=== PATIENT | female | born 1960 | race Caucasian/White ===

== ENCOUNTER 2018-12-24 10:01 | Emergency (ER) | payer OTHER ==
[2018-12-24] MEDS ORDERED: ALBUTEROL 2.5 MG/3 ML NEB SOL ONE (10:38)
[2018-12-24] MEDS ORDERED: IPRATROPIUM BROM 0.5MG/2.5ML ONE (10:39)
--- NOTE | 2018-12-24 11:45 | ER ---
Nurse's Notes [facility] Name: Omaira Pineda Age: 58 yrs Sex: Female : 1960 Arrival Date: 12/24/2018 Time: 10:04 Bed 19 Private MD: Diagnosis: Chronic obstructive pulmonary disease with (acute) exacerbation Presentation: 12/24 10:05 Presenting complaint: EMS states: called out for asthma attack at the [facility] retirement, pt had em wheezing in deborah. 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 Transition of care: patient was not received from another setting of care. Onset of symptoms was December 24, 2018. Risk Assessment: Do you want to hurt yourself or someone else? Patient reports no desire to harm self or others. Initial Sepsis Screen: Does the patient meet any 2 criteria? RR > 20 per min. No. Patient's initial sepsis screen is negative. Does the patient have a suspected source of infection? Yes: Productive cough/pneumonia. Care prior to arrival: Medication(s) given: Albuterol Neb x 1, Atrovent Neb x 1, Solu-Medrol 125 mg IV IV initiated. 18 GA, in the right antecubital area. 10:05 Method Of Arrival: EMS: [facility] em 10:13 Acuity: ARI 3 ss Historical: - Allergies: 10:09 No Known Allergies; em - PMHx: 10:09 Anxiety; Back pain; Chronic pain; Hypothyroidism; em - PSHx: 10:09 Tubal ligation; left hand; Hysterectomy; em - Immunization history:: Adult Immunizations not up to date. - Social history:: Smoking status: Patient/guardian denies using tobacco. - Ebola Screening: : Patient negative for fever greater than or equal to 101.5 degrees Fahrenheit, and additional compatible Ebola Virus Disease symptoms Patient denies exposure to infectious person Patient denies travel to an Ebola-affected area in the 21 days before illness onset No symptoms or risks identified at this time. Screenin:11 Abuse screen: Denies threats or abuse. Nutritional screening: No deficits noted. em Tuberculosis screening: No symptoms or risk factors identified. Fall Risk None identified. Assessment: 10:09 General: Appears in no apparent distress. comfortable, Behavior is calm, cooperative, em Denies fever. Pain: Denies pain. Neuro: Level of Consciousness is awake, alert, obeys commands, Oriented to person, place, time, situation, Appropriate for age. Cardiovascular: Capillary refill < 3 seconds Patient's skin is warm and dry. Rhythm is regular. Respiratory: Reports cough that is productive, Airway is patent Respiratory effort is even, unlabored, Respiratory pattern is regular, symmetrical, Breath sounds are clear bilaterally. Derm: Skin is intact, is healthy with good turgor, Skin is pink, warm \T\ dry. Musculoskeletal: Capillary refill < 3 seconds, Range of motion: intact in all extremities. 10:15 General: The previous assessment is accurate, call light remains within reach. ss Vital Signs: 10:09 BP 139 / 87; Pulse 68; Resp 24; Temp 98.0(O); Pulse Ox 100% on R/A; Pain 0/10; em 11:43 BP 145 / 78; Pulse 104; Resp 18; Temp 98.1(TE); Pulse Ox 98% on R/A; mh5 ED Course: 10:04 Patient arrived in ED. em 10:05 Sridhar Crawford MD is Attending Physician. gs 10:09 Arm band placed on. em 10:11 Patient has correct armband on for positive identification. Bed in low position. Call em light in reach. Adult w/ patient. [employer] officer at bedside. 10:11 Maintain EMS IV. Dressing intact. Good blood return noted. Site clean \T\ dry. Gauge \T\ em site: 18 G RAC. 10:13 Triage completed. ss 10:23 Gerardo Ramirez LVN is Primary Nurse. em 10:55 X-ray completed. Portable x-ray completed in exam room. Patient tolerated procedure mh1 well. 11:03 Chest Single View XRAY In Process Unspecified. EDMS 11:53 No provider procedures requiring assistance completed. IV discontinued, intact, ss bleeding controlled, No redness/swelling at site. Pressure dressing applied. Administered Medications: 10:43 Drug: Albuterol 2.5 mg Route: Inhalation; em 10:43 Drug: AtroVENT Aerosol 0.5 mg Route: Inhalation; em Outcome: 11:45 Discharge ordered by MD. gs 11:53 Discharged to Law Enforcement ss 11:53 Condition: improved 11:53 Discharge instructions given to patient, Instructed on discharge instructions, follow up and referral plans. medication usage, Demonstrated understanding of instructions, follow-up care, medications, Prescriptions given X 2. 11:55 Patient left the ED. Signatures: Dispatcher [employer] Margi Naik 1 Gerardo Ramirez, LOCKSTITCH BINDER LOCKSTITCH BINDER Chely Bolton, FLAQUITO RN Rashmi Jesus 5 Sridhar Crawford MD MD
--- NOTE | 2018-12-24 11:46 | EDPHYS ---
Physician Documentation [facility] Name: Omaira Pineda Age: 58 yrs Sex: Female : 1960 Arrival Date: 12/24/2018 Time: 10:04 Bed 19 Private MD: ED Physician Sridhar Crawford HPI: 12/24 11:21 This 58 yrs old Female presents to ER via EMS with complaints of Shortness Of gs Breath. 11:21 The patient has shortness of breath at rest. Onset: The symptoms/episode began/occurred gs yesterday. Duration: The symptoms are continuous. The patient's shortness of breath has no apparent modifying factors. Associated signs and symptoms: Pertinent negatives: fever. Severity of symptoms: At their worst the symptoms were moderate in the emergency department the symptoms are unchanged. The patient has experienced similar episodes in the past, chronically. Historical: - Allergies: 10: No Known Allergies; em - PMHx: 10:09 Anxiety; Back pain; Chronic pain; Hypothyroidism; em - PSHx: 10:09 Tubal ligation; left hand; Hysterectomy; em - Immunization history:: Adult Immunizations not up to date. - Social history:: Smoking status: Patient/guardian denies using tobacco. - Ebola Screening: : Patient negative for fever greater than or equal to 101.5 degrees Fahrenheit, and additional compatible Ebola Virus Disease symptoms Patient denies exposure to infectious person Patient denies travel to an Ebola-affected area in the 21 days before illness onset No symptoms or risks identified at this time. ROS: 11:21 All other systems are negative. gs Exam: 11:21 Head/Face: Normocephalic, atraumatic. Eyes: Pupils equal round and reactive to light, gs extra-ocular motions intact. Lids and lashes normal. Conjunctiva and sclera are non-icteric and not injected. Cornea within normal limits. Periorbital areas with no swelling, redness, or edema. ENT: Nares patent. No nasal discharge, no septal abnormalities noted. Tympanic membranes are normal and external auditory canals are clear. Oropharynx with no redness, swelling, or masses, exudates, or evidence of obstruction, uvula midline. Mucous membranes moist. Neck: Trachea midline, no thyromegaly or masses palpated, and no cervical lymphadenopathy. Supple, full range of motion without nuchal rigidity, or vertebral point tenderness. No Meningismus. Chest/axilla: Normal chest wall appearance and motion. Nontender with no deformity. No lesions are appreciated. Cardiovascular: Regular rate and rhythm with a normal S1 and S2. No gallops, murmurs, or rubs. Normal PMI, no JVD. No pulse deficits. Abdomen/GI: Soft, non-tender, with normal bowel sounds. No distension or tympany. No guarding or rebound. No evidence of tenderness throughout. Back: No spinal tenderness. No costovertebral tenderness. Full range of motion. Skin: Warm, dry with normal turgor. Normal color with no rashes, no lesions, and no evidence of cellulitis. MS/ Extremity: Pulses equal, no cyanosis. Neurovascular intact. Full, normal range of motion. Neuro: Awake and alert, GCS 15, oriented to person, place, time, and situation. Cranial nerves II-XII grossly intact. Motor strength 5/5 in all extremities. Sensory grossly intact. Cerebellar exam normal. Normal gait. 11:21 Constitutional: The patient appears alert, awake. 11:37 Respiratory: the patient does not display signs of respiratory distress, Respirations: gs tachypnea, that is mild, Breath sounds: rhonchi, that are mild, are scattered, wheezing: expiratory that is mild, is heard diffusely. Vital Signs: 10:09 BP 139 / 87; Pulse 68; Resp 24; Temp 98.0(O); Pulse Ox 100% on R/A; Pain 0/10; em 11:43 BP 145 / 78; Pulse 104; Resp 18; Temp 98.1(TE); Pulse Ox 98% on R/A; mh5 MDM: 10:29 Patient medically screened. gs 11:37 Differential diagnosis: asthma, Bronchitis Chronic Obstructive Pulmonary Disease. Data gs reviewed: vital signs, nurses notes, radiologic studies. Response to treatment: the patient's symptoms have markedly improved after treatment, and as a result, I will discharge patient. 12/24 10:39 Order name: Chest Single View XRAY gs Administered Medications: 10:43 Drug: Albuterol 2.5 mg Route: Inhalation; em 10:43 Drug: AtroVENT Aerosol 0.5 mg Route: Inhalation; em Disposition: 12/24/18 11:45 Discharged to Home. Impression: Chronic obstructive pulmonary disease with (acute) exacerbation. - Condition is Stable. - Discharge Instructions: Chronic Obstructive Pulmonary Disease. - Prescriptions for Prednisone 20 mg Oral Tablet - take 1 tablet by ORAL route once daily for 5 days; 5 tablet. Albuterol Sulfate 90 mcg/actuation - inhale 1-2 puff by INHALATION route every 4-6 hours; 1 Inhaler. - Medication Reconciliation Form, Thank You Letter, Antibiotic Education, Prescription Opioid Use form. - Follow up: Private Physician; When: 2 - 3 days; Reason: Re-evaluation by your physician. Signatures: Dispatcher [employer] Gerardo Fung LVN LVN em Smirch, Shelby, RN RN ss Sridhar Crawfrod MD MD gs Corrections: (The following items were deleted from the chart) 11:55 11:45 12/24/2018 11:45 Discharged to Home. Impression: Chronic obstructive pulmonary ss disease with (acute) exacerbation. Condition is Stable. Forms are Medication Reconciliation Form, Thank You Letter, Antibiotic Education, Prescription Opioid Use. Follow up: Private Physician; When: 2 - 3 days; Reason: Re-evaluation by your physician. gs
[2018-12-24 12:02] VITALS: BP 145/78; TEMP 98.1; O2SAT 98
--- NOTE | 2018-12-24 12:54 | RAD REPORT ---
EXAM DESCRIPTION: Ashlyn Single View12/24/2018 11:03 am CLINICAL HISTORY: Chest pain COMPARISON: 2016 FINDINGS: The lungs appear clear of acute infiltrate. The heart is normal size. Lungs are hyperaerated Focal bulge along the left hemidiaphragm without significant change could either represent a diaphrag matic hernia or eventration of the diaphragm
== END 2018-12-24 11:55 | disposition home or self-care (01) ==
LOC: ER 10:01
DX: J44.1 Chronic obstructive pulmonary disease with (acute) exacerbation (principal)
CPT/HCPCS: 71045; 99284

== ENCOUNTER 2019-06-08 19:20 | Emergency (ER) | payer OTHER ==
[2019-06-08] MEDS ORDERED: METHYLPREDNISOLONE 125 MG INJ ONE (19:50)
[2019-06-08] MEDS ORDERED: IPRATROPIUM BROM 0.5MG/2.5ML ONE (19:51)
[2019-06-08] MEDS ORDERED: ALBUTEROL 2.5 MG/3 ML NEB SOL ONE (19:52)
[2019-06-08] MEDS ORDERED: Levofloxacin500mg IV 500 MG/100 ML BAG IV ONE (19:52)
[2019-06-08] MEDS ORDERED: NA CHLORIDE 0.9% 1,000 ML ONE (19:52)
[2019-06-08] MEDS ORDERED: predniSONE 20 MG TAB ONE (20:08)
[2019-06-08 20:18] LABS: Absolute Lymphocytes (CBC) 2.2 K/uL (0.7-4.9); Basophils % 1.1 % (0-1.3); Hematocrit 43.6 % (36.0-45.0); Lymphocytes % 25.9 % (15.3-44.8); MPV 8.3 fL (7.6-11.3); RBC Red Blood Cell Count 4.95 M/uL (3.86-4.86)
[2019-06-08 20:22] LABS: Protime INR 0.9
[2019-06-08 20:43] LABS: ALT/SGPT 18 U/L (12-78); AST/SGOT 16 U/L (15-37); Albumin 3.5 g/dL (3.4-5.0); Alkaline Phosphatase 86 U/L (45-117); BUN Blood Urea Nitrogen 13 mg/dL (7-18); Bicarbonate 27 mmol/L (21-32); Bilirubin Direct < 0.1 mg/dL (0-0.2); Bilirubin Total 0.3 mg/dL (0.2-1.0); Glucose Level 97 mg/dL (74-106); NT PRO-BNP 23 pg/mL (<125); Potassium 4.2 mmol/L (3.5-5.1); Protein, Total 7.2 g/dL (6.4-8.2); Sodium Level 138 mmol/L (136-145); Troponin (Emerg Dept Use Only) < 0.02 ng/mL (0.0-0.045)
--- NOTE | 2019-06-08 21:32 | EDPHYS ---
Physician Documentation [facility] Name: Omaira Pineda Age: 58 yrs Sex: Female : 1960 Arrival Date: 06/08/2019 Time: 19:23 Bed 5 Private MD: JAXON Physician David Corcoran HPI: 06/07 19:55 This 58 yrs old Female presents to ER via Wheelchair with complaints of holley Shortness Of Breath. 19:55 The patient has shortness of breath with light activity. Onset: The symptoms/episode holley began/occurred 3 day(s) ago. Duration: The symptoms are continuous, and are steadily getting worse. The patient's shortness of breath has no apparent modifying factors. Associated signs and symptoms: The patient has no apparent associated signs or symptoms. Severity of symptoms: At their worst the symptoms were moderate in the emergency department the symptoms have improved mildly. The patient has experienced similar episodes in the past, multiple times. Historical: - Allergies: 19:41 No Known Allergies; ca1 - Home Meds: 19:41 Prednisone Oral [Active]; Xopenex Inhl [Active]; ca1 - PMHx: 19:41 Anxiety; Back pain; Chronic pain; Hypothyroidism; ca1 - PSHx: 19:41 Tubal ligation; left hand; Hysterectomy; ca1 - Immunization history:: Adult Immunizations up to date, Flu vaccine is not up to date. - Social history:: Smoking status: Patient reports the use of cigarette tobacco products, denies chronic smoking, but will smoke occasionally. ROS: 19:55 Constitutional: Negative for fever, chills, and weight loss, Eyes: Negative for injury, holley pain, redness, and discharge, ENT: Negative for injury, pain, and discharge, Neck: Negative for injury, pain, and swelling, Cardiovascular: Negative for chest pain, palpitations, and edema, Abdomen/GI: Negative for abdominal pain, nausea, vomiting, diarrhea, and constipation, Back: Negative for injury and pain, : Negative for injury, bleeding, discharge, and swelling, MS/Extremity: Negative for injury and deformity, Skin: Negative for injury, rash, and discoloration, Neuro: Negative for headache, weakness, numbness, tingling, and seizure, Psych: Negative for depression, anxiety, suicide ideation, homicidal ideation, and hallucinations, Allergy/Immunology: Negative for hives, rash, and allergies, Endocrine: Negative for neck swelling, polydipsia, polyuria, polyphagia, and marked weight changes, Hematologic/Lymphatic: Negative for swollen nodes, abnormal bleeding, and unusual bruising. 19:55 Respiratory: Positive for cough, shortness of breath, at rest. wheezing, expiratory. Exam: 19:55 Constitutional: This is a well developed, well nourished patient who is awake, alert, holley and in no acute distress. Head/Face: Normocephalic, atraumatic. Eyes: Pupils equal round and reactive to light, extra-ocular motions intact. Lids and lashes normal. Conjunctiva and sclera are non-icteric and not injected. Cornea within normal limits. Periorbital areas with no swelling, redness, or edema. ENT: Nares patent. No nasal discharge, no septal abnormalities noted. Tympanic membranes are normal and external auditory canals are clear. Oropharynx with no redness, swelling, or masses, exudates, or evidence of obstruction, uvula midline. Mucous membranes moist. Neck: Trachea midline, no thyromegaly or masses palpated, and no cervical lymphadenopathy. Supple, full range of motion without nuchal rigidity, or vertebral point tenderness. No Meningismus. Chest/axilla: Normal chest wall appearance and motion. Nontender with no deformity. No lesions are appreciated. Cardiovascular: Regular rate and rhythm with a normal S1 and S2. No gallops, murmurs, or rubs. Normal PMI, no JVD. No pulse deficits. Abdomen/GI: Soft, non-tender, with normal bowel sounds. No distension or tympany. No guarding or rebound. No evidence of tenderness throughout. Back: No spinal tenderness. No costovertebral tenderness. Full range of motion. Female : Normal external genitalia. Skin: Warm, dry with normal turgor. Normal color with no rashes, no lesions, and no evidence of cellulitis. MS/ Extremity: Pulses equal, no cyanosis. Neurovascular intact. Full, normal range of motion. Neuro: Awake and alert, GCS 15, oriented to person, place, time, and situation. Cranial nerves II-XII grossly intact. Motor strength 5/5 in all extremities. Sensory grossly intact. Cerebellar exam normal. Normal gait. Psych: Awake, alert, with orientation to person, place and time. Behavior, mood, and affect are within normal limits. 19:55 Respiratory: mild respiratory distress is noted, Respirations: labored breathing, that is mild, Breath sounds: decreased breath sounds, wheezing: expiratory is scattered. 19:57 Musculoskeletal/extremity: DVT Exam: No signs of deep vein thrombosis. no pain, no holley swelling, no tenderness, negative Homans' sign noted on exam, no appreciated bluish discoloration, no erythema, no increased warmth. Vital Signs: 19:37 BP 131 / 83; Pulse 90; Resp 24 S; Temp 98.3(O); Pulse Ox 99% on R/A; Weight 58.97 kg ca1 (R); Height 5 ft. 4 in. (162.56 cm) (R); 20:00 BP 143 / 78; Pulse 90; Resp 19 S; Pulse Ox 100% on 100% Nebulizer Mask; sg 21:04 BP 127 / 63; Pulse 85; Resp 18; Pulse Ox 98% on R/A; rr5 22:08 BP 121 / 62; Pulse 80; Resp 19; Temp 98.2; Pulse Ox 99% on R/A; rr5 19:37 Body Mass Index 22.31 (58.97 kg, 162.56 cm) ca1 MDM: 19:30 Patient medically screened. [facility] 19:57 Data reviewed: vital signs, nurses notes, lab test result(s), EKG, radiologic studies, [facility] CT scan, plain films. 06/07 19:45 Order name: Basic Metabolic Panel; Complete Time: 20:50 [facility] 06/07 19:45 Order name: CBC with Diff; Complete Time: 20:50 [facility] 06/07 19:45 Order name: LFT's; Complete Time: 20:50 [facility] 06/07 19:45 Order name: Magnesium; Complete Time: 20:50 [facility] 06/07 19:45 Order name: NT PRO-BNP; Complete Time: 20:50 [facility] 06/07 19:45 Order name: PT-INR; Complete Time: 20:50 [facility] 06/07 19:45 Order name: Troponin (emerg Dept Use Only); Complete Time: 20:50 [facility] 06/07 19:45 Order name: XRAY Chest (1 view) [facility] 06/07 19:45 Order name: Blood Culture Adult (2) [facility] 06/07 19:45 Order name: EKG; Complete Time: 19:46 [facility] 06/07 19:45 Order name: Cardiac monitoring; Complete Time: 20:12 [facility] 06/07 19:45 Order name: EKG - Nurse/Tech; Complete Time: 20:12 [facility] 06/07 19:45 Order name: IV Saline Lock; Complete Time: 20:12 [facility] 06/07 19:45 Order name: Labs collected and sent; Complete Time: 20:12 [facility] 06/07 19:45 Order name: O2 Per Protocol; Complete Time: 20:12 [facility] 06/07 19:45 Order name: O2 Sat Monitoring; Complete Time: 20:12 [facility] Administered Medications: 19:47 Drug: Albuterol - atroVENT (3:1) (2.5 mg - 0.5 mg) 3 ml Route: Nebulizer; rr5 20:47 Follow up: Response: No adverse reaction; Marked relief of symptoms rr5 19:55 Drug: SOLU-Medrol 125 mg Route: IVP; Site: right antecubital; rr5 20:55 Follow up: Response: No adverse reaction rr5 20:10 Drug: levofloxacin 500 mg Volume: 100 ml; Route: IVPB; Infused Over: 60 mins; Site: rr5 right antecubital; 21:10 Follow up: Response: No adverse reaction; IV Status: Completed infusion; IV Intake: rr5 100ml 20:10 Drug: predniSONE 40 mg Route: PO; rr5 21:10 Follow up: Response: No adverse reaction rr5 20:11 Drug: NS 0.9% 500 ml Route: IV; Rate: bolus; Site: right antecubital; rr5 20:50 Follow up: Response: No adverse reaction; IV Status: Completed infusion; IV Intake: rr5 500ml 20:50 Drug: NS 0.9% 1000 ml Route: IV; Rate: 125 ml/hr; Site: right antecubital; rr5 22:09 Follow up: Response: No adverse reaction; IV Status: Order to discontinue infusion; IV rr5 Intake: 125ml Disposition: 06/08/19 21:32 Discharged to Home. Impression: Chronic obstructive pulmonary disease with (acute) exacerbation, Dyspnea, Cough, Tobacco abuse counseling, Tobacco use. - Condition is Stable. - Discharge Instructions: Chronic Obstructive Pulmonary Disease, How to Use an Inhaler, Shortness of Breath, Steps to Quit Smoking, Smoking Hazards, Cool Mist Vaporizer, Shortness of Breath, Gkjz-to-Oang, Chronic Obstructive Pulmonary Disease Exacerbation, Chronic Obstructive Pulmonary Disease, [id number], Cough, Adult, [id number], Cough, Adult. - Prescriptions for Levaquin 500 mg Oral Tablet - take 1 tablet by ORAL route once daily for 7 days; 7 tablet. Albuterol Sulfate 2.5 mg /3 mL (0.083 %) Inhalation Solution for Nebulization - inhale 1 unit by NEBULIZATION route every 8 hours As needed; 1 box. Prednisone 20 mg Oral Tablet - take 2 tablet by ORAL route once daily for 5 days; 10 tablet. Albuterol Sulfate 90 mcg/actuation - inhale 1-2 puff by INHALATION route every 4-6 hours; 1 Inhaler. - Medication Reconciliation Form, Thank You Letter, Antibiotic Education, Prescription Opioid Use form. - Follow up: Private Physician; When: 2 - 3 days; Reason: Recheck today's complaints, Continuance of care, Re-evaluation by your physician. Follow up: Chava Ramos MD; When: 2 - 3 days; Reason: Recheck today's complaints, Continuance of care, Re-evaluation by your physician. - Problem is new. - Symptoms have improved. Signatures: Dispatcher [employer] EDMS David Corcoran MD MD cha Roque, Raymond, RN RN rr5 Kayla Tracey RN RN ca1 Corrections: (The following items were deleted from the chart) 22:10 21:32 06/08/2019 21:32 Discharged to Home. Impression: Chronic obstructive pulmonary rr5 disease with (acute) exacerbation; Dyspnea; Cough; Tobacco abuse counseling; Tobacco use. Condition is Stable. Discharge Instructions: Chronic Obstructive Pulmonary Disease, How to Use an Inhaler, Shortness of Breath, Steps to Quit Smoking, Smoking Hazards, Cool Mist Vaporizer, Shortness of Breath, [id number], Chronic Obstructive Pulmonary Disease Exacerbation, Chronic Obstructive Pulmonary Disease, [id number], Cough, Adult, [id number], Cough, Adult. Prescriptions for Levaquin 500 mg Oral Tablet - take 1 tablet by ORAL route once daily for 7 days; 7 tablet, Albuterol Sulfate 2.5 mg /3 mL (0.083 %) Inhalation Solution for Nebulization - inhale 1 unit by NEBULIZATION route every 8 hours As needed; 1 box, Prednisone 20 mg Oral Tablet - take 2 tablet by ORAL route once daily for 5 days; 10 tablet, Albuterol Sulfate 90 mcg/actuation - inhale 1-2 puff by INHALATION route every 4-6 hours; 1 Inhaler. and Forms are Medication Reconciliation Form, Thank You Letter, Antibiotic Education, Prescription Opioid Use. Follow up: Private Physician; When: 2 - 3 days; Reason: Recheck today's complaints, Continuance of care, Re-evaluation by your physician. Follow up: Chava Ramos; When: 2 - 3 days; Reason: Recheck today's complaints, Continuance of care, Re-evaluation by your physician. Problem is new. Symptoms have improved. holley
--- NOTE | 2019-06-08 21:32 | ER ---
Nurse's Notes [facility] Name: Omaira Pineda Age: 58 yrs Sex: Female : 1960 Arrival Date: 06/08/2019 Time: 19:23 Bed 5 Private MD: Diagnosis: Chronic obstructive pulmonary disease with (acute) exacerbation;Dyspnea;Cough;Tobacco abuse counseling;Tobacco use Presentation: 06/07 19:37 Chief complaint: Patient states: "I have COPD, I always cough and I am always short of ca1 breath. But today it has been worse. I'm out of meds especially my inhaler for about 3 days now". Denies fever. Coronavirus screen: Surgical mask placed on patient. Patient moved to private room, placed in contact and droplet isolation with eye protection until further assessment. Patient reports a cough. Patient reports shortness of breath or difficulty breathing. Patient denies measured and/or subjective temperature greater than 100.4F. Patient denies travel on a cruise ship or to a country the [facility] currently lists as an affected area. Patient denies contact with known and/or suspected case of COVID-19. Infection Prevention Nurse has been notified of patient in isolation for probable COVID-19. Ebola Screen: Patient negative for fever greater than or equal to 101.5 degrees Fahrenheit, and additional compatible Ebola Virus Disease symptoms Patient denies exposure to infectious person. Patient denies travel to an Ebola-affected area in the 21 days before illness onset. No symptoms or risks identified at this time. Initial Sepsis Screen: Does the patient meet any 2 criteria? Yes Does the patient have a suspected source of infection? No. Patient's initial sepsis screen is negative. Risk Assessment: Do you want to hurt yourself or someone else? Patient reports no desire to harm self or others. Onset of symptoms was June 08, 2019. 19:37 Method Of Arrival: Wheelchair ca1 19:37 Acuity: ARI 2 ca1 Triage Assessment: 19:41 Respiratory: Reports shortness of breath at rest Respiratory effort is even, labored, ca1 Respiratory pattern is regular, tachypnea Breath sounds with wheezes bilaterally. Onset: The symptoms/episode began/occurred gradually, the patient has mild shortness of breath. Historical: - Allergies: 19:41 No Known Allergies; ca1 - Home Meds: 19:41 Prednisone Oral [Active]; Xopenex Inhl [Active]; ca1 - PMHx: 19:41 Anxiety; Back pain; Chronic pain; Hypothyroidism; ca1 - PSHx: 19:41 Tubal ligation; left hand; Hysterectomy; ca1 - Immunization history:: Adult Immunizations up to date, Flu vaccine is not up to date. - Social history:: Smoking status: Patient reports the use of cigarette tobacco products, denies chronic smoking, but will smoke occasionally. Screenin:52 Abuse screen: Denies threats or abuse. Denies injuries from another. Nutritional rr5 screening: No deficits noted. Tuberculosis screening: No symptoms or risk factors identified. Fall Risk IV access (20 points). Total Ni Fall Scale indicates No Risk (0-24 pts). Assessment: 19:40 General: Appears uncomfortable, mild distress. Behavior is calm, cooperative, rr5 appropriate for age. Pain: Denies pain. Neuro: Level of Consciousness is awake, alert, obeys commands, Oriented to person, place, time, situation. Cardiovascular: Capillary refill < 3 seconds Patient's skin is warm and dry. Rhythm is sinus rhythm. Respiratory: Reports shortness of breath cough that is I have COPD Airway is patent Respiratory effort is even, labored, with nasal flaring, pursed lip, Respiratory pattern is tachypnea. 19:40 GI: No signs and/or symptoms were reported involving the gastrointestinal system. : rr5 No signs and/or symptoms were reported regarding the genitourinary system. EENT: No signs and/or symptoms were reported regarding the EENT system. Derm: Rash noted that is red, on right leg and left leg. Musculoskeletal: Circulation, motion, and sensation intact. Capillary refill < 3 seconds. 19:40 Respiratory: Breath sounds with wheezes. rr5 21:00 Reassessment: Patient appears in no apparent distress at this time. Patient is alert, rr5 oriented x 3, equal unlabored respirations, skin warm/dry/pink. Patient states feeling better. 21:10 Reassessment: Patient appears in no apparent distress at this time. Patient is alert, sg oriented x 3, equal unlabored respirations, skin warm/dry/pink. pt reports she was unable to get the lid off of the urine collection cup prior to urinating. 21:18 Reassessment: pt placed back to monitors at this time. sg 22:07 Reassessment: Patient appears in no apparent distress at this time. Patient is alert, rr5 oriented x 3, equal unlabored respirations, skin warm/dry/pink. ED provider spoke to patient agreed to be discharge and for the follow up. discharge instruction given and explained without complaints made. Patient states feeling better. Vital Signs: 19:37 BP 131 / 83; Pulse 90; Resp 24 S; Temp 98.3(O); Pulse Ox 99% on R/A; Weight 58.97 kg ca1 (R); Height 5 ft. 4 in. (162.56 cm) (R); 20:00 BP 143 / 78; Pulse 90; Resp 19 S; Pulse Ox 100% on 100% Nebulizer Mask; sg 21:04 BP 127 / 63; Pulse 85; Resp 18; Pulse Ox 98% on R/A; rr5 22:08 BP 121 / 62; Pulse 80; Resp 19; Temp 98.2; Pulse Ox 99% on R/A; rr5 19:37 Body Mass Index 22.31 (58.97 kg, 162.56 cm) ca1 ED Course: 19:23 Patient arrived in ED. mr 19:24 David Corcoran MD is Attending Physician. holley 19:31 Lucas Escalante, RN is Primary Nurse. sg 19:39 Triage completed. ca1 19:40 Cheko Amador, RN is Primary Nurse. rr5 19:41 Arm band placed on right wrist. ca1 19:45 Initial lab(s) drawn, by me, by EMS personnel. First set of blood cultures drawn by me. sg Missed attempt(s): 20 gauge in right forearm. Bleeding controlled, band aid applied, catheter tip intact. 19:50 Initial Neb Treatment Given as ordered Patient was instructed and evaluated on rr5 procedure. 19:53 Patient has correct armband on for positive identification. Placed in gown. Bed in low rr5 position. Call light in reach. cardiac monitor technician on. Pulse ox on. NIBP on. 19:53 EKG done, by ED staff, reviewed by David Corcoran MD. rr5 20:00 Second set of blood cultures drawn by me. Inserted saline lock: 22 gauge in right sg antecubital area, using aseptic technique. Blood collected. 20:12 Initial Neb Treatment Given as ordered Patient tolerated procedure well without adverse rr5 effect. 20:19 XRAY Chest (1 view) In Process Unspecified. EDMS 21:32 Chava Ramos MD is Referral Physician. holley 22:08 No provider procedures requiring assistance completed. IV discontinued, intact, rr5 bleeding controlled, No redness/swelling at site. Pressure dressing applied. Administered Medications: 19:47 Drug: Albuterol - atroVENT (3:1) (2.5 mg - 0.5 mg) 3 ml Route: Nebulizer; rr5 20:47 Follow up: Response: No adverse reaction; Marked relief of symptoms rr5 19:55 Drug: SOLU-Medrol 125 mg Route: IVP; Site: right antecubital; rr5 20:55 Follow up: Response: No adverse reaction rr5 20:10 Drug: levofloxacin 500 mg Volume: 100 ml; Route: IVPB; Infused Over: 60 mins; Site: rr5 right antecubital; 21:10 Follow up: Response: No adverse reaction; IV Status: Completed infusion; IV Intake: rr5 100ml 20:10 Drug: predniSONE 40 mg Route: PO; rr5 21:10 Follow up: Response: No adverse reaction rr5 20:11 Drug: NS 0.9% 500 ml Route: IV; Rate: bolus; Site: right antecubital; rr5 20:50 Follow up: Response: No adverse reaction; IV Status: Completed infusion; IV Intake: rr5 500ml 20:50 Drug: NS 0.9% 1000 ml Route: IV; Rate: 125 ml/hr; Site: right antecubital; rr5 22:09 Follow up: Response: No adverse reaction; IV Status: Order to discontinue infusion; IV rr5 Intake: 125ml Intake: 20:50 IV: 500ml; Total: 500ml. rr5 21:10 IV: 100ml; Total: 600ml. rr5 22:09 IV: 125ml; Total: 725ml. rr5 Outcome: 21:32 Discharge ordered by . holley 22:08 Discharged to home ambulatory. rr5 22:08 Condition: stable 22:08 Discharge instructions given to patient, Instructed on discharge instructions, follow up and referral plans. medication usage, Demonstrated understanding of instructions, follow-up care, medications, Prescriptions given X 4. 22:10 Patient left the ED. rr5 Signatures: Dispatcher [employer] EDMS Lucas Escalante RN David Koch MD MD cha Rivera, Mary mr Cheko Amador, RN RN rr5 Kayla Tracey RN RN ca1
--- NOTE | 2019-06-08 22:25 | RAD REPORT ---
EXAM DESCRIPTION: RAD - Chest Single View - 06/08/2019 8:19 pm CLINICAL HISTORY: COPD, shortness of breath COMPARISON: December 24, 2018 TECHNIQUE: AP portable chest image was obtained 06/08/2019 8:19 pm . FINDINGS: No focal mass or consolidation. Chronic interstitial pattern matches comparison. Left grace diaphragm elevation and eventration are stable. Heart and vasculature are normal. No measurable pleur al effusion and no pneumothorax. No acute bony abnormality seen. No acute aortic findings suspected. IMPRESSION: Chronic interstitial lung disease similar to the December 2018 comparison. No acute findings seen.
[2019-06-08 22:35] VITALS: BP 121/62; TEMP 98.2; O2SAT 99
--- NOTE | 2019-06-09 08:09 | EKG ---
Test Date: 2019-06-08 Test Time: 19:53:49 Wedger Machine: DAJA MEASUREMENT RESULTS: Intervals: Rate: 92 NV: 122 QRSD: 70 QT: 364 QTc: 450 [place]: P: 79 NV: 122 QRS: 73 T: 79 INTERPRETIVE STATEMENTS: Normal sinus rhythm Right atrial enlargement Borderline ECG Compared to ECG 06/11/2015 20:11:46 Sinus tachycardia no longer present Electronically Signed On 06-09-19 08:07:51 CDT by Basil Duncan
== END 2019-06-08 22:10 | disposition home or self-care (01) ==
LOC: ER 19:20
DX: J44.1 Chronic obstructive pulmonary disease with (acute) exacerbation (principal); J84.9 Interstitial pulmonary disease, unspecified; F17.210 Nicotine dependence, cigarettes, uncomplicated; E03.9 Hypothyroidism, unspecified; Z79.899 Other long term (current) drug therapy; Z79.52 Long term (current) use of systemic steroids
CPT/HCPCS: 96365; 96361; 93005; 87040 ×2; 85025; 80048; 36415; 83735; 85610; 80076; 84484; 83880; 71045; 94640; 96375; 99285; J7030; J2930; J7512

== ENCOUNTER 2019-07-31 13:36 | Emergency (ER) | payer OTHER ==
--- OUTSIDE RECORDS SUMMARY | 2019-07-31 13:37 | XMS REPORT ---
:[address] [facility] t Address [address] [place] [address] Care Team Providers Name Role Phone Liu COLÓN Attending Clinician Problems This patient has no known problems. Allergies, Adverse Reactions, Alerts This patient has no known allergies or adverse reactions. Medications This patient has no known medications. Procedures This patient has no known procedures. Encounters Start End Encounter Admission Attending Care Care Encounter Source Date/Time Date/Time Type Type Clinicians Facility Department ID 2019-07-20 2019-07-20 Telemedici Liu [facility] [id number] 07:52:59 08:12:59 ne Visit Danilo Mcginnis [id number] Raul [id number] [facility] [phone] [facility] [address] Results This patient has no known results.
--- OUTSIDE RECORDS SUMMARY | 2019-07-31 13:37 | XMS REPORT | Summary of Care ---
:1960 Author Organization [facility] Address [address] [place] [id number] Care Team Providers Name Role Phone Pcp, Does Not Have A Primary Care Provider Reason for Visit Reason Comments Cancellation Encounter Details Date Type Department Care Team Description 07/20/2019 Telemedicine Visit [facility] ADC Danilo Hatfield DO [facility] [address] [place] [address] (Primary Dx) [address] [place] [address] [facility] [address] [place] [id number] Allergies No Known Allergiesdocumented as of this encounter (statuses as of 07/20/2019) Medications Medication Sig Dispensed Refills Start Date End Date Status LORazepam (ATIVAN) Take 1 Tab by 12 Tab 0 06/09/2012 Active 0.5 mg tablet mouth 2 (two) times daily as needed (anxiety). traMADOL (ULTRAM) 50 Take 1 Tab by mouth every 6 (six) hours as needed for Pain (scale 4-6). Terry Mccoy PA-C / Martin Barrientos MD 20 Tab 0 0 05/30/2015 Active mg tablet MATHEW# [id number] DPS# [id number] [place] Lic.# [id number] NPI# [id number] levalbuterol (XOPENEX Inhale 1-2 Puffs 15 g 0 05/30/2015 Active HFA) 45 mcg/actuation every 4 (four) inhaler hours as needed for Wheezing. tiotropium (SPIRIVA Inhale 1 capsule 3 capsule 0 02/12/2017 Active WITH HANDIHALER) 18 daily. mcg inhalation levalbuterol 45 Inhale 1-2 Puffs 15 g 0 02/12/2017 Active mcg/actuation inhaler every 4 (four) hours as needed for Wheezing. sulfamethoxazole-trim Take 1 tablet by 20 tablet 0 04/09/2017 Active ethoprim 400-80 mg mouth every 12 per tablet (twelve) hours. benzonatate 100 mg Take 1 capsule by 14 capsule 0 04/09/2017 Active capsule mouth 3 (three) times daily as needed for Cough. documented as of this encounter (statuses as of 07/20/2019) Active Problems Not on filedocumented as of this encounter (statuses as of 07/20/2019) Social History Tobacco Use Types Packs/Day Years Used Date Never Assessed Sex Assigned at Date Recorded Not on file Job Start Date Occupation Industry Not on file Not on file Not on file Travel History Travel Start Travel End No recent travel history available. documented as of this encounter Last Filed Vital Signs Not on filedocumented in this encounter Progress Notes Danilo Hatfield DO - 07/20/2019 11:20 AM CDTUnable to get a hold of patient. documented in this encounter Plan of Treatment Health Maintenance Due Date Last Done Comments HEPATITIS C (HCV) SCREEN 1960 DTaP,Tdap,and Td Vaccines (1 - 11/27/1971 Tdap) PAP SMEAR 1981 Breast Cancer Screening 2000 (MAMMOGRAM) COLONOSCOPY 2010 Zoster Recombinant Vaccine 2010 (SHINGRIX) (1 of 2) INFLUENZA VACCINE (Season Ended) 2019 PNEUMOCOCCAL 0-64 YEARS COMBINED Aged Out No longer eligible based on SERIES patient's age to complete this topic documented as of this encounter Results Not on filedocumented in this encounter Visit Diagnoses Diagnosis CANCELLATION - Primary documented in this encounter Insurance Payer Benefit Plan / Subscriber ID Effective Dates Phone Addre ss Type Group [employer] MEDICAID OF xxxxxxxxx 2015-Present [phone] [address] Medicaid [place] [id number] [place] [address] [phone] [id number] (Work) documented as of this encounter
[2019-07-31] MEDS ORDERED: LEVALBUTEROL 1.25 MG/3 ML NEB ONE (14:45)
[2019-07-31] MEDS ORDERED: METHYLPREDNISOLONE 125 MG INJ ONE (14:45)
[2019-07-31 14:47] LABS: Absolute Lymphocytes (CBC) 1.6 K/uL (0.7-4.9); Basophils % 0.8 % (0-1.3); Hematocrit 42.3 % (36.0-45.0); Lymphocytes % 22.6 % (15.3-44.8); MPV 8.3 fL (7.6-11.3); RBC Red Blood Cell Count 4.85 M/uL (3.86-4.86)
[2019-07-31 14:48] LABS: Protime INR 0.89
--- NOTE | 2019-07-31 14:49 | RAD REPORT ---
EXAM DESCRIPTION: RAD - Chest Single View - 07/31/2019 2:44 pm CLINICAL HISTORY: DYSPNEA Chest pain. COMPARISON: Chest Single View dated 06/08/2019; Chest Single View dated 12/24/2018; Chest Single View dated 06/12/2015; CHEST PA AND LAT 2 VIEW dated 08/17/2014 FINDINGS: Portable technique limits examination quality. The lungs are grossly clear. The heart is normal in size. No displaced fractures. IMPRESSION: No acute intrathoracic process suspected.
[2019-07-31 15:09] LABS: ALT/SGPT 18 U/L (12-78); AST/SGOT 16 U/L (15-37); Albumin 3.6 g/dL (3.4-5.0); Alkaline Phosphatase 85 U/L (45-117); BUN Blood Urea Nitrogen 8 mg/dL (7-18); Bicarbonate 31 mmol/L (21-32); Bilirubin Direct < 0.1 mg/dL (0-0.2); Bilirubin Total 0.3 mg/dL (0.2-1.0); Glucose Level 116 mg/dL (74-106); NT PRO-BNP 38 pg/mL (<125); Potassium 3.8 mmol/L (3.5-5.1); Protein, Total 7.3 g/dL (6.4-8.2); Sodium Level 136 mmol/L (136-145); Troponin (Emerg Dept Use Only) 0.02 ng/mL (0.0-0.045)
[2019-07-31 15:38] VITALS: TEMP 97.7
[2019-07-31 15:40] VITALS: O2SAT 100
[2019-07-31 15:42] VITALS: BP 144/89
--- NOTE | 2019-08-01 12:53 | EKG ---
Test Date: 2019-07-31 Test Time: 14:46:54 [employer]: SPARKLE MEASUREMENT RESULTS: Intervals: Rate: 87 CO: 124 QRSD: 70 QT: 374 QTc: 450 [place]: P: 75 CO: 124 QRS: 74 T: 77 INTERPRETIVE STATEMENTS: Normal sinus rhythm Normal ECG Compared to ECG 06/08/2019 19:53:49 Atrial abnormality no longer present Electronically Signed On 08-01-19 12:50:36 CDT by Basil Duncan
--- NOTE | 2019-08-06 13:23 | EDPHYS ---
Physician Documentation [facility] Name: Omaira Pineda Age: 58 yrs Sex: Female : 1960 Arrival Date: 07/31/2019 Time: 13:37 Bed 13 Private MD: ED Physician Noah Cisneros HPI: 07/30 14:45 This 58 yrs old Female presents to ER via Ambulatory with complaints of jr8 Shortness Of Breath. 14:45 The patient has shortness of breath at rest. Onset: The symptoms/episode began/occurred jr8 gradually, 5 day(s) ago. Duration: The symptoms are continuous. The patient's shortness of breath is aggravated by light activity, talking, walking. Associated signs and symptoms: Pertinent positives: productive cough. Severity of symptoms: At their worst the symptoms were moderate in the emergency department the symptoms are unchanged. The patient has experienced similar episodes in the past, a few times. The patient has not recently seen a physician. Stated that she is now out of her medications and has not been able to see PCP or material clerk to get refilled. Suppose to have telemedicine call this . Historical: - Allergies: 13:49 No Known Allergies; iw - PMHx: 13:49 Anxiety; Back pain; Chronic pain; Hypothyroidism; iw - PSHx: 13:49 Tubal ligation; left hand; Hysterectomy; iw - Immunization history:: Adult Immunizations not up to date. - Social history:: Smoking status: Patient/guardian denies using tobacco, the patient reports quitting approximately 6 years ago. ROS: 14:45 Eyes: Negative for injury, pain, redness, and discharge, ENT: Negative for injury, jr8 pain, and discharge, Neck: Negative for injury, pain, and swelling, Cardiovascular: Negative for chest pain, palpitations, and edema, Abdomen/GI: Negative for abdominal pain, nausea, vomiting, diarrhea, and constipation, Back: Negative for injury and pain, MS/Extremity: Negative for injury and deformity, Skin: Negative for injury, rash, and discoloration, Neuro: Negative for headache, weakness, numbness, tingling, and seizure. 14:45 Respiratory: Positive for cough, dyspnea on exertion, shortness of breath, wheezing. Exam: 14:45 Eyes: Pupils equal round and reactive to light, extra-ocular motions intact. Lids and jr8 lashes normal. Conjunctiva and sclera are non-icteric and not injected. Cornea within normal limits. Periorbital areas with no swelling, redness, or edema. ENT: Nares patent. No nasal discharge, no septal abnormalities noted. Tympanic membranes are normal and external auditory canals are clear. Oropharynx with no redness, swelling, or masses, exudates, or evidence of obstruction, uvula midline. Mucous membranes moist. Neck: Trachea midline, no thyromegaly or masses palpated, and no cervical lymphadenopathy. Supple, full range of motion without nuchal rigidity, or vertebral point tenderness. No Meningismus. Cardiovascular: Regular rate and rhythm with a normal S1 and S2. No gallops, murmurs, or rubs. Normal PMI, no JVD. No pulse deficits. Abdomen/GI: Soft, non-tender, with normal bowel sounds. No distension or tympany. No guarding or rebound. No evidence of tenderness throughout. Back: No spinal tenderness. No costovertebral tenderness. Full range of motion. Skin: Warm, dry with normal turgor. Normal color with no rashes, no lesions, and no evidence of cellulitis. MS/ Extremity: Pulses equal, no cyanosis. Neurovascular intact. Full, normal range of motion. Neuro: Awake and alert, GCS 15, oriented to person, place, time, and situation. Cranial nerves II-XII grossly intact. Motor strength 5/5 in all extremities. Sensory grossly intact. Cerebellar exam normal. Normal gait. 14:45 Respiratory: the patient does not display signs of respiratory distress, Respirations: tachypnea, Breath sounds: decreased breath sounds, that are mild, are located in both bases, wheezing: expiratory that is mild, is heard diffusely. 14:54 ECG was reviewed by the Attending Physician. [facility] Vital Signs: 13:46 BP 159 / 91; Pulse 103; Resp 20; Temp 97.7; Pulse Ox 97% on R/A; Weight 58.97 kg; iw Height 5 ft. 4 in. (162.56 cm); Pain 5/10; 14:43 BP 142 / 90; Pulse 87; Resp 16; Pulse Ox 100% ; bp 15:29 BP 144 / 89; Pulse 91; Resp 16; Pulse Ox 100% ; bp 13:46 Body Mass Index 22.31 (58.97 kg, 162.56 cm) iw MDM: 13:53 Patient medically screened. 15:14 Data reviewed: vital signs, nurses notes, lab test result(s), EKG, radiologic studies, jr8 plain films. Data interpreted: Pulse oximetry: on room air is 100 %. Interpretation: normal. Counseling: I had a detailed discussion with the patient and/or guardian regarding: the historical points, exam findings, and any diagnostic results supporting the discharge/admit diagnosis, lab results, radiology results, the need for outpatient follow up, a material clerk, to return to the emergency department if symptoms worsen or persist or if there are any questions or concerns that arise at home. Response to treatment: the patient's symptoms have markedly improved after treatment. 07/30 14:20 Order name: Basic Metabolic Panel; Complete Time: 15:07/30 14:20 Order name: CBC with Diff; Complete Time: 14:52 07/30 14:20 Order name: LFT's; Complete Time: 15:07/30 14:20 Order name: Magnesium; Complete Time: 15:07/30 14:20 Order name: NT PRO-BNP; Complete Time: 15:07/30 14:20 Order name: PT-INR; Complete Time: 14:07/30 14:20 Order name: Troponin (emerg Dept Use Only); Complete Time: 15:07/30 14:20 Order name: XRAY Chest (1 view); Complete Time: 14:07/30 14:20 Order name: EKG; Complete Time: 14:22 07/30 14:20 Order name: Cardiac monitoring; Complete Time: 14:07/30 14:20 Order name: EKG - Nurse/Tech; Complete Time: 14:43 07/30 14:20 Order name: IV Saline Lock; Complete Time: :07/30 14:20 Order name: Labs collected and sent; Complete Time: :07/30 14:20 Order name: O2 Per Protocol; Complete Time: 14:07/30 14:20 Order name: O2 Sat Monitoring; Complete Time: : EC:54 Rate is 87 beats/min. Rhythm is regular, Normal Sinus Rhythm. QRS [place] is Normal. PA jr8 interval is normal at 124 msec. QRS interval is normal at 70 msec. QT interval is normal at 450 msec. No Q waves. T waves are Normal. No ST changes noted. Clinical impression: Normal ECG. Interpreted by me. Reviewed by me. Administered Medications: 14:30 Drug: SOLU-Medrol 125 mg Route: IVP; Site: right forearm; bp 15:28 Follow up: Response: No adverse reaction bp 14:30 Drug: Xopenex (3) 1.25 mg Route: Inhalation; bp 15:28 Follow up: Response: No adverse reaction bp Disposition: 15:54 Co-signature as Attending Physician, Noah Cisneros MD. rn Disposition: 07/31/19 15:15 Discharged to Home. Impression: Chronic obstructive pulmonary disease with (acute) exacerbation. - Condition is Stable. - Discharge Instructions: Chronic Obstructive Pulmonary Disease. - Prescriptions for Xopenex HFA 45 mcg/actuation Inhalation HFA aerosol inhaler - inhale 2 puff by INHALATION route every 4 hours; 1 Cartridge. ipratropium bromide 0.02 % Inhalation solution - inhale 2.5 milliliter by INHALATION route every 6-8 hours as needed; 1 box. Xopenex 1.25 mg/3 mL Inhalation Solution for Nebulization - inhale 1 unit by NEBULIZATION route every 8 hours As needed; 1 box. Medrol (Ceferino) 4 mg Oral Tablets, Dose Pack - take 1 tablet by ORAL route as directed - follow package instructions; 1 packet. - Medication Reconciliation Form, Thank You Letter, Antibiotic Education, Prescription Opioid Use form. - Follow up: Private Physician; When: 2 - 3 days; Reason: Recheck today's complaints, Continuance of care, Re-evaluation by your physician. - Problem is new. - Symptoms have improved. Signatures: Dispatcher [employer] Yahaira Whitney RN RN iw Nieto, Roman, MD MD rn Roszak, Josh, PA PA jr8 Chilango Landry RN RN bp Corrections: (The following items were deleted from the chart) 15:31 15:15 07/31/2019 15:15 Discharged to Home. Impression: Chronic obstructive pulmonary bp disease with (acute) exacerbation. Condition is Stable. Forms are Medication Reconciliation Form, Thank You Letter, Antibiotic Education, Prescription Opioid Use. Follow up: Private Physician; When: 2 - 3 days; Reason: Recheck today's complaints, Continuance of care, Re-evaluation by your physician. Problem is new. Symptoms have improved. jr8
--- NOTE | 2019-08-06 13:23 | ER ---
Nurse's Notes [facility] Name: Omaira Pineda Age: 58 yrs Sex: Female : 1960 Arrival Date: 07/31/2019 Time: 13:37 Bed 13 Private MD: Diagnosis: Chronic obstructive pulmonary disease with (acute) exacerbation Presentation: 07/30 13:46 Chief complaint: Patient states: has hx of COPD, has been out of meds for 4-5 days, is iw out of her Xopenex and prednisone , has increasing SOB and cough, has virtual appt on , no fever. Coronavirus screen: Patient reports a cough. Patient reports shortness of breath or difficulty breathing. Patient denies measured and/or subjective temperature greater than 100.4F prior to today's visit. Patient denies travel on a cruise ship or to a country the [facility] currently lists as an affected area. Patient denies contact with known and/or suspected case of COVID-19. Ebola Screen: Patient negative for fever greater than or equal to 101.5 degrees Fahrenheit, and additional compatible Ebola Virus Disease symptoms Patient denies exposure to infectious person. Patient denies travel to an Ebola-affected area in the 21 days before illness onset. No symptoms or risks identified at this time. Initial Sepsis Screen: Does the patient meet any 2 criteria? No. Patient's initial sepsis screen is negative. Does the patient have a suspected source of infection? No. Patient's initial sepsis screen is negative. Risk Assessment: Do you want to hurt yourself or someone else? Patient reports no desire to harm self or others. Onset of symptoms was July 26, 2019. 13:46 Method Of Arrival: Ambulatory iw 13:46 Acuity: ARI 3 iw Triage Assessment: 13:50 General: Appears in no apparent distress. comfortable, Behavior is cooperative, bp appropriate for age, anxious. Pain: Denies pain. EENT: No deficits noted. Neuro: No deficits noted. Cardiovascular: No deficits noted. Respiratory: Reports shortness of breath Onset: The symptoms/episode began/occurred yesterday, the patient has mild shortness of breath. GI: No signs and/or symptoms were reported involving the gastrointestinal system. : No signs and/or symptoms were reported regarding the genitourinary system. Derm: No deficits noted. Musculoskeletal: No deficits noted. Historical: - Allergies: 13:49 No Known Allergies; iw - PMHx: 13:49 Anxiety; Back pain; Chronic pain; Hypothyroidism; iw - PSHx: 13:49 Tubal ligation; left hand; Hysterectomy; iw - Immunization history:: Adult Immunizations not up to date. - Social history:: Smoking status: Patient/guardian denies using tobacco, the patient reports quitting approximately 6 years ago. Screenin:50 Abuse screen: Denies threats or abuse. Denies injuries from another. Nutritional bp screening: No deficits noted. Tuberculosis screening: No symptoms or risk factors identified. Fall Risk None identified. Assessment: 13:50 General: SEE TRIAGE NOTE. Cardiovascular: Rhythm is sinus tachycardia. Respiratory: bp Airway is patent Respiratory effort is even, labored, Breath sounds with wheezes bilaterally. 15:30 Reassessment: PT D/C HOME AMBULATORY, DX WITH COPD EXACERBATION. Respiratory: Airway is bp patent Respiratory effort is even, unlabored. Vital Signs: 13:46 BP 159 / 91; Pulse 103; Resp 20; Temp 97.7; Pulse Ox 97% on R/A; Weight 58.97 kg; iw Height 5 ft. 4 in. (162.56 cm); Pain 5/10; 14:43 BP 142 / 90; Pulse 87; Resp 16; Pulse Ox 100% ; bp 15:29 BP 144 / 89; Pulse 91; Resp 16; Pulse Ox 100% ; bp 13:46 Body Mass Index 22.31 (58.97 kg, 162.56 cm) iw ED Course: 13:37 Patient arrived in ED. as 13:48 Triage completed. iw 13:49 Arm band placed on. iw 13:50 Patient has correct armband on for positive identification. Bed in low position. Call bp light in reach. Side rails up X2. 13:52 Khai Grayson PA is PHCP. jr8 13:52 Noah Cisneros MD is Attending Physician. jr8 14:00 Chilango Landry, FLAQUITO is Primary Nurse. bp 14:30 Inserted saline lock: 20 gauge in right forearm, using aseptic technique. Blood bp collected. 14:46 XRAY Chest (1 view) In Process Unspecified. EDMS 15:30 No provider procedures requiring assistance completed. IV discontinued, intact, bp bleeding controlled, No redness/swelling at site. Pressure dressing applied. Administered Medications: 14:30 Drug: SOLU-Medrol 125 mg Route: IVP; Site: right forearm; bp 15:28 Follow up: Response: No adverse reaction bp 14:30 Drug: Xopenex (3) 1.25 mg Route: Inhalation; bp 15:28 Follow up: Response: No adverse reaction bp Outcome: 15:15 Discharge ordered by MD. rizo 15:30 Discharged to home ambulatory. bp 15:30 Condition: stable 15:30 Discharge instructions given to patient, Instructed on discharge instructions, follow up and referral plans. medication usage, Demonstrated understanding of instructions, follow-up care, medications, Prescriptions given X 4. 15:31 Patient left the ED. bp Signatures: Dispatcher [employer] EDMS Nargis Raymundo Irene, FLAQUITO RN iw Khai Grayson PA PA jr8 Peltier, Brian, RN RN bp
== END 2019-07-31 15:31 | disposition home or self-care (01) ==
LOC: ER 13:36
DX: J44.1 Chronic obstructive pulmonary disease with (acute) exacerbation (principal)
CPT/HCPCS: 93005; 85025; 80048; 36415; 83735; 85610; 80076; 84484; 83880; 71045; 96374; 99285; J2930

== ENCOUNTER 2019-10-18 17:05 | Emergency (ER) | payer OTHER ==
--- OUTSIDE RECORDS SUMMARY | 2019-10-18 17:07 | XMS REPORT | Summary of Care ---
:1960 Author Organization [facility] Address [address] [place] [id number] Care Team Providers Name Role Phone Pcp, Does Not Have A Primary Care Provider Reason for Visit Reason Comments Erroneous encounter-disregard Encounter Details Date Type Department Care Team Description 08/02/2019 Telemedicine Visit [facility] ADC Danilo Hatfield DO [facility] [address] [place] [address] (Primary Dx) [address] [place] [address] , [facility] [address] [place] [id number] [phone] Allergies No Known Allergiesdocumented as of this encounter (statuses as of 08/02/2019) Medications Medication Sig Dispensed Refills Start Date [...] 0 0 05/30/2015 Active mg tablet MATHEW# [id number] DPS# [id number] [place] Lic.# [id number] NPI# [id number] levalbuterol (XOPENEX Inhale 1-2 Puffs 15 g [...] as of this encounter (statuses as of 08/02/2019) Active Problems Not on filedocumented as of this encounter (statuses as of 08/02/2019) Social History Tobacco Use Types Packs/Day Years [...] encounter Progress Notes Danilo Hatfield DO - 08/02/2019 1:40 PM CDTUnable to get a hold of patient. documented in this encounter Plan of Treatment Health Maintenance Due Date Last Done Comments HEPATITIS C (HCV) SCREEN 1960 DTaP,Tdap,and Td Vaccines (1 - 11/27/1971 Tdap) Depression Screening 1972 PAP SMEAR 1981 Breast Cancer Screening 2000 [...] Effective Dates Phone Addre ss Type Group [facility] MEDICAID OF xxxxxxxxx 2015-Present [phone] [address] Medicaid [place] [id number] [place] [phone] [id number] (Work) documented as of this encounter
--- OUTSIDE RECORDS SUMMARY | 2019-10-18 17:07 | XMS REPORT | Continuity of Care Document ---
:[address] [facility] t Address [address] [place] [address] Care Team Providers Name Role Phone Liu COLÓN Attending Clinician Problems This patient has no known problems. Allergies, Adverse Reactions, Alerts This patient has no known allergies or adverse reactions. Medications This patient has no known medications. Procedures This patient has no known procedures. Encounters Start End Encounter Admission Attending Care Care Encounter Source Date/Time Date/Time Type Type Clinicians Facility Department ID 2019-08-02 [facility]08[facility]02 [facility] [id number] 08:08:44 08:28:44 ne Visit Danilo Mcginnis [id number] [place] [id number] Profess[facility] [phone] nal 085 Building 2019-07-20 2019-07-20 [facility] [id number] 07:52:59 08:12:59 ne Visit Danilo Mcginnis [id number] [place] [id number] Profess[facility] [phone] nal 085 [facility] Results This patient has no known results.
[2019-10-18] MEDS ORDERED: METHYLPREDNISOLONE 125 MG INJ ONE (17:55)
[2019-10-18] MEDS ORDERED: ALBUTEROL INHALER 60 PUFF/8 GM IH ONE (17:55)
[2019-10-18] MEDS ORDERED: predniSONE 20 MG TAB ONE (17:56)
--- NOTE | 2019-10-18 18:19 | ER ---
Nurse's Notes [facility] Name: Omaira Pineda Age: 58 yrs Sex: Female : 1960 Arrival Date: 10/18/2019 Time: 17:06 Bed 13 Private MD: Diagnosis: Chronic obstructive pulmonary disease with (acute) exacerbation Presentation: 10/17 17:13 Chief complaint: Patient states: Pt c/o increased SOB. pt has COPD, states she ran out ks of her inhalers and breathing medications. Coronavirus screen: Client denies travel out of the [place] in the last 14 days. At this time, the client does not indicate any symptoms associated with coronavirus-19. The client denies any previous COVID testing. Ebola Screen: Patient negative for fever greater than or equal to 101.5 degrees Fahrenheit, and additional compatible Ebola Virus Disease symptoms Patient denies exposure to infectious person. Patient denies travel to an Ebola-affected area in the 21 days before illness onset. Initial Sepsis Screen: Does the patient meet any 2 criteria? No. Patient's initial sepsis screen is negative. Does the patient have a suspected source of infection? No. Patient's initial sepsis screen is negative. Risk Assessment: Do you want to hurt yourself or someone else? Patient reports no desire to harm self or others. Onset of symptoms was October 16, 2019. 17:13 Method Of Arrival: Ambulatory ks 17:13 Acuity: ARI 3 ks7 Triage Assessment: 17:17 General: Appears distressed, Behavior is cooperative, anxious. Pain: Denies pain. ks7 Respiratory: Reports shortness of breath Onset: The symptoms/episode began/occurred yesterday, the patient has moderate shortness of breath. Historical: - Allergies: 17:17 No Known Allergies; ks7 - Home Meds: 17:17 Prednisone Oral [Active]; Xopenex Inhl [Active]; ks7 - PMHx: 17:17 Anxiety; Back pain; Chronic pain; Hypothyroidism; COPD; ks7 - PSHx: 17:17 None; ks7 - Immunization history:: Adult Immunizations unknown. - Social history:: Smoking status: Patient reports the use of cigarette tobacco products, Patient/guardian denies using tobacco, the patient reports quitting approximately 2 years ago. Screenin:28 Abuse screen: Denies threats or abuse. Denies injuries from another. Nutritional bp screening: No deficits noted. Tuberculosis screening: No symptoms or risk factors identified. 17:30 Fall Risk None identified. bp Assessment: 17:27 General: SEE TRIAGE NOTE. Cardiovascular: Rhythm is sinus tachycardia. Respiratory: bp Airway is patent Respiratory effort is even, unlabored, Breath sounds are coarse bilaterally. 18:36 Reassessment: PT D/C HOME AMBULATORY, DX WITH COPD EXACERBATION. bp Vital Signs: 17:13 BP 177 / 89; Pulse 114; Resp 22; Temp 98.7(O); Pulse Ox 98% on R/A; Weight 61.23 kg; ks7 Height 5 ft. 4 in. (162.56 cm); Pain 0/10; 18:35 BP 167 / 75; Pulse 97; Resp 20; Temp 98.7; Pulse Ox 98% ; bp 17:13 Body Mass Index 23.17 (61.23 kg, 162.56 cm) ks7 ED Course: 17:06 Patient arrived in ED. ag5 17:16 Triage completed. ks7 17:17 Arm band placed on right wrist. ks7 17:27 Chilango Landry, RN is Primary Nurse. bp 17:28 Patient has correct armband on for positive identification. Bed in low position. Call bp light in reach. Side rails up X2. 17:30 David Rodriguez PA is PHCP. cp 17:30 Ralph Saenz MD is Attending Physician. cp 18:12 COVID-19 Sent. ks7 18:12 Inserted saline lock: 20 gauge in left antecubital area, using aseptic technique. ks7 18:37 No provider procedures requiring assistance completed. IV discontinued, intact, bp bleeding controlled, No redness/swelling at site. Pressure dressing applied. Administered Medications: 18:00 Drug: Albuterol HFA Inhaler 2 puffs Route: Inhalation; ks7 18:05 Drug: SOLU-Medrol 80 mg Route: IVP; Site: left antecubital; ks7 18:37 Follow up: Response: Marked relief of symptoms bp Outcome: 18:19 Discharge ordered by . cp 18:37 Discharged to home ambulatory. bp 18:37 Condition: stable 18:37 Discharge instructions given to patient, Instructed on discharge instructions, follow up and referral plans. medication usage, Demonstrated understanding of instructions, follow-up care, medications, Prescriptions given X 2. 18:38 Patient left the ED. bp Addendum: 10/22/2019 12:35 Addendum: COVID-19 Result: Negative result given to RN to notify pt. Contacted by: Darius Hummel RN. Attempted to contact pt regarding negative COVID-19 swab results. Left voice mail. Signatures: Cheyenne Hummel, FLAQUITO RN dm5 David Rodriguez PA PA cp Peltier, Brian RN RN bp Kashmir Espinoza ag5 Alie Fong RN RN ks7
--- NOTE | 2019-10-18 18:19 | EDPHYS ---
Physician Documentation [facility] Name: Omaira Pineda Age: 58 yrs Sex: Female : 1960 Arrival Date: 10/18/2019 Time: 17:06 Bed 13 Private MD: ED Physician Ralph Saenz HPI: 10/17 17:40 This 58 yrs old Female presents to ER via Ambulatory with complaints of cp Breathing Difficulty. 17:40 The patient has shortness of breath with light activity. Onset: The symptoms/episode cp began/occurred gradually. Duration: The symptoms are continuous, and are steadily getting worse. Associated signs and symptoms: Pertinent positives: non-productive cough, Pertinent negatives: chest pain, diaphoresis, fever, hemoptysis, vomiting. Severity of symptoms: in the emergency department the symptoms are unchanged. Patient reports running out of prescribed medications for COPD. Historical: - Allergies: 17:17 No Known Allergies; ks7 - Home Meds: 17:17 Prednisone Oral [Active]; Xopenex Inhl [Active]; ks7 - PMHx: 17:17 Anxiety; Back pain; Chronic pain; Hypothyroidism; COPD; ks7 - PSHx: 17:17 None; ks7 - Immunization history:: Adult Immunizations unknown. - Social history:: Smoking status: Patient reports the use of cigarette tobacco products, Patient/guardian denies using tobacco, the patient reports quitting approximately 2 years ago. ROS: 17:50 Constitutional: Negative for body aches, chills, fever, poor PO intake. cp 17:50 Eyes: Negative for injury, pain, redness, and discharge. cp 17:50 ENT: Negative for ear pain, sore throat, difficulty swallowing, difficulty handling secretions. 17:50 Cardiovascular: Negative for chest pain, edema, palpitations. 17:50 Respiratory: Positive for cough, with no reported sputum, shortness of breath, at rest. Negative for hemoptysis. 17:50 Abdomen/GI: Negative for abdominal pain, nausea, vomiting, and diarrhea. 17:50 Skin: Negative for cellulitis, rash. 17:50 Neuro: Negative for altered mental status, headache, syncope, weakness. 17:50 All other systems are negative. Exam: 17:54 Head/Face: Normocephalic, atraumatic. cp 17:54 Constitutional: The patient appears in no acute distress, alert, non-diaphoretic, non-toxic, well developed, well nourished. 17:54 Eyes: Periorbital structures: appear normal, Conjunctiva: normal, no exudate, no injection, Sclera: no appreciated abnormality, Lids and lashes: appear normal, bilaterally. 17:54 ENT: External ear(s): are unremarkable, Nose: is normal, Mouth: Lips: moist, Oral mucosa: moist, Posterior pharynx: Airway: no evidence of obstruction, patent. 17:54 Neck: ROM/movement: is normal, is supple, no meningismus, no nuchal rigidity. 17:54 Chest/axilla: Inspection: normal. 17:54 Cardiovascular: Rate: tachycardic, Edema: is not appreciated, JVD: is not appreciated. 17:54 Respiratory: the patient does not display signs of respiratory distress, Respirations: labored breathing, that is mild, accessory muscle usage, is absent, intercostal retractions, are absent, Breath sounds: decreased breath sounds, that are mild, diffuse, stridor, is not appreciated, wheezing: is not appreciated. 17:54 Abdomen/GI: Inspection: abdomen appears normal. 17:54 Neuro: Orientation: to person, place \T\ time. Mentation: is normal, Motor: moves all fours, strength is normal. Vital Signs: 17:13 BP 177 / 89; Pulse 114; Resp 22; Temp 98.7(O); Pulse Ox 98% on R/A; Weight 61.23 kg; ks7 Height 5 ft. 4 in. (162.56 cm); Pain 0/10; 18:35 BP 167 / 75; Pulse 97; Resp 20; Temp 98.7; Pulse Ox 98% ; bp 17:13 Body Mass Index 23.17 (61.23 kg, 162.56 cm) ks7 MDM: 17:32 Patient medically screened. cp 17:45 Differential diagnosis: asthma, Bronchitis CHF exacerbation, pneumonia, pulmonary cp edema, Pulmonary Embolism. 18:11 Refusal of service: The patient/guardian displays adequate decision making capability cp and despite a detailed discussion of alternatives, benefits, risks, and consequences refuses: chest xray. 18:18 Data reviewed: vital signs, nurses notes, and as a result, I will discharge patient. cp 18:18 Counseling: I had a detailed discussion with the patient and/or guardian regarding: the cp historical points, exam findings, and any diagnostic results supporting the discharge/admit diagnosis, the need for outpatient follow up, a family practitioner, to return to the emergency department if symptoms worsen or persist or if there are any questions or concerns that arise at home. 10/17 17:41 Order name: COVID-19 cp 10/17 17:41 Order name: Document PUI#; Complete Time: 17:49 cp 10/17 17:41 Order name: Droplet/Contact Precautions; Complete Time: 17:49 cp 10/17 17:41 Order name: Labs collected and sent; Complete Time: 17:49 cp 10/17 17:41 [phone]/ ; Complete Time: 17:49 cp 10/17 17:41 Order name: O2 Per Protocol; Complete Time: 17:42 cp Administered Medications: 18:00 Drug: Albuterol HFA Inhaler 2 puffs Route: Inhalation; ks7 18:05 Drug: SOLU-Medrol 80 mg Route: IVP; Site: left antecubital; ks7 18:37 Follow up: Response: Marked relief of symptoms bp Disposition: 10/18/19 18:19 Discharged to Home. Impression: Chronic obstructive pulmonary disease with (acute) exacerbation. - Condition is Stable. - Prescriptions for Xopenex HFA 45 mcg/actuation Inhalation HFA aerosol inhaler - inhale 2 puff by INHALATION route every 4-6 hours; 1 Inhaler. Prednisone 20 mg Oral Tablet - take 2 tablet by ORAL route once daily for 5 days; 10 tablet. - Medication Reconciliation Form, Thank You Letter, Antibiotic Education, Prescription Opioid Use form. - Follow up: Private Physician; When: 2 - 3 days; Reason: Recheck today's complaints. - Problem is an acute exacerbation. - Symptoms have improved. Addendum: 10/22/2019 08:30 Co-signature as Attending Physician, Ralph Saenz MD I agree with the assessment and k dr plan of care. Signatures: Dispatcher [employer] EDRalph Bowens MD MD kdr Page, Corey, PA PA cp Peltier, Brian, RN RN bp Alie Fong RN RN ks7 Corrections: (The following items were deleted from the chart) 10/17 18:01 17:40 Chest Single View+RAD.RAD.BRZ ordered. [facility] EDMS 18:38 18:19 10/18/2019 18:19 Discharged to Home. Impression: Chronic obstructive pulmonary bp disease with (acute) exacerbation. Condition is Stable. Prescriptions for Xopenex HFA 45 mcg/actuation Inhalation HFA aerosol inhaler - inhale 2 puff by INHALATION route every 4-6 hours; 1 Inhaler, Xopenex 1.25 mg/3 mL Inhalation Solution for Nebulization - inhale 1 unit by NEBULIZATION route every 8 hours As needed; 1 box, Prednisone 20 mg Oral Tablet - take 2 tablet by ORAL route once daily for 5 days; 10 tablet. and Forms are Medication Reconciliation Form, Thank You Letter, Antibiotic Education, Prescription Opioid Use. Follow up: Private Physician; When: 2 - 3 days; Reason: Recheck today's complaints. Problem is an acute exacerbation. Symptoms have improved. cp
[2019-10-18 18:42] VITALS: TEMP 98.7; O2SAT 98
[2019-10-18 18:43] VITALS: BP 167/75
== END 2019-10-18 18:38 | disposition home or self-care (01) ==
LOC: ER 17:05
DX: J44.9 Chronic obstructive pulmonary disease, unspecified (principal); F17.210 Nicotine dependence, cigarettes, uncomplicated; Z11.59 Encounter for screening for other viral diseases
CPT/HCPCS: 96374; 99285; U0002; J2930; J7512

== ENCOUNTER 2021-09-19 21:03 | Inpatient (IN) | payer OTHER ==
[2021-09-19] MEDS ORDERED: LEVALBUTEROL 1.25 MG/3 ML NEB ONE ×2 (21:59→22:00)
[2021-09-19] MEDS ORDERED: NA CHLORIDE 0.9% 500 ML ONE (21:59)
--- NOTE | 2021-09-19 22:05 | RAD REPORT ---
EXAM DESCRIPTION: RAD - Chest Single View - 09/19/2021 9:50 pm CLINICAL HISTORY: COUGH, positive COVID home test COMPARISON: Portable 07/30/2020 TECHNIQUE: AP portable chest image was obtained 09/19/2021 9:50 pm . FINDINGS: Lung volumes are low accentuating baseline interstitial pattern. No dense consolidations s een. There is some patchy interstitial and alveolar opacification lateral right lung base suspicious for early interstitial pneumonia. Left hemidiaphragm elevation again noted. Heart and vasculature are normal. No measurable pleural effusion and no pneumothorax. No acute bony abnormality seen. No acute aortic findings suspected. IMPRESSION: Suspected early interstitial infiltrate right lung base.
[2021-09-19 22:32] LABS: Absolute Lymphocytes (CBC) 0.4 K/uL (0.7-4.9); Hematocrit 38.8 % (36.0-45.0); Lymphocytes % 9.4 % (15.3-44.8); MCV 82.8 fL (80-100); MPV 7.2 fL (7.6-11.3); RBC Red Blood Cell Count 4.68 M/uL (3.86-4.86)
[2021-09-19] MEDS ORDERED: dexAMETHasone 10 MG/ML VIAL ONE (22:32)
[2021-09-19 22:36] LABS: Protime INR 1.04
[2021-09-19 22:55] LABS: ALT/SGPT 24 U/L (12-78); AST/SGOT 27 U/L (15-37); Albumin 3.7 g/dL (3.4-5.0); Alkaline Phosphatase 84 U/L (45-117); BUN Blood Urea Nitrogen 9 mg/dL (7-18); Bicarbonate 28 mmol/L (21-32); Bilirubin Total 0.3 mg/dL (0.2-1.0); Glomerular Filtration Rate 94 ml/min (=/>90); Glucose Level 83 mg/dL (74-106); Magnesium 1.9 mg/dL (1.8-2.4); NT PRO-BNP 99 pg/mL (<125); Protein, Total 7.3 g/dL (6.4-8.2); Sodium Level 126 mmol/L (136-145)
[2021-09-19 23:03] LABS: Bilirubin Direct < 0.1 mg/dL (0-0.2)
[2021-09-19 23:08] LABS: Troponin High Sensitivity 59.9 pg/mL (<58.9)
[2021-09-20 00:02] LABS: Blood Morphology Comment NOT SEEN (NOT SEEN); Platelet Estimate ADEQ
[2021-09-20] MEDS ORDERED: ASPIRIN 81 MG CHEWABLE TABLET ONE (01:16)
[2021-09-20] MEDS ORDERED: MORPHINE 2 MG/ML SYR ONE (01:17)
[2021-09-20] MEDS ORDERED: NA CHLORIDE 0.9% 1,000 ML ONE (01:17)
--- NOTE | 2021-09-20 02:17 | ER ---
Nurse's Notes [facility] Name: Omaira Pineda Age: 60 yrs Sex: Female : 1960 Arrival Date: 09/19/2021 Time: 21:09 Bed 24 Private MD: Diagnosis: Pneumonia due to SARS-associated coronavirus Presentation: 09/19 21:09 Chief complaint: EMS states: headache since yesterday, positive for covid per home ke1 test. Coronavirus screen: Vaccine status: Patient reports receiving the 2nd dose of the covid vaccine. Ebola Screen: No symptoms or risks identified at this time. Initial Sepsis Screen: Does the patient meet any 2 criteria? No. Patient's initial sepsis screen is negative. Does the patient have a suspected source of infection? No. Patient's initial sepsis screen is negative. Risk Assessment: Do you want to hurt yourself or someone else? Patient reports no desire to harm self or others. Onset of symptoms was September 18, 2021 at 12:00. 21:09 Method Of Arrival: EMS: [place] [address] 21:09 Acuity: ARI 3 ke1 Triage Assessment: 21:13 General: Appears uncomfortable, Behavior is appropriate for age. Pain: Complains of ke1 pain in headache, joints. Historical: - Allergies: 21:12 No Known Allergies; ke1 - PMHx: 21:12 Anxiety; Back pain; Chronic pain; COPD; Hypothyroidism; ke1 - Immunization history:: Client reports receiving the 2nd dose of the Covid vaccine. - Social history:: Smoking status: Patient/guardian denies using tobacco, the patient reports quitting approximately 2 years ago. Screenin:13 Abuse screen: Denies threats or abuse. Nutritional screening: No deficits noted. ke1 Tuberculosis screening: No symptoms or risk factors identified. Fall Risk No fall in past 12 months (0 pts). No secondary diagnosis (0 pts). IV access (20 points). Ambulatory Aid- None/Bed Rest/Nurse Assist (0 pts). Gait- Normal/Bed Rest/Wheelchair (0 pts) Mental Status- Oriented to own ability (0 pts). Total Ni Fall Scale indicates. Assessment: 09/20 02:45 Reassessment: Patient appears in no apparent distress at this time. Patient and/or ke1 family updated on plan of care and expected duration. Pain level reassessed. Patient is alert, oriented x 3, equal unlabored respirations, skin warm/dry/pink. Patient states feeling better. Patient states symptoms have improved. Vital Signs: 09/19 21:09 BP 117 / 78; Pulse 100; Resp 20; Temp 98.3; Pulse Ox 97% on R/A; Weight 63.5 kg; Height ke1 5 ft. 4 in. (162.56 cm); Pain 8/10; 09/20 02:50 BP 105 / 54; Pulse 89; Resp 24; Pulse Ox 94% on 3 lpm NC; ke1 16:48 BP 107 / 68; Pulse 89; Resp 22; Pulse Ox 97% on 3 lpm NC; eh3 09/19 21:09 Body Mass Index 24.03 (63.50 kg, 162.56 cm) ke1 ED Course: 09/19 21:09 Patient arrived in ED. ke1 21:09 Meaghan Hahn RN is Primary Nurse. ke1 21:12 Triage completed. ke1 21:14 David Rodriguez PA is PHCP. cp 21:14 Michael Daniel MD is Attending Physician. cp 21:14 Patient has correct armband on for positive identification. Call light in reach. Side ke1 rails up X 1. Side rails up X2. 21:14 Patient notified of wait time. ke1 21:52 XRAY Chest (1 view) In Process Unspecified. EDMS 22:24 Inserted saline lock: 22 gauge in right antecubital area, using aseptic technique. ke1 22:26 EKG done, by ED staff, reviewed by Michael Daniel MD. 5 23:12 Head Brain Wo Cont In Process Unspecified. EDMS 09/20 00:54 Inserted saline lock: 20 gauge in left antecubital area, using aseptic technique. ke1 01:42 CT Chest For PE Angio In Process Unspecified. EDMS 02:17 Driss Smith MD is Hospitalizing Provider. cp 03:16 No provider procedures requiring assistance completed. Patient admitted, IV remains in ke1 place. 09/21 00:06 Primary Nurse role handed off by Meaghan Hahn, FLAQUITO tw5 00:06 Tammy Conner is Primary Nurse. tw5 Administered Medications: 09/19 22:02 Not Given (Physician Discretion): Dexamethasone 1 mg/kg IVP once; (not to exceed 40 mg) cp 22:33 Drug: Xopenex (levalbuterol) (3) 1.25 mg Route: Inhalation; :33 Drug: NS 0.9% 500 ml Route: IV; Rate: bolus; Site: right antecubital; :33 Drug: Dexamethasone 10 mg Route: IVP; Site: right antecubital; 09/21 00:09 Follow up: Response: No adverse reaction 09/20 01:27 Drug: morphine 2 mg Route: IVP; Infused Over: 4 mins; Site: left antecubital; 09/21 00:09 Follow up: Response: No change in condition 09/20 01:27 Drug: Aspirin Chewable Tablet 324 mg Route: PO; 09/21 00:08 Follow up: Response: No adverse reaction 09/20 01:27 Drug: NS 0.9% 500 ml Route: IV; Rate: bolus; Site: left antecubital; 09/21 00:08 Follow up: Response: No adverse reaction; IV Status: Completed infusion; IV Intake: tw5 500ml 09/20 01:27 Drug: NS 0.9% 1000 ml Route: IV; Rate: 75 ml/hr; Site: left antecubital; 09/21 00:08 Follow up: IV Status: Infusion continued upon admission tw Medication: 09/20 03:17 VIS not applicable for this client. ke Intake: 09/21 00:08 IV: 500ml; Total: 500ml. tw5 Outcome: 09/20 02:17 Decision to Hospitalize by Provider. cp 03:16 Admitted to ER Hold. Please see [facility] for further documentation. 03:16 Condition: stable 03:16 Instructed on the need for admit. 09/21 20:06 Patient left the ED. bb Signatures: Dispatcher [employer] Audrey Mata RN RN David Dove PA PA cp Martinez, Maria 5 Tammy Conner tw5 Meaghan Hahn RN RN pending sale to [facility]
--- NOTE | 2021-09-20 02:17 | EDPHYS ---
Physician Documentation [facility] Name: Omaira Pineda Age: 60 yrs Sex: Female : 1960 Arrival Date: 09/19/2021 Time: 21:09 Bed 24 Private MD: ED Physician Michael Daniel HPI: 09/19 22:35 This 60 yrs old Female presents to ER via EMS with complaints of Headache. cp 22:35 The patient complains of pain to the top of head and forehead. The patient describes cp the headache as aching, constant. Onset: The symptoms/episode began/occurred yesterday. 22:35 Associated signs and symptoms: Pertinent negatives: altered mental status, fever, neck cp stiffness, vomiting. Severity of symptoms: in the emergency department the pain is unchanged, despite home interventions. Historical: - Allergies: 21:12 No Known Allergies; ke1 - PMHx: 21:12 Anxiety; Back pain; Chronic pain; COPD; Hypothyroidism; ke1 - Immunization history:: Client reports receiving the 2nd dose of the Covid vaccine. - Social history:: Smoking status: Patient/guardian denies using tobacco, the patient reports quitting approximately 2 years ago. ROS: 22:40 Constitutional: Negative for body aches, chills, fever, poor PO intake. cp 22:40 Eyes: Negative for injury, pain, redness, and discharge. cp 22:40 ENT: Negative for drainage from ear(s), ear pain, sore throat, difficulty swallowing, difficulty handling secretions. 22:40 Cardiovascular: Negative for chest pain, edema, palpitations. 22:40 Respiratory: Negative for cough, shortness of breath, wheezing. 22:40 Abdomen/GI: Negative for abdominal pain, vomiting, diarrhea, constipation. 22:40 : Negative for urinary symptoms. 22:40 Neuro: Positive for headache, Negative for altered mental status, syncope, weakness. 22:40 All other systems are negative. Exam: 22:23 ECG was reviewed by the Attending Physician. cp 22:45 Constitutional: The patient appears in no acute distress, alert, awake, cp non-diaphoretic, non-toxic, well developed, well nourished. 22:45 Head/Face: Normocephalic, atraumatic. cp 22:45 Eyes: Periorbital structures: appear normal, Conjunctiva: normal, no exudate, no injection, Sclera: no appreciated abnormality, Lids and lashes: appear normal, bilaterally. 22:45 ENT: External ear(s): are unremarkable, Nose: is normal, Mouth: Lips: moist, Oral mucosa: moist, Posterior pharynx: Airway: no evidence of obstruction, patent. 22:45 Neck: ROM/movement: is normal, is supple, without pain, no range of motions limitations. 22:45 Chest/axilla: Inspection: normal. 22:45 Cardiovascular: Rate: tachycardic, Rhythm: regular, Edema: is not appreciated, JVD: is not appreciated. 22:45 Respiratory: the patient does not display signs of respiratory distress, Respirations: normal, no use of accessory muscles, no retractions, labored breathing, is not present, Breath sounds: bronchial sounds, that are mild, are heard diffusely, stridor, is not appreciated. 22:45 Abdomen/GI: Inspection: abdomen appears normal, Bowel sounds: active, all quadrants, Palpation: abdomen is soft and non-tender, in all quadrants. 22:45 Back: CVA tenderness, is absent. 22:45 Skin: cellulitis, is not appreciated, no rash present. 22:45 Neuro: Orientation: to person, place \\T\\ time. Mentation: is normal, Motor: moves all fours, strength is normal, Sensation: is normal. Vital Signs: 21:09 BP 117 / 78; Pulse 100; Resp 20; Temp 98.3; Pulse Ox 97% on R/A; Weight 63.5 kg; Height ke1 5 ft. 4 in. (162.56 cm); Pain 8/10; 09/20 02:50 BP 105 / 54; Pulse 89; Resp 24; Pulse Ox 94% on 3 lpm NC; ke1 16:48 BP 107 / 68; Pulse 89; Resp 22; Pulse Ox 97% on 3 lpm NC; eh3 09/19 21:09 Body Mass Index 24.03 (63.50 kg, 162.56 cm) ke1 MDM: 09/19 21:43 Patient medically screened. cp 09/20 02:15 Data reviewed: vital signs, nurses notes, lab test result(s), EKG, radiologic studies, cp plain films, and as a result, I will admit patient. 02:15 Test interpretation: by ED physician or midlevel provider: ECG, plain radiologic cp studies. Counseling: I had a detailed discussion with the patient and/or guardian regarding: the historical points, exam findings, and any diagnostic results supporting the discharge/admit diagnosis, lab results, radiology results, the need for further work-up and treatment in the hospital. 09/19 21:30 Order name: Basic Metabolic Panel; Complete Time: 23:33 09/19 23:33 Interpretation: Normal except: CL 91; NA 126. 09/19 21:30 Order name: CBC with Diff; Complete Time: 00:06 09/19 23:33 Interpretation: Normal except: MCV 82.8; MPV 7.2; LYM% 9.4; MN% 24.0; LYMA 0.4. 09/19 21:30 Order name: LFT's; Complete Time: 23:33 09/20 00:08 Interpretation: Normal except: GLOB 3.6; A/G 1.0. 09/19 21:30 Order name: Magnesium; Complete Time: 23:33 09/19 21:30 Order name: NT PRO-BNP; Complete Time: 23:33 09/19 21:30 Order name: PT-INR; Complete Time: 23:33 09/19 21:30 Order name: Troponin HS; Complete Time: 23:33 09/19 23:33 Interpretation: Abnormal: Troponin HS 59.9. 09/19 21:30 Order name: COVID-19 SARS RT PCR (Document "Date of Onset" if Symptomatic); Complete cp Time: 23:33 09/19 21:30 Order name: Influenza Screen (a \\T\\ B); Complete Time: 23:44 09/19 23:44 Interpretation: Reviewed. 09/19 21:30 Order name: Urine Microscopic Only 09/19 22:40 Order name: Manual Differential; Complete Time: 00:06 [facility] 09/20 00:08 Interpretation: Normal except: BANDS [F] 3; LYM 5; MONO 16. 09/19 23:46 Order name: D-Dimer; Complete Time: 00:06 09/19 23:46 Order name: LAB Add On 09/20 04:16 Order name: Basic Metabolic Panel [facility] 09/19 21:30 Order name: XRAY Chest (1 view); Complete Time: 23:33 cp 09/19 21:34 Order name: CT Head Brain wo Cont cp 09/19 21:40 Order name: Head Brain Wo Cont EDMS 09/20 00:07 Order name: CT Chest For PE Angio cp 09/20 04:16 Order name: Basic Metabolic Panel EDMS 09/20 04:16 Order name: CBC with Automated Diff EDMS 09/20 04:16 Order name: CBC with Automated Diff EDMS 09/20 14:42 Order name: Troponin High Sensitivity EDMS 09/20 15:11 Order name: Basic Metabolic Panel EDMS 09/21 05:50 Order name: Troponin High Sensitivity EDMS 09/21 05:50 Order name: NT PRO-BNP EDMS 09/21 05:50 Order name: Magnesium EDMS 09/21 05:51 Order name: Transferrin Sat/Iron Binding EDMS 09/21 16:14 Order name: Lactate EDMS 09/19 21:30 Order name: EKG; Complete Time: 21:31 cp 09/19 21:30 Order name: Cardiac monitoring; Complete Time: 22:26 cp 09/19 21:30 Order name: EKG - Nurse/Tech; Complete Time: 22:24 cp 09/19 21:30 Order name: IV Saline Lock; Complete Time: 22:23 cp 09/19 21:30 Order name: Labs collected and sent; Complete Time: 22:23 cp 09/19 21:30 Order name: O2 Per Protocol; Complete Time: 22:23 cp 09/19 21:30 Order name: O2 Sat Monitoring; Complete Time: 22:23 cp 09/20 04:16 Order name: Regular EDMS EC/16 22:23 Rate is 100 beats/min. Rhythm is regular. AR interval is normal. QRS interval is cp normal. QT interval is normal. T waves are Inverted in leads aVL, aVR, V2. Interpreted by me. Reviewed by me. Administered Medications: 22:02 Not Given (Physician Discretion): Dexamethasone 1 mg/kg IVP once; (not to exceed 40 mg) cp 22:33 Drug: Xopenex (levalbuterol) (3) 1.25 mg Route: Inhalation; ke1 22:33 Drug: NS 0.9% 500 ml Route: IV; Rate: bolus; Site: right antecubital; ke1 22:33 Drug: Dexamethasone 10 mg Route: IVP; Site: right antecubital; 09/21 00:09 Follow up: Response: No adverse reaction 09/20 01:27 Drug: morphine 2 mg Route: IVP; Infused Over: 4 mins; Site: left antecubital; 09/21 00:09 Follow up: Response: No change in condition 09/20 01:27 Drug: Aspirin Chewable Tablet 324 mg Route: PO; 09/21 00:08 Follow up: Response: No adverse reaction 09/20 01:27 Drug: NS 0.9% 500 ml Route: IV; Rate: bolus; Site: left antecubital; 09/21 00:08 Follow up: Response: No adverse reaction; IV Status: Completed infusion; IV Intake: tw5 500ml 09/20 01:27 Drug: NS 0.9% 1000 ml Route: IV; Rate: 75 ml/hr; Site: left antecubital; 09/21 00:08 Follow up: IV Status: Infusion continued upon admission Disposition: 07:10 Co-signature as Attending Physician, Michael Daniel MD. 7 Disposition Summary: 09/20/21 02:17 Hospitalization Ordered Hospitalization Status: Inpatient Admission cp Provider: Driss Smith cp Condition: Stable cp Problem: new cp Symptoms: have improved cp Bed/Room Type: Standard cp Location: Telemetry/MedSurg (Inpatient)(09/21/21 18:52) eb Room Assignment: [facility](09/21/21 18:52) eb Diagnosis - Pneumonia due to SARS-associated coronavirus cp Forms: - Medication Reconciliation Form cp - SBAR form cp Signatures: Dispatcher [employer] Margi Mishra RN RN mw Page, Corey, PA PA cp Botello, Elizabeth eb Holmes, Maurice, MD MD 7 Meaghan Hahn RN RN Tammy Brown tw5 Corrections: (The following items were deleted from the chart) 09/20 02:30 02:17 Telemetry/MedSurg (Inpatient) [facility] 02:30 02:17 cp 09/21 18:52 09/20 02:30 [facility] ER HOLD [facility] 09/21 18:52 07/17 02:30 ERHOLD- [facility] 09/22 13:30 13:29 This 60 yrs old Female presents to ER via EMS with complaints of Headache. cp cp 14:04 13:29 The patient complains of pain to the top of head and forehead, cp cp 14:04 13:29 The patient describes the headache as aching, constant, cp cp 14: 13:29 Onset: The symptoms/episode began/occurred yesterday, cp cp
[2021-09-20 03:56] LABS: Urine Bacteria <20 /HPF (<20); Urine RBC <5 /HPF (None Seen)
[2021-09-20] MEDS ORDERED: ONDANSETRON 4 MG/2 ML VIAL IV PRN (04:07)
[2021-09-20] MEDS ORDERED: AZITHROMYCIN 250 MG TAB PO ONE (04:14)
[2021-09-20] MEDS ORDERED: ALBUTEROL INHALER 60 PUFF/8 GM IH PRN (04:17)
--- NOTE | 2021-09-20 04:19 | P.HP ---
Certification for Inpatient Patient admitted to: Inpatient With expected LOS: >2 Midnights Practitioner: I am a practitioner with admitting privileges, knowledge of patient current condition, hospital course, and medical plan of care. Services: Services provided to patient in accordance with Admission requirements found in Title 42 Section 412.3 of the Code of Federal Regulations Patient History Date of Service: 09/20/21 Reason for admission: COVID-19 disease History of Present Illness: 60-year-old male patient with medical history significant for hypertension, COPD, hypothyroidism who was evaluated for episode of general body ache and malaise. She reported chest discomfort general body ache and malaise and on arrival in the emergency room she was worked up and found to have significant abnormalities. Labs showed COVID-19 disease positive state and also she had low sodium of 126. She was asked to be admitted for inpatient care. Notable to mention in fact that patient has had 2 doses of the COVID-19 vaccines. Allergies No Known Allergies Allergy (Verified 09/20/21 05:14) Home Medications: Albuterol Inhaler [Ventolin Inhaler] 2 puff IH Q6H PRN 09/20/21 Amlodipine [Norvasc] 10 mg PO DAILY 09/20/21 Clobetasol [Temovate Cream 0.05%] 1 appl TP BID 09/20/21 Tiotropium [Spiriva Handihaler] 18 mcg IH DAILY 09/20/21 - Family History Mother -: Hypertension, Cancer Review of Systems General: Weakness, Malaise Eyes: Unremarkable ENT: Unremarkable Respiratory: Shortness of Breath, Unremarkable Cardiovascular: Unremarkable Gastrointestinal: Unremarkable Genitourinary: Unremarkable Musculoskeletal: Unremarkable Integumentary: Unremarkable Physical Examination - Physical Exam General: Alert, Oriented x3 HEENT: Atraumatic, Normocephalic Neck: Supple Respiratory: Diminished Cardiovascular: Regular rate/rhythm, Normal S1 S2 Gastrointestinal: Soft and benign Musculoskeletal: No swelling Neurological: Normal speech, Normal strength at 5/5 x4 extr - Studies Laboratory Data (last 24 hrs) 09/19/21 22:20: PT 11.5, INR 1.04 09/19/21 22:20: WBC 4.5, Hgb 13.4, Hct 38.8, Plt Count 254 09/19/21 22:20: Sodium 126 L, Potassium 4.0, BUN 9, Creatinine 0.73, Glucose 83, Magnesium 1.9, Total Bilirubin 0.3, AST 27, ALT 24, Alkaline Phosphatase 84 Microbiology Data (last 24 hrs): 09/19/21 21:59 Nasopharnyx Influenza Type A Antigen Screen - Final 09/19/21 21:59 Nasopharnyx Influenza Type B Antigen Screen - Final Assessment and Plan - Plan COVID-19 disease Hyponatremia Hyperlipidemia COPD Plan: Patient does have COVID 19 disease. We started empiric antibiotic therapy with Rocephin and azithromycin for management of suspected COVID-pneumonia. We will continue zinc and vitamin c for additional management. we will use albuterol for management of sob episodes. 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 We will continue of dexamethasone for additional management of COVID 19 dx pneumonia. Prophylaxis: Lovenox for DVT prophylaxis CODE STATUS: Full code Disposition: Pending resolution of COVID-19 symptoms - Advance Directives Does patient have a Living Will: No Does patient have a Durable POA for Healthcare: No
[2021-09-20 05:13] VITALS: BMI 24.0
[2021-09-20] MEDS ORDERED: AZITHROMYCIN 250 MG TAB ONE (05:25)
[2021-09-20] MEDS ORDERED: ASCORBIC ACID 500 MG TABLET ONE (08:43)
[2021-09-20] MEDS ORDERED: NA CHLORIDE 0.9% 50 ML ONE (08:43)
[2021-09-20] MEDS ORDERED: CEFTRIAXONE 1000 MG/VIAL ONE (08:43)
[2021-09-20] MEDS ORDERED: ENOXAPARIN 40 MG/0.4 ML SQ ONE (08:43)
[2021-09-20] MEDS ORDERED: dexAMETHasone 10 MG/ML VIAL ONE (08:43)
[2021-09-20] MEDS ORDERED: ZINC SULFATE 220 MG CAP ONE (08:43)
[2021-09-20] MEDS: ZINC SULFATE 220 MG CAP PO SCH (08:47)
[2021-09-20] MEDS: ASCORBIC ACID 500 MG TABLET PO SCH (08:47)
[2021-09-20] MEDS ORDERED: ALBUTEROL INHALER 60 PUFF/8 GM IH ONE (08:56)
[2021-09-20] MEDS: CEFTRIAXONE 1,000 MG in NA CHLORIDE 0.9% 50 ML IVPB SCH (08:58)
[2021-09-20] MEDS ORDERED: dexAMETHasone 10 MG/ML VIAL IV SCH (09:00)
[2021-09-20] MEDS: SODIUM CHLORIDE 1 GM TAB PO SCH ×3 (09:00→20:39)
[2021-09-20] MEDS: ENOXAPARIN 40 MG/0.4 ML SQ SCH (09:00)
[2021-09-20] MEDS ORDERED: MORPHINE 2 MG/ML SYR IV PRN (14:29)
--- NOTE | 2021-09-20 14:36 | P.CNS ---
Date of Consult: 09/20/21 Reason for Consult: Hyponatremia Requesting Physician: Jessica Titus Chief Complaint: COVID-19 disease History of Present Illness: 60-year-old male patient with medical history significant for hypertension, COPD, hypothyroidism who was evaluated for episode of general body ache and malaise. She reported chest discomfort general body ache and malaise and on arrival in the emergency room she was worked up and found to have significant abnormalities. Labs showed COVID-19 disease positive state and also she had low sodium of 126. She was asked to be admitted for inpatient care. Notable to mention in fact that patient has had 2 doses of the COVID-19 vaccines. Allergies No Known Allergies Allergy (Verified 09/20/21 05:14) Home medications list reviewed: Yes Home Medications: Albuterol Inhaler [Ventolin Inhaler] 2 puff IH Q6H PRN 09/20/21 Amlodipine [Norvasc] 10 mg PO DAILY 09/20/21 Clobetasol [Temovate Cream 0.05%] 1 appl TP BID 09/20/21 Tiotropium [Spiriva Handihaler] 18 mcg IH DAILY 09/20/21 - Past Medical/Surgical History Diabetic: No -: COPD, O2 dep at home -: anxiety -: chronic back pain -: Htn -: Hypothyroidism -: tubal ligation - Family History Mother Medical History: Hypertension, Cancer - Social History Smoking Status: Current some day smoker Alcohol use: No CD- Drugs: No Caffeine use: Yes Place of Residence: Home Review of Systems 10-point ROS is otherwise unremarkable General: Weakness, Malaise Physical Examination Temp Pulse Resp BP Pulse Ox 97.9 F 95 H 19 120/82 97 09/20/21 12:00 09/20/21 12:00 09/20/21 12:00 09/20/21 12:00 09/20/21 12:00 General: Oriented x3, Cooperative HEENT: Atraumatic Neck: Supple Respiratory: Diminished Cardiovascular: No edema, Regular rate/rhythm Gastrointestinal: Soft and benign, Non-distended Musculoskeletal: No clubbing, No contractures Integumentary: No rashes, No cyanosis Neurological: Normal speech Laboratory Data (last 24 hrs) 09/19/21 22:20: PT 11.5, INR 1.04 09/19/21 22:20: WBC 4.5, Hgb 13.4, Hct 38.8, Plt Count 254 09/19/21 22:20: Sodium 126 L, Potassium 4.0, BUN 9, Creatinine 0.73, Glucose 83, Magnesium 1.9, Total Bilirubin 0.3, AST 27, ALT 24, Alkaline Phosphatase 84 Imagings Data: EXAM DESCRIPTION: RAD - Chest Single View - 09/19/2021 9:50 pm CLINICAL HISTORY: COUGH, positive COVID home test COMPARISON: Portable 07/30/2020 TECHNIQUE: AP portable chest image was obtained 09/19/2021 9:50 pm . FINDINGS: Lung volumes are low accentuating baseline interstitial pattern. No dense consolidations seen. There is some patchy interstitial and alveolar opacification lateral right lung base suspicious for early interstitial pneumonia. Left hemidiaphragm elevation again noted. Heart and vasculature are normal. No measurable pleural effusion and no pneumothorax. No acute bony abnormality seen. No acute aortic findings suspected. IMPRESSION: Suspected early interstitial infiltrate right lung base. Conclusions/Impression: Hyponatremia -Continue oral NaCl -Encourage nutrition; limit excess free water intake -Repeat BMP today -Check TSH HTN -Continue Amlodipine with holding parameters Hypothyroidism -Check TSH Microcytosis -Check iron level COVID-19 PNA -Continue abx -Continue Zinc & Vitamin C -Start Vitamin D3 -Continue Dexamethasone Thank you kindly for the consultation.
[2021-09-20] MEDS: VITAMIN D 5,000 UNIT CAP PO SCH ×2 (15:00→15:16)
[2021-09-20] MEDS ORDERED: clonazePAM 0.5 MG TAB PO ONE (15:00)
[2021-09-20] MEDS ORDERED: VITAMIN D 1000 UNIT TAB ONE (15:09)
[2021-09-20] MEDS ORDERED: IPRATROPIUM BROM 0.5MG/2.5ML ONE ×2 (15:10→20:12)
[2021-09-20] MEDS ORDERED: ALBUTEROL 2.5 MG/3 ML NEB SOL ONE ×2 (15:10→20:12)
[2021-09-20] MEDS ORDERED: clonazePAM 0.5 MG TAB ONE ×2 (15:10→20:38)
--- NOTE | 2021-09-20 19:24 | CON ---
Date of Consultation: 09/20/[address] Titus on 09/20/2021. I saw the patient on 09/20/2021. Reason For Consultation: Elevated troponin. History Of Present Illness: Ms. Pineda is 60. Has a history of hypothyroidism, chronic back pain, anxiety, COPD, and hypertension. No previous cardiac history. Came in with COVID pneumonia, elevat ed D-dimer, elevated troponin. I was asked to see her because of elevated troponin. She denied any chest pain, nausea, vomiting. Has had diaphoresis. Has had shortness of breath. Denied PND, orthop vera, pedal edema, palpitation, or syncope. Past Medical History: As stated above. Allergies: NONE. Review of Systems: Negative. Social History: Negative. Family History: Noncontributory. Medications: Presently include inhalers, antibiotics, steroid, Lovenox. At home, she takes inhalers and Norvasc. Physical Examination: Was done by Dr. Titus and was unremarkable except for her chest examination. Diagnostic Data: Showed D-dimer of 846, troponin of 59, COVID positive. Chest x-ray showed a right lung base pneumonia. EKG was normal. CTA of her chest to rule out pulmonary embolus is pending. Impression And Plan: 1.Elevated troponin, elevated D-dimer secondary to COVID pneumonia. 2.COVID pneumonia. Echocardiogram is pending. 3.Hypertension, well controlled. 4.Chronic obstructive pulmonary disease, well controlled. 5.Anxiety. 6.Hypothyroidism. 7.Chronic back pain. I think we will see what her echocardiogram shows and she will need an outpati ent MPI down the road. I will make arrangements for that. ASHOK/SHAYY Voice ID: [id number] Report ID: [id number]
[2021-09-20] MEDS: IPRATROPIUM BROM 0.5MG/2.5ML NEB SCH (20:05)
[2021-09-20] MEDS: ALBUTEROL 2.5 MG/3 ML NEB SOL NEB SCH (20:05)
[2021-09-20] MEDS: clonazePAM 0.5 MG TAB PO SCH (20:38)
[2021-09-21] MEDS: IPRATROPIUM BROM 0.5MG/2.5ML NEB SCH ×4 (01:10→20:45)
[2021-09-21] MEDS: ALBUTEROL 2.5 MG/3 ML NEB SOL NEB SCH ×4 (01:10→20:45)
[2021-09-21] MEDS ORDERED: ALBUTEROL 2.5 MG/3 ML NEB SOL ONE ×4 (01:16→20:20)
[2021-09-21] MEDS ORDERED: IPRATROPIUM BROM 0.5MG/2.5ML ONE ×4 (01:16→20:20)
[2021-09-21 05:40] LABS: Absolute Lymphocytes (CBC) 0.9 K/uL (0.7-4.9); Hematocrit 37.5 % (36.0-45.0); Lymphocytes % 10.9 % (15.3-44.8); MCV 83.3 fL (80-100); MPV 7.8 fL (7.6-11.3)
[2021-09-21 05:47] LABS: Potassium 3.9 mmol/L (3.5-5.1)
[2021-09-21 05:50] LABS: Troponin High Sensitivity 53.4 pg/mL (<58.9)
[2021-09-21] MEDS: clonazePAM 0.5 MG TAB PO SCH ×3 (08:40→20:14)
[2021-09-21] MEDS: VITAMIN D 5,000 UNIT CAP PO SCH (08:40)
[2021-09-21] MEDS: ZINC SULFATE 220 MG CAP PO SCH (08:40)
[2021-09-21] MEDS: ENOXAPARIN 40 MG/0.4 ML SQ SCH (08:41)
[2021-09-21] MEDS: CEFTRIAXONE 1,000 MG in NA CHLORIDE 0.9% 50 ML IVPB SCH (08:41)
[2021-09-21] MEDS: ASCORBIC ACID 500 MG TABLET PO SCH (08:41)
[2021-09-21] MEDS: AMLODIPINE 10 MG TAB PO SCH (08:41)
[2021-09-21] MEDS: SODIUM CHLORIDE 1 GM TAB PO SCH ×3 (08:41→20:15)
[2021-09-21] MEDS ORDERED: ZINC SULFATE 220 MG CAP ONE (08:44)
[2021-09-21] MEDS ORDERED: ASCORBIC ACID 500 MG TABLET ONE (08:44)
[2021-09-21] MEDS ORDERED: clonazePAM 0.5 MG TAB ONE ×3 (08:44→13:13)
[2021-09-21] MEDS ORDERED: AMLODIPINE 10 MG TAB ONE (08:44)
[2021-09-21] MEDS ORDERED: NA CHLORIDE 0.9% 50 ML ONE (08:45)
[2021-09-21] MEDS ORDERED: AZITHROMYCIN 250 MG TAB ONE (08:45)
[2021-09-21] MEDS ORDERED: ENOXAPARIN 40 MG/0.4 ML SQ ONE (08:45)
[2021-09-21] MEDS ORDERED: dexAMETHasone 4 MG/ML VIAL ONE (08:45)
[2021-09-21] MEDS ORDERED: CEFTRIAXONE 1000 MG/VIAL ONE (08:45)
[2021-09-21] MEDS ORDERED: AMLODIPINE 10 MG TAB PO SCH (09:00)
[2021-09-21] MEDS ORDERED: AZITHROMYCIN 250 MG TAB PO SCH (09:00)
[2021-09-21] MEDS: TIOTROPIUM IH SCH (09:00)
[2021-09-21] MEDS ORDERED: dexAMETHasone 4 MG/ML VIAL IV SCH (09:00)
--- NOTE | 2021-09-21 11:30 | PN ---
Date of Progress Note: 09/21/2021 Ms. Pineda came in with COVID pneumonia and elevated troponin. She did not have any cardiac sympto ms. She remained in sinus rhythm. Troponin is trending down. Echocardiogram was normal without any wall motion abnormalities. I think the troponin elevation is secondary to demand ischemia from pneu sunday. She does not need any further change in therapy at this point. Nevertheless, I think conside ring her age and risk factors, I think doing an outpatient stress test down the road will be reasonab le. ASHOK/SHAYY Voice ID: [id number] Report ID: [id number]
--- NOTE | 2021-09-21 12:45 | EKG ---
Test Date: 2021-09-19 Test Time: 22:19:26 Technology Specialist: YUDELKA MEASUREMENT RESULTS: Intervals: Rate: 100 IA: 122 QRSD: 76 QT: 350 QTc: 451 [place]: P: 84 IA: 122 QRS: 83 T: 81 INTERPRETIVE STATEMENTS: Normal sinus rhythm Possible Left atrial enlargement Cannot rule out Anterior infarct, age undetermined Abnormal ECG Compared to ECG 07/31/2019 14:46:54 Myocardial infarct finding now present Electronically Signed On 09-21-21 12:41:50 CDT by Bassam Tsang
--- NOTE | 2021-09-21 14:36 | RAD REPORT ---
EXAM DESCRIPTION: Chest For Pe Angio CLINICAL HISTORY: Cough, shortness of breath COMPARISON: None Available. TECHNIQUE: CTA of the chest obtained following the uncomplicated intravenous administration of iodin ated contrast. 3-D/MIP reformatted images of the chest available for evaluation. This exam was perfor med according to our departmental dose-optimization program, which includes automated exposure contro l, adjustment of the mA and/or kV according to patient size and/or use of iterative reconstruction te chnique. FINDINGS: Chest: Pulmonary arteries: Contrast bolus is adequate.No filling defects identified in the pulmonary arterie s to suggest pulmonary embolus. Thyroid: No abnormalities of the visualized thyroid. Great Vessels: Great vessels have normal anatomic configuration. Thoracic Aorta: No abnormalities of the thoracic aorta identified. Heart: No cardiomegaly, significant pericardial effusion, or coronary artery atherosclerosis Lymph Nodes: No enlarged mediastinal lymph nodes identified. Esophagus: Moderate hiatal hernia. Other: No additional findings. Lungs: Stable appearance of the left lower lobe with vascularized structure is an approximately 12 cm without chronic mid thoracic compression fracture. Mild endplate spondylosis. Definite communication with the tracheobronchial tree. Centrilobular emphysematous change. No acute consolidation. Pleura: No pleural effusion or pneumothorax. Trachea/Airways: No abnormalities of the visualized trachea or airways. Bones: Chronic T8 compression fracture. Multilevel endplate spondylosis and Upper Abdomen: Limited images of the upper abdomen demonstrate no definite abnormalities of visualize d portions of the liver, gallbladder, pancreas, spleen, adrenal glands, or kidneys. IMPRESSION: 1. No pulmonary embolus. 2. Centrilobular emphysematous change. 3. Stable appearance of the left lower lobe vascularized structure measuring up to 12 cm without de finite communication with the tracheobronchial tree. Findings may represent pulmonary sequestration. 4. Moderate hiatal hernia. Electronically signed by: Alexandre Hidalgo 09/20/2021 1:54 AM CDT Due to temporary technical issues with the PACS/Fluency reporting system, reports are being signed by the in house radiologists without review as a courtesy to insure prompt reporting. The interpreting radiologist is fully responsible for the content of the report.
--- NOTE | 2021-09-21 14:39 | RAD REPORT ---
EXAM DESCRIPTION: CT of the head without contrast CLINICAL HISTORY: Headache COMPARISON: None available TECHNIQUE: Axial CT of the head obtained from the skull apex to the skull base without contrast. Thi s exam was performed according to our departmental dose-optimization program, which includes automate d exposure control, adjustment of the mA and/or kV according to patient size and/or use of iterative reconstruction technique. FINDINGS: No acute intracranial hemorrhage identified. No mass, mass effect, shift of the midline, a bnormal extra-axial fluid collection or CT evidence of acute ischemic change identified. The ventricu lar system is unremarkable. No acute abnormalities of the supratentorial white matter, basal gangli a, cerebellum, or brainstem. The visualized paranasal sinuses and the mastoid air cells are relatively well aerated. No skull fr acture identified. Visualized orbits and globes are unremarkable. IMPRESSION: 1. No acute intracranial abnormality identified. Electronically signed by: Alexandre Hidalgo 09/19/2021 11:32 PM CDT Due to temporary technical issues with the PACS/Fluency reporting system, reports are being signed by the in house radiologists without review as a courtesy to insure prompt reporting. The interpreting radiologist is fully responsible for the content of the report.
--- NOTE | 2021-09-21 15:07 | P.PN ---
Subjective Date of Service: 09/21/21 Chief Complaint: COVID-19 disease Subjective: Improving No acute events overnight. Her SpO2 is 91-92% on 4 L nasal cannula. She reports that her breathing is unchanged since yesterday. Review of Systems Unremarkable General: Unremarkable Eyes: Unremarkable ENT: Unremarkable Respiratory: Cough, Shortness of Breath Cardiovascular: Unremarkable Gastrointestinal: Unremarkable Genitourinary: Unremarkable Musculoskeletal: Unremarkable Integumentary: Unremarkable Neurological: Unremarkable Physical Examination - Vital Signs Temperature: 98.4 F Blood Pressure: 124/79 Pulse: 84 Respirations: 14 Pulse Ox (%): 98 - Physical Exam General: Alert, In no apparent distress, Oriented x3 HEENT: Atraumatic, Mucous membr. moist/pink, EOMI, Sclerae nonicteric Neck: Supple, Without JVD or thyroid abnormality Respiratory: Clear to auscultation bilaterally, Diminished, Rhonchi/gurgles Cardiovascular: No edema, Regular rate/rhythm, Normal S1 S2, No gallops, No rubs, No murmurs Gastrointestinal: Normal bowel sounds, Soft and benign, No tenderness, No rebound, No guarding Musculoskeletal: No tenderness Integumentary: No rashes Neurological: Normal speech, Normal affect - Studies Medications List Reviewed: Yes Assessment And Plan - Plan # Acute Hypoxic Respiratory Failure - likely secondary to COVID-19 Pneumonia # Known Pulmonary Sequestration Currently, she is on 4 L nasal cannula, with improvement of her SpO2 readings to 91-92 %. - Evaluation thus far: - Chest x-ray = "suspected early interstitial infiltrate right lung base." - CT chest angiogram chest = "1. No pulmonary embolus. 2. Centrilobular emphysematous change. 3. Stable appearance of the left lower lobe vascularized structure measuring up to 12 cm without definite communication with the tracheobronchial tree. Findings may represent pulmonary sequestration. 4. Moderate hiatal hernia." - Management plan: - Pulmonary Medicine consulted - recommendations appreciated - Consulted Respiratory Therapy - Dexamethasone 6 mg IV q24hr - Ceftriaxone 1 g IV q24hr - Azithromycin 500 mg IV q24hr - Supplemental oxygen to maintain SpO2 > 92% - Encouraged incentive spirometry - Isolation precautions # Suspect Viral Sepsis secondary to COVID-19 Pneumonia She met SIRS criteria based on a HR > 90 bpm and a RR > 20 breaths/min, and the suspected source is COVID-19 pneumonia. - Sepsis order set was initiated - Lactate and blood cultures requested - Broad spectrum antibiotics started: Ceftriaxone + Azithromycin - In regards to fluids: - 30 mL/kg of IV fluids was not administered given SBP > 90, MAP > 65 # Hyponatremia Sodium has corrected since admission. - Nephrology consulted and spoke with Dr. Granger - recommendations appreciated # Elevated Troponin - suspected Demand Ischemia (Type II NSTEMI) due to COVID-19 # Hypertension # Hyperlipidemia - Cardiology consulted and spoke with Dr. Duncan - recommendations appreciated - Troponin trend: 59.9 -> 58.0 -> 53.4 - EKG - TTE pending Martin Marie MD Discharge Plan: Home Plan to discharge in: 48 Hours
--- NOTE | 2021-09-21 16:35 | P.CNS ---
Date of Consult: 09/21/21 Reason for Consult: COVID pos Chief Complaint: COVID-19 disease History of Present Illness: Age 60 AW COVIDinfection, hyponatremia nd GI symptoms and hyponatremia/ Doing better NE of COVID penumonia Allergies No Known Allergies Allergy (Verified 09/20/21 05:14) Home Medications: Albuterol Inhaler [Ventolin Inhaler] 2 puff IH Q6H PRN 09/20/21 Amlodipine [Norvasc] 10 mg PO DAILY 09/20/21 Clobetasol [Temovate Cream 0.05%] 1 appl TP BID 09/20/21 Tiotropium [Spiriva Handihaler] 18 mcg IH DAILY 09/20/21 - Past Medical/Surgical History Diabetic: No -: COPD, O2 dep at home -: anxiety -: chronic back pain -: Htn -: Hypothyroidism -: tubal ligation - Family History Mother Medical History: Hypertension, Cancer - Social History Smoking Status: Current some day smoker Alcohol use: No CD- Drugs: No Caffeine use: Yes Place of Residence: Home Review of Systems General: Weakness Respiratory: Shortness of Breath Physical Examination Temp Pulse Resp BP Pulse Ox 97.7 F 101 H 14 111/72 98 09/21/21 16:00 09/21/21 16:00 09/21/21 16:00 09/21/21 16:00 09/21/21 16:00 General: Alert, Oriented x3, Cooperative - Problems (1) COVID-19 Current Visit: Yes Status: Acute Plan: Ae 60AW coivid inefection, hyponatremia and GI symptoms. CT angio neg. Pulm sequestration? COPD changes. Plan for DC home am DC AB Change to po decadron 2 mg BID / Hyponatrmia has improve d
[2021-09-21] MEDS: dexAMETHasone 4 MG TAB PO SCH (20:15)
--- NOTE | 2021-09-21 20:52 | P.PN ---
Date of Service: 09/21/21 Vital Signs Temp Pulse Resp BP Pulse Ox 97.7 F 101 H 14 111/72 98 09/21/21 16:00 09/21/21 16:00 09/21/21 16:00 09/21/21 16:00 09/21/21 16:00 Medications Acetaminophen (Acetaminophen 500 Mg Tab) 500 mg PO Q4HP PRN PRN Reason: Pain scale 2-4 (Mild) Albuterol Sulfate (Albuterol Inhaler 60 Puff/8 Gm) 2 puff IH Q6H PRN PRN Reason: SHORTNESS OF BREATH Last Admin: 09/20/21 09:13 Dose: 2 puff Documented by: Albuterol Sulfate (Albuterol 2.5 Mg/3 Ml Neb Josi) 2.5 mg NEB [id number] [facility] Last Admin: 09/21/21 14:00 Dose: 2.5 mg Documented by: Amlodipine Besylate (Amlodipine 10 Mg Tab) 10 mg PO DAILY [facility] Last Admin: 09/21/21 08:41 Dose: 10 mg Documented by: Cholecalciferol (Vitamin D 5,000 Unit Cap) 5,000 unit PO DAILY [facility] Last Admin: 09/21/21 08:40 Dose: 5,000 unit Documented by: Clonazepam (Clonazepam 0.5 Mg Tab) 0.5 mg PO TID [facility] Last Admin: 09/21/21 20:14 Dose: 0.5 mg Documented by: Dexamethasone (Dexamethasone 4 Mg Tab) 2 mg PO BID [facility] Last Admin: 09/21/21 20:15 Dose: 2 mg Documented by: Enoxaparin Sodium (Enoxaparin 40 Mg/0.4 Ml) 40 mg SQ DAILY [facility] Last Admin: 09/21/21 08:41 Dose: 40 mg Documented by: Home Med (Tiotropium [Spiriva Handihaler*]) 18 mcg IH DAILY [facility] Last Admin: 09/21/21 09:00 Dose: Not Given Documented by: Ipratropium Sylvia (Ipratropium Brom 0.5mg/2.5ml) 0.5 mg NEB [id number] [facility] Last Admin: 09/21/21 14:00 Dose: 0.5 mg Documented by: Ondansetron HCl (Ondansetron 4 Mg/2 Ml Vial) 4 mg IV Q6HP PRN PRN Reason: NAUSEA / VOMITING Sodium Chloride (Flush Normal Saline 10 Ml) 10 ml IV BID [facility] Last Admin: 09/21/21 20:19 Dose: 10 ml Documented by: Sodium Chloride (Sodium Chloride 1 Gm Tab) 1 gm PO TID [facility] Last Admin: 09/21/21 20:15 Dose: 1 gm Documented by: Microbiology Results 09/19/21 21:59 Nasopharnyx Influenza Type A Antigen Screen - Final 09/19/21 21:59 Nasopharnyx Influenza Type B Antigen Screen - Final Assessment/ Plan: Nephrology Feeling better today No dyspnea No chest pain No acute events overnight Vitals, medications, blood work and imaging reviewed in the chart. General: Oriented x3, Cooperative HEENT: Atraumatic Neck: Supple Respiratory: Normal effort Cardiovascular: No edema, Regular rate/rhythm Gastrointestinal: Soft and benign, Non-distended Musculoskeletal: No clubbing, No contractures Integumentary: No rashes, No cyanosis Neurological: Normal speech Laboratory Data (last 24 hrs) 09/19/21 22:20: PT 11.5, INR 1.04 09/19/21 22:20: WBC 4.5, Hgb 13.4, Hct 38.8, Plt Count 254 09/19/21 22:20: Sodium 126 L, Potassium 4.0, BUN 9, Creatinine 0.73, Glucose 83, Magnesium 1.9, Total Bilirubin 0.3, AST 27, ALT 24, Alkaline Phosphatase 84 Imagings Data: EXAM DESCRIPTION: RAD - Chest Single View - 09/19/2021 9:50 pm CLINICAL HISTORY: COUGH, positive COVID home test COMPARISON: Portable 07/30/2020 TECHNIQUE: AP portable chest image was obtained 09/19/2021 9:50 pm . FINDINGS: Lung volumes are low accentuating baseline interstitial pattern. No dense consolidations seen. There is some patchy interstitial and alveolar opacification lateral right lung base suspicious for early interstitial pneumonia. Left hemidiaphragm elevation again noted. Heart and vasculature are normal. No measurable pleural effusion and no pneumothorax. No acute bony abnormality seen. No acute aortic findings suspected. IMPRESSION: Suspected early interstitial infiltrate right lung base. Conclusions/Impression: Hyponatremia -Discontinue oral NaCl -Encourage nutrition; limit excess free water intake -Check TSH HTN -Continue Amlodipine Hypothyroidism -Check TSH Microcytosis Iron saturation 22% COVID-19 PNA -Continue abx -Continue Zinc & Vitamin C -Continue Vitamin D3 -Continue Dexamethasone Case reviewed with Dr. Marie
[2021-09-22] MEDS: IPRATROPIUM BROM 0.5MG/2.5ML NEB SCH ×4 (01:45→19:30)
[2021-09-22] MEDS: ALBUTEROL 2.5 MG/3 ML NEB SOL NEB SCH ×4 (01:45→19:30)
[2021-09-22 03:33] LABS: MCV 83.5 fL (80-100); MPV 7.9 fL (7.6-11.3); RBC Red Blood Cell Count 4.55 M/uL (3.86-4.86)
[2021-09-22 03:57] LABS: Potassium 4.4 mmol/L (3.5-5.1); Thyroid Stimulating Hormone 0.228 uIU/mL (0.360-3.740)
--- NOTE | 2021-09-22 06:56 | ECHO ---
HEIGHT: 5 ft 4 in WEIGHT: 139 lb 14.4 oz DATE OF STUDY: 09/21/[address]: Basil Duncan MD 2-DIMENSIONAL: YES M.MODE: YES DOPPLER: YES COLOR FLOW: YES TDS: PORTABLE: DEFINITY: BUBBLE STUDY: DIAGNOSIS: ELEVATED TROPONIN CARDIAC HISTORY: CATHERIZATION: SURGERY: PROSTHETIC VALVE: PACEMAKER: MEASUREMENTS (cm) DIASTOLIC (NORMALS) SYSTOLIC (NORMALS) IVSd 1.0 (0.6-1.2) LA Diam 3.4 (1.9-4.0) LVEF 60-65% LVIDd 3.5 (3.5-5.7) LVIDs 2.2 (2.0-3.5) %FS 37% LVPWd 1.0 (0.6-1.2) Ao Diam 2.6 (2.0-3.7) 2 DIMENSIONAL ASSESSMENT: RIGHT ATRIUM: NORMAL LEFT ATRIUM: NORMAL RIGHT VENTRICLE: NORMAL LEFT VENTRICLE: NORMAL TRICUSPID VALVE: NORMAL MITRAL VALVE: MILD MITRAL REGURGITATION PULMONIC VALVE: MILD PULMONARY INSUFFICIENCY AORTIC VALVE: NORMAL PERICARDIAL EFFUSION: NONE AORTIC ROOT: NORMAL LEFT VENTRICULAR WALL MOTION: NORMAL DOPPLER/COLOR FLOW: MILD PULMONARY INSUFFICIENCY. MILD MITRAL REGURGITATION. COMMENTS: NORMAL LEFT VENTRICULAR EJECTION FRACTION 60-65%. NORMAL WALL MOTION. MILD MITRAL REGURGITATION. MILD PULMONARY INSUFFICIENCY. TECHNOLOGIST: BEVERLY HEREDIA
[2021-09-22] MEDS: TIOTROPIUM IH SCH (09:00)
[2021-09-22] MEDS: ENOXAPARIN 40 MG/0.4 ML SQ SCH (10:04)
[2021-09-22] MEDS: dexAMETHasone 4 MG TAB PO SCH ×2 (10:04→20:19)
[2021-09-22] MEDS: AMLODIPINE 10 MG TAB PO SCH (10:05)
[2021-09-22] MEDS: clonazePAM 0.5 MG TAB PO SCH ×3 (10:05→20:19)
[2021-09-22] MEDS: VITAMIN D 5,000 UNIT CAP PO SCH (10:05)
[2021-09-22] MEDS ORDERED: BENZONATATE 100 MG CAP PO PRN (12:03)
[2021-09-22] MEDS: ACETAMINOPHEN 500 MG TAB PO PRN (13:33)
--- NOTE | 2021-09-22 14:57 | P.PN ---
Subjective Date of Service: 09/22/21 Chief Complaint: COVID-19 disease No acute events overnight. She feels that her breathing has improved compared to yesterday. Her SpO2 was 96% on 2 L nasal cannula. She states that her shortness of breath is worse with exertion. Review of Systems General: Unremarkable Eyes: Unremarkable ENT: Unremarkable Respiratory: Cough, Shortness of Breath Cardiovascular: Unremarkable Gastrointestinal: Unremarkable Genitourinary: Unremarkable Musculoskeletal: Unremarkable Integumentary: Unremarkable Neurological: Unremarkable Lymphatics: Unremarkable Physical Examination - Vital Signs Temperature: 97.9 F Blood Pressure: 151/86 Pulse: 89 Respirations: 20 Pulse Ox (%): 94 - Studies Medications List Reviewed: Yes Assessment And Plan - Plan PHYSICAL EXAMINATION: General: Alert, In no apparent distress, Oriented x3 HEENT: Atraumatic, Mucous membr. moist/pink, EOMI, Sclerae nonicteric Neck: Supple, Without JVD or thyroid abnormality Respiratory: Clear to auscultation bilaterally, Diminished, Rhonchi/gurgles Cardiovascular: No edema, Regular rate/rhythm, Normal S1 S2, No gallops, No rubs, No murmurs Gastrointestinal: Normal bowel sounds, Soft and benign, No tenderness, No rebound, No guarding Musculoskeletal: No tenderness Integumentary: No rashes Neurological: Normal speech, Normal affect ASSESSMENT/PLAN: # Acute on Chronic Hypoxic Respiratory Failure - likely secondary to COVID-19 Pneumonia # Known Pulmonary Sequestration Currently, she is on 2 L nasal cannula, with improvement of her SpO2 readings to 96 %. - Evaluation thus far: - Chest x-ray = "suspected early interstitial infiltrate right lung base." - CT chest angiogram chest = "1. No pulmonary embolus. 2. Centrilobular emphysematous change. 3. Stable appearance of the left lower lobe vascularized structure measuring up to 12 cm without definite communication with the tracheobronchial tree. Findings may represent pulmonary sequestration. 4. Moderate hiatal hernia." - Management plan: - Pulmonary Medicine consulted - recommendations appreciated - Consulted Respiratory Therapy - Dexamethasone 2 mg PO BID - PRN benzontate - Supplemental oxygen to maintain SpO2 > 92% - Encouraged incentive spirometry - Isolation precautions - Plan for ambulatory oxygen testing, and possible discharge tomorrow if feeling better # Suspect Viral Sepsis secondary to COVID-19 Pneumonia She met SIRS criteria based on a HR > 90 bpm and a RR > 20 breaths/min, and the suspected source is COVID-19 pneumonia. - Sepsis order set was initiated - Lactate = 1.7 - Blood cultures x 2 NGTD - Broad spectrum antibiotics started: Ceftriaxone + Azithromycin - In regards to fluids: - 30 mL/kg of IV fluids was not administered given SBP > 90, MAP > 65 # Hyponatremia Sodium has corrected since admission. - Nephrology consulted and spoke with Dr. Granger - recommendations appreciated # Elevated Troponin - suspected Demand Ischemia (Type II NSTEMI) due to COVID-19 # Hypertension # Hyperlipidemia - Cardiology consulted and spoke with Dr. Duncan - recommendations appreciated - Troponin trend: 59.9 -> 58.0 -> 53.4 - EKG - TTE = "normal left ventricular ejection fraction 60-65%. normal wall motion. mild mitral regurgitation. mild pulmonary insufficiency." # Possible Hyperthyroidism - TSH was 0.228 - Ordered Free T4 Martin Marie MD
--- NOTE | 2021-09-22 18:47 | P.PN ---
Date of Service: 09/22/21 Vital Signs Temp Pulse Resp BP Pulse Ox 97.8 F 90 20 113/80 97 09/22/21 16:00 09/22/21 16:00 09/22/21 16:00 09/22/21 16:00 09/22/21 16:00 Medications Acetaminophen (Acetaminophen 500 Mg Tab) 500 mg PO Q4HP PRN PRN Reason: Pain scale 2-4 (Mild) Last Admin: 09/22/21 13:33 Dose: 500 mg Documented by: Albuterol Sulfate (Albuterol Inhaler 60 Puff/8 Gm) 2 puff IH Q6H PRN PRN Reason: SHORTNESS OF BREATH Last Admin: 09/20/21 09:13 Dose: 2 puff Documented by: Albuterol Sulfate (Albuterol 2.5 Mg/3 Ml Neb Josi) 2.5 mg NEB [id number] [facility] Last Admin: 09/22/21 14:00 Dose: Not Given Documented by: Amlodipine Besylate (Amlodipine 10 Mg Tab) 10 mg PO DAILY [facility] Last Admin: 09/22/21 10:05 Dose: 10 mg Documented by: Benzonatate (Benzonatate 100 Mg Cap) 100 mg PO TID PRN PRN Reason: COUGH Last Admin: 09/22/21 13:34 Dose: 100 mg Documented by: Cholecalciferol (Vitamin D 5,000 Unit Cap) 5,000 unit PO DAILY [facility] Last Admin: 09/22/21 10:05 Dose: 5,000 unit Documented by: Clonazepam (Clonazepam 0.5 Mg Tab) 0.5 mg PO TID [facility] Last Admin: 09/22/21 13:33 Dose: 0.5 mg Documented by: Dexamethasone (Dexamethasone 4 Mg Tab) 2 mg PO BID [facility] Last Admin: 09/22/21 10:04 Dose: 2 mg Documented by: Enoxaparin Sodium (Enoxaparin 40 Mg/0.4 Ml) 40 mg SQ DAILY [facility] Last Admin: 09/22/21 10:04 Dose: 40 mg Documented by: Home Med (Tiotropium [Spiriva Handihaler*]) 18 mcg IH DAILY [facility] Last Admin: 09/22/21 09:00 Dose: 18 mcg Documented by: Ipratropium [place] (Ipratropium Brom 0.5mg/2.5ml) 0.5 mg NEB [id number] [facility] Last Admin: 09/22/21 14:00 Dose: Not Given Documented by: Ondansetron HCl (Ondansetron 4 Mg/2 Ml Vial) 4 mg IV Q6HP PRN PRN Reason: NAUSEA / VOMITING Sodium Chloride (Flush Normal Saline 10 Ml) 10 ml IV BID [facility] Last Admin: 09/22/21 09:00 Dose: 10 ml Documented by: Microbiology Results 09/19/21 21:59 Nasopharnyx Influenza Type A Antigen Screen - Final 09/19/21 21:59 Nasopharnyx Influenza Type B Antigen Screen - Final Assessment/ Plan: Nephrology Feeling better today No dyspnea. Persistent cough and weakness. No chest pain No acute events overnight Vitals, medications, blood work and imaging reviewed in the chart. General: Oriented x3, Cooperative HEENT: Atraumatic Neck: Supple Respiratory: Normal effort Cardiovascular: No edema, Regular rate/rhythm Gastrointestinal: Soft and benign, Non-distended Musculoskeletal: No clubbing, No contractures Integumentary: No rashes, No cyanosis Neurological: Normal speech Laboratory Data (last 24 hrs) 09/19/21 22:20: PT 11.5, INR 1.04 09/19/21 22:20: WBC 4.5, Hgb 13.4, Hct 38.8, Plt Count 254 09/19/21 22:20: Sodium 126 L, Potassium 4.0, BUN 9, Creatinine 0.73, Glucose 83, Magnesium 1.9, Total Bilirubin 0.3, AST 27, ALT 24, Alkaline Phosphatase 84 Imagings Data: EXAM DESCRIPTION: RAD - Chest Single View - 09/19/2021 9:50 pm CLINICAL HISTORY: COUGH, positive COVID home test COMPARISON: Portable 07/30/2020 TECHNIQUE: AP portable chest image was obtained 09/19/2021 9:50 pm . FINDINGS: Lung volumes are low accentuating baseline interstitial pattern. No dense consolidations seen. There is some patchy interstitial and alveolar opacification lateral right lung base suspicious for early interstitial pneumonia. Left hemidiaphragm elevation again noted. Heart and vasculature are normal. No measurable pleural effusion and no pneumothorax. No acute bony abnormality seen. No acute aortic findings suspected. IMPRESSION: Suspected early interstitial infiltrate right lung base. Conclusions/Impression: Hyponatremia, resolved -Encourage nutrition; limit excess free water intake HTN -Continue Amlodipine Microcytosis Iron saturation 22% COVID-19 PNA -Continue abx -Continue Zinc & Vitamin C -Continue Vitamin D3 -Continue Dexamethasone
[2021-09-22] MEDS ORDERED: FAMOTIDINE 20 MG/2 ML VIAL IV ONE (19:23)
[2021-09-22] MEDS ORDERED: HYDROCODONE/APAP 5/325 MG TAB PO ONE (19:23)
[2021-09-23] MEDS: IPRATROPIUM BROM 0.5MG/2.5ML NEB SCH ×3 (01:30→14:00)
[2021-09-23] MEDS: ALBUTEROL 2.5 MG/3 ML NEB SOL NEB SCH ×3 (01:30→14:00)
[2021-09-23 05:14] LABS: Hematocrit 37.5 % (36.0-45.0); MCV 83.8 fL (80-100); Potassium 3.9 mmol/L (3.5-5.1); RBC Red Blood Cell Count 4.48 M/uL (3.86-4.86)
--- NOTE | 2021-09-23 06:52 | P.DS ---
Admission Date: 09/20/21 Discharge Date: 09/23/21 Disposition: ROUTINE DISCHARGE Discharge Condition: GOOD Reason for Admission: COVID-19 disease Consultations: 1. Pulmonary Medicine Hospital Course: DIAGNOSES: # Acute on Chronic Hypoxic Respiratory Failure - likely secondary to COVID-19 Pneumonia # Known Pulmonary Sequestration - [facility] # Suspect Viral Sepsis secondary to COVID-19 Pneumonia # Hyponatremia # Elevated Troponin - suspected Demand Ischemia (Type II NSTEMI) due to COVID-19 # Hypertension # Hyperlipidemia # Subclinical Hyperthyroidism # Moderate Hiatal Hernia HOSPITAL COURSE: Ms. Omaira Pineda is a pleasant 60 year old female with a past medical history significant for chronic respiratory failure on 1-2 L home oxygen, hypertension, and hypothyroidism who was admitted to the [facility] on 09/20/2021 for shortness of breath. Upon evaluation, she was found to have acute on chronic hypoxic respiratory failure and viral sepsis secondary to COVID-19 pneumonia. She was initially treated with ceftriaxone + azithromycin as well as dexamethasone with improvement of her respiratory status to her baseline. Pulmonary Medicine was consulted and she was evaluated by Dr. Ramos. He recommended discontinuing antibiotics and continuing dexamethasone. She was also found to have an elevated troponin and she was evaluated by Dr. Duncan. He felt this troponin was secondary to demand ischemia due to pneumonia. He is planning for a possible cardiac stress test as an outpatient. In regards to her hyponatremia, Nephrology was consulted, and this corrected with sodium tablets and IV fluids. On 09/23/2021, she was seen on morning rounds and deemed medically stable for discharge. She was discharged with instructions to schedule follow-up appointments with her PCP in 3-5 days, Dr. Ramos (Pulmonary Medicine) in 1-2 weeks, and with Dr. Duncan (Cardiology) in 1-2 weeks. She was given prescriptions for benzonatate and dexamethasone. She was given the opportunity to ask questions and reported no further questions. Furthermore, all questions were answered to the best of my ability. Today, I personally spent 20 minutes on her case, of which greater than 50% of the time was spent in patient education, counseling, and coordination of care as described above. PHYSICAL EXAMINATION: General: Alert, In no apparent distress, Oriented x3 HEENT: Atraumatic, Mucous membr. moist/pink, EOMI, Sclerae nonicteric Neck: Supple, Without JVD or thyroid abnormality Respiratory: Clear to auscultation bilaterally, Diminished, Rhonchi/gurgles Cardiovascular: No edema, Regular rate/rhythm, Normal S1 S2, No gallops, No rubs, No murmurs Gastrointestinal: Normal bowel sounds, Soft and benign, No tenderness, No rebound, No guarding Musculoskeletal: No tenderness Integumentary: No rashes Neurological: Normal speech, Normal affect Vital Signs/Physical Exam: Temp Pulse Resp BP Pulse Ox 97.5 F 91 H 19 133/63 98 09/23/21 04:00 09/23/21 04:00 09/23/21 04:00 09/23/21 04:00 09/23/21 04:00 Laboratory Data at Discharge: WBC 6.8 K/uL (4.3-10.9) 09/23/21 03:00 Hgb 12.8 g/dL (12.0-15.0) 09/23/21 03:00 Hct 37.5 % (36.0-45.0) 09/23/21 03:00 Plt Count 323 K/uL (152-406) 09/23/21 03:00 PT 11.5 SECONDS (9.5-12.5) 09/19/21 22:20 INR 1.04 09/19/21 22:20 Sodium 135 mmol/L (136-145) L 09/23/21 03:00 Potassium 3.9 mmol/L (3.5-5.1) 09/23/21 03:00 BUN 12 mg/dL (7-18) 09/23/21 03:00 Creatinine 0.58 mg/dL (0.55-1.3) 09/23/21 03:00 Glucose 160 mg/dL (74-106) H 09/23/21 03:00 Magnesium 2.0 mg/dL (1.8-2.4) 09/21/21 05:02 Total Bilirubin 0.3 mg/dL (0.2-1.0) 09/19/21 22:20 AST 27 U/L (15-37) 09/19/21 22:20 ALT 24 U/L (12-78) 09/19/21 22:20 Alkaline Phosphatase 84 U/L (45-117) 09/19/21 22:20 Home Medications: Albuterol Inhaler [Ventolin Inhaler*] 2 puff IH Q6H PRN 09/20/21 Amlodipine [Norvasc*] 10 mg PO DAILY 09/20/21 Clobetasol [Temovate Cream 0.05%*] 1 appl TP BID 09/20/21 Tiotropium [Spiriva Handihaler*] 18 mcg IH DAILY 09/20/21 Benzonatate [Tessalon Perle*] 100 mg PO TID PRN 7 Days #20 cap 09/23/21 Cholecalciferol (Vitamin D3) [Vitamin D 5,000 IU Cap*] 5,000 unit PO DAILY cap 09/23/21 dexAMETHasone [Decadron*] 2 mg PO BID 3 Days #6 tab 09/23/21 New Medications: dexAMETHasone [Decadron*] 2 mg PO BID 3 Days #6 tab Benzonatate [Tessalon Perle*] 100 mg PO TID PRN 7 Days #20 cap PRN Reason: Cough Physician Discharge Instructions: 1. Please schedule follow-up appointment with your PCP in 3-5 days 2. Please schedule follow-up appointment with Pulmonary Medicine (Dr. Ramos) in 1-2 weeks 3. Please schedule follow-up appointment with Cardiology (Dr. Duncan) in 1-2 weeks Diet: AHA Activity: Ad andreas Followup: Chvaa Ramos MD [ACTIVE - CAN ADMIT] - Unknown,U [Primary Care Provider] - Basil Duncan MD [ACTIVE - CAN ADMIT] - Time spent managing pt's care (in minutes): 20
[2021-09-23] MEDS: TIOTROPIUM IH SCH (09:00)
[2021-09-23] MEDS ORDERED: POTASSIUM CL SA 10 MEQ TAB PO ONE (09:00)
[2021-09-23] MEDS: AMLODIPINE 10 MG TAB PO SCH (09:13)
[2021-09-23] MEDS: clonazePAM 0.5 MG TAB PO SCH ×2 (09:13→13:36)
[2021-09-23] MEDS: ENOXAPARIN 40 MG/0.4 ML SQ SCH (09:13)
[2021-09-23] MEDS: VITAMIN D 5,000 UNIT CAP PO SCH (09:13)
[2021-09-23] MEDS: dexAMETHasone 4 MG TAB PO SCH (09:14)
[2021-09-23 09:15] VITALS: O2SAT 96
[2021-09-23] MEDS: ACETAMINOPHEN 500 MG TAB PO PRN (10:28)
[2021-09-23] MEDS ORDERED: KETOROLAC 30 MG/ML INJ IV ONE (12:40)
[2021-09-23 16:18] VITALS: BP 145/98; TEMP 97.6
--- OUTSIDE RECORDS SUMMARY | 2021-09-24 08:44 | XMS REPORT | Continuity of Care Document ---
:1960 Author Organization [facility] t Address [address] [place] [address] Dr. Garcia [address] [place] [id number] Care Team Providers Name Role Phone Jason Vergara MD Primary Care Physician Tyshawn DE OLIVEIRA C Attending Clinician Unavailable Therapist, Pulmonary Attending Clinician Unavailable Ramon LAU, G Attending Clinician Jason Vergara MD Attending Clinician Payers Payer Name Policy Type Policy Number Effective Date Expiration Date S ource Problems Condition Condition Condition Status Onset Resolution Last Treating Co mments Source Name Details Category Date Date Treatment Clinician Date COPD COPD Disease Active Univers (chronic (chronic 8-31 ity [place] Medical pulmonary pulmonary Bran ch disease) disease) COPD COPD Disease Active 2020-0 Univers exacerbati exacerbati 8-29 it y of on on 00:00: [place] [address] Medical Branch Allergies, Adverse Reactions, Alerts This patient has no known allergies or adverse reactions. Social History Social Habit Start Date Stop Date Quantity Comments Source History [facility] University o f Alcohol Std Drinks [place] [facility] History [facility] University o f Alcohol Binge [place] [facility] History [facility] o f Alcohol Comment [place] [facility] ical Branch Exposure to 2021-09-07 2021-09-17 Not sure University of SARS-CoV-2 (event) 00:00:00 11:04:00 [facility] Branch Alcohol intake 2021-08-06 2021-08-06 Lifetime University of 00:00:00 00:00:00 non-drinker [facility] (finding) Branch Cigarettes smoked 2021-04-29 2021-04-29 Univers ity of current (pack per 00:00:00 00:00:00 [facility] edical ) - Reported Branch Tobacco use and 2021-04-29 2021-04-29 Smokeless Universit y of exposure 00:00:00 00:00:00 tobacco non-user [facility] dical Branch History [facility] 2019-12-17 2019-12-17 1 University o f Alcohol Frequency 00:00:00 00:00:00 [facility] edical Branch History [facility] 2019-11-04 2019-11-04 3 University o f Financial 00:00:00 00:00:00 [place] [facility] History [facility] Food 2019-11-04 2019-11-04 2 Univers ity of Worry 00:00:00 00:00:00 [place] [facility] History [facility] Food 2019-11-04 2019-11-04 2 Univers ity of Scarcity 00:00:00 00:00:00 [facility] Branch History [facility] 2019-11-04 2019-11-04 1 University o f Transport Med 00:00:00 00:00:00 [place] [facility] History [facility] 2019-11-04 2019-11-04 1 University o f Transport Non-Med 00:00:00 00:00:00 [facility] Branch History of tobacco 2017-12-16 Cigarette Smoker University of use 00:00:00 [facility] Sex Ass[birth year] At [birth year] Universit y of 00:00:00 00:00:00 [facility] Smoking Status Start Date Stop Date Source Ex-smoker 2021-04-29 00:00:00 2021-04-29 00:00:00 Universi ty of [facility] Medications Ordered Filled Start Stop Current Ordering Indication Dosage Frequency Signature Comments Components Source Medication Medication Date Date Medication? Clinician (SIG) Name Name CLOBETASOL 2022-0 Yes 2 (two) Univ ers PROPIONATE, 6-02 times ity of BULK, MISC 13:20: daily. Indication Medical s: Branch psoriasis on legs CLOBETASOL 2021-0 Yes 2 (two) Univ ers PROPIONATE, 6-02 times ity of BULK, MISC 13:20: daily. Indication Medical s: Branch psoriasis on legs tiotropium 2021-0 Yes 18ug Inhale 1 Uni vers 18 mcg 6-02 capsule ity of inhalation 00:00: daily. Medical Branch albuterol 0 Yes 2{puff} Inhale 2 U nivers 90 6-02 Puffs ity of mcg/actuati 00:00: every 6 [place] as on inhaler 00 (six) Medical hours as Branch needed for Wheezing or Shortness of Breath. tiotropium 0 Yes 18ug Inhale 1 Uni vers 18 mcg 6-02 capsule ity of inhalation 00:00: daily. Medical Branch albuterol 0 Yes 2{puff} Inhale 2 U nivers 90 6-02 Puffs ity of mcg/actuati 00:00: every 6 [place] as on inhaler 00 (six) Medical hours as Branch needed for Wheezing or Shortness of Breath. IPRATROPIUM 0 Yes [id number] INHALE Univers -ALBUTEROL 5-24 9103 CONTENTS ity o f 0.5 mg-3 00:00: OF ONE (1) [place] as mg(2.5 mg 00 VIAL VIA Medica l base)/3 mL NEBULIZER Bran ch nebulizer EVERY FOUR solution HOURS NEEDED FOR WHEEZING. IPRATROPIUM 2021-0 Yes [id number] INHALE Univers -ALBUTEROL 5-24 9103 CONTENTS ity o f 0.5 mg-3 00:00: OF ONE (1) [place] as mg(2.5 mg 00 VIAL VIA Medica l base)/3 mL NEBULIZER Bran ch nebulizer EVERY FOUR solution HOURS NEEDED FOR WHEEZING. amLODIPine 2021-0 Yes [id number] 10mg Take 1 U nivers 10 mg 3-11 tablet by ity of tablet 00:00: mouth 00 daily. Medical Branch amLODIPine 2021-0 Yes [id number] 10mg Take 1 U nivers 10 mg 3-11 tablet by ity of tablet 00:00: mouth 00 daily. Medical Branch levalbutero Yes [id number] 1{puff} Inhale 1-2 Univers l 45 3-02 9103 Puffs ity of mcg/actuati 00:00: every 4 [place] as on inhaler 00 (four) Medical hours as Branch needed for Wheezing. levalbutero Yes [id number] 1{puff} Inhale 1-2 Univers l 45 3-02 9103 Puffs ity of mcg/actuati 00:00: every 4 [place] as on inhaler 00 (four) Medical hours as Branch needed for Wheezing. triamcinolo 2020-03 Yes [id number] Apply to Univers ne 1-08 area(s) 2 ity of acetonide 00:00: (two) [place] 0.1 % cream 00 times Medical daily. Branch triamcinolo 2020-03 Yes [id number] Apply to Univers ne 1-08 area(s) 2 ity of acetonide 00:00: (two) [place] 0.1 % cream 00 times Medical daily. Branch betamethaso Yes [id number] Apply to Univers ne 3-12 area(s) 2 ity of dipropionat 00:00: (two) [place] e 0.05 % 00 times Medical cream daily. Branch betamethaso 0 Yes [id number] Apply to Univers ne 3-12 area(s) 2 ity of dipropionat 00:00: (two) [place] e 0.05 % 00 times Medical cream daily. Branch Nebulizer & 0 Yes [id number] Use every Univers Compressor 9- 9103 4 hours ity of For Neb 00:00: with [place] Jacquie 00 duoneb Medical solution Branch as needed for wheezing, shortness of breath Nebulizer & 2019-0 Yes [id number] Use every Univers Compressor 9- 9103 4 hours ity of For Neb 00:00: with [place] Jacquie 00 duoneb Medical solution Branch as needed for wheezing, shortness of breath Immunizations Ordered Filled Immunization Date Status Comments Sour e Immunization Name Name SARS-COV-2 COVID-19 2021-01-19 Completed Unive rsity of PFIZER VACCINE 00:00:00 [facility] SARS-COV-2 COVID-19 2021-01-19 Completed Unive rsity of PFIZER VACCINE 00:00:00 [facility] SARS-COV-2 COVID-19 2020-12-26 Completed Unive rsity of PFIZER VACCINE 00:00:00 [facility] SARS-COV-2 COVID-19 2020-12-26 Completed Unive rsity of PFIZER VACCINE 00:00:00 [facility] Influenza Virus 2020-04-03 Completed Universit y of Vaccine Quad .5 mL 00:00:00 [facility] 6+ MO [facility] Influenza Virus 2020-04-03 Completed Universit y of Vaccine Quad .5 mL 00:00:00 [facility] 6+ MO [place] Vital Signs Vital Name Observation Time Observation Value Comments Source Systolic blood 2021-09-17 16:50:00 116 mm[Hg] manual Univer sity of pressure [facility] Diastolic blood 2021-09-17 16:50:00 68 mm[Hg] manual Unive rsity of pressure [facility] Heart rate 2021-09-17 16:50:00 83 /min [facility] Respiratory rate 2021-09-17 16:50:00 22 /min Univ ersity [facility] Body weight 2021-09-17 16:50:00 64.229 kg [facility] BMI 2021-09-17 16:50:00 24.31 kg/m2 [facility] Oxygen saturation in 2021-09-17 16:50:00 100 /min [place] 1 l/m [facility] Arterial blood by [facility] Pulse oximetry [facility] Procedures This patient has no known procedures. Encounters Start End Encounter Admission Attending Care Care Encounter Source Date/Time Date/Time Type Type Clinicians Facility Department ID 2021-09-21 2021-09-21 Letter [facility]wn [facility] [id number] Univers 00:00:00 00:00:00 (Out) Blanka SEQUEIRA [id number] i ty of [place] [id number] Carolin SPENCE [phone] Vt dical [address] 2021-09-17 2021-09-17 Ancillary Therapist, Adc Pulmonary [facility] [id number] Univers 11:00:00 13:10:08 Visit Augusto Nvaarro [id number] 10 ity [facility] [id number] Carolin zaidi PROFESSIO [phone] Vt dicjonel NAL [address] Branch BUILDING 2020-04-28 2020-04-28 Office MARY Vergara [id number] 13:31:35 13:46:35 Visit [facility] [id number] [facility] [id number] Professio [phone] [facility] [address] One Results This patient has no known results.
[2021-09-24] MEDS ORDERED: PANTOPRAZOLE 40MG TABLET PO SCH (12:40)
== END 2021-09-23 17:02 | disposition home or self-care (01) | DRG 871 ==
LOC: ER 21:03 → ERHOLD 09-20 04:08 → 2ND 09-21 19:24
PROVIDERS: ADMIT Internal Medicine Nephrology; ATTEND Internal Medicine Nephrology
DX: A41.89 Other specified sepsis (principal); U07.1 COVID-19; J12.82 Pneumonia due to coronavirus disease 2019; J96.21 Acute and chronic respiratory failure with hypoxia; Q33.2 Sequestration of lung; I21.A1 Myocardial infarction type 2; E87.1 Hypo-osmolality and hyponatremia; I10 Essential (primary) hypertension; E78.5 Hyperlipidemia, unspecified; K44.9 Diaphragmatic hernia without obstruction or gangrene; E05.90 Thyrotoxicosis, unspecified without thyrotoxic crisis or storm; E03.9 Hypothyroidism, unspecified; J44.9 Chronic obstructive pulmonary disease, unspecified; Z99.81 Dependence on supplemental oxygen
CPT/HCPCS: 36415; 70450; 71045; 71275; 80048; 80076; 81015; 83540; 83605; 83735; 83880; 84439; 84443; 84466; 84484; 85025; 85027; 85379; 85610; 87040; 87804; 93005; 93306; 94640; 94760; 99285; J1100; J1650; J2270; J7030; J7040; J8540; Q9967; U0003

== ENCOUNTER 2024-12-13 17:02 | Emergency (ER) | payer OTHER ==
--- OUTSIDE RECORDS SUMMARY | 2024-12-13 17:09 | XMS REPORT | Continuity of Care Document ---
Author Name Unknown Address [address] [facility] [address]. [address] [place] [address] [facility] Address [address] 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 Name Role Phone Ricky Herrmann Attending Clinician Unavailable Brenna Ruelas Attending Clinician Unavail able Brenna Ruelas Admitting Clinician Unavail able Physician, No Primary or Family Admitting Clinic bryant Unavailable Payers Payer Name Policy Type Policy Number Effective Date Expirati on Date Source Allergies, Adverse Reactions, Alerts Allergy Name Allergy Type Status Severity Reaction(s) Onset Date Inactive Date Treating Clinician Comments Source No Known Allergie s DA Active U 2-13 00:00: 00 [facility] are [place] No Known Allergie s DA Active U 2-04 00:00: 00 [facility] [address] Procedures Procedure Date / Time Performed Performing Clinician Source INSERTION OF INFUSION DEV INTO R BASILIC VEIN, PER 2024-04-13 00:00:00 RATKR [facility] [place] RESPIRATORY VENTILATION, 24-96 CONSECUTIVE HOURS 2024-04-10 00:00:00 EDWEL [facility] [place] INSERTION OF ENDOTRACHEAL AIRWAY INTO TRACHEA, VIA 2024-04-10 00:00:00 EDWEL [facility] [place] Encounters Start Date/Time End Date/Time Encounter Type Admission Type Attending Clinicians Care Facility Care Department Encounter ID Source 2024-04-10 19:10:00 2024-04-26 21:30:00 Inpatient EM Ricky Herrmann [facility] PCI [id number] [facility] [place] 2024-04-10 21:19:00 2024-04-10 21:19:00 Outpatient Brenna Ruelas [facility] REF [id number] [facility] Results Test Description Test Time Test Comments Results Result Co mments Source CBC W/AUTO [id number] 13:05:00* Test Item Value Reference Range Interpretation Comme nts WHITE BLOOD CELL (test code = WBC) 19.28 K/mm3 5.0-12.0 H RED BLOOD CELL (test code = RBC) 3.69 M/mm3 4.20-5.40 L HEMOGLOBIN (test code = HGB) 11.1 G/DL 12.0-16.0 L HEMATOCRIT (test code = HCT) 34.1 % 34.9-44.5 L MEAN CELL VOLUME (test code = MCV) 92 fL 81-99 N MEAN CELL HGB (test code = MCH) 30.1 PGM 27-31 N MEAN CELL HGB CONCENTRATION (test code = MCHC) 32.6 G/DL 33-37 L RED CELL DISTRIBUTION WIDTH (test code = RDW) 13.8 % 11.6-16.2 N PLATELET COUNT (test code = PLT) 494 K/mm3 130-400 H MEAN PLATELET VOLUME (test c ode = MPV) 10.3 fl 7.4-10.4 N NEUTROPHIL % (test code = NT%) 88.4 % 43-65 H IMMATURE GRANULOCYTE % (test code = IG%) 0.7 % 0.0-2.0 N LYMPHOCYTE % (test code = LY%) 3.8 % 20.5-45.5 L MONOCYTE % (test code = MO%) 6.4 % 5.5-11.7 N EOSINOPHIL % (test code = EO%) 0.5 % 0.9-2.9 L BASOPHIL % (test code = BA%) 0.2 % 0.2-1.0 N NUCLEATED RBC % (test code = NRBC%) 0.0 % 0-1.0 N NEUTROPHIL # (test code = NT#) 17.04 K/mm3 2.2-4.8 H LYMPHOCYTE # (test code = LY#) 0.74 K/mm3 1.3-2.9 L MONOCYTE # (test code = MO#) 1.23 K/mm3 0.3-0.8 H EOSINOPHIL # (test code = EO#) 0.10 K/MM3 0.0-0.2 N BASOPHIL # (test code = BA#) 0.04 K/mm3 0.0-0.1 N - CTA CHEST FOR [id number] 13:37:00 [facility] 1960 Sex: FPatient Name: MARIE PINEDA Unit No: [id number] EXAMS: CPT: [id number] [place] [id number] EXAM: CTA CHEST WITH CONTRAST DATE: 04/19/2024 11:15 AM INDICATION: hemoptysis. ADDITIONAL INFORMATION: None. COMPARISON: Chest radiograph 04/18/2024. TECHNIQUE: CT imaging was performed with iterative reconstruction techniques and/or automated exposure control to reduce radiation dose. Volumetric CT of the chest is acquired during pulmonary arterial phase following intravenous administration of contrast. Axial, coronal and sagittal reconstructions and 3D pulmonary artery reconstructions are created at the acquisition workstation. IV contrast: Refer to MAR/system technologist documentation DLP: Refer to CT protocol form FINDINGS: Inker And Opaquer: Noncontributory. Lines and tubes: None. Lower neck: Unremarkable. Axilla: Clear. Airway: Clear. Lungs and pleura: Moderate centrilobular emphysema. Some atelectasis at thelung bases. Diffuse mild bronchial wall thickening. No consolidation. No pleural effusion or pneumothorax. Mediastinum, leonardo and intrathoracic lymph nodes: Normal. Heart, pericardium and great vessels: Pulmonary emboli: No pulmonary embolus is identified to the segmental level. There is suboptimal opacification of the distal pulmonary arteries. Pulmonary trunk: 2.4 cm, normal. Aorta: The aorta isnormal in size with the ascending aorta measuring 3.1 cm in diameter at the level of the right mainpulmonary artery. No acute vascular abnormalities such as aortic dissection, penetrating ulcer, or rupture is seen. Anatomic variant common origin right brachiocephalic and left common carotid arteries. Minimal scattered vascular calcifications. Heart: Normal. No right heart strain. RV:LV ratio is < 1 (Normal <1). Pericardium: No pericardial fluid. Upper abdomen: A 1.5 cm linear hyperdensity at the right hepatic lobe [facility] Ele Hernandez [address] [facility] : 1960 Age: 63 [facility]: [facility] [id number] Loc: A ExamDate: 04/19/2024 Status: ADM IN PH: FAX: PAGE 1 Signed Report (CONTINUED) Patient Name: MARIE PINEDA Unit No: [id number] EXAMS: CPT: [id number] [place] [id number] (Continued) may represent calcification versus sequela of old injury. Bones: T8 vertebral body compression fracture, age-indeterminate. Scattered osseous degenerative changes. Soft tissues: Normal. IMPRESSION: No pulmonary embolus is identified to the segmental level. CT evidence for right heart strain is absent. Emphysema. Age- indeterminant T8 vertebral body compression fracture. Correlate with point tenderness. at 1337 Reported and signed by: Isai Jeffries MD CC: Ele ORTIZ; Ricky Herrmann MD Technologist: MIRTA COONEY CTDI: 13.59 DLP: 1176.42Trscr Dt/Tm: 04/19/2024 (1337) by:[email or web address] Orig Print D/T: S: 04/19/2024 (3520) BATCH NO: N/A Name[facility] Phys: Ele Terrazas [address] [facility] : 1960 Age: 63 [place] Loc: A Exam Date: 04/19/2024 Status: ADM IN PH: FAX: PAGE 2 Signed Report CBC W/AUTO [id number] 11:49:00* Test Item Value Reference Range Interpretation Comme nts WHITE BLOOD CELL (test code = WBC) 23.20 K/mm3 5.0-12.0 H RED BLOOD CELL (test code = RBC) 4.02 M/mm3 4.20-5.40 L HEMOGLOBIN (test code = HGB) 11.7 G/DL 12.0-16.0 L HEMATOCRIT (test code = HCT) 37.5 % 34.9-44.5 N MEAN CELL VOLUME (test code = MCV) 93 fL 81-99 N MEAN CELL HGB (test code = MCH) 29.1 PGM 27-31 N MEAN CELL HGB CONCENTRATION (test code = MCHC) 31.2 G/DL 33-37 L RED CELL DISTRIBUTION WIDTH (test code = RDW) 13.7 % 11.6-16.2 N PLATELET COUNT (test code = PLT) 316 K/mm3 130-400 N MEAN PLATELET VOLUME (test c ode = MPV) 11.5 fl 7.4-10.4 H NEUTROPHIL % (test code = NT%) 94.5 % 43-65 H IMMATURE GRANULOCYTE % (test code = IG%) 1.0 % 0.0-2.0 N LYMPHOCYTE % (test code = LY%) 2.8 % 20.5-45.5 L MONOCYTE % (test code = MO%) 1.4 % 5.5-11.7 L EOSINOPHIL % (test code = EO%) 0.1 % 0.9-2.9 L BASOPHIL % (test code = BA%) 0.2 % 0.2-1.0 N NUCLEATED RBC % (test code = NRBC%) 0.0 % 0-1.0 N NEUTROPHIL # (test code = NT#) 21.91 K/mm3 2.2-4.8 H LYMPHOCYTE # (test code = LY#) 0.66 K/mm3 1.3-2.9 L MONOCYTE # (test code = MO#) 0.33 K/mm3 0.3-0.8 N EOSINOPHIL # (test code = EO#) 0.02 K/MM3 0.0-0.2 N BASOPHIL # (test code = BA#) 0.05 K/mm3 0.0-0.1 N - XR CHEST 1 [id number] 10:55:00 [facility] 1960 Sex: FPatient Name: MARIE PINEDA Unit No: [id number] EXAMS: CPT: [id number] XR CHEST 1 V [id number] EXAM: XR CHEST 1 VIEW DATE: 04/18/2024 10:35 AM INDICATION: Shortness of breath, pneumonia COMPARISON: Chest radiograph on 04/16/2024. TECHNIQUE: AP chest. FINDINGS: Lines, tubes and hardware: None. Lungs and pleura: Pulmonary vascularity is normal. No focal consolidations are seen. There is linear atelectasis at the left lung base. The costophrenic sulci are sharp without effusion. No pneumothorax is identified. Heart and mediastinum: The heart size is normal. The mediastinal contours are normal. Bones and softtissues: No acute abnormality. IMPRESSION: No acute cardiopulmonary abnormality. at 1055 Reported and signed by: Abdelrahman Lindsey MD CC: Ele ORTIZ; Ricky Herrmann MD Technologist: Landy Eason Fluoro Time: DAP (Gy m2): Air Kerma (mGy): Trscr Dt/Tm: 04/18/2024 (1055) by:[email or web address] Orig Print D/T: S: 04/18/2024 (1058) BATCH NO: N/A Name: MARIE PINEDA [facility] Phys: Ele Terrazas [address] : 1960ge: 63 Sex: F [place] Loc: T.207 A Exam Date: 04/18/2024 Status: ADM IN PH: FAX: PAGE 1 Signed Report CBC W/AUTO [id number] 10:43:00* Test Item Value Reference Range Interpretation Comme nts WHITE BLOOD CELL (test code = WBC) 24.70 K/mm3 5.0-12.0 H RED BLOOD CELL (test code = RBC) 3.81 M/mm3 4.20-5.40 L HEMOGLOBIN (test code = HGB) 11.2 G/DL 12.0-16.0 L HEMATOCRIT (test code = HCT) 35.8 % 34.9-44.5 N MEAN CELL VOLUME (test code = MCV) 94 fL 81-99 N MEAN CELL HGB (test code = MCH) 29.4 PGM 27-31 N MEAN CELL HGB CONCENTRATION (test code = MCHC) 31.3 G/DL 33-37 L RED CELL DISTRIBUTION WIDTH (test code = RDW) 13.7 % 11.6-16.2 N PLATELET COUNT (test code = PLT) 424 K/mm3 130-400 H MEAN PLATELET VOLUME (test c ode = MPV) 10.4 fl 7.4-10.4 N NEUTROPHIL % (test code = NT%) 86.4 % 43-65 H IMMATURE GRANULOCYTE % (test code = IG%) 1.1 % 0.0-2.0 N LYMPHOCYTE % (test code = LY%) 6.8 % 20.5-45.5 L MONOCYTE % (test code = MO%) 5.5 % 5.5-11.7 N EOSINOPHIL % (test code = EO%) 0.0 % 0.9-2.9 L BASOPHIL % (test code = BA%) 0.2 % 0.2-1.0 N NUCLEATED RBC % (test code = NRBC%) 0.0 % 0-1.0 N NEUTROPHIL # (test code = NT#) 21.35 K/mm3 2.2-4.8 H LYMPHOCYTE # (test code = LY#) 1.67 K/mm3 1.3-2.9 N MONOCYTE # (test code = MO#) 1.35 K/mm3 0.3-0.8 H EOSINOPHIL # (test code = EO#) 0.01 K/MM3 0.0-0.2 N BASOPHIL # (test code = BA#) 0.06 K/mm3 0.0-0.1 N BASIC METABOLIC [id number] 10:42:00* Test Item Value Reference Range Interpretation Comme nts SODIUM (test code = NA) 139 mmol/L 136-145 N POTASSIUM (test code = K) 4.1 mmol/L 3.4-4.5 N CHLORIDE (test code = CL) 97 mmol/L 98-107 L CARBON DIOXIDE (test code = CO2) 36 mmol/l 20-31 H GLUCOSE (test code = GLU) 112 mg/dL 74-106 H BLOOD UREA NITROGEN (test code = BUN) 16 mg/dL 9-23 N GLOMERULAR FILTRATION RATE (test code = GFR) >=60 max estimate >60 The Glomerular Filtration Rate is a calculated parameterbased on serum Creatinine, patient age and sex. GFR valuesless than 60 mL/min/1.73 square meters are indicative ofChronic Kidney Disease. Values less than 15 mL/min/1.73square meters indicate Kidney failure. The calculation forGFR is based on the CKD-EPI (2020) calculation. This formulais race indifferent and is the recommended formula for GFRby the National Kidney Foundation for Adults.The GFR will not calculate if the sex is unknown or if thepatient's age is <18 years. CREATININE (test code = CREAT) 0.60 mg/dL 0.55-1.02 N CALCIUM (test code = CA) 9.7 mg/dL 8.6-10.3 N URINALYSIS [id number] 08:42:00* Test Item Value Reference Range Interpretation Comme nts UA COLOR (test code = COLU) Light-Yellow YELLOW UA APPEARANCE (test code = APPU) TURBID CLEAR A UA GLUCOSE DIPSTICK (test co de = DGLUU) NEG MG/DL NEGATIVE UA BILIRUBIN DIPSTICK (test code = BILU) NEG NEGATIVE UA KETONE DIPSTICK (test cod e = KETU) 1+ MG/DL NEGATIVE A UA SPECIFIC GRAVITY (test co de = SGU) 1.022 1.000-1.030 UA BLOOD DIPSTICK (test code = JAXSON) TRACE NEGATIVE A UA PH DIPSTICK (test code = AUSTIN) 8.0 4.5-8.5 UA PROTEIN DIPSTICK (test co de = PROU) NEG MG/DL NEGATIVE UA UROBILINOGEN DIPSTICK (te st code = URO) NORMAL EU/dL <=1.0 UA NITRITE DIPSTICK (test co de = JAYJAY) NEG NEGATIVE UA LEUKOCYTE ESTERASE DIPSTI CK (test code = LEUU) NEG NEGATIVE UA WBC (test code = WBCU) 0-5 /HPF 0-5 UA RBC (test code = RBCU) 21-50 /HPF 0-5 A UA BACTERIA (test code = BACU) NONE SEEN /HPF NONE SEEN UA SQUAMOUS CELLS (test code = SQU) RARE /HPF NONE-FEW UA MUCUS (test code = MUCU) RARE /LPF NONE-FEW UA AMORPHOUS SEDIMENT (test code = AMORU) 1+ /HPF NONE SEEN BASIC METABOLIC [id number] 07:40:00* Test Item Value Reference Range Interpretation Comme nts SODIUM (test code = NA) 139 mmol/L 136-145 N POTASSIUM (test code = K) 4.4 mmol/L 3.4-4.5 N CHLORIDE (test code = CL) 94 mmol/L 98-107 L CARBON DIOXIDE (test code = CO2) 37 mmol/l 20-31 H GLUCOSE (test code = GLU) 107 mg/dL 74-106 H BLOOD UREA NITROGEN (test code = BUN) 17 mg/dL 9-23 N GLOMERULAR FILTRATION RATE (test code = GFR) >=60 max estimate >60 The Glomerular Filtration Rate is a calculated parameterbased on serum Creatinine, patient age and sex. GFR valuesless than 60 mL/min/1.73 square meters are indicative ofChronic Kidney Disease. Values less than 15 mL/min/1.73square meters indicate Kidney failure. The calculation forGFR is based on the CKD-EPI (2020) calculation. This formulais race indifferent and is the recommended formula for GFRby the National Kidney Foundation for Adults.The GFR will not calculate if the sex is unknown or if thepatient's age is <18 years. CREATININE (test code = CREAT) 0.59 mg/dL 0.55-1.02 N CALCIUM (test code = CA) 9.8 mg/dL 8.6-10.3 N [id number] 07:40:00* Test Item Value Reference Range Interpretation Comme nts MAGNESIUM (test code = MAG) 2.0 mg/dL 1.6-2.6 N CBC W/AUTO [id number] 07:14:00* Test Item Value Reference Range Interpretation Comme nts WHITE BLOOD CELL (test code = WBC) 21.50 K/mm3 5.0-12.0 H RED BLOOD CELL (test code = RBC) 3.93 M/mm3 4.20-5.40 L HEMOGLOBIN (test code = HGB) 11.6 G/DL 12.0-16.0 L HEMATOCRIT (test code = HCT) 37.6 % 34.9-44.5 N MEAN CELL VOLUME (test code = MCV) 96 fL 81-99 N MEAN CELL HGB (test code = MCH) 29.5 PGM 27-31 N MEAN CELL HGB CONCENTRATION (test code = MCHC) 30.9 G/DL 33-37 L RED CELL DISTRIBUTION WIDTH (test code = RDW) 13.7 % 11.6-16.2 N PLATELET COUNT (test code = PLT) 412 K/mm3 130-400 H MEAN PLATELET VOLUME (test c ode = MPV) 10.2 fl 7.4-10.4 N NEUTROPHIL % (test code = NT%) 90.2 % 43-65 H IMMATURE GRANULOCYTE % (test code = IG%) 1.3 % 0.0-2.0 N LYMPHOCYTE % (test code = LY%) 4.7 % 20.5-45.5 L MONOCYTE % (test code = MO%) 3.6 % 5.5-11.7 L EOSINOPHIL % (test code = EO%) 0.0 % 0.9-2.9 L BASOPHIL % (test code = BA%) 0.2 % 0.2-1.0 N NUCLEATED RBC % (test code = NRBC%) 0.0 % 0-1.0 N NEUTROPHIL # (test code = NT#) 19.38 K/mm3 2.2-4.8 H LYMPHOCYTE # (test code = LY#) 1.00 K/mm3 1.3-2.9 L MONOCYTE # (test code = MO#) 0.78 K/mm3 0.3-0.8 N EOSINOPHIL # (test code = EO#) 0.00 K/MM3 0.0-0.2 N BASOPHIL # (test code = BA#) 0.05 K/mm3 0.0-0.1 N - CT HEAD/BRAIN W/O [id number] 13:51:00 [facility] 1960 Sex: FPatient Name: MARIE PINEDA Unit No: [id number] EXAMS: CPT: [id number] CT HEAD/BRAIN W/O CONT 65300 HISTORY: Ams TECHNIQUE: Axial CT images of the head were obtained without intravenous contrast. Coronal and sagittal reconstructions were generated. CT radiation dose optimization is achieved for this examination by the use of a CT protocol in accordance with ACR practice guidelines and adherence to manu facturer recommendations. Iterative reconstruction techniques and/or automated exposure controlled to reduce radiation dose was utilized. COMPARISON: None available. FINDINGS: No acute intracranial hemorrhage, extracerebral fluid collection, midline shift or mass effect. No acute transcortical infarction. Mild chronic ischemic changes of the white matter. Intracranial atherosclerosis. Ventricles are normal. Cerebral volume is age appropriate. No focal osseous abnormality. Visualized orbits are unremarkable. Pansinus disease with fluid levels in the maxillary sinuses suggesting acute sinusitis. Near complete mucosal opacification of the sphenoid, maxillary, and ethmoid air cells with mucosalthickening throughout the frontal sinuses. IMPRESSION: No acute intracranial abnormality. Pansinus disease with air-fluid levels, correlate for sinusitis. Vanessa Cheng MD Neuroradiology at 1351 Reported and signed by: Vanessa Cheng MD CC: Ele ORTIZ; Ricky Herrmann MD Technologist: DAPHNE PELAEZ CTDI: 35.5 DLP: 858.8 Trscr Dt/Tm: 04/16/2024 (1351) by:[email or web address] Orig Print D/T: S: 04/16/2024 (1354) BATCH NO: N/A Name: MARIE PINEDA [facility] Phys: KARTHIK Garry Ele Hernandez Petty ORTIZ [address] : 1960 Age: 63 Sex: Elham Valero Loc: T.221 A Exam Date: 04/16/2024 Status: ADM IN PH: FAX: PAGE 1 Signed ReportLACTIC [id number] 12:31:00* Test Item Value Reference Range Interpretation Comme nts LACTIC ACID (test code = LACT) 0.9 mmol/L 0.5-2.2 N - XR CHEST 1 [id number] 12:15:00 [facility] 1960 Sex: FPatient Name: MARIE PINEDA Unit No: [id number] EXAMS: CPT: [id number] XR CHEST 1 V 09983 CHEST 1 VIEW:COMPARISON: 04/14/2024 CLINICAL HISTORY: Desaturation FINDINGS: Mild groundglass infiltrate seen in bilateral upper lung mary. No focal consolidation, pleural effusion, or pneumothorax. Heart size iswith in normal limit. No acute bony abnormality seen. IMPRESSION: Mild groundglass infiltrate in bilateral upper lung mary. at 1215 Reported and signed by: Dinesh Evans MD CC: Ricky Herrmann MD; April Lainez MD Technologist: Landy Eason Fluoro Time: DAP (Gy m2): Air Kerma (mGy): Trscr Dt/Tm: 04/16/2024 (1215) by:Luis Angel Orig Print D/T: S: 04/16/2024 (1218) BATCH NO: N/A Name: MARIE PINEDA [facility] Phys: April Washington MD [address] [facility] : 1960 Age: 63 Sex: F [place], [place] Loc: T.221 A Exam Date: 04/16/2024 Status: ADM IN PH: FAX: PAGE 1 Signed ReportARTERIAL BLOOD [id number] 11:49:00* Test Item Value Reference Range Interpretation Comme nts ARTERIAL BLOOD GAS PH (test code = PHA) 7.431 7.35-7.45 N ARTERIAL BLOOD GAS PCO2 (test code = PCO2A) 56.2 mmHg 35.0-45.0 H ARTERIAL BLOOD GAS PO2 (test code = PO2A) 91.2 mmHg 75-100 N BICARBONATE TOTAL HCO3 (test code = HCO3) 36.5 mmol/L 22.0-26.0 H BASE EXCESS (test code = FAVIAN) 10.0 mmol/L See_Comment H [Automated messa ge] The system which generated this result transmitted reference range: (+/-)2.0. The reference range was not used to interpret this result as normal/abnormal. ABG O2 SATURATION (test code = SATA) 97.0 % 95.0-100.0 N ARTERIAL FIO2 (test code = FIO2A) 40.0 % ABG L/M (test code = L/M) 25.00 L/MIN ABG VENT MODE (test code = MODEA) High Flow ALLENS TEST (test code = ALLENS) Yes PaO2/[id number] 11:49:00* Test Item Value Reference Range Interpretation Comme nts PaO2/FiO2 (test code = FLA4MJW4) 228.00 >200 [id number] 11:44:00* Test Item Value Reference Range Interpretation Comme nts GLUBED (test code = GLUBED) 99 MG/DL 70-105 N BASIC METABOLIC [id number] 04:49:00* Test Item Value Reference Range Interpretation Comme nts SODIUM (test code = NA) 142 mmol/L 136-145 N POTASSIUM (test code = K) 4.2 mmol/L 3.4-4.5 N CHLORIDE (test code = CL) 95 mmol/L 98-107 L CARBON DIOXIDE (test code = CO2) > 40 mmol/l 20-31 HH Critical Value reported toFirst Name:GUERRERO Last Name:JAVIER READ BACK AND VERIFIEDby [id number], on 04/16/24, @ 6049. GLUCOSE (test code = GLU) 111 mg/dL 74-106 H BLOOD UREA NITROGEN (test code = BUN) 14 mg/dL 9-23 N GLOMERULAR FILTRATION RATE (test code = GFR) >=60 max estimate >60 The Glomerular Filtration Rate is a calculated parameterbased on serum Creatinine, patient age and sex. GFR valuesless than 60 mL/min/1.73 square meters are indicative ofChronic Kidney Disease. Values less than 15 mL/min/1.73square meters indicate Kidney failure. The calculation forGFR is based on the CKD-EPI (2020) calculation. This formulais race indifferent and is the recommended formula for GFRby the National Kidney Foundation for Adults.The GFR will not calculate if the sex is unknown or if thepatient's age is <18 years. CREATININE (test code = CREAT) 0.64 mg/dL 0.55-1.02 N CALCIUM (test code = CA) 10.0 mg/dL 8.6-10.3 N [id number] 04:49:00* Test Item Value Reference Range Interpretation Comme nts MAGNESIUM (test code = MAG) 2.1 mg/dL 1.6-2.6 N CBC W/AUTO [id number] 04:34:00* Test Item Value Reference Range Interpretation Comme nts WHITE BLOOD CELL (test code = WBC) 20.80 K/mm3 5.0-12.0 H RED BLOOD CELL (test code = RBC) 4.05 M/mm3 4.20-5.40 L HEMOGLOBIN (test code = HGB) 11.9 G/DL 12.0-16.0 L HEMATOCRIT (test code = HCT) 37.8 % 34.9-44.5 N MEAN CELL VOLUME (test code = MCV) 93 fL 81-99 N MEAN CELL HGB (test code = MCH) 29.4 PGM 27-31 N MEAN CELL HGB CONCENTRATION (test code = MCHC) 31.5 G/DL 33-37 L RED CELL DISTRIBUTION WIDTH (test code = RDW) 13.4 % 11.6-16.2 N PLATELET COUNT (test code = PLT) 412 K/mm3 130-400 H MEAN PLATELET VOLUME (test c ode = MPV) 9.8 fl 7.4-10.4 N NEUTROPHIL % (test code = NT%) 86.1 % 43-65 H IMMATURE GRANULOCYTE % (test code = IG%) 2.1 % 0.0-2.0 H LYMPHOCYTE % (test code = LY%) 6.6 % 20.5-45.5 L MONOCYTE % (test code = MO%) 5.0 % 5.5-11.7 L EOSINOPHIL % (test code = EO%) 0.0 % 0.9-2.9 L BASOPHIL % (test code = BA%) 0.2 % 0.2-1.0 N NUCLEATED RBC % (test code = NRBC%) 0.0 % 0-1.0 N NEUTROPHIL # (test code = NT#) 17.91 K/mm3 2.2-4.8 H LYMPHOCYTE # (test code = LY#) 1.37 K/mm3 1.3-2.9 N MONOCYTE # (test code = MO#) 1.04 K/mm3 0.3-0.8 H EOSINOPHIL # (test code = EO#) 0.00 K/MM3 0.0-0.2 N BASOPHIL # (test code = BA#) 0.05 K/mm3 0.0-0.1 N [id number] 19:14:00* Test Item Value Reference Range Interpretation Comme nts TROPONIN-I (test code = TROPI) 19.5 ng/L 0.0-34.0 N CAUTION: UNITS O F THE CURRENT TEST METHODOLOGY (ng/L) DIFFERFROM THE PRIOR TEST METHODOLOGY (ng/mL) BY A FACTOR OF 1000.RESULTS FROM DIFFERENT METHODS SHOULD NOT BE COMPARED TO ONEANOTHER QUANTITATIVE RESULTS AND URLS MAY VARY BY METHOD. IN ORDER TO DISTINGUISH ACUTE ELEVATIONS OF HIGH SENSITIVETROPONIN FROM OTHER CLINICAL CONDITIONS, THE UNIVERSALDEFINITION OF MYOCARDIAL INFARCTION STRESSES CLINICALASSESSMENT AND THE NEED FOR SERIAL MEASUREMENTS TO OBSERVE ARISE AND/OR FALL ABOVE THE UPPER LIMIT OF THE REFERENCERANGE. CONSIDERATION FOR CARDIOLOGY EVALUATION AND DRAWINGTHIRD hs-cTn, INCLUDING IF CHANGE IN THE CLINICAL STATUS ORSERIAL hs-cTns ARE INCREASING, PARTICULARLY ABOVE THE 99THGENDER-SPECIFIC PERCENTILE. B-TYPE NATRIURETIC [id number] 19:14:00* Test Item Value Reference Range Interpretation Comme nts B-TYPE NATRIURETIC PEPTIDE ( test code = BNP) 95 pg/mL 0-100 N CBC W/AUTO [id number] 05:36:00* Test Item Value Reference Range Interpretation Comme nts WHITE BLOOD CELL (test code = WBC) 13.31 K/mm3 5.0-12.0 H RED BLOOD CELL (test code = RBC) 3.93 M/mm3 4.20-5.40 L HEMOGLOBIN (test code = HGB) 11.6 G/DL 12.0-16.0 L HEMATOCRIT (test code = HCT) 37.3 % 34.9-44.5 N MEAN CELL VOLUME (test code = MCV) 95 fL 81-99 N MEAN CELL HGB (test code = MCH) 29.5 PGM 27-31 N MEAN CELL HGB CONCENTRATION (test code = MCHC) 31.1 G/DL 33-37 L RED CELL DISTRIBUTION WIDTH (test code = RDW) 13.8 % 11.6-16.2 N PLATELET COUNT (test code = PLT) 392 K/mm3 130-400 N MEAN PLATELET VOLUME (test c ode = MPV) 9.8 fl 7.4-10.4 N NEUTROPHIL % (test code = NT%) 66.4 % 43-65 H IMMATURE GRANULOCYTE % (test code = IG%) 5.2 % 0.0-2.0 H LYMPHOCYTE % (test code = LY%) 15.9 % 20.5-45.5 L MONOCYTE % (test code = MO%) 11.8 % 5.5-11.7 H EOSINOPHIL % (test code = EO%) 0.1 % 0.9-2.9 L BASOPHIL % (test code = BA%) 0.6 % 0.2-1.0 N NUCLEATED RBC % (test code = NRBC%) 0.2 % 0-1.0 N NEUTROPHIL # (test code = NT#) 8.84 K/mm3 2.2-4.8 H LYMPHOCYTE # (test code = LY#) 2.12 K/mm3 1.3-2.9 N MONOCYTE # (test code = MO#) 1.57 K/mm3 0.3-0.8 H EOSINOPHIL # (test code = EO#) 0.01 K/MM3 0.0-0.2 N BASOPHIL # (test code = BA#) 0.08 K/mm3 0.0-0.1 N BASIC METABOLIC [id number] 05:17:00* Test Item Value Reference Range Interpretation Comme nts SODIUM (test code = NA) 144 mmol/L 136-145 N POTASSIUM (test code = K) 4.1 mmol/L 3.4-4.5 N CHLORIDE (test code = CL) 101 mmol/L 98-107 N CARBON DIOXIDE (test code = CO2) 38 mmol/l 20-31 H GLUCOSE (test code = GLU) 91 mg/dL 74-106 N BLOOD UREA NITROGEN (test code = BUN) 14 mg/dL 9-23 N GLOMERULAR FILTRATION RATE (test code = GFR) >=60 max estimate >60 The Glomerular Filtration Rate is a calculated parameterbased on serum Creatinine, patient age and sex. GFR valuesless than 60 mL/min/1.73 square meters are indicative ofChronic Kidney Disease. Values less than 15 mL/min/1.73square meters indicate Kidney failure. The calculation forGFR is based on the CKD-EPI (2020) calculation. This formulais race indifferent and is the recommended formula for GFRby the National Kidney Foundation for Adults.The GFR will not calculate if the sex is unknown or if thepatient's age is <18 years. CREATININE (test code = CREAT) 0.56 mg/dL 0.55-1.02 N CALCIUM (test code = CA) 9.2 mg/dL 8.6-10.3 N [id number] 05:17:00* Test Item Value Reference Range Interpretation Comme nts PHOSPHOROUS (test code = PHOS) 3.0 mg/dL 2.4-5.1 N [id number] 05:17:00* Test Item Value Reference Range Interpretation Comme nts MAGNESIUM (test code = MAG) 2.2 mg/dL 1.6-2.6 N [id number] 11:45:00* Test Item Value Reference Range Interpretation Comme nts GLUBED (test code = GLUBED) 102 MG/DL 70-105 N [id number] 07:51:00* Test Item Value Reference Range Interpretation Comme nts GLUBED (test code = GLUBED) 93 MG/DL 70-105 N CBC W/MANUAL [id number] 04:34:00* Test Item Value Reference Range Interpretation Comme nts WHITE BLOOD CELL (test code = WBC) 9.34 K/mm3 5.0-12.0 N RED BLOOD CELL (test code = RBC) 3.46 M/mm3 4.20-5.40 L HEMOGLOBIN (test code = HGB) 10.2 G/DL 12.0-16.0 L HEMATOCRIT (test code = HCT) 32.8 % 34.9-44.5 L MEAN CELL VOLUME (test code = MCV) 95 fL 81-99 N MEAN CELL HGB (test code = MCH) 29.5 PGM 27-31 N MEAN CELL HGB CONCENTRATION (test code = MCHC) 31.1 G/DL 33-37 L RED CELL DISTRIBUTION WIDTH (test code = RDW) 13.9 % 11.6-16.2 N PLATELET COUNT (test code = PLT) 347 K/mm3 130-400 N MEAN PLATELET VOLUME (test c ode = MPV) 9.8 fl 7.4-10.4 N TOTAL CELLS COUNTED (test co de = TCC) 100 #CELLS SEGMENTED NEUTROPHILS (test code = SEG) 63 % 43-65 N LYMPHOCYTE (test code = LYMPH) 21 % 20.5-45.5 N MONOCYTE (test code = MON) 16 % 5.5-11.7 H - XR CHEST 1 [id number] 04:29:00 [facility] 1960 Sex: FPatient Name: MARIE PINEDA Unit No: [id number] EXAMS: CPT: [id number] XR CHEST 1 V 26016 PORTABLE CHEST, 04/14/2024. Comparison: 04/13/2024. CLINICAL: Follow-up. COMMENT: The right midline catheter tip extends to the axilla. There is no evidence of pneumothorax or decompensation. The interstitial markingsappear prominent. The lungs are free of active disease. The regional skeleton appears stable. IMPRES WILLY: No significant change since 04/13/2024. at 0429 Reported and signed by: Donaldo Sotelo MD CC: Glo Skaggs; Brenna Ruelas MD Technologist: Carlos A Mcdowell Time: DAP (Gy m2): Air Kerma (mGy): Trscr Dt/Tm: 04/14/2024(0429) by:[email or web address] Orig Print D/T: S: 04/14/2024 (0432) BATCH NO: N/A Name: MARIE PINEDA [facility] Phys: ARMKEKiana - Glo Skaggs [address] [facility] 1960 Age: 63 Sex: F [place], [place] Loc: T.IC19 A Exam Date: 04/14/2024 Status: ADM IN PH: FAX: PAGE1 Signed Report BASIC METABOLIC [id number] 04:15:00* Test Item Value Reference Range Interpretation Comme nts SODIUM (test code = NA) 146 mmol/L 136-145 H POTASSIUM (test code = K) 4.4 mmol/L 3.4-4.5 N CHLORIDE (test code = CL) 104 mmol/L 98-107 N CARBON DIOXIDE (test code = CO2) 36 mmol/l 20-31 H GLUCOSE (test code = GLU) 107 mg/dL 74-106 H BLOOD UREA NITROGEN (test code = BUN) 16 mg/dL 9-23 GLOMERULAR FILTRATION RATE (test code = GFR) >=60 max estimate >60 The Glomerular Filtration Rate is a calculated parameterbased on serum Creatinine, patient age and sex. GFR valuesless than 60 mL/min/1.73 square meters are indicative ofChronic Kidney Disease. Values less than 15 mL/min/1.73square meters indicate Kidney failure. The calculation forGFR is based on the CKD-EPI (2020) calculation. This formulais race indifferent and is the recommended formula for GFRby the National Kidney Foundation for Adults.The GFR will not calculate if the sex is unknown or if thepatient's age is <18 years. CREATININE (test code = CREAT) 0.59 mg/dL 0.55-1.02 N CALCIUM (test code = CA) 9.0 mg/dL 8.6-10.3 N [id number] 04:15:00* Test Item Value Reference Range Interpretation Comme nts PHOSPHOROUS (test code = PHOS) 2.9 mg/dL 2.4-5.1 N [id number] 04:15:00* Test Item Value Reference Range Interpretation Comme nts MAGNESIUM (test code = MAG) 2.2 mg/dL 1.6-2.6 N [id number] 03:25:00* Test Item Value Reference Range Interpretation Comme nts GLUBED (test code = GLUBED) 100 MG/DL 70-105 N [id number] 00:13:00* Test Item Value Reference Range Interpretation Comme nts GLUBED (test code = GLUBED) 116 MG/DL 70-105 H [id number] 20:33:00* Test Item Value Reference Range Interpretation Comme nts GLUBED (test code = GLUBED) 126 MG/DL 70-105 H [id number] 17:12:00* Test Item Value Reference Range Interpretation Comme nts GLUBED (test code = GLUBED) 144 MG/DL 70-105 H [id number] 11:58:00* Test Item Value Reference Range Interpretation Comme nts GLUBED (test code = GLUBED) 121 MG/DL 70-105 H [id number] 07:55:00* Test Item Value Reference Range Interpretation Comme nts GLUBED (test code = GLUBED) 94 MG/DL 70-105 N [id number] 05:09:00* Test Item Value Reference Range Interpretation Comme nts PHOSPHOROUS (test code = PHOS) 2.8 mg/dL 2.4-5.1 N Comment: PLEASE ADD TO MORNING LABS, PLEASE AND THANK YOUADD ON TEST? Yes- XR CHEST 1 [id number] 04:56:00 [facility] 1960 Sex: FPatient Name: MARIE PINEDA Unit No: [id number] EXAMS: CPT: [id number] XR CHEST 1 V 22924 PORTABLE CHEST, 04/13/2024. Comparison: 04/12/2024. CLINICAL: Respiratory failure. COMMENT: The airway and gastric tubes have been removed. Bilateral pulmonary vascular congestion is present. The interstitial markings are prominent. The regional skeleton appears stable. IMPRESSION: Status post extubation since 04/12/2024. at 0456 Reported and signed by: Donaldo Sotelo MD CC: Brenna Ruelas MD; Luis Swanson Technologist: Carlos A Mcdowell Time: DAP (Gy m2): Air Kerma (mGy): Trscr Dt/Tm: 04/13/2024 (0456) by:[email or web address] Orig Print D/T: S: 09/2024 (0459) BATCH NO: N/A Name: MARIE PINEDA [facility] Phys: HENSON. Regina Swansonnn AP [address] [facility] : 1960 Age: 63 Sex: F Elham Encarnacion Loc: T.IC19 A Exam Date: 04/13/2024 Status: ADM IN PH: FAX: PAGE 1 Signed ReportBASIC METABOLIC [id number] 04:33:00* Test Item Value Reference Range Interpretation Comme nts SODIUM (test code = NA) 146 mmol/L 136-145 H POTASSIUM (test code = K) 4.2 mmol/L 3.4-4.5 N CHLORIDE (test code = CL) 108 mmol/L 98-107 H CARBON DIOXIDE (test code = CO2) 31 mmol/l 20-31 N GLUCOSE (test code = GLU) 106 mg/dL 74-106 N BLOOD UREA NITROGEN (test code = BUN) 24 mg/dL 9-23 H GLOMERULAR FILTRATION RATE (test code = GFR) >=60 max estimate >60 The Glomerular Filtration Rate is a calculated parameterbased on serum Creatinine, patient age and sex. GFR valuesless than 60 mL/min/1.73 square meters are indicative ofChronic Kidney Disease. Values less than 15 mL/min/1.73square meters indicate Kidney failure. The calculation forGFR is based on the CKD-EPI (2020) calculation. This formulais race indifferent and is the recommended formula for GFRby the National Kidney Foundation for Adults.The GFR will not calculate if the sex is unknown or if thepatient's age is <18 years. CREATININE (test code = CREAT) 0.62 mg/dL 0.55-1.02 N CALCIUM (test code = CA) 8.9 mg/dL 8.6-10.3 N [id number] 04:33:00* Test Item Value Reference Range Interpretation Comme nts MAGNESIUM (test code = MAG) 2.1 mg/dL 1.6-2.6 N CBC W/AUTO [id number] 04:00:00* Test Item Value Reference Range Interpretation Comme nts WHITE BLOOD CELL (test code = WBC) 13.05 K/mm3 5.0-12.0 H RED BLOOD CELL (test code = RBC) 3.44 M/mm3 4.20-5.40 L HEMOGLOBIN (test code = HGB) 10.3 G/DL 12.0-16.0 L HEMATOCRIT (test code = HCT) 32.5 % 34.9-44.5 L MEAN CELL VOLUME (test code = MCV) 95 fL 81-99 N MEAN CELL HGB (test code = MCH) 29.9 PGM 27-31 N MEAN CELL HGB CONCENTRATION (test code = MCHC) 31.7 G/DL 33-37 L RED CELL DISTRIBUTION WIDTH (test code = RDW) 14.0 % 11.6-16.2 N PLATELET COUNT (test code = PLT) 354 K/mm3 130-400 N MEAN PLATELET VOLUME (test c ode = MPV) 10.0 fl 7.4-10.4 N NEUTROPHIL % (test code = NT%) 76.0 % 43-65 H IMMATURE GRANULOCYTE % (test code = IG%) 2.5 % 0.0-2.0 H LYMPHOCYTE % (test code = LY%) 12.3 % 20.5-45.5 L MONOCYTE % (test code = MO%) 9.0 % 5.5-11.7 N EOSINOPHIL % (test code = EO%) 0.0 % 0.9-2.9 L BASOPHIL % (test code = BA%) 0.2 % 0.2-1.0 N NUCLEATED RBC % (test code = NRBC%) 0.0 % 0-1.0 N NEUTROPHIL # (test code = NT#) 9.93 K/mm3 2.2-4.8 H LYMPHOCYTE # (test code = LY#) 1.60 K/mm3 1.3-2.9 N MONOCYTE # (test code = MO#) 1.17 K/mm3 0.3-0.8 H EOSINOPHIL # (test code = EO#) 0.00 K/MM3 0.0-0.2 N BASOPHIL # (test code = BA#) 0.03 K/mm3 0.0-0.1 N [id number] 03:27:00* Test Item Value Reference Range Interpretation Comme nts GLUBED (test code = GLUBED) 102 MG/DL 70-105 N [id number] 23:43:00* Test Item Value Reference Range Interpretation Comme nts GLUBED (test code = GLUBED) 110 MG/DL 70-105 H [id number] 19:58:00* Test Item Value Reference Range Interpretation Comme nts GLUBED (test code = GLUBED) 133 MG/DL 70-105 H [id number] 16:01:00* Test Item Value Reference Range Interpretation Comme nts GLUBED (test code = GLUBED) 162 MG/DL 70-105 H [id number] 12:25:00* Test Item Value Reference Range Interpretation Comme nts GLUBED (test code = GLUBED) 163 MG/DL 70-105 H [id number] 08:44:00* Test Item Value Reference Range Interpretation Comme nts PHOSPHOROUS (test code = PHOS) 4.1 mg/dL 2.4-5.1 N [id number] 08:14:00* Test Item Value Reference Range Interpretation Comme nts GLUBED (test code = GLUBED) 141 MG/DL 70-105 H BASIC METABOLIC [id number] 05:10:00* Test Item Value Reference Range Interpretation Comme nts SODIUM (test code = NA) 144 mmol/L 136-145 N POTASSIUM (test code = K) 4.4 mmol/L 3.4-4.5 N CHLORIDE (test code = CL) 108 mmol/L 98-107 H CARBON DIOXIDE (test code = CO2) 28 mmol/l 20-31 N GLUCOSE (test code = GLU) 153 mg/dL 74-106 H BLOOD UREA NITROGEN (test code = BUN) 29 mg/dL 9-23 H GLOMERULAR FILTRATION RATE (test code = GFR) >=60 max estimate >60 The Glomerular Filtration Rate is a calculated parameterbased on serum Creatinine, patient age and sex. GFR valuesless than 60 mL/min/1.73 square meters are indicative ofChronic Kidney Disease. Values less than 15 mL/min/1.73square meters indicate Kidney failure. The calculation forGFR is based on the CKD-EPI (2020) calculation. This formulais race indifferent and is the recommended formula for GFRby the National Kidney Foundation for Adults.The GFR will not calculate if the sex is unknown or if thepatient's age is <18 years. CREATININE (test code = CREAT) 0.84 mg/dL 0.55-1.02 N CALCIUM (test code = CA) 9.1 mg/dL 8.6-10.3 N [id number] 05:10:00* Test Item Value Reference Range Interpretation Comme nts MAGNESIUM (test code = MAG) 2.5 mg/dL 1.6-2.6 N CBC W/AUTO [id number] 04:28:00* Test Item Value Reference Range Interpretation Comme nts WHITE BLOOD CELL (test code = WBC) 12.98 K/mm3 5.0-12.0 H RED BLOOD CELL (test code = RBC) 3.37 M/mm3 4.20-5.40 L HEMOGLOBIN (test code = HGB) 10.1 G/DL 12.0-16.0 L HEMATOCRIT (test code = HCT) 31.3 % 34.9-44.5 L MEAN CELL VOLUME (test code = MCV) 93 fL 81-99 N MEAN CELL HGB (test code = MCH) 30.0 PGM 27-31 N MEAN CELL HGB CONCENTRATION (test code = MCHC) 32.3 G/DL 33-37 L RED CELL DISTRIBUTION WIDTH (test code = RDW) 14.2 % 11.6-16.2 N PLATELET COUNT (test code = PLT) 333 K/mm3 130-400 N MEAN PLATELET VOLUME (test c ode = MPV) 10.3 fl 7.4-10.4 N NEUTROPHIL % (test code = NT%) 82.1 % 43-65 H IMMATURE GRANULOCYTE % (test code = IG%) 0.8 % 0.0-2.0 N LYMPHOCYTE % (test code = LY%) 8.1 % 20.5-45.5 L MONOCYTE % (test code = MO%) 8.8 % 5.5-11.7 N EOSINOPHIL % (test code = EO%) 0.0 % 0.9-2.9 L BASOPHIL % (test code = BA%) 0.2 % 0.2-1.0 N NUCLEATED RBC % (test code = NRBC%) 0.0 % 0-1.0 N NEUTROPHIL # (test code = NT#) 10.67 K/mm3 2.2-4.8 H LYMPHOCYTE # (test code = LY#) 1.05 K/mm3 1.3-2.9 L MONOCYTE # (test code = MO#) 1.14 K/mm3 0.3-0.8 H EOSINOPHIL # (test code = EO#) 0.00 K/MM3 0.0-0.2 N BASOPHIL # (test code = BA#) 0.02 K/mm3 0.0-0.1 N BLOOD GAS W/[id number] 04:12:00* Test Item Value Reference Range Interpretation Comme [facility] ARTERIAL BLOOD GAS PH (test code = PHA) 7.425 7.35-7.45 N ARTERIAL BLOOD GAS PCO2 (test code = PCO2A) 43.2 mmHg 35.0-45.0 N ARTERIAL BLOOD GAS PO2 (test code = PO2A) 133.6 mmHg 75-100 H BICARBONATE TOTAL HCO3 (test code = HCO3) 27.7 mmol/L 22.0-26.0 H BASE EXCESS (test code = FAVIAN) 2.9 mmol/L See_Comment H [Automated message] The system which generated this result transmitted reference range: (+/-)2.0. The reference range was not used to interpret this result as normal/abnormal. ABG O2 SATURATION (test code = SATA) 98.3 % 95.0-100.0 N ARTERIAL FIO2 (test code = FIO2A) 40.0 % ABG VENT MODE (test code = MODEA) pvrc ABG VENT RESP RATE (test code = RRA) 22 /MIN ABG TIDAL VOLUME (test code = TIDAL VOLUME) 400.0 ML ABG PEEP (test code = PEEP) 5.0 cmH2O ABG SITE (test code = SITEA) Right Radial ALLENS TEST (test code = ALLENS) Yes SODIUM (POC) (test code = NA/ABG) 138 mmol/L 138-146 N POTASSIUM (POC) (test code = K/ABG) 4.4 MMOL/L 3.5-4.9 N IONIZED CALCIUM (test code = CAIABG) 1.19 mmol/L 1.12-1.32 N TOTAL HGB (test code = THB) 11.7 g/dL 12.0-18.0 L OXYHEMOGLOBIN (test code = OOHGBT) 97.8 % 92.0-98.0 N CARBOXYHEMOGLOBIN (test code = HOHGBT) 0.3 % 0-5.0 N METHEMOGLOBIN (test code = METHGB) <0.8 % 0-1.5 N PaO2/[id number] 04:12:00* Test Item Value Reference Range Interpretation Comme nts PaO2/FiO2 (test code = [id number]) 334.00 >200 [id number] 04:01:00* Test Item Value Reference Range Interpretation Comme nts GLUBED (test code = GLUBED) 155 MG/DL 70-105 H - XR CHEST 1 [id number] 01:40:00 [facility] 1960 Sex: FPatient Name: MARIE PINEDA Unit No: [id number] EXAMS: CPT: [id number] XR CHEST 1 V 22126 EXAM: XR Chest,1 View CLINICAL INDICATION: intubated TECHNIQUE: Frontal view of the chest. COMPARISON: April FINDINGS: LUNGS AND PLEURAL SPACES: No consolidation. No pneumothorax. No pleural effusion. HEART: Unremarkable. No cardiomegaly. MEDIASTINUM: Unremarkable. Normal mediastinal contour. BONES/BENITEZ NTS: No acute fracture. TUBES, LINES AND DEVICES: Endotracheal tube tip projects over mid trachea. Nasogastric tube courses below the diaphragm. IMPRESSION: Endotracheal tube tip projects over mid trachea. at 0140 Reported and signed by: Leatha Choi MD CC: Brenna Ruelas MD; Luis Swanson Technologist: Omer Amaya Fluoro Time: DAP (Gy m2): Air Kerma (mGy): Trscr Dt/Tm: 04/12/2024 (014) by:[email or web address] Orig PrintD/T: S: 04/12/2024 (014) BATCH NO: N/A Name: MARIE PINEDA [facility] Phys: HENSONLuis Crouch [address] : 1960 Age: 63 Sex: F [facility] [id number] Loc: T.IC19 A Exam Date: 04/12/2024 Status: ADM IN PH: FAX: PAGE 1 Signed [id number] 23:37:00* Test Item Value Reference Range Interpretation Comme nts GLUBED (test code = GLUBED) 139 MG/DL 70-105 H [id number] 21:32:00* Test Item Value Reference Range Interpretation Comme nts TROPONIN-I (test code = TROPI) 49.8 ng/L 0.0-34.0 H CAUTION: UNITS O F THE CURRENT TEST METHODOLOGY (ng/L) DIFFERFROM THE PRIOR TEST METHODOLOGY (ng/mL) BY A FACTOR OF 1000.RESULTS FROM DIFFERENT METHODS SHOULD NOT BE COMPARED TO ONEANOTHER QUANTITATIVE RESULTS AND URLS MAY VARY BY METHOD. IN ORDER TO DISTINGUISH ACUTE ELEVATIONS OF HIGH SENSITIVETROPONIN FROM OTHER CLINICAL CONDITIONS, THE UNIVERSALDEFINITION OF MYOCARDIAL INFARCTION STRESSES CLINICALASSESSMENT AND THE NEED FOR SERIAL MEASUREMENTS TO OBSERVE ARISE AND/OR FALL ABOVE THE UPPER LIMIT OF THE REFERENCERANGE. CONSIDERATION FOR CARDIOLOGY EVALUATION AND DRAWINGTHIRD hs-cTn, INCLUDING IF CHANGE IN THE CLINICAL STATUS ORSERIAL hs-cTns ARE INCREASING, PARTICULARLY ABOVE THE 99THGENDER-SPECIFIC PERCENTILE. [id number] 19:53:00* Test Item Value Reference Range Interpretation Comme nts GLUBED (test code = GLUBED) 140 MG/DL 70-105 H [id number] 12:56:00* Test Item Value Reference Range Interpretation Comme nts GLUBED (test code = GLUBED) 158 MG/DL 70-105 H [id number] 12:02:00* Test Item Value Reference Range Interpretation Comme nts TROPONIN-I (test code = TROPI) 60.9 ng/L 0.0-34.0 H CAUTION: UNITS O F THE CURRENT TEST METHODOLOGY (ng/L) DIFFERFROM THE PRIOR TEST METHODOLOGY (ng/mL) BY A FACTOR OF 1000.RESULTS FROM DIFFERENT METHODS SHOULD NOT BE COMPARED TO ONEANOTHER QUANTITATIVE RESULTS AND URLS MAY VARY BY METHOD. IN ORDER TO DISTINGUISH ACUTE ELEVATIONS OF HIGH SENSITIVETROPONIN FROM OTHER CLINICAL CONDITIONS, THE UNIVERSALDEFINITION OF MYOCARDIAL INFARCTION STRESSES CLINICALASSESSMENT AND THE NEED FOR SERIAL MEASUREMENTS TO OBSERVE ARISE AND/OR FALL ABOVE THE UPPER LIMIT OF THE REFERENCERANGE. CONSIDERATION FOR CARDIOLOGY EVALUATION AND DRAWINGTHIRD hs-cTn, INCLUDING IF CHANGE IN THE CLINICAL STATUS ORSERIAL hs-cTns ARE INCREASING, PARTICULARLY ABOVE THE 99THGENDER-SPECIFIC PERCENTILE. [id number] 09:33:00* Test Item Value Reference Range Interpretation Comme nts TROPONIN-I (test code = TROPI) 57.0 ng/L 0.0-34.0 H CAUTION: UNITS O F THE CURRENT TEST METHODOLOGY (ng/L) DIFFERFROM THE PRIOR TEST METHODOLOGY (ng/mL) BY A FACTOR OF 1000.RESULTS FROM DIFFERENT METHODS SHOULD NOT BE COMPARED TO ONEANOTHER QUANTITATIVE RESULTS AND URLS MAY VARY BY METHOD. IN ORDER TO DISTINGUISH ACUTE ELEVATIONS OF HIGH SENSITIVETROPONIN FROM OTHER CLINICAL CONDITIONS, THE UNIVERSALDEFINITION OF MYOCARDIAL INFARCTION STRESSES CLINICALASSESSMENT AND THE NEED FOR SERIAL MEASUREMENTS TO OBSERVE ARISE AND/OR FALL ABOVE THE UPPER LIMIT OF THE REFERENCERANGE. CONSIDERATION FOR CARDIOLOGY EVALUATION AND DRAWINGTHIRD hs-cTn, INCLUDING IF CHANGE IN THE CLINICAL STATUS ORSERIAL hs-cTns ARE INCREASING, PARTICULARLY ABOVE THE 99THGENDER-SPECIFIC PERCENTILE. - XR CHEST 1 [id number] 05:57:00 [facility] 1960 Sex: FPatient Name: MARIE PINEDA Unit No: [id number] EXAMS: CPT: [id number] XR CHEST 1 V 69308 CHEST 1 VIEW: CLINICAL HISTORY: Respiratory failure TECHNIQUE: Single AP view of the chest. COMPARISON: 04/10/2024 FINDINGS: The ET tube is 5 cm above the celena. There is a gastric tube in the stomach with the tip in the fundus. The lungs are clear.. No pneumothorax is seen. Heart size is stable IMPRESSION: No significant interval change. at 0557 Reported and signed by: Martin Diego MD CC: Brenna Ruelas MD; Luis Swanson Technologist: Omer Amaya Fluoro Time: DAP (Gy m2): Air Kerma (mGy): Trscr Dt/Tm: 04/11/2024 (0557) by:[email or web address] Orig Print D/T: S: 04/11/2024 (0600) BATCH NO: N/A Name: MARIE PINEDA [facility] Phys: Luis Jaramillo [address] [facility] 1960 Age: 63 Sex: F Elham Encarnacion Loc: T.IC19 A Exam Date: 04/11/2024 Status: ADM IN PH: FAX: PAGE 1 Signed ReportBLOOD GAS W/[id number] 03:33:00 * Test Item Value Reference Range Interpretation Comme nts ARTERIAL BLOOD GAS PH (test code = PHA) 7.367 7.35-7.45 N ARTERIAL BLOOD GAS PCO2 (test code = PCO2A) 48.2 mmHg 35.0-45.0 H ARTERIAL BLOOD GAS PO2 (test code = PO2A) 104.7 mmHg 75-100 H BICARBONATE TOTAL HCO3 (test code = HCO3) 27.1 mmol/L 22.0-26.0 H BASE EXCESS (test code = FAVIAN) 1.2 mmol/L See_Comment N [Automated message] The system which generated this result transmitted reference range: (+/-)2.0. The reference range was not used to interpret this result as normal/abnormal. ABG O2 SATURATION (test code = SATA) 97.5 % 95.0-100.0 N ARTERIAL FIO2 (test code = FIO2A) 40.0 % ABG VENT MODE (test code = MODEA) PRVC ABG VENT RESP RATE (test code = RRA) 400 /MIN ABG TIDAL VOLUME (test code = TIDAL VOLUME) 22.0 ML ABG PEEP (test code = PEEP) 5.0 cmH2O ABG SITE (test code = SITEA) Right Radial ALLENS TEST (test code = ALLENS) Yes SODIUM (POC) (test code = NA/ABG) 137 mmol/L 138-146 L POTASSIUM (POC) (test code = K/ABG) 3.8 MMOL/L 3.5-4.9 N IONIZED CALCIUM (test code = CAIABG) 1.30 mmol/L 1.12-1.32 N TOTAL HGB (test code = THB) 12.3 g/dL 12.0-18.0 N OXYHEMOGLOBIN (test code = OOHGBT) 96.9 % 92.0-98.0 N CARBOXYHEMOGLOBIN (test code = HOHGBT) 0.3 % 0-5.0 N METHEMOGLOBIN (test code = METHGB) <0.8 % 0-1.5 N PaO2/[id number] 03:33:00* Test Item Value Reference Range Interpretation Comme nts PaO2/FiO2 (test code = [id number]) 261.70 >200 DRUGS OF ABUSE SCREEN [id number] 03:31:00* Test Item Value Reference Range Interpretation Comme nts UR COCAINE (test code = COCAU) Negative NEGATIVE UR CANABINOIDS (test code = CANU) Negative NEGATIVE UR AMPHETAMINE (test code = AMPHU) Negative NEGATIVE UR BARBITURATE (test code = BARBQLU) Negative NEGATIVE UR BENZODIAZEPINE (test code = BENZU) POSITIVE NEGATIVE METHADONE (test code = METHDU) Negative NEGATIVE PROPOXYPHENE SCREEN (test code = PROPXSQ) Negative NEGATIVE UR OPIATES QUAL (test code = OPIAQLU) Negative NEGATIVE OXYCODONE (test code = OXYCOD) Test not performed NEGATIVE UR PHENCYCLIDINE (PCP) (test code = PHENCU) Negative NEGATIVE UA RFLX MICR CULT IF [id number] 03:29:00* Test Item Value Reference Range Interpretation Comme nts UA COLOR (test code = COLU) Light-Yellow YELLOW UA APPEARANCE (test code = APPU) CLEAR CLEAR UA GLUCOSE DIPSTICK (test co de = DGLUU) NEG MG/DL NEGATIVE UA BILIRUBIN DIPSTICK (test code = BILU) NEG NEGATIVE UA KETONE DIPSTICK (test cod e = KETU) 2+ MG/DL NEGATIVE A UA SPECIFIC GRAVITY (test co de = SGU) 1.043 1.000-1.030 UA BLOOD DIPSTICK (test code = JAXSON) TRACE NEGATIVE A UA PH DIPSTICK (test code = AUSTIN) 6.0 4.5-8.5 UA PROTEIN DIPSTICK (test co de = PROU) 1+ MG/DL NEGATIVE A UA UROBILINOGEN DIPSTICK (te st code = URO) NORMAL EU/dL <=1.0 UA NITRITE DIPSTICK (test co de = JAYJAY) NEG NEGATIVE UA LEUKOCYTE ESTERASE DIPSTI CK (test code = LEUU) NEG NEGATIVE UA WBC (test code = WBCU) 0-5 /HPF 0-5 UA RBC (test code = RBCU) 6-10 /HPF 0-5 A UA BACTERIA (test code = BACU) NONE SEEN /HPF NONE SEEN UA SQUAMOUS CELLS (test code = SQU) RARE /HPF NONE-FEW UA HYALINE CAST (test code = HYALU) 5-10 /LPF NONE SEEN A UA MUCUS (test code = MUCU) RARE /LPF NONE-FEW Indication for culture: Temperature > 100.4 FSpecimen Description: COLEMAN CATHETERIZED URINECath Status: N/ABASIC METABOLIC [id number] 03:18:00* Test Item Value Reference Range Interpretation Comme nts SODIUM (test code = NA) 141 mmol/L 136-145 N POTASSIUM (test code = K) 3.9 mmol/L 3.4-4.5 N CHLORIDE (test code = CL) 101 mmol/L 98-107 N CARBON DIOXIDE (test code = CO2) 31 mmol/l 20-31 N GLUCOSE (test code = GLU) 180 mg/dL 74-106 H BLOOD UREA NITROGEN (test code = BUN) 19 mg/dL 9-23 GLOMERULAR FILTRATION RATE (test code = GFR) >=60 max estimate >60 The Glomerular Filtration Rate is a calculated parameterbased on serum Creatinine, patient age and sex. GFR valuesless than 60 mL/min/1.73 square meters are indicative ofChronic Kidney Disease. Values less than 15 mL/min/1.73square meters indicate Kidney failure. The calculation forGFR is based on the CKD-EPI (2020) calculation. This formulais race indifferent and is the recommended formula for GFRby the National Kidney Foundation for Adults.The GFR will not calculate if the sex is unknown or if thepatient's age is <18 years. CREATININE (test code = CREAT) 0.88 mg/dL 0.55-1.02 N CALCIUM (test code = CA) 10.8 mg/dL 8.6-10.3 H [id number] 03:18:00* Test Item Value Reference Range Interpretation Comme nts PHOSPHOROUS (test code = PHOS) 1.9 mg/dL 2.4-5.1 L [id number] 03:18:00* Test Item Value Reference Range Interpretation Comme nts MAGNESIUM (test code = MAG) 2.5 mg/dL 1.6-2.6 N CBC W/AUTO [id number] 03:05:00* Test Item Value Reference Range Interpretation Comme nts WHITE BLOOD CELL (test code = WBC) 11.96 K/mm3 5.0-12.0 N RED BLOOD CELL (test code = RBC) 3.64 M/mm3 4.20-5.40 L HEMOGLOBIN (test code = HGB) 10.8 G/DL 12.0-16.0 L HEMATOCRIT (test code = HCT) 34.1 % 34.9-44.5 L MEAN CELL VOLUME (test code = MCV) 94 fL 81-99 N MEAN CELL HGB (test code = MCH) 29.7 PGM 27-31 N MEAN CELL HGB CONCENTRATION (test code = MCHC) 31.7 G/DL 33-37 L RED CELL DISTRIBUTION WIDTH (test code = RDW) 13.8 % 11.6-16.2 N PLATELET COUNT (test code = PLT) 300 K/mm3 130-400 MEAN PLATELET VOLUME (test c ode = MPV) 10.2 fl 7.4-10.4 N NEUTROPHIL % (test code = NT%) 86.7 % 43-65 H IMMATURE GRANULOCYTE % (test code = IG%) 0.3 % 0.0-2.0 N LYMPHOCYTE % (test code = LY%) 4.6 % 20.5-45.5 L MONOCYTE % (test code = MO%) 8.2 % 5.5-11.7 N EOSINOPHIL % (test code = EO%) 0.0 % 0.9-2.9 L BASOPHIL % (test code = BA%) 0.2 % 0.2-1.0 N NUCLEATED RBC % (test code = NRBC%) 0.0 % 0-1.0 N NEUTROPHIL # (test code = NT#) 10.37 K/mm3 2.2-4.8 H LYMPHOCYTE # (test code = LY#) 0.55 K/mm3 1.3-2.9 L MONOCYTE # (test code = MO#) 0.98 K/mm3 0.3-0.8 H EOSINOPHIL # (test code = EO#) 0.00 K/MM3 0.0-0.2 N BASOPHIL # (test code = BA#) 0.02 K/mm3 0.0-0.1 N [id number] 02:18:00* Test Item Value Reference Range Interpretation Comme nts TROPONIN-I (test code = TROPI) 63.7 ng/L 0.0-34.0 H CAUTION: UNITS O F THE CURRENT TEST METHODOLOGY (ng/L) DIFFERFROM THE PRIOR TEST METHODOLOGY (ng/mL) BY A FACTOR OF 1000.RESULTS FROM DIFFERENT METHODS SHOULD NOT BE COMPARED TO ONEANOTHER QUANTITATIVE RESULTS AND URLS MAY VARY BY METHOD. IN ORDER TO DISTINGUISH ACUTE ELEVATIONS OF HIGH SENSITIVETROPONIN FROM OTHER CLINICAL CONDITIONS, THE UNIVERSALDEFINITION OF MYOCARDIAL INFARCTION STRESSES CLINICALASSESSMENT AND THE NEED FOR SERIAL MEASUREMENTS TO OBSERVE ARISE AND/OR FALL ABOVE THE UPPER LIMIT OF THE REFERENCERANGE. CONSIDERATION FOR CARDIOLOGY EVALUATION AND DRAWINGTHIRD hs-cTn, INCLUDING IF CHANGE IN THE CLINICAL STATUS ORSERIAL hs-cTns ARE INCREASING, PARTICULARLY ABOVE THE 99THGENDER-SPECIFIC PERCENTILE. [id number] 02:10:00* Test Item Value Reference Range Interpretation Comme nts GLUBED (test code = GLUBED) 158 MG/DL 70-105 H - XR ABDOMEN [id number] 22:53:00 [facility] 1960 Sex: FPatient Name: MARIE PINEDA Unit No: [id number] EXAMS: CPT: [id number] XR ABDOMEN 1V [id number] Abdomen, one view, 04/10/2024. Clinical: Tube placement. Comment: The gastric tube tip overlies left upper quadrantprobably within the fundus. There is no hepatomegaly. The regional skeleton is intact. IMPRESSION: Status post gastric tube placement. at 2253 Reported and signed by: Donaldo Sotelo MD CC: Brenna Ruelas MD; Luis Swanson Technologist: Omer Amaya Fluoro Time: DAP (Gy m2): Air Kerma (mGy): Trscr Dt/Tm: 04/10/2024 (2253)by:[email or web address] Orig Print D/T: S: 04/10/2024 (2256) BATCH NO: N/A Name: MARIE PINEDA [facility] Phys: SUKHDEV Garry SwansonLuis CASSIE [address] [facility] : 1960 Age: 63 Sex: F Elham Encarnacion Loc: [id number] A Exam Date: 04/10/2024 Status: ADM IN PH: FAX: PAGE 1 Signed ReportBLOOD GAS [id number] 21:13:00 * Test Item Value Reference Range Interpretation Comme nts ARTERIAL BLOOD GAS PH (test code = PHA) 7.256 7.35-7.45 L ARTERIAL BLOOD GAS PCO2 (test code = PCO2A) 69.2 mmHg 35.0-45.0 H ARTERIAL BLOOD GAS PO2 (test code = PO2A) 549.2 mmHg 75-100 H BICARBONATE TOTAL HCO3 (test code = HCO3) 30.1 mmol/L 22.0-26.0 H BASE EXCESS (test code = FAVIAN) 1.3 mmol/L See_Comment N [Automated message] The system which generated this result transmitted reference range: (+/-)2.0. The reference range was not used to interpret this result as normal/abnormal. ABG O2 SATURATION (test code = SATA) 99.5 % 95.0-100.0 N ARTERIAL FIO2 (test code = FIO2A) 100.0 % ABG VENT MODE (test code = MODEA) PRVC ABG VENT RESP RATE (test code = RRA) 16 /MIN ABG TIDAL VOLUME (test code = TIDAL VOLUME) 400.0 ML ABG PEEP (test code = PEEP) 5.0 cmH2O ABG SITE (test code = SITEA) Right Radial ALLENS TEST (test code = ALLENS) Yes SODIUM (POC) (test code = NA/ABG) 136 mmol/L 138-146 L POTASSIUM (POC) (test code = K/ABG) 4.3 MMOL/L 3.5-4.9 N IONIZED CALCIUM (test code = CAIABG) 1.15 mmol/L 1.12-1.32 N TOTAL HGB (test code = THB) 12.4 g/dL 12.0-18.0 N OXYHEMOGLOBIN (test code = OOHGBT) 98.7 % 92.0-98.0 H CARBOXYHEMOGLOBIN (test code = HOHGBT) 0.3 % 0-5.0 N METHEMOGLOBIN (test code = METHGB) <0.8 % 0-1.5 N PaO2/[id number] 21:13:00* Test Item Value Reference Range Interpretation Comme nts PaO2/FiO2 (test code = [id number]) 549.20 >200 [id number] 20:58:00* Test Item Value Reference Range Interpretation Comme nts GLUBED (test code = GLUBED) 167 MG/DL 70-105 H LACTIC [id number] 20:31:00* Test Item Value Reference Range Interpretation Comme nts LACTIC ACID (test code = LACT) 1.4 mmol/L 0.5-2.2 N SAMPLE HEMOLYZED 4+ ER NOTIFIED AT 1840 MIKEBASIC METABOLIC [id number] 20:29:00* Test Item Value Reference Range Interpretation Comme nts SODIUM (test code = NA) 139 mmol/L 136-145 N POTASSIUM (test code = K) 4.5 mmol/L 3.4-4.5 N CHLORIDE (test code = CL) 103 mmol/L 98-107 N CARBON DIOXIDE (test code = CO2) 28 mmol/l 20-31 N GLUCOSE (test code = GLU) 177 mg/dL 74-106 H BLOOD UREA NITROGEN (test code = BUN) 14 mg/dL 9-23 N GLOMERULAR FILTRATION RATE (test code = GFR) >=60 max estimate >60 The Glomerular Filtration Rate is a calculated parameterbased on serum Creatinine, patient age and sex. GFR valuesless than 60 mL/min/1.73 square meters are indicative ofChronic Kidney Disease. Values less than 15 mL/min/1.73square meters indicate Kidney failure. The calculation forGFR is based on the CKD-EPI (2020) calculation. This formulais race indifferent and is the recommended formula for GFRby the National Kidney Foundation for Adults.The GFR will not calculate if the sex is unknown or if thepatient's age is <18 years. CREATININE (test code = CREAT) 0.85 mg/dL 0.55-1.02 N CALCIUM (test code = CA) 8.8 mg/dL 8.6-10.3 N SAMPLE HEMOLYZED4+ER NOTIFIED AT 1840 MIKELIVER FUNCTION [id number] 20:29:00* Test Item Value Reference Range Interpretation Comme nts TOTAL PROTEIN (test code = PROT) 7.5 g/dL 5.7-8.2 N ALBUMIN (test code = ALB) 3.5 g/dl 3.4-5.0 N BILIRUBIN TOTAL (test code = BILT) 0.6 mg/dL 0.2-1.1 N BILIRUBIN DIRECT (test code = BILD) 0.2 mg/d/L 0.0-0.3 N BILIRUBIN INDIRECT (test cod e = BILIND) 0.4 mg/dL 0.0-1.2 N SGOT/AST (test code = AST) 30 U/L 0-34 N SGPT/ALT (test code = ALT) 13 U/L 10-49 N ALKALINE PHOSPHATASE (test c ode = ALKP) 80 U/L 46-116 N SAMPLE HEMOLYZED4+ER NOTIFIED AT 1839 MIKEB-TYPE NATRIURETIC [id number] 20:29:00* Test Item Value Reference Range Interpretation Comme nts B-TYPE NATRIURETIC PEPTIDE ( test code = BNP) 101 pg/mL 0-100 H SAMPLE HEMOLYZED ER NOTIFIED AT 1840 [id number] 20:26:00* Test Item Value Reference Range Interpretation Comme nts TROPONIN-I (test code = TROPI) 68.8 ng/L 0.0-34.0 H CAUTION: UNITS O F THE CURRENT TEST METHODOLOGY (ng/L) DIFFERFROM THE PRIOR TEST METHODOLOGY (ng/mL) BY A FACTOR OF 1000.RESULTS FROM DIFFERENT METHODS SHOULD NOT BE COMPARED TO ONEANOTHER QUANTITATIVE RESULTS AND URLS MAY VARY BY METHOD. IN ORDER TO DISTINGUISH ACUTE ELEVATIONS OF HIGH SENSITIVETROPONIN FROM OTHER CLINICAL CONDITIONS, THE UNIVERSALDEFINITION OF MYOCARDIAL INFARCTION STRESSES CLINICALASSESSMENT AND THE NEED FOR SERIAL MEASUREMENTS TO OBSERVE ARISE AND/OR FALL ABOVE THE UPPER LIMIT OF THE REFERENCERANGE. CONSIDERATION FOR CARDIOLOGY EVALUATION AND DRAWINGTHIRD hs-cTn, INCLUDING IF CHANGE IN THE CLINICAL STATUS ORSERIAL hs-cTns ARE INCREASING, PARTICULARLY ABOVE THE 99THGENDER-SPECIFIC PERCENTILE. SAMPLE HEMOLYZED 4+ ER NOTIFIED AT 1840 MIKEPaO2/[id number] 19:50:00* Test Item Value Reference Range Interpretation Comme nts PaO2/FiO2 (test code = [id number]) 381.60 >200 ARTERIAL BLOOD [id number] 19:50:00* Test Item Value Reference Range Interpretation Comme nts ARTERIAL BLOOD GAS PH (test code = PHA) 7.131 7.35-7.45 LL Critical Value reported toFirst Name:PRACTICE NURSE Last Name:NPRESULTS READ BACK AND VERIFIEDby hcaGEN.[email or web address], on 04/10/24, @ 1950. ARTERIAL BLOOD GAS PCO2 (test code = PCO2A) 82.7 mmHg 35.0-45.0 HH Critical Terri ue reported toFirst Name:PRACTICE NURSE Last Name:NPRESULTS READ BACK AND VERIFIEDby hcaGEN.70, on 04/10/24, @ 1950. ARTERIAL BLOOD GAS PO2 (test code = PO2A) 381.6 mmHg 75-100 H BICARBONATE TOTAL HCO3 (test code = HCO3) 27.0 mmol/L 22.0-26.0 H BASE EXCESS (test code = FAVIAN) -4.0 mmol/L See_Comment L [Automated message] The system which generated this result transmitted reference range: (+/-)2.0. The reference range was not used to interpret this result as normal/abnormal. ABG O2 SATURATION (test code = SATA) 99.6 % 95.0-100.0 N ARTERIAL FIO2 (test code = FIO2A) 100.0 % ABG VENT MODE (test code = MODEA) Ventilator ABG VENT RESP RATE (test code = RRA) 16 /MIN ABG TIDAL VOLUME (test code = TIDAL VOLUME) 400.0 ML ABG PEEP (test code = PEEP) 5.0 cmH2O ALLENS TEST (test code = ALLENS) Yes TOTAL HGB (test code = THB) 12.9 g/dL 12.0-18.0 N OXYHEMOGLOBIN (test code = OOHGBT) 98.6 % 92.0-98.0 H CARBOXYHEMOGLOBIN (test code = HOHGBT) 0.3 % 0-5.0 N METHEMOGLOBIN (test code = METHGB) <0.8 % 0-1.5 N - XR CHEST 1 [id number] 19:06:00 [facility] 1960 Sex: FPatient Name: MARIE PINEDA Unit No: [id number] EXAMS: CPT: [id number] XR CHEST 1 V 51437 AP CHEST 1 VIEW COMPARISON: Same-day radiographs 18:06 HISTORY: intubation FINDINGS: There is no focal lung consolidation. There is no pleural effusion. There is no pneumothorax. The cardiac silhouette is normal. Endotracheal tube approximately 2.6 cm above the celena. There is no acute osseous abnormality. IMPRESSION: No acute cardiopulmonary process. at 1906 Reported and signed by: Jessica Chin MD CC: Mali Meléndez MD, MD Technologist: Omer Mcdowell Time: DAP (Gy m2): Air Kerma (mGy): Trscr Dt/Tm: 025 (1905) by:[email or web address] Orig Print D/T: S: 04/10/2024 (1908) BATCH NO: N/A Name: MARIE PINEDA [facility] Phys: Mali Michelle [address] : 1960 Age: 63 Sex: F Elham Encarnacion Loc: T.ERS Exam Date: 04/10/2024 Status: REG ER PH: FAX: PAGE1 Signed Report Notes Date/Time Note Provider Source 2024-04-26 18:04:00 [id number] [address] PATIENT NAME: MARIE PINEDA ADMIT DATE: 04/10/24 ACCOUNT NO: [id number] ROOM NO: T.207 AGE: 63 REPORT TYPE: DISCHARGE SUMMARY SEX: F ADMITTING PHYSICIAN: Brenna Ruelas MD ATTENDING PHYSICIAN: Ricky Herrmann MD ADMISSION DATE: 04/10/2024 19:10:00 DISCHARGE DATE: 04/26/2024 00:00:00 ADMITTING DIAGNOSES: 1. Acute respiratory failure with hypoxia. 2. Chronic obstructive pulmonary disease with exacerbation. DISCHARGE DIAGNOSES: 1. Acute respiratory failure with hypoxia. 2. Chronic obstructive pulmonary disease with exacerbation. 3. Hypertension. 4. Hyperlipidemia. 5. Advanced chronic obstructive pulmonary disease. 6. Respiratory syncytial virus pneumonia. 7. Atypical chest pain. CONSULTATIONS: Critical care team, Dr. Kelley for pulmonary and Dr. Lainez for pulmonary, Dr. Mckeon for cardiology. HISTORY AND HOSPITAL COURSE: A 63-year-old inmate from [facility] was admitted with severe respiratory failure and hypoxia. The patient was admitted to the intensive care unit under critical care services. The patient had to be intubated, stayed on the vent for a considerable length of time and was then subsequently extubated. She still stayed in the ICU for intermittent BiPAP treatment. She was able to be successfully downgraded to intermediate care unit. Over the next several days, her high-flow oxygen requirement slowly improved. Thereafter, this discharge planning was started. The patient's current corrections facility did not have the capability of oxygen, so therefore, other discharge placements were arranged. The patient is now being accepted by an infirmary, which is available to give her oxygen as needed. The patient has been cleared by all the respective consultants. She is being discharged to an infirmary associated with the corrections facility in stable clinical condition. Discharge diagnosis as above. Discharge medications per discharge MAY. Dictated By: Ricky Herrmann MD Date Dictated: 04/26/2024 18:04:57 Date Transcribed: 04/26/2024 19:34:52 GUADALUPE/ALEJANDRA PATIENT NAME: MARIE PINEDA Receipt ID: [id number] Authenticated by Ricky Herrmann MD On 05/02/2024 01:50:26 PM at 0150 PATIENT NAME: MARIE PINEDA [facility] 2024-04-26 12:52:00 [facility] [place] ([facility]) Med Order Sheet REPORT #: [id number] REPORT STATUS: Signed DATE: 04/26/24 TIME: 1252 PATIENT: MARIE PINEDA UNIT #: [id number] ROOM #: T.[facility] BED: A : 60 AGE: 63 SEX: F ATTEND: Ricky Herrmann MD [facility] AUTHOR: Ricky Herrmann MD ATTENTION *EDITS and/or ADDENDA must be made in Patient Keeper for this note. * * Edits and ammendments created in [facility] are not visible * * in Patient Keeper or the legal medical record (HPF). * Discharge Medication Reconciliation DISCHARGE MEDICATION LIST Ipratropium Neb Soln (Atrovent Neb Soln) Dose: 0.5MG Neb RTQ6H at 1252 ATTENTION *EDITS and/or ADDENDA must be made in Patient Keeper for this note. * * Edits and ammendments created in [employer] are not visible * * in Patient Keeper or the legal medical record ([facility]). * RPT #: [id number] END OF REPORT [facility] 2024-04-26 09:59:00 [facility] [place] ([facility]) Pulmonology Progress Note REPORT #: [id number] REPORT STATUS: Signed DATE: 04/26/24 TIME: 958 PATIENT: MARIE PINEDA UNIT #: [id number] ROOM #: T.207 BED: A : 60 AGE: 63 SEX: F ATTEND: Ricky Herrmann MD ADM AUTHOR: Ele Hernandez ATTENTION *EDITS and/or ADDENDA must be made in Patient Keeper for this note. * * Edits and ammendments created in [facility] are not visible * * in Patient Keeper or the legal medical record ([facility]). * Note Date: 04/26/24 09:59 -- ASSESSMENT/PLAN -- [facility] April Lainez MD P: Subjective : continues on 2L NC cough continues to improve, no hemoptysis will require home oxygen, discussed with CM Assessment: Acute hypercapnic respiratory failure acute RSV infection AECOPD Aspiration pneumonia Lactic acidosis sinus tachycardia altered mental status, resolved hemoptysis Plan: Pulmonary : - supplemental O2 to keep SpO2 > 92% - CT chest prior to admission revealed no evidence of pulmonary embolism, but [id number] COPD and bronchial wall thickening in the lower lobes and right middle lobe secondary to bronchitis along with some mucus material in the bronchi and some nodular foci in the right middle lobe - 04/16 CXR with GGO bilateral upper lung mary, reviewed ABG, compensated - Treated with empiric abx rocephin and azithro, s/p Unasyn, follow [employer] recommendations - positive RSV, continue supportive care - Continue DuoNebs and Pulmicort - Urinary antigen strep pneumo and Legionella negative - completed steroid course - Sputum culture with no growth since 04/10/2024, repeat sent 04/19 with normal edwar - covid negative - NIV at bedtime and as needed - CTA chest reviewed, no PE, bronchial thickening, no consolidations or effusions - check home O2 eval, 6 min walk - will require home oxygen - dc albuterol with tachycardia, continue atrovent nebs thank you for this consult, will follow --------- HPI: Patient is a 63-year-old female with past medical history significant for COPD and hypertension, who was brought to the Emergency Room for evaluation of COPD exacerbation and respiratory failure. Patient was at [facility] where she was admitted for shortness of breath. She was found to be in respiratory distress and was placed on BiPAP therapy and was transferred here to our hospital for continued management. She required intubated and was extubated on 04/12/24, transitioned to vapotherm and pulmonary consulted after downgrade from ICU. MedHx: COPD on home O2 2-3L SurgHx: ESDRAS Family Hx: ESDRAS Social Hx: inmate, quit smoking 6 months ago but previous to this smoked 1 PPD for greater than 40 years, incarcerated Physical Exam: Gen: ill appearing, disheveled, on HFNC Head: atraumatic, normocephalic ENT: EOMI, conjunctivae pink, sclera clear, neck w/o masses, trachea midline, MMM, oropharynx clear CV: RRR, s1/s2, peripheral pulses palpable Resp: diminished bilateral breath sounds, symmetric expansion, scant wheezes bilaterally Abd: soft, non-tender, not distended, +BS Ext/MSK: no edema/cyanosis, cap refill < 3 secs, normal tone Skin: warm, dry, color consistent w/ ethnicity, no rashes Neuro: AO x2-3, conversant, follows commands, Christiano Psych: calm -- EXAM -- VITALS (04/25 09:59 - 04/26 09:59): Blood pressure: 115/73 (93/46 - 116/80) Respiratory rate: 17 (14 - 18) Temperature C: 36.6 (36.5 - 36.9) Temperature source: Axillary Pulse Rate: 66 (66 - 105) IOS (04/25 07:00-04/26 07:00): Net10 [id number] Amount taken:100 Continent stool count:0 IV fluid 10 volume ml:10 IV fluid 7 volume ml:10 Oral ml:685 Void ml:695 -- DATA -- MEDICATIONS PANTOPRAZOLE 40 MG PO DAILY 0600 BUDESONIDE 0.5 MG NEB RTBID IPRATROPIUM BROMIDE 0.5 MG NEB RTQ6H POTASSIUM CHLORIDE 10 MEQ IV ASDIR PRN SOD BIPHOS/POT PHOSPHATE 1 PKT PO ASDIR (PRN) hydrALAZINE HCL 10 MG IV Q4H PRN SENNA/DOCUSATE SODIUM 1 TAB PO BID LABETALOL HCL 10 MG IV Q2H PRN METOPROLOL TARTRATE 25 MG PO BID 6A 6P GLUCAGON 1 MG IM ASDIR PRN (Held) ASPIRIN 81 MG PO DAILY ONDANSETRON HCL/PF 4 MG IV Q4H PRN SODIUM PHOSPHATE with/in SODIUM CHLORIDE 0.9% 20 MM IV ASDIR (PRN) guaiFENesin 600 MG PO Q12HR CALCIUM CARBONATE 1000 MG PO Q4H PRN polyethylene glycoL 3350 1 PKT PO DAILY DEXTROSE 50%-WATER 25 ML IV ASDIR PRN PROPYLENE GLYCOL/PEG 400 1 DROP EACH EYE QID (PRN) NITROGLYCERIN 0.4 MG SL Q5M PRN POTASSIUM BICARBONATE/CIT AC 20 MEQ PO ASDIR PRN ATORVASTATIN CALCIUM 40 MG PO BEDTIME MAGNESIUM SULFATE 2 GM IV ASDIR SODIUM PHOSPHATE with/in SODIUM CHLORIDE 0.9% 15 MM IV ASDIR (PRN) (Held) ENOXAPARIN SODIUM 40 MG SUBQ DAILY ACETAMINOPHEN 650 MG PO Q4H PRN QUEtiapine FUMARATE 50 MG PO BID SODIUM CHLORIDE FOR INHALATION 4 ML NEB RTQ6H WA DEXTROSE 37.5 GM PO ASDIR PRN PROMETHAZINE HCL with/in SODIUM CHLORIDE 50 mL BAG 12.5 MG IV Q6H PRN SODIUM PHOSPHATE with/in SODIUM CHLORIDE 0.9% 30 MM IV ASDIR (PRN) at 2241 at 2241 ATTENTION *EDITS and/or ADDENDA must be made in Patient Keeper for this note. * * Edits and ammendments created in [facility] are not visible * * in Patient Keeper or the legal medical record (HPF). * [facility] [place] #: [id number] END OF REPORT [facility] 2024-04-26 08:43:00 [facility] ([facility]) Gastroenterology Prog. Note REPORT #: [id number] REPORT STATUS: Signed DATE: 04/26/24 TIME: 842 PATIENT: MARIE PINEDA UNIT #: [id number] ROOM #: T.207 BED: A : 60 AGE: 63 SEX: F ATTEND: Ricky Herrmann MD ADM AUTHOR: Sridhar Mosqueda MD ATTENTION *EDITS and/or ADDENDA must be made in Patient Keeper for this note. * * Edits and ammendments created in [employer] are not visible * * in Patient Keeper or the legal medical record (HPF). * Note Date: 04/26/24 08:43 -- ASSESSMENT/PLAN -- GENERAL ASSESSMENT: Dysphagia Acute hypercapnic respiratory failure Acute RSV infection AECOPD Aspiration pneumonia Lactic acidosis Sinus tachycardia Altered mental status, resolved Hemoptysis Supportive measures. Serial examinations. Monitor labs. Transfuse PRBCs as needed Protonix 40 mg BID Await swallow eval Puree diet EGD in near future. Colonoscopy in future. Further recommendations to follow. -- SUBJECTIVE -- HPI: Marie Pineda is a 63-year-old female with history of COPD, who was transferred from [facility] to [facility] for worsening respiratory failure. The patient worsened during her arrival and had to be intubated, placed on the vent, and admitted to ICU under critical care services. GI was asked to evaluate her for dysphagia. She denies difficulty swallowing. No nausea or vomiting. She is tolerating clear liquids. 04/26/2024 Stable. Denies chest pain or shortness of breath. O2 via NC No nausea or vomiting Tolerating puree diet She had a bowel movement today Denies abdominal pain. -- EXAM -- VITALS (04/25 08:43 - 04/26 08:43): Blood pressure: 115/73 (93/46 - 116/80) Respiratory rate: 17 (14 - 18) Temperature C: 36.6 (36.5 - 36.9) Temperature source: Axillary Pulse Rate: 66 (66 - 105) IOS (04/25 07:00-04/26 07:00): Net10 [id number] Amount taken:100 Continent stool count:0 IV fluid 10 volume ml:10 IV fluid 7 volume ml:10 Oral ml:685 Void ml:695 EXAM: General Well developed, well nourished, in no apparent distress. Head Normocephalic, atraumatic. Eyes Conjunctiva and sclera clear. Ears TM's intact and clear, normal canals, grossly normal hearing. Nose No deformity, no discharge, no inflammation, no lesions. Mouth Oropharynx without deformities or lesions, normal mucosa. Neck No masses, no thyromegaly, no abnormal cervical nodes, trachea midline. Chest Grossly normal appearance. Breast No masses, no gynecomastia noted. Lungs Clear bilaterally with normal respiratory effort. Heart Regular rate and rhythm, normal S1, S2. Abdomen Soft, non-tender, no organomegaly, no masses noted. Musculoskeletal No deformity. Extremities No clubbing, no cyanosis, no edema. Neurological No focal deficits. Pulses Pulses normal in all extremities. Rectal Deferred. Genitourinary Normal external genitalia. Skin Intact without significant lesions, or rashes. Lymph Nodes No significant cervical node adenopathy. Psychiatric Alert and oriented to time, person, place. Normal mood and affect, intact judgment and insight. -- DATA -- MEDICATIONS PANTOPRAZOLE 40 MG PO DAILY 0600 BUDESONIDE 0.5 MG NEB RTBID IPRATROPIUM BROMIDE 0.5 MG NEB RTQ6H POTASSIUM CHLORIDE 10 MEQ IV ASDIR PRN SOD BIPHOS/POT PHOSPHATE 1 PKT PO ASDIR (PRN) hydrALAZINE HCL 10 MG IV Q4H PRN SENNA/DOCUSATE SODIUM 1 TAB PO BID LABETALOL HCL 10 MG IV Q2H PRN METOPROLOL TARTRATE 25 MG PO BID 6A 6P GLUCAGON 1 MG IM ASDIR PRN (Held) ASPIRIN 81 MG PO DAILY ONDANSETRON HCL/PF 4 MG IV Q4H PRN SODIUM PHOSPHATE with/in SODIUM CHLORIDE 0.9% 20 MM IV ASDIR (PRN) guaiFENesin 600 MG PO Q12HR CALCIUM CARBONATE 1000 MG PO Q4H PRN polyethylene glycoL 3350 1 PKT PO DAILY DEXTROSE 50%-WATER 25 ML IV ASDIR PRN PROPYLENE GLYCOL/PEG 400 1 DROP EACH EYE QID (PRN) NITROGLYCERIN 0.4 MG SL Q5M PRN POTASSIUM BICARBONATE/CIT AC 20 MEQ PO ASDIR PRN ATORVASTATIN CALCIUM 40 MG PO BEDTIME MAGNESIUM SULFATE 2 GM IV ASDIR SODIUM PHOSPHATE with/in SODIUM CHLORIDE 0.9% 15 MM IV ASDIR (PRN) (Held) ENOXAPARIN SODIUM 40 MG SUBQ DAILY ACETAMINOPHEN 650 MG PO Q4H PRN QUEtiapine FUMARATE 50 MG PO BID SODIUM CHLORIDE FOR INHALATION 4 ML NEB RTQ6H WA DEXTROSE 37.5 GM PO ASDIR PRN PROMETHAZINE HCL with/in SODIUM CHLORIDE 50 mL BAG 12.5 MG IV Q6H PRN SODIUM PHOSPHATE with/in SODIUM CHLORIDE 0.9% 30 MM IV ASDIR (PRN) at 1037 ATTENTION *EDITS and/or ADDENDA must be made in Patient Keeper for this note. * * Edits and ammendments created in [facility] are not visible * * in Patient Keeper or the legal medical record (HPF). * [facility] [place] #: [phone] END OF REPORT [facility] 2024-04-25 14:43:00 [facility] [place] ([facility]) Cardiology Progress Notes REPORT #: [id number] REPORT STATUS: Signed DATE: 04/25/24 TIME: 1443 PATIENT: MARIE PINEDA UNIT #: [id number] ROOM #: T[facility] BED: A : 60 AGE: 63 SEX: F ATTEND: Ricky Herrmann MD ADM AUTHOR: Lucas Fonseca MD ATTENTION *EDITS and/or ADDENDA must be made in Patient Keeper for this note. * * Edits and ammendments created in [employer] are not visible * * in Patient Keeper or the legal medical record (HPF). * Note Date: 04/25/24 14:43 -- ASSESSMENT/PLAN -- GENERAL ASSESSMENT: Assessment: Chest pain, atypical Acute hypoxic respiratory failure COPD exacerbation RSV pneumonia Aspiration pneumonia Abnormal cardiac enzymes Sinus tachycardia Metabolic encephalopathy, resolved Essential hypertension Hyperlipidemia Plan: ECG: ST 139 bpm evening of 04/14 Trop I 04/15 normal, was borderline abnormal on 04/10 and 04/11, BNP 101 Echo: LVEF>70%, no significant valvular abnormalities Chest pain, in setting of acute hypoxic and hypercapnic respiratory failure due to COPDE, pneumonia, continue atorvastatin, aspirin 81 daily and metoprolol, non-cardiac secondary to chronic cough and dyspnea, plan for NST as outpatient given her respiratory status Acute hypoxic respiratory failure, COPD exacerbation, RSV and aspiration pneumonias, improving but still on high flow nasal cannula, receiving IV antibiotics and nebulizers, as per pulmonary Tachycardia, sinus, with exertion or speaking, continue metoprolol as able with BP Telemetry monitoring Will follow intermittently, please call as needed -- SUBJECTIVE -- HPI: Denies chest pain SOB is much improved On oxygen 2L BP improved, no hypotensive episodes Telemetry: sinus bradycardia 55 bpm to sinus tachycardia low 100's REVIEW OF SYSTEMS: Comment: A 14 point review of systems is negative other than what is stated in the HPI. -- EXAM -- VITALS (04/24 14:43 - 04/25 14:43): Respiratory rate: 14 (14 - 18) Blood pressure: 99/58 (99/58 - 132/81) Temperature source: Oral Temperature C: 36.9 (36.7 - 36.9) Pulse Rate: 98 (70 - 109) IOS (04/24 07:00-04/25 07:00): [id number] Continent stool count:1 Number of incontinent voids:2 Oral ml:800 Void ml:350 EXAM: Other: General: NAD Head: NC, AT Eyes: PERRL Neck: No masses, trachea midline Chest:Grossly normal appearance. Lungs: Occasional wheeze Heart: RRR, normal S1,S2. No murmurs, rubs or gallops. Abdomen: Soft, non-tender,non-distended. Extremities: No clubbing, cyanosis, edema. Neuro: Awake and alert, no focal deficits. -- DATA -- MEDICATIONS PANTOPRAZOLE 40 MG PO DAILY 0600 BUDESONIDE 0.5 MG NEB RTBID POTASSIUM CHLORIDE 10 MEQ IV ASDIR PRN SOD BIPHOS/POT PHOSPHATE 1 PKT PO ASDIR (PRN) hydrALAZINE HCL 10 MG IV Q4H PRN SENNA/DOCUSATE SODIUM 1 TAB PO BID LABETALOL HCL 10 MG IV Q2H PRN METOPROLOL TARTRATE 25 MG PO BID 6A 6P GLUCAGON 1 MG IM ASDIR PRN (Held) ASPIRIN 81 MG PO DAILY ONDANSETRON HCL/PF 4 MG IV Q4H PRN SODIUM PHOSPHATE with/in SODIUM CHLORIDE 0.9% 20 MM IV ASDIR (PRN) IPRATROPIUM BROMIDE 0.5 MG NEB RTQ4H guaiFENesin 600 MG PO Q12HR CALCIUM CARBONATE 1000 MG PO Q4H PRN polyethylene glycoL 3350 1 PKT PO DAILY DEXTROSE 50%-WATER 25 ML IV ASDIR PRN PROPYLENE GLYCOL/PEG 400 1 DROP EACH EYE QID (PRN) NITROGLYCERIN 0.4 MG SL Q5M PRN POTASSIUM BICARBONATE/CIT AC 20 MEQ PO ASDIR PRN ATORVASTATIN CALCIUM 40 MG PO BEDTIME MAGNESIUM SULFATE 2 GM IV ASDIR SODIUM PHOSPHATE with/in SODIUM CHLORIDE 0.9% 15 MM IV ASDIR (PRN) (Held) ENOXAPARIN SODIUM 40 MG SUBQ DAILY ACETAMINOPHEN 650 MG PO Q4H PRN QUEtiapine FUMARATE 50 MG PO BID SODIUM CHLORIDE FOR INHALATION 4 ML NEB RTQ6H WA DEXTROSE 37.5 GM PO ASDIR PRN PROMETHAZINE HCL with/in SODIUM CHLORIDE 50 mL BAG 12.5 MG IV Q6H PRN SODIUM PHOSPHATE with/in SODIUM CHLORIDE 0.9% 30 MM IV ASDIR (PRN) LAB RESULTS CBC W/AUTO DIFF (04/25/24 12:44) RED CELL DISTRIBUTION WIDTH 13.8 PLATELET COUNT 494H H MEAN CELL HGB 30.1 MEAN CELL HGB CONCENTRATION 32.6 L EOSINOPHIL # 0.10 MONOCYTE # 1.23 H MEAN PLATELET VOLUME 10.3 BASOPHIL # 0.04 IMMATURE GRANULOCYTE % 0.7 NEUTROPHIL % 88.4 H EOSINOPHIL % 0.5 L BASOPHIL % 0.2 LYMPHOCYTE % 3.8 L MONOCYTE % 6.4 LYMPHOCYTE # 0.74 L WHITE BLOOD CELL 19.28H H NUCLEATED RBC % 0.0 NEUTROPHIL # 17.04 H HEMATOCRIT 34.1L L MEAN CELL VOLUME 92 RED BLOOD CELL 3.69 L HEMOGLOBIN 11.1L L BASIC METABOLIC PANEL (04/25/24 12:44) GLUCOSE 118H H CARBON DIOXIDE 31 GLOMERULAR FILTRATION RATE >=60 max estimate BLOOD UREA NITROGEN 11D D SODIUM 140 CHLORIDE 103 POTASSIUM 4.0 CALCIUM 9.3 CREATININE 0.54L L at 1447 ATTENTION *EDITS and/or ADDENDA must be made in Patient Keeper for this note. * * Edits and ammendments created in [employer] are not visible * * in Patient Keeper or the legal medical record ([facility]). * RPT #: [id number] END OF REPORT [facility]24-04[facility]25 [facility]25[facility]00 [facility] Internal Med. Progress Note REPORT #: [id number] REPORT STATUS: Signed DATE: 04/25/24 TIME: 1424 PATIENT: MARIE PINEDA UNIT #: [id number] ROOM #: T.207 BED: A : 60 AGE: 63 SEX: F ATTEND: Ricky Herrmann MD [facility] AUTHOR: Ricky Herrmann MD ATTENTION *EDITS and/or ADDENDA must be made in Patient Keeper for this note. * * Edits and ammendments created in [employer] are not visible * * in Patient Keeper or the legal medical record ([facility]). * Note Date: 04/25/24 14:25 -- ASSESSMENT/PLAN -- ASSESSMENT / PLAN: 1: RSV (respiratory syncytial virus infection) 2: COPD exacerbation 3: Acute metabolic encephalopathy 4: Respiratory failure, unspecified, unspecified whether with hypoxia or hypercapnia ADDITIONAL COMMENTS: DC when meds arranged at [facility] -- SUBJECTIVE -- CHIEF COMPLAINT: Pneumonia/Resp failure/Debility/COPD PATIENT NARRATIVE: Feeling OK No complains REVIEW OF SYSTEMS: General Negative for fever, malaise, fatigue. Eyes Negative for blurry vision. No diplopia. Ears/Nose/Throat Negative for sore throat. No otalgia. No rhinorrhea. Respiratory Negative for dyspnea or wheeze. No cough. Cardiovascular Negative for chest pain or palpitations. No extremity swelling. Gastrointestinal Negative for abdominal pain or nausea. No emesis. No diarrhea. Genitourinary Negative for dysuria, frequency, or urgency. No gross hematuria. Neurological Negative for headache. No vertigo. Denies paresthesias. -- EXAM -- VITALS (04/24 14:25 - 04/25 14:25): Blood pressure: 99/58 (99/58 - 132/81) Temperature C: 36.9 (36.7 - 36.9) Respiratory rate: 14 (14 - 18) Pulse Rate: 98 (70 - 109) Temperature source: Oral IOS (04/24 07:00-04/25 07:00): Ves373 Syophi753 Zgtzgc175 Continent stool count:1 Number of incontinent voids:2 Oral ml:800 Void ml:350 EXAM: General Well developed, well nourished, in no apparent distress. Head Normocephalic, atraumatic. Eyes PERRL, EOM intact, conjunctiva and sclera clear, without nystagmus, lids normal. Neck No masses, no thyromegaly, no abnormal cervical nodes, trachea midline. Chest Grossly normal appearance. Lungs Clear bilaterally with normal respiratory effort. Heart Regular rate and rhythm, normal S1, S2, no murmurs, no rubs, no gallops, no clicks. Abdomen Soft, non-tender, no organomegaly, no masses noted. Extremities No clubbing, no cyanosis, no edema. Neurological No focal deficits, cranial nerves II-XII grossly intact, normal sensation, normal reflexes, normal coordination, normal muscle strength, normal tone. -- DATA -- MEDICATIONS PANTOPRAZOLE 40 MG PO DAILY 0600 BUDESONIDE 0.5 MG NEB RTBID POTASSIUM CHLORIDE 10 MEQ IV ASDIR PRN SOD BIPHOS/POT PHOSPHATE 1 PKT PO ASDIR (PRN) hydrALAZINE HCL 10 MG IV Q4H PRN SENNA/DOCUSATE SODIUM 1 TAB PO BID LABETALOL HCL 10 MG IV Q2H PRN METOPROLOL TARTRATE 25 MG PO BID 6A 6P GLUCAGON 1 MG IM ASDIR PRN (Held) ASPIRIN 81 MG PO DAILY ONDANSETRON HCL/PF 4 MG IV Q4H PRN SODIUM PHOSPHATE with/in SODIUM CHLORIDE 0.9% 20 MM IV ASDIR (PRN) IPRATROPIUM BROMIDE 0.5 MG NEB RTQ4H guaiFENesin 600 MG PO Q12HR CALCIUM CARBONATE 1000 MG PO Q4H PRN polyethylene glycoL 3350 1 PKT PO DAILY DEXTROSE 50%-WATER 25 ML IV ASDIR PRN PROPYLENE GLYCOL/PEG 400 1 DROP EACH EYE QID (PRN) NITROGLYCERIN 0.4 MG SL Q5M PRN POTASSIUM BICARBONATE/CIT AC 20 MEQ PO ASDIR PRN ATORVASTATIN CALCIUM 40 MG PO BEDTIME MAGNESIUM SULFATE 2 GM IV ASDIR SODIUM PHOSPHATE with/in SODIUM CHLORIDE 0.9% 15 MM IV ASDIR (PRN) (Held) ENOXAPARIN SODIUM 40 MG SUBQ DAILY ACETAMINOPHEN 650 MG PO Q4H PRN QUEtiapine FUMARATE 50 MG PO BID SODIUM CHLORIDE FOR INHALATION 4 ML NEB RTQ6H WA DEXTROSE 37.5 GM PO ASDIR PRN PROMETHAZINE HCL with/in SODIUM CHLORIDE 50 mL BAG 12.5 MG IV Q6H PRN SODIUM PHOSPHATE with/in SODIUM CHLORIDE 0.9% 30 MM IV ASDIR (PRN) LAB RESULTS CBC W/AUTO DIFF (04/25/24 12:44) RED CELL DISTRIBUTION WIDTH 13.8 PLATELET COUNT 494H H MEAN CELL HGB 30.1 MEAN CELL HGB CONCENTRATION 32.6 L EOSINOPHIL # 0.10 MONOCYTE # 1.23 H MEAN PLATELET VOLUME 10.3 BASOPHIL # 0.04 IMMATURE GRANULOCYTE % 0.7 NEUTROPHIL % 88.4 H EOSINOPHIL % 0.5 L BASOPHIL % 0.2 LYMPHOCYTE % 3.8 L MONOCYTE % 6.4 LYMPHOCYTE # 0.74 L WHITE BLOOD CELL 19.28H H NUCLEATED RBC % 0.0 NEUTROPHIL # 17.04 H HEMATOCRIT 34.1L L MEAN CELL VOLUME 92 RED BLOOD CELL 3.69 L HEMOGLOBIN 11.1L L BASIC METABOLIC PANEL (04/25/24 12:44) GLUCOSE 118H H CARBON DIOXIDE 31 GLOMERULAR FILTRATION RATE >=60 max estimate BLOOD UREA NITROGEN 11D D SODIUM 140 CHLORIDE 103 POTASSIUM 4.0 CALCIUM 9.3 CREATININE 0.54L L at 1426 ATTENTION *EDITS and/or ADDENDA must be made in Patient Keeper for this note. * * Edits and ammendments created in [facility] are not visible * * in Patient Keeper or the legal medical record ([facility]). * [facility] #: [id number] END OF REPORT [facility] 2024-04-25 11:42:00 [facility] Gastroenterology Prog. Note REPORT #: [id number] REPORT STATUS: Signed DATE: 04/25/24 TIME: 1142 PATIENT: MARIE PINEDA UNIT #: [id number] ROOM #: T.207 BED: A : 60 AGE: 63 SEX: F ATTEND: Ricky Herrmann MD ADM AUTHOR: Lizzy Mcdonald ATTENTION *EDITS and/or ADDENDA must be made in Patient Keeper for this note. * * Edits and ammendments created in [employer] are not visible * * in Patient Keeper or the legal medical record ([facility]). * Note Date: 04/25/24 11:42 -- ASSESSMENT/PLAN -- GENERAL ASSESSMENT: Dysphagia Acute hypercapnic respiratory failure Acute RSV infection AECOPD Aspiration pneumonia Lactic acidosis Sinus tachycardia Altered mental status, resolved Hemoptysis Supportive measures. Serial examinations. Monitor labs. Transfuse PRBCs as needed Protonix 40 mg BID Chopped diet Discussed with speech Pathologist- Gilma EGD in near future. Colonoscopy in future. Further recommendations to follow. -- SUBJECTIVE -- HPI: Marie Pineda is a 63-year-old female with history of COPD, who was transferred from [facility] to [facility] for worsening respiratory failure. The patient worsened during her arrival and had to be intubated, placed on the vent, and admitted to ICU under critical care services. GI was asked to evaluate her for dysphagia. She denies difficulty swallowing. No nausea or vomiting. She is tolerating clear liquids. 04/25/2024 Stable. Denies chest pain or shortness of breath. O2 via NC No nausea or vomiting Tolerating puree diet She had a bowel movement today Denies abdominal pain. -- EXAM -- VITALS (04/24 11:42 - 04/25 11:42): Respiratory rate: 17 (17 - 18) Blood pressure: 106/66 (101/64 - 132/81) Pulse Rate: 81 (70 - 109) Temperature C: 36.7 (36.7 - 36.8) Temperature source: Oral IOS (04/24 07:00-04/25 07:00): Tjh331 Nyjdrm757 Losmof601 Continent stool count:1 Number of incontinent voids:2 Oral ml:800 Void ml:350 EXAM: General Well developed, well nourished, in no apparent distress. Head Normocephalic, atraumatic. Eyes Conjunctiva and sclera clear. Lungs Clear bilaterally with normal respiratory effort. Heart Regular rate and rhythm, normal S1, S2. Abdomen Soft, non-tender, no organomegaly, no masses noted. Musculoskeletal No deformity. Extremities No clubbing, no cyanosis, no edema. Neurological No focal deficits. Pulses Pulses normal in all extremities. Rectal Deferred. Genitourinary Normal external genitalia. Skin Intact without significant lesions, or rashes. Lymph Nodes No significant cervical node adenopathy. Psychiatric Alert and oriented to time, person, place. Normal mood and affect, intact judgment and insight. -- DATA -- MEDICATIONS PANTOPRAZOLE 40 MG PO DAILY 0600 BUDESONIDE 0.5 MG NEB RTBID POTASSIUM CHLORIDE 10 MEQ IV ASDIR PRN SOD BIPHOS/POT PHOSPHATE 1 PKT PO ASDIR (PRN) hydrALAZINE HCL 10 MG IV Q4H PRN SENNA/DOCUSATE SODIUM 1 TAB PO BID LABETALOL HCL 10 MG IV Q2H PRN METOPROLOL TARTRATE 25 MG PO BID 6A 6P GLUCAGON 1 MG IM ASDIR PRN (Held) ASPIRIN 81 MG PO DAILY ONDANSETRON HCL/PF 4 MG IV Q4H PRN SODIUM PHOSPHATE with/in SODIUM CHLORIDE 0.9% 20 MM IV ASDIR (PRN) IPRATROPIUM BROMIDE 0.5 MG NEB RTQ4H guaiFENesin 600 MG PO Q12HR CALCIUM CARBONATE 1000 MG PO Q4H PRN polyethylene glycoL 3350 1 PKT PO DAILY DEXTROSE 50%-WATER 25 ML IV ASDIR PRN PROPYLENE GLYCOL/PEG 400 1 DROP EACH EYE QID (PRN) NITROGLYCERIN 0.4 MG SL Q5M PRN POTASSIUM BICARBONATE/CIT AC 20 MEQ PO ASDIR PRN ATORVASTATIN CALCIUM 40 MG PO BEDTIME MAGNESIUM SULFATE 2 GM IV ASDIR predniSONE 20 MG PO DAILY SODIUM PHOSPHATE with/in SODIUM CHLORIDE 0.9% 15 MM IV ASDIR (PRN) (Held) ENOXAPARIN SODIUM 40 MG SUBQ DAILY ACETAMINOPHEN 650 MG PO Q4H PRN QUEtiapine FUMARATE 50 MG PO BID SODIUM CHLORIDE FOR INHALATION 4 ML NEB RTQ6H WA DEXTROSE 37.5 GM PO ASDIR PRN PROMETHAZINE HCL with/in SODIUM CHLORIDE 50 mL BAG 12.5 MG IV Q6H PRN SODIUM PHOSPHATE with/in SODIUM CHLORIDE 0.9% 30 MM IV ASDIR (PRN) at 1016 at 1016 ATTENTION *EDITS and/or ADDENDA must be made in Patient Keeper for this note. * * Edits and ammendments created in [employer] are not visible * * in Patient Keeper or the legal medical record (HPF). * [facility] [place] #: [id number] END OF REPORT [facility] 2024-04-25 09:57:00 [facility] ([facility]) Pulmonology Progress Note REPORT #: [id number] REPORT STATUS: Signed DATE: 04/25/24 TIME: 956 PATIENT: MARIE PINEDA UNIT #: [id number] ROOM #: T.207 BED: A : 60 AGE: 63 SEX: F ATTEND: Ricky Herrmann MD ADM AUTHOR: Ele Hernandez ATTENTION *EDITS and/or ADDENDA must be made in Patient Keeper for this note. * * Edits and ammendments created in [employer] are not visible * * in Patient Keeper or the legal medical record ([facility]PF). * Note Date: 04/25/24 09:57 -- ASSESSMENT/PLAN -- [facility] April Lainez MD P: Subjective : continues on 2L NC occ cough is nonproductive, no hemoptysis Assessment: Acute hypercapnic respiratory failure acute RSV infection AECOPD Aspiration pneumonia Lactic acidosis sinus tachycardia altered mental status, resolved hemoptysis Plan: Pulmonary : - supplemental O2 to keep SpO2 > 92% - CT chest prior to admission revealed no evidence of pulmonary embolism, but [id number] COPD and bronchial wall thickening in the lower lobes and right middle lobe secondary to bronchitis along with some mucus material in the bronchi and some nodular foci in the right middle lobe - 04/16 CXR with GGO bilateral upper lung mary, reviewed ABG, compensated - Treated with empiric abx rocephin and azithro, s/p Unasyn, follow [employer] recommendations - positive RSV, continue supportive care - Continue DuoNebs and Pulmicort - Urinary antigen strep pneumo and Legionella negative - completed steroid course - Sputum culture with no growth since 04/10/2024, repeat sent 04/19 with normal edwar - covid negative - NIV at bedtime and as needed - CTA chest reviewed, no PE, bronchial thickening, no consolidations or effusions. - check home O2 eval, 6 min walk - dc albuterol with tachycardia, continue atrovent nebs thank you for this consult, will follow --------- HPI: Patient is a 63-year-old female with past medical history significant for COPD and hypertension, who was brought to the Emergency Room for evaluation of COPD exacerbation and respiratory failure. Patient was at [facility] where she was admitted for shortness of breath. She was found to be in respiratory distress and was placed on BiPAP therapy and was transferred here to our hospital for continued management. She required intubated and was extubated on 04/12/24, transitioned to vapotherm and pulmonary consulted after downgrade from ICU. MedHx: COPD on home O2 2-3L SurgHx: ESDRAS Family Hx: ESDRAS Social Hx: inmate, quit smoking 6 months ago but previous to this smoked 1 PPD for greater than 40 years, incarcerated Physical Exam: Gen: ill appearing, disheveled, on HFNC Head: atraumatic, normocephalic ENT: EOMI, conjunctivae pink, sclera clear, neck w/o masses, trachea midline, MMM, oropharynx clear CV: RRR, s1/s2, peripheral pulses palpable Resp: diminished bilateral breath sounds, symmetric expansion, scant wheezes bilaterally Abd: soft, non-tender, not distended, +BS Ext/MSK: no edema/cyanosis, cap refill < 3 secs, normal tone Skin: warm, dry, color consistent w/ ethnicity, no rashes Neuro: AO x2-3, conversant, follows commands, Christiano Psych: calm -- EXAM -- VITALS (04/24 09:57 - 04/25 09:57): Blood pressure: 106/66 (94/61 - 132/81) Temperature C: 36.7 (36.4 - 36.8) Temperature source: Oral Respiratory rate: 17 (17 - 18) Pulse Rate: 81 (70 - 109) IOS (04/24 07:00-04/25 07:00): Ogl428 Xovdfd217 Fgxmte117 Continent stool count:1 Number of incontinent voids:2 Oral ml:800 Void ml:350 -- DATA -- MEDICATIONS PANTOPRAZOLE 40 MG PO DAILY 0600 BUDESONIDE 0.5 MG NEB RTBID POTASSIUM CHLORIDE 10 MEQ IV ASDIR PRN SOD BIPHOS/POT PHOSPHATE 1 PKT PO ASDIR (PRN) hydrALAZINE HCL 10 MG IV Q4H PRN SENNA/DOCUSATE SODIUM 1 TAB PO BID LABETALOL HCL 10 MG IV Q2H PRN METOPROLOL TARTRATE 25 MG PO BID 6A 6P GLUCAGON 1 MG IM ASDIR PRN (Held) ASPIRIN 81 MG PO DAILY ONDANSETRON HCL/PF 4 MG IV Q4H PRN SODIUM PHOSPHATE with/in SODIUM CHLORIDE 0.9% 20 MM IV ASDIR (PRN) IPRATROPIUM BROMIDE 0.5 MG NEB RTQ4H guaiFENesin 600 MG PO Q12HR CALCIUM CARBONATE 1000 MG PO Q4H PRN polyethylene glycoL 3350 1 PKT PO DAILY DEXTROSE 50%-WATER 25 ML IV ASDIR PRN PROPYLENE GLYCOL/PEG 400 1 DROP EACH EYE QID (PRN) NITROGLYCERIN 0.4 MG SL Q5M PRN POTASSIUM BICARBONATE/CIT AC 20 MEQ PO ASDIR PRN ATORVASTATIN CALCIUM 40 MG PO BEDTIME MAGNESIUM SULFATE 2 GM IV ASDIR predniSONE 20 MG PO DAILY SODIUM PHOSPHATE with/in SODIUM CHLORIDE 0.9% 15 MM IV ASDIR (PRN) (Held) ENOXAPARIN SODIUM 40 MG SUBQ DAILY ACETAMINOPHEN 650 MG PO Q4H PRN QUEtiapine FUMARATE 50 MG PO BID SODIUM CHLORIDE FOR INHALATION 4 ML NEB RTQ6H WA DEXTROSE 37.5 GM PO ASDIR PRN PROMETHAZINE HCL with/in SODIUM CHLORIDE 50 mL BAG 12.5 MG IV Q6H PRN SODIUM PHOSPHATE with/in SODIUM CHLORIDE 0.9% 30 MM IV ASDIR (PRN) at 2339 at 2339 ATTENTION *EDITS and/or ADDENDA must be made in Patient Keeper for this note. * * Edits and ammendments created in [employer] are not visible * * in Patient Keeper or the legal medical record ([facility]). * RPT #: [id number] END OF REPORT [facility] 2024-04-24 16:38:00 [facility] [place] ([facility]) Cardiology Progress Notes REPORT #: [id number] REPORT STATUS: Signed DATE: 04/24/24 TIME: 1638 PATIENT: MARIE PINEDA UNIT #: [id number] ROOM #: T.[facility] BED: A : 60 AGE: 63 SEX: F ATTEND: Ricky Herrmann MD ADM AUTHOR: Lucas Fonseca MD ATTENTION *EDITS and/or ADDENDA must be made in Patient Keeper for this note. * * Edits and ammendments created in [employer] are not visible * * in Patient Keeper or the legal medical record ([facility]). * Note Date: 04/24/24 16:38 -- ASSESSMENT/PLAN -- GENERAL ASSESSMENT: Assessment: Chest pain, atypical Acute hypoxic respiratory failure COPD exacerbation RSV pneumonia Aspiration pneumonia Abnormal cardiac enzymes Sinus tachycardia Metabolic encephalopathy, resolved Essential hypertension Hyperlipidemia Plan: ECG: ST 139 bpm evening of 04/14 Trop I 04/15 normal, was borderline abnormal on 04/10 and 04/11, BNP 101 Echo: LVEF>70%, no significant valvular abnormalities Chest pain, in setting of acute hypoxic and hypercapnic respiratory failure due to COPDE, pneumonia, continue atorvastatin, aspirin 81 daily and metoprolol, non-cardiac secondary to chronic cough and dyspnea, plan for NST as outpatient given her respiratory status Acute hypoxic respiratory failure, COPD exacerbation, RSV and aspiration pneumonias, improving but still on high flow nasal cannula, receiving IV antibiotics and nebulizers, as per pulmonary BP soft today, discontinue amlodipine Tachycardia, sinus, with exertion or speaking, continue metoprolol as able with BP Telemetry monitoring Continue care -- SUBJECTIVE -- HPI: Denies chest pain SOB much improved BP running lower Tachycardic with talking or exertion, all sinus tachycardia AM metoprolol held for low BP Telemetry: sinus rhythm 90s and with exertion she reaches sinus tachycardia of 130 bpm REVIEW OF SYSTEMS: Comment: A 14 point review of systems is negative other than what is stated in the HPI. -- EXAM -- VITALS (04/23 16:38 - 04/24 16:38): Blood pressure: 109/71 (94/59 - 116/78) Respiratory rate: 17 (14 - 20) Temperature C: 36.8 (36.2 - 37.1) Pulse Rate: 109 (75 - 127) Temperature source: Oral IOS (04/23 07:00-04/24 07:00): Net-450 [id number] Output1,100 Number of times incontinent stool:1 Oral ml:650 Void ml:1,100 EXAM: Other: General: Mild distress, on high flow nasal cannula Head: NC, AT Eyes: PERRL Neck: No masses, trachea midline Chest:Grossly normal appearance. Lungs: Wheezes, rhonchi, increased work of breathing noted Heart: RRR, normal S1,S2. No murmurs, rubs or gallops. Abdomen: Soft, non-tender,non-distended. Extremities: No clubbing, cyanosis, edema. Neuro: Awake and alert, no focal deficits. -- DATA -- MEDICATIONS PANTOPRAZOLE 40 MG PO DAILY 0600 BUDESONIDE 0.5 MG NEB RTBID POTASSIUM CHLORIDE 10 MEQ IV ASDIR PRN SOD BIPHOS/POT PHOSPHATE 1 PKT PO ASDIR (PRN) hydrALAZINE HCL 10 MG IV Q4H PRN SENNA/DOCUSATE SODIUM 1 TAB PO BID LABETALOL HCL 10 MG IV Q2H PRN METOPROLOL TARTRATE 25 MG PO BID 6A 6P amLODIPine BESYLATE 5 MG PO DAILY GLUCAGON 1 MG IM ASDIR PRN (Held) ASPIRIN 81 MG PO DAILY ONDANSETRON HCL/PF 4 MG IV Q4H PRN SODIUM PHOSPHATE with/in SODIUM CHLORIDE 0.9% 20 MM IV ASDIR (PRN) IPRATROPIUM BROMIDE 0.5 MG NEB RTQ4H guaiFENesin 600 MG PO Q12HR CALCIUM CARBONATE 1000 MG PO Q4H PRN polyethylene glycoL 3350 1 PKT PO DAILY DEXTROSE 50%-WATER 25 ML IV ASDIR PRN PROPYLENE GLYCOL/PEG 400 1 DROP EACH EYE QID (PRN) NITROGLYCERIN 0.4 MG SL Q5M PRN POTASSIUM BICARBONATE/CIT AC 20 MEQ PO ASDIR PRN ATORVASTATIN CALCIUM 40 MG PO BEDTIME MAGNESIUM SULFATE 2 GM IV ASDIR predniSONE 20 MG PO DAILY SODIUM PHOSPHATE with/in SODIUM CHLORIDE 0.9% 15 MM IV ASDIR (PRN) (Held) ENOXAPARIN SODIUM 40 MG SUBQ DAILY ACETAMINOPHEN 650 MG PO Q4H PRN QUEtiapine FUMARATE 50 MG PO BID SODIUM CHLORIDE FOR INHALATION 4 ML NEB RTQ6H WA DEXTROSE 37.5 GM PO ASDIR PRN PROMETHAZINE HCL with/in SODIUM CHLORIDE 50 mL BAG 12.5 MG IV Q6H PRN SODIUM PHOSPHATE with/in SODIUM CHLORIDE 0.9% 30 MM IV ASDIR (PRN) at 1645 ATTENTION *EDITS and/or ADDENDA must be made in Patient Keeper for this note. * * Edits and ammendments created in [employer] are not visible * * in Patient Keeper or the legal medical record ([facility]). * RPT #: [id number] END OF REPORT [facility] 2024-04-24 11:05:00 [facility] Gastroenterology Prog. Note REPORT #: [id number] REPORT STATUS: Signed DATE: 04/24/24 TIME: 1105 PATIENT: MARIE PINEDA UNIT #: [id number] ROOM #: T.[facility] BED: A : 60 AGE: 63 SEX: F ATTEND: Ricky Herrmann MD ADM AUTHOR: Sridhar Mosqueda MD ATTENTION *EDITS and/or ADDENDA must be made in Patient Keeper for this note. * * Edits and ammendments created in [employer] are not visible * * in Patient Keeper or the legal medical record ([facility]). * Note Date: 04/24/24 11:05 -- ASSESSMENT/PLAN -- GENERAL ASSESSMENT: Dysphagia Acute hypercapnic respiratory failure Acute RSV infection AECOPD Aspiration pneumonia Lactic acidosis Sinus tachycardia Altered mental status, resolved Hemoptysis Supportive measures. Serial examinations. Monitor labs. Transfuse PRBCs as needed Protonix 40 mg BID Await swallow eval Puree diet EGD in near future. Colonoscopy in future. Further recommendations to follow. -- SUBJECTIVE -- HPI: Marie Pineda is a 63-year-old female with history of COPD, who was transferred from [facility] to [facility] for worsening respiratory failure. The patient worsened during her arrival and had to be intubated, placed on the vent, and admitted to ICU under critical care services. GI was asked to evaluate her for dysphagia. She denies difficulty swallowing. No nausea or vomiting. She is tolerating clear liquids. 04/24/2024 Stable. Denies chest pain or shortness of breath. O2 via NC No nausea or vomiting Tolerating puree diet She had a bowel movement today Denies abdominal pain. -- EXAM -- VITALS (04/23 11:05 - 04/24 11:05): Blood pressure: 116/72 (96/59 - 116/78) Respiratory rate: 17 (13 - 20) Temperature source: Oral Temperature C: 36.8 (36.2 - 37.1) Pulse Rate: 90 (75 - 127) IOS (04/23 07:00-04/24 07:00): Net-450 [id number] Output1,100 Number of times incontinent stool:1 Oral ml:650 Void ml:1,100 EXAM: General Well developed, well nourished, in no apparent distress. Head Normocephalic, atraumatic. Eyes Conjunctiva and sclera clear. Ears TM's intact and clear, normal canals, grossly normal hearing. Nose No deformity, no discharge, no inflammation, no lesions. Mouth Oropharynx without deformities or lesions, normal mucosa. Neck No masses, no thyromegaly, no abnormal cervical nodes, trachea midline. Chest Grossly normal appearance. Breast No masses, no gynecomastia noted. Lungs Clear bilaterally with normal respiratory effort. Heart Regular rate and rhythm, normal S1, S2. Abdomen Soft, non-tender, no organomegaly, no masses noted. Musculoskeletal No deformity. Extremities No clubbing, no cyanosis, no edema. Neurological No focal deficits. Pulses Pulses normal in all extremities. Rectal Deferred. Genitourinary Normal external genitalia. Skin Intact without significant lesions, or rashes. Lymph Nodes No significant cervical node adenopathy. Psychiatric Alert and oriented to time, person, place. Normal mood and affect, intact judgment and insight. -- DATA -- MEDICATIONS PANTOPRAZOLE 40 MG PO DAILY 0600 BUDESONIDE 0.5 MG NEB RTBID POTASSIUM CHLORIDE 10 MEQ IV ASDIR PRN SOD BIPHOS/POT PHOSPHATE 1 PKT PO ASDIR (PRN) hydrALAZINE HCL 10 MG IV Q4H PRN SENNA/DOCUSATE SODIUM 1 TAB PO BID LABETALOL HCL 10 MG IV Q2H PRN METOPROLOL TARTRATE 25 MG PO BID 6A 6P ALBUTEROL SULFATE 2.5 MG NEB RTQ6H PRN GLUCAGON 1 MG IM ASDIR PRN (Held) ASPIRIN 81 MG PO DAILY ONDANSETRON HCL/PF 4 MG IV Q4H PRN SODIUM PHOSPHATE with/in SODIUM CHLORIDE 0.9% 20 MM IV ASDIR (PRN) guaiFENesin 600 MG PO Q12HR CALCIUM CARBONATE 1000 MG PO Q4H PRN polyethylene glycoL 3350 1 PKT PO DAILY DEXTROSE 50%-WATER 25 ML IV ASDIR PRN PROPYLENE GLYCOL/PEG 400 1 DROP EACH EYE QID (PRN) NITROGLYCERIN 0.4 MG SL Q5M PRN POTASSIUM BICARBONATE/CIT AC 20 MEQ PO ASDIR PRN ATORVASTATIN CALCIUM 40 MG PO BEDTIME MAGNESIUM SULFATE 2 GM IV ASDIR amLODIPine BESYLATE 10 MG PO DAILY predniSONE 20 MG PO DAILY SODIUM PHOSPHATE with/in SODIUM CHLORIDE 0.9% 15 MM IV ASDIR (PRN) (Held) ENOXAPARIN SODIUM 40 MG SUBQ DAILY ACETAMINOPHEN 650 MG PO Q4H PRN QUEtiapine FUMARATE 50 MG PO BID SODIUM CHLORIDE FOR INHALATION 4 ML NEB RTQ6H WA DEXTROSE 37.5 GM PO ASDIR PRN PROMETHAZINE HCL with/in SODIUM CHLORIDE 50 mL BAG 12.5 MG IV Q6H PRN IPRATROPIUM/ALBUTEROL SULFATE 3 ML NEB RTQ6H WA SODIUM PHOSPHATE with/in SODIUM CHLORIDE 0.9% 30 MM IV ASDIR (PRN) at 1226 ATTENTION *EDITS and/or ADDENDA must be made in Patient Keeper for this note. * * Edits and ammendments created in [employer] are not visible * * in Patient Keeper or the legal medical record ([facility]). * RPT #: [id number] END OF REPORT [facility] 2024-04-24 09:43:00 [facility] [place] ([facility]) Pulmonology Progress Note REPORT #: [id number] REPORT STATUS: Signed DATE: 04/24/24 TIME: 942 PATIENT: MARIE PINEDA UNIT #: [id number] ROOM #: T.207 BED: A : 60 AGE: 63 SEX: F ATTEND: Ricky Herrmann MD ADM AUTHOR: Ele Hernandez ATTENTION *EDITS and/or ADDENDA must be made in Patient Keeper for this note. * * Edits and ammendments created in [facility] are not visible * * in Patient Keeper or the legal medical record ([facility]). * Note Date: 04/24/24 09:43 -- ASSESSMENT/PLAN -- GENERAL ASSESSMENT: [facility] Pul[facility] Consult Note April Lainez MD P: Subjective : on 2-3L NC, feels improved tachycardia and significant SOB with minimal exertion Assessment: Acute hypercapnic respiratory failure acute RSV infection AECOPD Aspiration pneumonia Lactic acidosis sinus tachycardia altered mental status, resolved hemoptysis Plan: Pulmonary : - supplemental O2 to keep SpO2 > 92% - CT chest prior to admission revealed no evidence of pulmonary embolism, but [id number] COPD and bronchial wall thickening in the lower lobes and right middle lobe secondary to bronchitis along with some mucus material in the bronchi and some nodular foci in the right middle lobe. - 04/16 CXR with GGO bilateral upper lung mary, reviewed ABG, compensated - Treated with empiric abx rocephin and azithro, s/p Unasyn, follow CIGARETTE MACHINE OPERATOR recommendations - positive RSV, continue supportive care - Continue DuoNebs and Pulmicort - Urinary antigen strep pneumo and Legionella negative - lower systemic steroid, prednisone 20mg daily for 3 days then discontinue - Sputum culture with no growth since 04/10/2024, repeat sent 04/19 with normal edwar - covid negative - NIV at bedtime and as needed - CTA chest reviewed, no PE, bronchial thickening, no consolidations or effusions. - check home O2 eval, 6 min walk - dc albuterol with tachycardia, continue atrovent nebs thank you for this consult, will follow --------- HPI: Patient is a 63-year-old female with past medical history significant for COPD and hypertension, who was brought to the Emergency Room for evaluation of COPD exacerbation and respiratory failure. Patient was at [facility] where she was admitted for shortness of breath. She was found to be in respiratory distress and was placed on BiPAP therapy and was transferred here to our hospital for continued management. She required intubated and was extubated on 04/12/24, transitioned to vapotherm and pulmonary consulted after downgrade from ICU. MedHx: COPD on home O2 2-3L SurgHx: ESDRAS Family Hx: ESDRAS Social Hx: inmate, quit smoking 6 months ago but previous to this smoked 1 PPD for greater than 40 years, incarcerated Physical Exam: Gen: ill appearing, disheveled, on HFNC Head: atraumatic, normocephalic ENT: EOMI, conjunctivae pink, sclera clear, neck w/o masses, trachea midline, MMM, oropharynx clear CV: RRR, s1/s2, peripheral pulses palpable Resp: diminished bilateral breath sounds, symmetric expansion, scant wheezes bilaterally Abd: soft, non-tender, not distended, +BS Ext/MSK: no edema/cyanosis, cap refill < 3 secs, normal tone Skin: warm, dry, color consistent w/ ethnicity, no rashes Neuro: AO x2-3, conversant, follows commands, Christiano Psych: calm -- EXAM -- VITALS (04/23 09:44 - 04/24 09:44): Blood pressure: 116/72 (96/59 - 116/78) Respiratory rate: 17 (13 - 20) Temperature C: 36.8 (36.2 - 37.1) Temperature source: Oral Pulse Rate: 90 (75 - 127) IOS (04/23 07:00-04/24 07:00): Net-450 [id number] Output1,100 Number of times incontinent stool:1 Oral ml:650 Void ml:1,100 -- DATA -- MEDICATIONS PANTOPRAZOLE 40 MG PO DAILY 0600 BUDESONIDE 0.5 MG NEB RTBID POTASSIUM CHLORIDE 10 MEQ IV ASDIR PRN SOD BIPHOS/POT PHOSPHATE 1 PKT PO ASDIR (PRN) hydrALAZINE HCL 10 MG IV Q4H PRN SENNA/DOCUSATE SODIUM 1 TAB PO BID LABETALOL HCL 10 MG IV Q2H PRN METOPROLOL TARTRATE 25 MG PO BID 6A 6P ALBUTEROL SULFATE 2.5 MG NEB RTQ6H PRN GLUCAGON 1 MG IM ASDIR PRN (Held) ASPIRIN 81 MG PO DAILY ONDANSETRON HCL/PF 4 MG IV Q4H PRN SODIUM PHOSPHATE with/in SODIUM CHLORIDE 0.9% 20 MM IV ASDIR (PRN) POTASSIUM CHLORIDE 20 MEQ IV ASDIR PRN guaiFENesin 600 MG PO Q12HR CALCIUM CARBONATE 1000 MG PO Q4H PRN polyethylene glycoL 3350 1 PKT PO DAILY DEXTROSE 50%-WATER 25 ML IV ASDIR PRN PROPYLENE GLYCOL/PEG 400 1 DROP EACH EYE QID (PRN) NITROGLYCERIN 0.4 MG SL Q5M PRN POTASSIUM BICARBONATE/CIT AC 20 MEQ PO ASDIR PRN ATORVASTATIN CALCIUM 40 MG PO BEDTIME MAGNESIUM SULFATE 2 GM IV ASDIR amLODIPine BESYLATE 10 MG PO DAILY predniSONE 20 MG PO DAILY SODIUM PHOSPHATE with/in SODIUM CHLORIDE 0.9% 15 MM IV ASDIR (PRN) (Held) ENOXAPARIN SODIUM 40 MG SUBQ DAILY ACETAMINOPHEN 650 MG PO Q4H PRN QUEtiapine FUMARATE 50 MG PO BID SODIUM CHLORIDE FOR INHALATION 4 ML NEB RTQ6H WA DEXTROSE 37.5 GM PO ASDIR PRN PROMETHAZINE HCL with/in SODIUM CHLORIDE 50 mL BAG 12.5 MG IV Q6H PRN IPRATROPIUM/ALBUTEROL SULFATE 3 ML NEB RTQ6H WA SODIUM PHOSPHATE with/in SODIUM CHLORIDE 0.9% 30 MM IV ASDIR (PRN) at 2339 at 2339 ATTENTION *EDITS and/or ADDENDA must be made in Patient Keeper for this note. * * Edits and ammendments created in [facility] are not visible * * in Patient Keeper or the legal medical record (HPF). * RPT #: [id number] END OF REPORT [facility] 2024-04-23 17:19:00 [facility]. Progress Note REPORT #: [id number] REPORT STATUS: Signed DATE: 04/23/24 TIME: 1719 PATIENT: MARIE IPNEDA UNIT #: [id number] ROOM #: T.207 BED: A : 60 AGE: 63 SEX: F ATTEND: Ricky Herrmann MD ADM AUTHOR: Ricky Herrmann MD ATTENTION *EDITS and/or ADDENDA must be made in Patient Keeper for this note. * * Edits and ammendments created in [facility] are not visible * * in Patient Keeper or the legal medical record (HPF). * Note Date: 04/23/24 17:19 -- ASSESSMENT/PLAN -- ASSESSMENT / PLAN: 1: RSV (respiratory syncytial virus infection) 2: Aspiration pneumonia 3: COPD exacerbation 4: HLD (hyperlipidemia) 5: HTN (hypertension) ADDITIONAL COMMENTS: CPM DC planning -- SUBJECTIVE -- CHIEF COMPLAINT: Resp failure/COPD/Pneumonia PATIENT NARRATIVE: Steady improvement over the weekend REVIEW OF SYSTEMS: General Negative for fever, malaise, fatigue. Eyes Negative for blurry vision. No diplopia. Ears/Nose/Throat Negative for sore throat. No otalgia. No rhinorrhea. Respiratory Negative for dyspnea or wheeze. No cough. Cardiovascular Negative for chest pain or palpitations. No extremity swelling. Gastrointestinal Negative for abdominal pain or nausea. No emesis. No diarrhea. Genitourinary Negative for dysuria, frequency, or urgency. No gross hematuria. Neurological Negative for headache. No vertigo. Denies paresthesias. -- EXAM -- VITALS (04/22 17:19 - 04/23 17:19): Pulse Rate: 127 (80 - 127) Blood pressure: 108/72 (96/60 - 108/73) Respiratory rate: 14 (13 - 18) Temperature source: Temporal Temperature C: 36.2 (36.2 - 36.8) IOS (04/22 07:00-04/23 07:00): Number of times incontinent stool:2 EXAM: General Well developed, well nourished, in no apparent distress. Head Normocephalic, atraumatic. Eyes PERRL, EOM intact, conjunctiva and sclera clear, without nystagmus, lids normal. Neck No masses, no thyromegaly, no abnormal cervical nodes, trachea midline. Chest Grossly normal appearance. Lungs Clear bilaterally with normal respiratory effort. Heart Regular rate and rhythm, normal S1, S2, no murmurs, no rubs, no gallops, no clicks. Abdomen Soft, non-tender, no organomegaly, no masses noted. Extremities No clubbing, no cyanosis, no edema. Neurological No focal deficits, cranial nerves II-XII grossly intact, normal sensation, normal reflexes, normal coordination, normal muscle strength, normal tone. -- DATA -- MEDICATIONS PANTOPRAZOLE 40 MG PO DAILY 0600 BUDESONIDE 0.5 MG NEB RTBID POTASSIUM CHLORIDE 10 MEQ IV ASDIR PRN SOD BIPHOS/POT PHOSPHATE 1 PKT PO ASDIR (PRN) hydrALAZINE HCL 10 MG IV Q4H PRN SENNA/DOCUSATE SODIUM 1 TAB PO BID LABETALOL HCL 10 MG IV Q2H PRN METOPROLOL TARTRATE 25 MG PO BID 6A 6P ALBUTEROL SULFATE 2.5 MG NEB RTQ6H PRN GLUCAGON 1 MG IM ASDIR PRN (Held) ASPIRIN 81 MG PO DAILY ONDANSETRON HCL/PF 4 MG IV Q4H PRN SODIUM PHOSPHATE with/in SODIUM CHLORIDE 0.9% 20 MM IV ASDIR (PRN) POTASSIUM CHLORIDE 20 MEQ IV ASDIR PRN guaiFENesin 600 MG PO Q12HR CALCIUM CARBONATE 1000 MG PO Q4H PRN polyethylene glycoL 3350 1 PKT PO DAILY DEXTROSE 50%-WATER 25 ML IV ASDIR PRN PROPYLENE GLYCOL/PEG 400 1 DROP EACH EYE QID (PRN) NITROGLYCERIN 0.4 MG SL Q5M PRN POTASSIUM BICARBONATE/CIT AC 20 MEQ PO ASDIR PRN ATORVASTATIN CALCIUM 40 MG PO BEDTIME MAGNESIUM SULFATE 2 GM IV ASDIR amLODIPine BESYLATE 10 MG PO DAILY predniSONE 20 MG PO DAILY SODIUM PHOSPHATE with/in SODIUM CHLORIDE 0.9% 15 MM IV ASDIR (PRN) (Held) ENOXAPARIN SODIUM 40 MG SUBQ DAILY ACETAMINOPHEN 650 MG PO Q4H PRN QUEtiapine FUMARATE 50 MG PO BID SODIUM CHLORIDE FOR INHALATION 4 ML NEB RTQ6H WA DEXTROSE 37.5 GM PO ASDIR PRN PROMETHAZINE HCL with/in SODIUM CHLORIDE 50 mL BAG 12.5 MG IV Q6H PRN IPRATROPIUM/ALBUTEROL SULFATE 3 ML NEB RTQ6H WA SODIUM PHOSPHATE with/in SODIUM CHLORIDE 0.9% 30 MM IV ASDIR (PRN) at 1720 ATTENTION *EDITS and/or ADDENDA must be made in Patient Keeper for this note. * * Edits and ammendments created in [facility] are not visible * * in Patient Keeper or the legal medical record (HPF). * RPT #: [id number] END OF REPORT [facility] 2024-04-23 14:11:00 [facility] ([facility]) Med Order Sheet REPORT #: [id number] REPORT STATUS: Signed DATE: 04/23/24 TIME: 1411 PATIENT: MARIE PINEDA UNIT #: [id number] ROOM #: T.[facility] BED: A : 60 AGE: 63 SEX: F ATTEND: Ricky Herrmann MD ADM AUTHOR: Ricky Herrmann MD ATTENTION *EDITS and/or ADDENDA must be made in Patient Keeper for this note. * * Edits and ammendments created in [employer] are not visible * * in Patient Keeper or the legal medical record (HPF). * Discharge Medication Reconciliation DISCHARGE MEDICATION LIST Albuterol Neb 2.5mg (Ventolin Neb 2.5mg) Dose: 1.25 MG Neb RTQ4H amLODIPine Tab (Norvasc Tab) Dose: 10 MG PO DAILY Atorvastatin Tab (Lipitor Tab) Dose: 40 MG PO BEDTIME Metoprolol Tartrate Tab (Lopressor Tab) Dose: 25MG PO BID 6A 6P Acetaminophen Tab (Tylenol Tab) Dose: 650MG PO Q4H PRN pain 1-3/temp > 100.5/headache Albuterol/Ipratrop Neb Soln (Duoneb Neb Soln) Dose: 3ML Neb RTQ6H WA aspirin chewable tablet Dose: 81MG PO DAILY budesonide 0.5 mg/2 mL suspension for nebulization Dose: 0.5MG Neb RTBID Calcium Carbonate Chew Tab (Tums Tab) Dose: 1000MG PO Q4H PRN heartburn guaiFENesin Tab.ER (Mucinex Tab) Dose: 600MG PO Q12HR Nitroglycerin Tab.SL (Nitrostat Tab.SL) Dose: 0.4MG SL Q5M PRN chest pain Pantoprazole Tab.DR (Protonix Tab) Dose: 40MG PO DAILY 0600 Polyethylene Glycol Powder (Miralax Powder) Dose: 1PKT PO DAILY Seroquel tab (quetiapine) Dose: 50MG PO BID STOPPED HOSPITAL MEDICATIONS Dc'd: Dextrose 50% 50 mL Syringe (D50W 50 mL Syringe 25ML IV ASDIR PRN hypoglycemia (per protocol)Dc'd: Enoxaparin 40 mg/0.4 mL Inj (Lovenox 40 mg/0.4 mL Inj) 40MG SubQ DAILYDc'd: Glucagon Inj (Glucagon Inj) 1MG IM ASDIR PRN hypoglycemia (per protocol)Dc'd: Glucose 40% Oral Gel (Glutose 40% Oral Gel) 37.5GM PO ASDIR PRN hypoglycemia (use 1st)Dc'd: hydrALAZINE Inj (Apresoline Inj) 10MG IV Q4H PRN sbp > 160Dc'd: KCL Nadir 20mEq/100ml IVPB (Potassium Chloride 20mEq/100ml IVPB) 20MEQ 50 MLS/HR IV ASDIR PRN electrolyte sliding scaleDc'd: KCL Nadir 10mEq/100ml IVPB (Potassium Chloride 10mEq/100ml IVPB) 10MEQ 100 MLS/HR IV ASDIR PRN electrolyte sliding scaleDc'd: Labetalol Inj (Trandate Inj) 10MG IV Q2H PRN sbp > 160 hr > 60Dc'd: Magnesium Sulfate 2GM IVPB (Magnesium Sulfate 2GM IVPB) 2GM 25 MLS/HR IV ASDIRDc'd: Ondansetron Inj (Zofran Inj) 4MG IV Q4H PRN nausea and vomitingDc'd: Potassium Effervescent Tab (Effer-K Tab Effervescent) 20MEQ PO ASDIR PRN kcl level per admin criteriaDc'd: Promethazine Inj (Phenergan Inj) 12.5MG IV Q6H PRN nausea and vomitingin Sodium Chloride 0.9% (NS) 50ML (Total 50.5 ML) Dc'd: Propylene Glyc/Peg Ophth Soln (Systane 0.3-0.4% Ophth Soln) 1DROP Each Eye QID PRN dry eyesDc'd: Senna/Docusate Tab (Senokot S Tab) 1TAB PO BIDDc'd: Sod Biphos/Pot Phosphate Pkt (Neutra-Phos Packet) 1PKT PO ASDIR PRN phosphorus sliding scaleDc'd: Sodium Chloride Neb Soln 3% (Sodium Chloride Neb Soln 3%) 4ML Neb RTQ6H WADc'd: Sodium Phosphate Inj (Sodium Phosphate Inj) 15MM IV ASDIR PRN phosphorus sliding scalein Sodium Chloride 0.9% (NS) 250ML (Total 255 ML) Dc'd: Sodium Phosphate Inj (Sodium Phosphate Inj) 20MM IV ASDIR PRN phosphorus sliding scalein Sodium Chloride 0.9% (NS) 250ML (Total 256.67 ML) Dc'd: Sodium Phosphate Inj (Sodium Phosphate Inj) 30MM IV ASDIR PRN phosphorus sliding scalein Sodium Chloride 0.9% (NS) 500ML (Total 510 ML) The following Hospital Medications have not yet been reconciled: predniSONE Tab (Deltasone Tab) 20MG PO DAILY stopping on 04/26 at 09:01 at 1411 ATTENTION *EDITS and/or ADDENDA must be made in Patient Keeper for this note. * * Edits and ammendments created in [employer] are not visible * * in Patient Keeper or the legal medical record (HPF). * [facility] [place] #: [id number] END OF REPORT [facility] 2024-04-23 10:37:00 [facility] [place] ([facility]) Pulmonology Progress Note REPORT #: [id number] REPORT STATUS: Signed DATE: 04/23/24 TIME: 1037 PATIENT: MARIE PINEDA UNIT #: [id number] ROOM #: T.207 BED: A : 60 AGE: 63 SEX: F ATTEND: Ricky Herrmann MD ADM AUTHOR: April Lainez MD ATTENTION *EDITS and/or ADDENDA must be made in Patient Keeper for this note. * * Edits and ammendments created in [employer] are not visible * * in Patient Keeper or the legal medical record (HPF). * Note Date: 04/23/24 10:37 -- ASSESSMENT/PLAN -- GENERAL ASSESSMENT: [facility] Pulmonology Consult Note April Lainez MD P: Subjective : no distress, VSS remains on 2L NC not using NIV home O2 eval pending DC planning Assessment: Acute hypercapnic respiratory failure acute RSV infection AECOPD Aspiration pneumonia Lactic acidosis sinus tachycardia altered mental status, resolved hemoptysis Plan: Pulmonary : - supplemental O2 to keep SpO2 > 92%, continues on Vapotherm 25 L and 40%, discussed weaning with RT - CT chest prior to admission revealed no evidence of pulmonary embolism, but [id number] COPD and bronchial wall thickening in the lower lobes and right middle lobe secondary to bronchitis along with some mucus material in the bronchi and some nodular foci in the right middle lobe. - 04/16 CXR with GGO bilateral upper lung mary, reviewed ABG, compensated - Treated with empiric abx rocephin and azithro, s/p Unasyn, follow CIGARETTE MACHINE OPERATOR recommendations - positive RSV, continue supportive care - Continue DuoNebs and Pulmicort - Urinary antigen strep pneumo and Legionella negative - lower systemic steroid, prednisone 20mg daily for 3 days then discontinue - Sputum culture with no growth since 04/10/2024, repeat sent 04/19 - covid negative - NIV at bedtime and as needed - CTA chest reviewed, no PE, bronchial thickening, no consolidations or effusions. - check home O2 eval, 6 min walk thank you for this consult, will follow --------- HPI: Patient is a 63-year-old female with past medical history significant for COPD and hypertension, who was brought to the Emergency Room for evaluation of COPD exacerbation and respiratory failure. Patient was at [facility] where she was admitted for shortness of breath. She was found to be in respiratory distress and was placed on BiPAP therapy and was transferred here to our hospital for continued management. She required intubated and was extubated on 04/12/24, transitioned to vapotherm and pulmonary consulted after downgrade from ICU. MedHx: COPD on home O2 2-3L SurgHx: ESDRAS Family Hx: ESDRAS Social Hx: inmate, quit smoking 6 months ago but previous to this smoked 1 PPD for greater than 40 years, incarcerated Physical Exam: Gen: ill appearing, disheveled, on HFNC Head: atraumatic, normocephalic ENT: EOMI, conjunctivae pink, sclera clear, neck w/o masses, trachea midline, MMM, oropharynx clear CV: RRR, s1/s2, peripheral pulses palpable Resp: diminished bilateral breath sounds, symmetric expansion, scant wheezes bilaterally Abd: soft, non-tender, not distended, +BS Ext/MSK: no edema/cyanosis, cap refill < 3 secs, normal tone Skin: warm, dry, color consistent w/ ethnicity, no rashes Neuro: AO x2-3, conversant, follows commands, Christiano Psych: calm -- EXAM -- VITALS (04/22 10:37 - 04/23 10:37): Blood pressure: 108/73 (94/60 - 108/73) Respiratory rate: 13 (13 - 18) Temperature C: 36.8 (36.4 - 36.9) Temperature source: Oral Pulse Rate: 88 (80 - 123) IOS (04/22 07:00-04/23 07:00): Number of times incontinent stool:2 -- DATA -- MEDICATIONS PANTOPRAZOLE 40 MG PO DAILY 0600 BUDESONIDE 0.5 MG NEB RTBID POTASSIUM CHLORIDE 10 MEQ IV ASDIR PRN SOD BIPHOS/POT PHOSPHATE 1 PKT PO ASDIR (PRN) hydrALAZINE HCL 10 MG IV Q4H PRN SENNA/DOCUSATE SODIUM 1 TAB PO BID LABETALOL HCL 10 MG IV Q2H PRN METOPROLOL TARTRATE 25 MG PO BID 6A 6P ALBUTEROL SULFATE 2.5 MG NEB RTQ6H PRN GLUCAGON 1 MG IM ASDIR PRN (Held) ASPIRIN 81 MG PO DAILY ONDANSETRON HCL/PF 4 MG IV Q4H PRN SODIUM PHOSPHATE with/in SODIUM CHLORIDE 0.9% 20 MM IV ASDIR (PRN) POTASSIUM CHLORIDE 20 MEQ IV ASDIR PRN guaiFENesin 600 MG PO Q12HR CALCIUM CARBONATE 1000 MG PO Q4H PRN polyethylene glycoL 3350 1 PKT PO DAILY DEXTROSE 50%-WATER 25 ML IV ASDIR PRN PROPYLENE GLYCOL/PEG 400 1 DROP EACH EYE QID (PRN) NITROGLYCERIN 0.4 MG SL Q5M PRN POTASSIUM BICARBONATE/CIT AC 20 MEQ PO ASDIR PRN ATORVASTATIN CALCIUM 40 MG PO BEDTIME MAGNESIUM SULFATE 2 GM IV ASDIR amLODIPine BESYLATE 10 MG PO DAILY predniSONE 20 MG PO DAILY SODIUM PHOSPHATE with/in SODIUM CHLORIDE 0.9% 15 MM IV ASDIR (PRN) (Held) ENOXAPARIN SODIUM 40 MG SUBQ DAILY ACETAMINOPHEN 650 MG PO Q4H PRN QUEtiapine FUMARATE 50 MG PO BID SODIUM CHLORIDE FOR INHALATION 4 ML NEB RTQ6H WA DEXTROSE 37.5 GM PO ASDIR PRN PROMETHAZINE HCL with/in SODIUM CHLORIDE 50 mL BAG 12.5 MG IV Q6H PRN IPRATROPIUM/ALBUTEROL SULFATE 3 ML NEB RTQ6H WA SODIUM PHOSPHATE with/in SODIUM CHLORIDE 0.9% 30 MM IV ASDIR (PRN) at 1037 ATTENTION *EDITS and/or ADDENDA must be made in Patient Keeper for this note. * * Edits and ammendments created in [facility] are not visible * * in Patient Keeper or the legal medical record ([facility]). * RPT #: [id number] END OF REPORT [facility] 2024-04-23 08:31:00 [facility] ([facility]) Gastroenterology Consult REPORT #: [id number] REPORT STATUS: Signed DATE: 04/23/24 TIME: 830 PATIENT: MARIE PINEDA UNIT #: [id number] ROOM #: [address]: A : 60 AGE: 63 SEX: F ATTEND: Ricky Herrmann MD ADM AUTHOR: Sridhar Mosqueda MD ATTENTION *EDITS and/or ADDENDA must be made in Patient Keeper for this note. * * Edits and ammendments created in [employer] are not visible * * in Patient Keeper or the legal medical record (HPF). * Note Date: 04/23/24 08:31 -- ASSESSMENT/PLAN -- GENERAL ASSESSMENT: Dysphagia? Acute hypercapnic respiratory failure Acute RSV infection AECOPD Aspiration pneumonia Lactic acidosis Sinus tachycardia Altered mental status, resolved Hemoptysis Supportive measures. Serial examinations. Monitor labs. Transfuse PRBCs as needed Protonix 40 mg BID Await swallow eval EGD in near future. Colonoscopy in future. Further recommendations to follow. -- HISTORY -- HPI: Marie Pineda is a 63-year-old female with history of COPD, who was transferred from [facility] to [facility] for worsening respiratory failure. The patient worsened during her arrival and had to be intubated, placed on the vent, and admitted to ICU under critical care services. GI was asked to evaluate her for dysphagia. She denies difficulty swallowing. No nausea or vomiting. She is tolerating clear liquids. PAST MEDICAL HISTORY: COPD Essential hypertension HLD PAST SURGICAL HISTORY: Benign tumor left lung FAMILY HISTORY: Father of COPD and mother had cardiac arrest at 86 yo Social History Tobacco use: DETAILS/COMMENTS: Quit smoking 6 months ago LIVING SITUATION: Lives in halfway currently -- ALLERGIES/HOME MEDS -- Modifications made in this section do not update Allergy and Home Medication List ALLERGIES - No Known Allergies ( UNKNOWN - Allergy ) HOME MEDICATIONS - Albuterol Neb 2.5mg (Ventolin Neb 2.5mg) (Neb - RTQ4H - 1.25 MG) - Atorvastatin Tab (Lipitor Tab) (PO - BEDTIME - 40 MG) - Metoprolol Tartrate Tab (Lopressor Tab) (PO - BID - 12.5 MG) - amLODIPine Tab (Norvasc Tab) (PO - DAILY - 10 MG) -- EXAM -- VITALS (04/22 08:31 - 04/23 08:31): Temperature C: 36.8 (36.4 - 36.9) Temperature source: Oral Pulse Rate: 88 (71 - 123) Blood pressure: 108/73 (94/60 - 110/73) Respiratory rate: 13 (13 - 18) -- DATA -- ALLERGIES MEDICATIONS PANTOPRAZOLE 40 MG PO DAILY 0600 BUDESONIDE 0.5 MG NEB RTBID POTASSIUM CHLORIDE 10 MEQ IV ASDIR PRN SOD BIPHOS/POT PHOSPHATE 1 PKT PO ASDIR (PRN) hydrALAZINE HCL 10 MG IV Q4H PRN SENNA/DOCUSATE SODIUM 1 TAB PO BID LABETALOL HCL 10 MG IV Q2H PRN METOPROLOL TARTRATE 25 MG PO BID 6A 6P ALBUTEROL SULFATE 2.5 MG NEB RTQ6H PRN GLUCAGON 1 MG IM ASDIR PRN (Held) ASPIRIN 81 MG PO DAILY ONDANSETRON HCL/PF 4 MG IV Q4H PRN SODIUM PHOSPHATE with/in SODIUM CHLORIDE 0.9% 20 MM IV ASDIR (PRN) POTASSIUM CHLORIDE 20 MEQ IV ASDIR PRN guaiFENesin 600 MG PO Q12HR CALCIUM CARBONATE 1000 MG PO Q4H PRN polyethylene glycoL 3350 1 PKT PO DAILY DEXTROSE 50%-WATER 25 ML IV ASDIR PRN PROPYLENE GLYCOL/PEG 400 1 DROP EACH EYE QID (PRN) NITROGLYCERIN 0.4 MG SL Q5M PRN POTASSIUM BICARBONATE/CIT AC 20 MEQ PO ASDIR PRN ATORVASTATIN CALCIUM 40 MG PO BEDTIME MAGNESIUM SULFATE 2 GM IV ASDIR amLODIPine BESYLATE 10 MG PO DAILY predniSONE 20 MG PO DAILY SODIUM PHOSPHATE with/in SODIUM CHLORIDE 0.9% 15 MM IV ASDIR (PRN) (Held) ENOXAPARIN SODIUM 40 MG SUBQ DAILY ACETAMINOPHEN 650 MG PO Q4H PRN QUEtiapine FUMARATE 50 MG PO BID SODIUM CHLORIDE FOR INHALATION 4 ML NEB RTQ6H WA DEXTROSE 37.5 GM PO ASDIR PRN PROMETHAZINE HCL with/in SODIUM CHLORIDE 50 mL BAG 12.5 MG IV Q6H PRN IPRATROPIUM/ALBUTEROL SULFATE 3 ML NEB RTQ6H WA SODIUM PHOSPHATE with/in SODIUM CHLORIDE 0.9% 30 MM IV ASDIR (PRN) at 1742 ATTENTION *EDITS and/or ADDENDA must be made in Patient Keeper for this note. * * Edits and ammendments created in [facility] are not visible * * in Patient Keeper or the legal medical record (HPF). * [facility] [place] #: [id number] END OF REPORT [facility] 2024-04-22 12:25:00 [facility] [place] ([facility]) Pulmonology Progress Note REPORT #: [id number] REPORT STATUS: Signed DATE: 04/22/24 TIME: 1225 PATIENT: MARIE PINEDA UNIT #: [id number] ROOM #: T.207 BED: A : 60 AGE: 63 SEX: F ATTEND: Ricky Herrmann MD ADM AUTHOR: April Lainez MD ATTENTION *EDITS and/or ADDENDA must be made in Patient Keeper for this note. * * Edits and ammendments created in [employer] are not visible * * in Patient Keeper or the legal medical record (HPF). * Note Date: 04/22/24 12:25 -- ASSESSMENT/PLAN -- GENERAL ASSESSMENT: [facility] Pulmonology Consult Note April Lainez MD P: Subjective : able to wean down to 1L NC no distress, VSS did not use NIV last night okay to dc isolation home O2 eval pending Assessment: Acute hypercapnic respiratory failure acute RSV infection AECOPD Aspiration pneumonia Lactic acidosis sinus tachycardia altered mental status, resolved hemoptysis Plan: Pulmonary : - supplemental O2 to keep SpO2 > 92%, continues on Vapotherm 25 L and 40%, discussed weaning with RT - CT chest prior to admission revealed no evidence of pulmonary embolism, but [id number] COPD and bronchial wall thickening in the lower lobes and right middle lobe secondary to bronchitis along with some mucus material in the bronchi and some nodular foci in the right middle lobe. - 04/16 CXR with GGO bilateral upper lung mary, reviewed ABG, compensated - Treated with empiric abx rocephin and azithro, s/p Unasyn, follow [employer] recommendations - positive RSV, continue supportive care - Continue DuoNebs and Pulmicort - Urinary antigen strep pneumo and Legionella negative - lower systemic steroid, prednisone 20mg daily for 3 days then discontinue - Sputum culture with no growth since 04/10/2024, repeat sent 04/19 - covid negative - NIV at bedtime and as needed - CTA chest reviewed, no PE, bronchial thickening, no consolidations or effusions. - check home O2 eval, 6 min walk thank you for this consult, will follow --------- HPI: Patient is a 63-year-old female with past medical history significant for COPD and hypertension, who was brought to the Emergency Room for evaluation of COPD exacerbation and respiratory failure. Patient was at [facility] where she was admitted for shortness of breath. She was found to be in respiratory distress and was placed on BiPAP therapy and was transferred here to our hospital for continued management. She required intubated and was extubated on 04/12/24, transitioned to vapotherm and pulmonary consulted after downgrade from ICU. MedHx: COPD on home O2 2-3L SurgHx: ESDRAS Family Hx: ESDRAS Social Hx: inmate, quit smoking 6 months ago but previous to this smoked 1 PPD for greater than 40 years, incarcerated Physical Exam: Gen: ill appearing, disheveled, on HFNC Head: atraumatic, normocephalic ENT: EOMI, conjunctivae pink, sclera clear, neck w/o masses, trachea midline, MMM, oropharynx clear CV: RRR, s1/s2, peripheral pulses palpable Resp: diminished bilateral breath sounds, symmetric expansion, scant wheezes bilaterally Abd: soft, non-tender, not distended, +BS Ext/MSK: no edema/cyanosis, cap refill < 3 secs, normal tone Skin: warm, dry, color consistent w/ ethnicity, no rashes Neuro: AO x2-3, conversant, follows commands, [place] Psych: calm -- EXAM -- VITALS (04/21 12:26 - 04/22 12:26): Respiratory rate: 16 (16 - 18) Blood pressure: 110/72 (103/59 - 117/75) Pulse Rate: 71 (71 - 99) Temperature source: Oral Temperature C: 36.5 (36.5 - 37.4) IOS (04/21 07:00-04/22 07:00): [id number] Intake1,062.00 [id number] IV fluid 10 volume ml:10.00 IV fluid 14 volume ml:2.00 Number of emesis:3 Number of incontinent voids:3 Number of times incontinent stool:4 Oral ml:1,050 Other urine ml:250 Void ml:400 -- DATA -- MEDICATIONS PANTOPRAZOLE 40 MG PO DAILY 0600 BUDESONIDE 0.5 MG NEB RTBID POTASSIUM CHLORIDE 10 MEQ IV ASDIR PRN SOD BIPHOS/POT PHOSPHATE 1 PKT PO ASDIR (PRN) hydrALAZINE HCL 10 MG IV Q4H PRN SENNA/DOCUSATE SODIUM 1 TAB PO BID LABETALOL HCL 10 MG IV Q2H PRN methylPREDNISolone SOD SUCC with/in WATER FOR INJECTION,STERILE 40 MG IV DAILY METOPROLOL TARTRATE 25 MG PO BID 6A 6P ALBUTEROL SULFATE 2.5 MG NEB RTQ6H PRN SODIUM CHLORIDE FOR INHALATION 4 ML NEB RTQ6H GLUCAGON 1 MG IM ASDIR PRN (Held) ASPIRIN 81 MG PO DAILY ONDANSETRON HCL/PF 4 MG IV Q4H PRN SODIUM PHOSPHATE with/in SODIUM CHLORIDE 0.9% 20 MM IV ASDIR (PRN) POTASSIUM CHLORIDE 20 MEQ IV ASDIR PRN guaiFENesin 600 MG PO Q12HR CALCIUM CARBONATE 1000 MG PO Q4H PRN polyethylene glycoL 3350 1 PKT PO DAILY DEXTROSE 50%-WATER 25 ML IV ASDIR PRN PROPYLENE GLYCOL/PEG 400 1 DROP EACH EYE QID (PRN) NITROGLYCERIN 0.4 MG SL Q5M PRN POTASSIUM BICARBONATE/CIT AC 20 MEQ PO ASDIR PRN ATORVASTATIN CALCIUM 40 MG PO BEDTIME IPRATROPIUM/ALBUTEROL SULFATE 3 ML NEB RTQ6H MAGNESIUM SULFATE 2 GM IV ASDIR amLODIPine BESYLATE 10 MG PO DAILY SODIUM PHOSPHATE with/in SODIUM CHLORIDE 0.9% 15 MM IV ASDIR (PRN) (Held) ENOXAPARIN SODIUM 40 MG SUBQ DAILY ACETAMINOPHEN 650 MG PO Q4H PRN QUEtiapine FUMARATE 50 MG PO BID DEXTROSE 37.5 GM PO ASDIR PRN PROMETHAZINE HCL with/in SODIUM CHLORIDE 50 mL BAG 12.5 MG IV Q6H PRN SODIUM PHOSPHATE with/in SODIUM CHLORIDE 0.9% 30 MM IV ASDIR (PRN) at 1228 ATTENTION *EDITS and/or ADDENDA must be made in Patient Keeper for this note. * * Edits and ammendments created in [employer] are not visible * * in Patient Keeper or the legal medical record (HPF). * RPT #: [id number] END OF REPORT [facility] 2024-04-22 08:29:00 [facility] ([facility]) Internal Med. Progress Note REPORT #: [id number] REPORT STATUS: Signed DATE: 04/22/24 TIME: 828 PATIENT: MARIE PINEDA UNIT #: [id number] ROOM #: T.207 BED: A : 60 AGE: 63 SEX: F ATTEND: Ricky Herrmann MD ADM AUTHOR: Estuardo Greco MD ATTENTION *EDITS and/or ADDENDA must be made in Patient Keeper for this note. * * Edits and ammendments created in [employer] are not visible * * in Patient Keeper or the legal medical record (HPF). * Note Date: 04/22/24 08:29 -- ASSESSMENT/PLAN -- HOSPITAL COURSE TO DATE: Remains on oxygen, coughing, short of breath and wheezing Continue current medications and treatment pulmonary following ASSESSMENT / PLAN: 1: RSV (respiratory syncytial virus infection) A/P: Acute respiratory failure intubated now extubated, COPD history Continue neb treatment oxygen antibiotics, Solu-Medrol Patient much improved currently on room air 2: Aspiration pneumonia A/P: Most likely aspiration pneumonia, RSV diagnosed outside facility On antibiotics improving 3: Acute metabolic encephalopathy A/P: Due to respiratory failure Now improving 4: COPD exacerbation A/P: History of smoking COPD exacerbation Currently the patient is approved for pneumonia 5: HTN (hypertension) A/P: Continue blood pressure medication 6: HLD (hyperlipidemia) A/P: Continue statin ADDITIONAL COMMENTS: This note was created using voice recognition transcribing system. Incorrect words or phrases may have been missed during proofreading. Please interpret accordingly. -- SUBJECTIVE -- CHIEF COMPLAINT: Resp failure/Pneumonia/HTN/HLD/COPD HPI: 63-year-old female history of COPD transferred from [facility] for worsening respiratory failure. Initially intubated placed on vent was in ICU now the patient improved, taken out of the ICU. Was diagnosed with respiratory failure, pneumonia due to RSV. Most likely aspiration pneumonia. REVIEW OF SYSTEMS: General Negative for fever, malaise, fatigue. Eyes Negative for blurry vision. No diplopia. Ears/Nose/Throat Negative for sore throat. No otalgia. No rhinorrhea. Respiratory Negative for dyspnea or wheeze. No cough. Cardiovascular Negative for chest pain or palpitations. No extremity swelling. Gastrointestinal Negative for abdominal pain or nausea. No emesis. No diarrhea. Genitourinary Negative for dysuria, frequency, or urgency. No gross hematuria. Neurological Negative for headache. No vertigo. Denies paresthesias. -- EXAM -- VITALS (04/21 08:29 - 04/22 08:29): Pulse Rate: 77 (77 - 111) Blood pressure: 103/70 (103/59 - 117/75) Temperature source: Oral Temperature C: 36.5 (36.5 - 37.4) Respiratory rate: 17 (16 - 18) IOS (04/21 07:00-04/22 07:00): [id number] Intake1,062.00 Qqubjh224 IV fluid 10 volume ml:10 IV fluid 14 volume ml:2 Number of emesis:3 Number of incontinent voids:3 Number of times incontinent stool:4 Oral ml:1,050 Other urine ml:250 Void ml:400 EXAM: General Well developed, well nourished, in no apparent distress. Head Normocephalic, atraumatic. Eyes PERRL, EOM intact, conjunctiva and sclera clear, without nystagmus, lids normal. Neck No masses, no thyromegaly, no abnormal cervical nodes, trachea midline. Lungs Clear bilaterally with normal respiratory effort. Heart Regular rate and rhythm, normal S1, S2, no murmurs, no rubs, no gallops, no clicks. Abdomen Soft, non-tender, no organomegaly, no masses noted. Extremities No clubbing, no cyanosis, no edema. Neurological No focal deficits, cranial nerves II-XII grossly intact, normal sensation, normal reflexes, normal coordination, normal muscle strength, normal tone. -- DATA -- MEDICATIONS PANTOPRAZOLE 40 MG PO DAILY 0600 BUDESONIDE 0.5 MG NEB RTBID POTASSIUM CHLORIDE 10 MEQ IV ASDIR PRN SOD BIPHOS/POT PHOSPHATE 1 PKT PO ASDIR (PRN) hydrALAZINE HCL 10 MG IV Q4H PRN SENNA/DOCUSATE SODIUM 1 TAB PO BID LABETALOL HCL 10 MG IV Q2H PRN methylPREDNISolone SOD SUCC with/in WATER FOR INJECTION,STERILE 40 MG IV DAILY METOPROLOL TARTRATE 25 MG PO BID 6A 6P ALBUTEROL SULFATE 2.5 MG NEB RTQ6H PRN SODIUM CHLORIDE FOR INHALATION 4 ML NEB RTQ6H GLUCAGON 1 MG IM ASDIR PRN (Held) ASPIRIN 81 MG PO DAILY ONDANSETRON HCL/PF 4 MG IV Q4H PRN SODIUM PHOSPHATE with/in SODIUM CHLORIDE 0.9% 20 MM IV ASDIR (PRN) POTASSIUM CHLORIDE 20 MEQ IV ASDIR PRN guaiFENesin 600 MG PO Q12HR CALCIUM CARBONATE 1000 MG PO Q4H PRN polyethylene glycoL 3350 1 PKT PO DAILY DEXTROSE 50%-WATER 25 ML IV ASDIR PRN PROPYLENE GLYCOL/PEG 400 1 DROP EACH EYE QID (PRN) NITROGLYCERIN 0.4 MG SL Q5M PRN POTASSIUM BICARBONATE/CIT AC 20 MEQ PO ASDIR PRN ATORVASTATIN CALCIUM 40 MG PO BEDTIME IPRATROPIUM/ALBUTEROL SULFATE 3 ML NEB RTQ6H MAGNESIUM SULFATE 2 GM IV ASDIR amLODIPine BESYLATE 10 MG PO DAILY SODIUM PHOSPHATE with/in SODIUM CHLORIDE 0.9% 15 MM IV ASDIR (PRN) (Held) ENOXAPARIN SODIUM 40 MG SUBQ DAILY ACETAMINOPHEN 650 MG PO Q4H PRN QUEtiapine FUMARATE 50 MG PO BID DEXTROSE 37.5 GM PO ASDIR PRN PROMETHAZINE HCL with/in SODIUM CHLORIDE 50 mL BAG 12.5 MG IV Q6H PRN SODIUM PHOSPHATE with/in SODIUM CHLORIDE 0.9% 30 MM IV ASDIR (PRN) LAB RESULTS CBC W/AUTO DIFF (04/19/24 11:12) EOSINOPHIL # 0.02 MEAN PLATELET VOLUME 11.5 H MONOCYTE # 0.33 PLATELET COUNT 316 RED CELL DISTRIBUTION WIDTH 13.7 MEAN CELL HGB CONCENTRATION 31.2 L MEAN CELL HGB 29.1 MEAN CELL VOLUME 93 HEMATOCRIT 37.5 HEMOGLOBIN 11.7L L RED BLOOD CELL 4.02 L WHITE BLOOD CELL 23.20H H LYMPHOCYTE # 0.66 L NEUTROPHIL # 21.91 H NUCLEATED RBC % 0 BASOPHIL % 0.2 EOSINOPHIL % 0.1 L MONOCYTE % 1.4 L LYMPHOCYTE % 2.8 L IMMATURE GRANULOCYTE % 1 BASOPHIL # 0.05 NEUTROPHIL % 94.5 H BASIC METABOLIC PANEL (04/18/24 09:31) SODIUM 139 GLOMERULAR FILTRATION RATE >=60 max estimate BLOOD UREA NITROGEN 16 CALCIUM 9.7 CREATININE 0.6 CHLORIDE 97L L POTASSIUM 4.1 GLUCOSE 112H H CARBON DIOXIDE 36H H TEST RESULTS GRAM STAIN, CULTURE SPUTUM (04/19/24 12:11) CTA CHEST FOR PE (04/19/24 13:10) GRAM STAIN, CULTURE SPUTUM (04/19/24 12:11) -- ATTESTATION -- ADDITIONAL DETAIL: I have reviewed the history and repeated the conde elements. I have seen and examined this patient. I have reviewed the progress in the clinical course since the last examination. I have discussed the patient's condition with other members of the care team. > 50% of time spent on Counseling/Care Coordination at 2342 ATTENTION *EDITS and/or ADDENDA must be made in Patient Keeper for this note. * * Edits and ammendments created in [employer] are not visible * * in Patient Keeper or the legal medical record (HPF). * RPT #: [id number] END OF REPORT [facility] 2024-04-21 12:29:00 [facility] ([facility]) Internal Med. Progress Note REPORT #: [id number] REPORT STATUS: Signed DATE: 04/21/24 TIME: 1229 PATIENT: MARIE PINEDA UNIT #: [id number] ROOM #: T.207 BED: A : 60 AGE: 63 SEX: F ATTEND: Ricky Herrmann MD ADM AUTHOR: Estuardo Greco MD ATTENTION *EDITS and/or ADDENDA must be made in Patient Keeper for this note. * * Edits and ammendments created in [employer] are not visible * * in Patient Keeper or the legal medical record (HPF). * Note Date: 04/21/24 12:29 -- ASSESSMENT/PLAN -- ASSESSMENT / PLAN: 1: RSV (respiratory syncytial virus infection) 2: Aspiration pneumonia 3: Acute metabolic encephalopathy 4: COPD exacerbation 5: HTN (hypertension) 6: HLD (hyperlipidemia) ADDITIONAL COMMENTS: This note was created using voice recognition transcribing system. Incorrect words or phrases may have been missed during proofreading. Please interpret accordingly. -- SUBJECTIVE -- CHIEF COMPLAINT: Resp failure/Pneumonia/HTN/HLD/COPD REVIEW OF SYSTEMS: General Negative for fever, malaise, fatigue. Eyes Negative for blurry vision. No diplopia. Ears/Nose/Throat Negative for sore throat. No otalgia. No rhinorrhea. Respiratory Negative for dyspnea or wheeze. No cough. Cardiovascular Negative for chest pain or palpitations. No extremity swelling. Gastrointestinal Negative for abdominal pain or nausea. No emesis. No diarrhea. Genitourinary Negative for dysuria, frequency, or urgency. No gross hematuria. Neurological Negative for headache. No vertigo. Denies paresthesias. -- EXAM -- VITALS (04/20 12:29 - 04/21 12:29): Blood pressure: 108/71 (105/64 - 123/80) Temperature C: 37.2 (36.8 - 37.2) Temperature source: Oral Respiratory rate: 16 (16 - 18) Pulse Rate: 111 (80 - 115) IOS (04/20 07:00-04/21 07:00): Net-100 [id number] Amount taken:75 BM liquid amount ml:0 Continent stool count:0 Number of times incontinent stool:0 Oral ml:600 Void ml:700 EXAM: General Well developed, well nourished, in no apparent distress. Head Normocephalic, atraumatic. Eyes PERRL, EOM intact, conjunctiva and sclera clear, without nystagmus, lids normal. Neck No masses, no thyromegaly, no abnormal cervical nodes, trachea midline. Lungs Clear bilaterally with normal respiratory effort. Heart Regular rate and rhythm, normal S1, S2, no murmurs, no rubs, no gallops, no clicks. Abdomen Soft, non-tender, no organomegaly, no masses noted. Extremities No clubbing, no cyanosis, no edema. Neurological No focal deficits, cranial nerves II-XII grossly intact, normal sensation, normal reflexes, normal coordination, normal muscle strength, normal tone. -- DATA -- MEDICATIONS PANTOPRAZOLE 40 MG PO DAILY 0600 BUDESONIDE 0.5 MG NEB RTBID POTASSIUM CHLORIDE 10 MEQ IV ASDIR PRN SOD BIPHOS/POT PHOSPHATE 1 PKT PO ASDIR (PRN) hydrALAZINE HCL 10 MG IV Q4H PRN SENNA/DOCUSATE SODIUM 1 TAB PO BID LABETALOL HCL 10 MG IV Q2H PRN methylPREDNISolone SOD SUCC with/in WATER FOR INJECTION,STERILE 40 MG IV DAILY METOPROLOL TARTRATE 25 MG PO BID 6A 6P ALBUTEROL SULFATE 2.5 MG NEB RTQ6H PRN SODIUM CHLORIDE FOR INHALATION 4 ML NEB RTQ6H GLUCAGON 1 MG IM ASDIR PRN (Held) ASPIRIN 81 MG PO DAILY ONDANSETRON HCL/PF 4 MG IV Q4H PRN SODIUM PHOSPHATE with/in SODIUM CHLORIDE 0.9% 20 MM IV ASDIR (PRN) POTASSIUM CHLORIDE 20 MEQ IV ASDIR PRN guaiFENesin 600 MG PO Q12HR CALCIUM CARBONATE 1000 MG PO Q4H PRN polyethylene glycoL 3350 1 PKT PO DAILY DEXTROSE 50%-WATER 25 ML IV ASDIR PRN PROPYLENE GLYCOL/PEG 400 1 DROP EACH EYE QID (PRN) NITROGLYCERIN 0.4 MG SL Q5M PRN POTASSIUM BICARBONATE/CIT AC 20 MEQ PO ASDIR PRN ATORVASTATIN CALCIUM 40 MG PO BEDTIME IPRATROPIUM/ALBUTEROL SULFATE 3 ML NEB RTQ6H MAGNESIUM SULFATE 2 GM IV ASDIR amLODIPine BESYLATE 10 MG PO DAILY SODIUM PHOSPHATE with/in SODIUM CHLORIDE 0.9% 15 MM IV ASDIR (PRN) (Held) ENOXAPARIN SODIUM 40 MG SUBQ DAILY ACETAMINOPHEN 650 MG PO Q4H PRN QUEtiapine FUMARATE 50 MG PO BID DEXTROSE 37.5 GM PO ASDIR PRN PROMETHAZINE HCL with/in SODIUM CHLORIDE 50 mL BAG 12.5 MG IV Q6H PRN SODIUM PHOSPHATE with/in SODIUM CHLORIDE 0.9% 30 MM IV ASDIR (PRN) -- ATTESTATION -- ADDITIONAL DETAIL: I have reviewed the history and repeated the conde elements. I have seen and examined this patient. I have reviewed the progress in the clinical course since the last examination. I have discussed the patient's condition with other members of the care team. > 50% of time spent on Counseling/Care Coordination at 0317 ATTENTION *EDITS and/or ADDENDA must be made in Patient Keeper for this note. * * Edits and ammendments created in [facility] are not visible * * in Patient Keeper or the legal medical record (HPF). * RPT #: [id number] END OF REPORT [facility] 2024-04-20 12:34:00 [facility] ([facility]) Internal Med. Progress Note REPORT #: [id number] REPORT STATUS: Signed DATE: 04/20/24 TIME: 1234 PATIENT: MARIE PINEDA UNIT #: [id number] ROOM #: T.207 BED: A : 60 AGE: 63 SEX: F ATTEND: Ricky Herrmann MD ADM AUTHOR: Ricky Herrmann MD ATTENTION *EDITS and/or ADDENDA must be made in Patient Keeper for this note. * * Edits and ammendments created in [employer] are not visible * * in Patient Keeper or the legal medical record (HPF). * Note Date: 04/20/24 12:34 -- ASSESSMENT/PLAN -- ASSESSMENT / PLAN: 1: RSV (respiratory syncytial virus infection) 2: Aspiration pneumonia 3: Acute metabolic encephalopathy 4: COPD exacerbation 5: HTN (hypertension) 6: HLD (hyperlipidemia) ADDITIONAL COMMENTS: CPM -- SUBJECTIVE -- CHIEF COMPLAINT: Resp failure/Pneumonia/HTN/HLD/COPD PATIENT NARRATIVE: Doing better REVIEW OF SYSTEMS: General Negative for fever, malaise, fatigue. Eyes Negative for blurry vision. No diplopia. Ears/Nose/Throat Negative for sore throat. No otalgia. No rhinorrhea. Respiratory Negative for dyspnea or wheeze. No cough. Cardiovascular Negative for chest pain or palpitations. No extremity swelling. Gastrointestinal Negative for abdominal pain or nausea. No emesis. No diarrhea. Genitourinary Negative for dysuria, frequency, or urgency. No gross hematuria. Neurological Negative for headache. No vertigo. Denies paresthesias. -- EXAM -- VITALS (04/19 12:34 - 04/20 12:34): Blood pressure: 97/64 (93/60 - 123/85) Respiratory rate: 16 (16 - 18) Temperature source: Axillary Temperature C: 36.9 (36.8 - 37.2) Pulse Rate: 88 (63 - 107) IOS (04/19 07:00-04/20 07:00): [id number] Intake1,130 Tvqaxs149 Continent stool count:2 Diapers count:2 Oral ml:1,130 Other urine ml:400 Void ml:400 EXAM: General Well developed, well nourished, in no apparent distress. Head Normocephalic, atraumatic. Eyes PERRL, EOM intact, conjunctiva and sclera clear, without nystagmus, lids normal. Neck No masses, no thyromegaly, no abnormal cervical nodes, trachea midline. Chest Grossly normal appearance. Lungs Clear bilaterally with normal respiratory effort. Heart Regular rate and rhythm, normal S1, S2, no murmurs, no rubs, no gallops, no clicks. Abdomen Soft, non-tender, no organomegaly, no masses noted. Extremities No clubbing, no cyanosis, no edema. Neurological No focal deficits, cranial nerves II-XII grossly intact, normal sensation, normal reflexes, normal coordination, normal muscle strength, normal tone. -- DATA -- MEDICATIONS PANTOPRAZOLE 40 MG PO DAILY 0600 BUDESONIDE 0.5 MG NEB RTBID POTASSIUM CHLORIDE 10 MEQ IV ASDIR PRN SOD BIPHOS/POT PHOSPHATE 1 PKT PO ASDIR (PRN) hydrALAZINE HCL 10 MG IV Q4H PRN SENNA/DOCUSATE SODIUM 1 TAB PO BID LABETALOL HCL 10 MG IV Q2H PRN methylPREDNISolone SOD SUCC with/in WATER FOR INJECTION,STERILE 40 MG IV DAILY METOPROLOL TARTRATE 25 MG PO BID 6A 6P ALBUTEROL SULFATE 2.5 MG NEB RTQ6H PRN SODIUM CHLORIDE FOR INHALATION 4 ML NEB RTQ6H GLUCAGON 1 MG IM ASDIR PRN (Held) ASPIRIN 81 MG PO DAILY ONDANSETRON HCL/PF 4 MG IV Q4H PRN SODIUM PHOSPHATE with/in SODIUM CHLORIDE 0.9% 20 MM IV ASDIR (PRN) POTASSIUM CHLORIDE 20 MEQ IV ASDIR PRN guaiFENesin 600 MG PO Q12HR CALCIUM CARBONATE 1000 MG PO Q4H PRN polyethylene glycoL 3350 1 PKT PO DAILY DEXTROSE 50%-WATER 25 ML IV ASDIR PRN PROPYLENE GLYCOL/PEG 400 1 DROP EACH EYE QID (PRN) NITROGLYCERIN 0.4 MG SL Q5M PRN POTASSIUM BICARBONATE/CIT AC 20 MEQ PO ASDIR PRN ATORVASTATIN CALCIUM 40 MG PO BEDTIME IPRATROPIUM/ALBUTEROL SULFATE 3 ML NEB RTQ6H MAGNESIUM SULFATE 2 GM IV ASDIR amLODIPine BESYLATE 10 MG PO DAILY SODIUM PHOSPHATE with/in SODIUM CHLORIDE 0.9% 15 MM IV ASDIR (PRN) (Held) ENOXAPARIN SODIUM 40 MG SUBQ DAILY ACETAMINOPHEN 650 MG PO Q4H PRN QUEtiapine FUMARATE 50 MG PO BID DEXTROSE 37.5 GM PO ASDIR PRN PROMETHAZINE HCL with/in SODIUM CHLORIDE 50 mL BAG 12.5 MG IV Q6H PRN SODIUM PHOSPHATE with/in SODIUM CHLORIDE 0.9% 30 MM IV ASDIR (PRN) at 1235 ATTENTION *EDITS and/or ADDENDA must be made in Patient Keeper for this note. * * Edits and ammendments created in [facility] are not visible * * in Patient Keeper or the legal medical record (HPF). * RPT #: [id number] END OF REPORT [facility] 2024-04-20 11:07:00 [facility] [place] ([facility]) Pulmonology Progress Note REPORT #: [id number] REPORT STATUS: Signed DATE: 04/20/24 TIME: 1107 PATIENT: MARIE PINEDA UNIT #: [id number] ROOM #: T.207 BED: A : 60 AGE: 63 SEX: F ATTEND: Ricky Herrmann MD ADM AUTHOR: April Lainez MD ATTENTION *EDITS and/or ADDENDA must be made in Patient Keeper for this note. * * Edits and ammendments created in [employer] are not visible * * in Patient Keeper or the legal medical record (HPF). * Note Date: 04/20/24 11:07 -- ASSESSMENT/PLAN -- [facility]: [facility] Note April Lainez MD P: Subjective : transitioned to HF, able to wean down to 10L no noted hemoptysis today no distress, discussed with RN to continue to wean O2 Assessment: Acute hypercapnic respiratory failure acute RSV infection AECOPD Aspiration pneumonia Lactic acidosis sinus tachycardia altered mental status, resolved hemoptysis Plan: Pulmonary : - supplemental O2 to keep SpO2 > 92%, continues on Vapotherm 25 L and 40%, discussed weaning with RT - CT chest prior to admission revealed no evidence of pulmonary embolism, but [id number] COPD and bronchial wall thickening in the lower lobes and right middle lobe secondary to bronchitis along with some mucus material in the bronchi and some nodular foci in the right middle lobe. 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 thank you for this consult, will follow --------- HPI: Patient is a 63-year-old female with past medical history significant for COPD and hypertension, who was brought to the Emergency Room for evaluation of COPD exacerbation and respiratory failure. Patient was at [facility] where she was admitted for shortness of breath. She was found to be in respiratory distress and was placed on BiPAP therapy and was transferred here to our hospital for continued management. She required intubated and was extubated on 04/12/24, transitioned to vapotherm and pulmonary consulted after downgrade from ICU. MedHx: COPD on home O2 2-3L SurgHx: ESDRAS Family Hx: ESDRAS Social Hx: inmate, quit smoking 6 months ago but previous to this smoked 1 PPD for greater than 40 years, incarcerated Physical Exam: Gen: ill appearing, disheveled, on HFNC Head: atraumatic, normocephalic ENT: EOMI, conjunctivae pink, sclera clear, neck w/o masses, trachea midline, MMM, oropharynx clear CV: RRR, s1/s2, peripheral pulses palpable Resp: diminished bilateral breath sounds, symmetric expansion, scant wheezes bilaterally Abd: soft, non-tender, not distended, +BS Ext/MSK: no edema/cyanosis, cap refill < 3 secs, normal tone Skin: warm, dry, color consistent w/ ethnicity, no rashes Neuro: AO x2-3, conversant, follows commands, Christiano Psych: calm -- EXAM -- VITALS (04/19 11:07 - 04/20 11:07): Temperature source: Axillary Temperature C: 36.8 (36.8 - 37.2) Pulse Rate: 63 (63 - 107) Blood pressure: 93/60 (93/60 - 123/85) Respiratory rate: 16 (16 - 18) IOS (04/19 07:00-04/20 07:00): [id number] Intake1,130 Satcts051 Continent stool count:2 Diapers count:2 Oral ml:1,130 Other urine ml:400 Void ml:400 -- DATA -- MEDICATIONS PANTOPRAZOLE 40 MG PO DAILY 0600 BUDESONIDE 0.5 MG NEB RTBID POTASSIUM CHLORIDE 10 MEQ IV ASDIR PRN SOD BIPHOS/POT PHOSPHATE 1 PKT PO ASDIR (PRN) hydrALAZINE HCL 10 MG IV Q4H PRN SENNA/DOCUSATE SODIUM 1 TAB PO BID LABETALOL HCL 10 MG IV Q2H PRN methylPREDNISolone SOD SUCC with/in WATER FOR INJECTION,STERILE 40 MG IV DAILY METOPROLOL TARTRATE 25 MG PO BID 6A 6P ALBUTEROL SULFATE 2.5 MG NEB RTQ6H PRN SODIUM CHLORIDE FOR INHALATION 4 ML NEB RTQ6H GLUCAGON 1 MG IM ASDIR PRN (Held) ASPIRIN 81 MG PO DAILY ONDANSETRON HCL/PF 4 MG IV Q4H PRN SODIUM PHOSPHATE with/in SODIUM CHLORIDE 0.9% 20 MM IV ASDIR (PRN) POTASSIUM CHLORIDE 20 MEQ IV ASDIR PRN guaiFENesin 600 MG PO Q12HR CALCIUM CARBONATE 1000 MG PO Q4H PRN polyethylene glycoL 3350 1 PKT PO DAILY DEXTROSE 50%-WATER 25 ML IV ASDIR PRN PROPYLENE GLYCOL/PEG 400 1 DROP EACH EYE QID (PRN) NITROGLYCERIN 0.4 MG SL Q5M PRN POTASSIUM BICARBONATE/CIT AC 20 MEQ PO ASDIR PRN ATORVASTATIN CALCIUM 40 MG PO BEDTIME IPRATROPIUM/ALBUTEROL SULFATE 3 ML NEB RTQ6H MAGNESIUM SULFATE 2 GM IV ASDIR amLODIPine BESYLATE 10 MG PO DAILY SODIUM PHOSPHATE with/in SODIUM CHLORIDE 0.9% 15 MM IV ASDIR (PRN) (Held) ENOXAPARIN SODIUM 40 MG SUBQ DAILY ACETAMINOPHEN 650 MG PO Q4H PRN QUEtiapine FUMARATE 50 MG PO BID DEXTROSE 37.5 GM PO ASDIR PRN PROMETHAZINE HCL with/in SODIUM CHLORIDE 50 mL BAG 12.5 MG IV Q6H PRN SODIUM PHOSPHATE with/in SODIUM CHLORIDE 0.9% 30 MM IV ASDIR (PRN) at 1110 ATTENTION *EDITS and/or ADDENDA must be made in Patient Keeper for this note. * * Edits and ammendments created in [employer] are not visible * * in Patient Keeper or the legal medical record ([facility]). * RPT #: [id number] END OF REPORT [facility] 2024-04-19 12:40:00 [facility] ([facility]) Internal Med. Progress Note REPORT #: [id number] REPORT STATUS: Signed DATE: 04/19/24 TIME: 1240 PATIENT: MARIE PINEDA UNIT #: [id number] ROOM #: T.207 BED: A : 60 AGE: 63 SEX: F ATTEND: Ricky Herrmann MD ADM AUTHOR: Ricky Herrmann MD ATTENTION *EDITS and/or ADDENDA must be made in Patient Keeper for this note. * * Edits and ammendments created in [employer] are not visible * * in Patient Keeper or the legal medical record ([facility]). * Note Date: 04/19/24 12:40 -- ASSESSMENT/PLAN -- ASSESSMENT / PLAN: 1: RSV (respiratory syncytial virus infection) 2: Aspiration pneumonia 3: Acute metabolic encephalopathy 4: Respiratory failure, unspecified, unspecified whether with hypoxia or hypercapnia ADDITIONAL COMMENTS: Continue current Rx Pulm and cardio to follow -- SUBJECTIVE -- CHIEF COMPLAINT: Pneumonia/Resp failure PATIENT NARRATIVE: No new events nor issues REVIEW OF SYSTEMS: General Negative for fever, malaise, fatigue. Eyes Negative for blurry vision. No diplopia. Ears/Nose/Throat Negative for sore throat. No otalgia. No rhinorrhea. Respiratory Positive for dyspnea or wheeze. No cough. Cardiovascular Negative for chest pain or palpitations. No extremity swelling. Gastrointestinal Negative for abdominal pain or nausea. No emesis. No diarrhea. Genitourinary Negative for dysuria, frequency, or urgency. No gross hematuria. Neurological Negative for headache. No vertigo. Denies paresthesias. -- EXAM -- VITALS (04/18 12:40 - 04/19 12:40): Pulse Rate: 79 (70 - 97) Blood pressure: 111/71 (111/65 - 142/78) Respiratory rate: 17 (16 - 20) Temperature C: 37.1 (36.8 - 37.4) Temperature source: Oral IOS (04/18 07:00-04/19 07:00): [id number] Gsmhuu308 Mrjapk616 Number of incontinent voids:2 Oral ml:750 Void ml:400 EXAM: General Well developed, well nourished, in no apparent distress. Head Normocephalic, atraumatic. Eyes PERRL, EOM intact, conjunctiva and sclera clear, without nystagmus, lids normal. Neck No masses, no thyromegaly, no abnormal cervical nodes, trachea midline. Chest Grossly normal appearance. Lungs Clear bilaterally with normal respiratory effort. Heart Regular rate and rhythm, normal S1, S2, no murmurs, no rubs, no gallops, no clicks. Abdomen Soft, non-tender, no organomegaly, no masses noted. Extremities No clubbing, no cyanosis, no edema. Neurological No focal deficits, cranial nerves II-XII grossly intact, normal sensation, normal reflexes, normal coordination, normal muscle strength, normal tone. -- DATA -- MEDICATIONS PANTOPRAZOLE 40 MG PO DAILY 0600 BUDESONIDE 0.5 MG NEB RTBID SODIUM CHLORIDE 50 mL BAG 50 ML IV ONCE (PRN) POTASSIUM CHLORIDE 10 MEQ IV ASDIR PRN SOD BIPHOS/POT PHOSPHATE 1 PKT PO ASDIR (PRN) hydrALAZINE HCL 10 MG IV Q4H PRN SENNA/DOCUSATE SODIUM 1 TAB PO BID LABETALOL HCL 10 MG IV Q2H PRN methylPREDNISolone SOD SUCC with/in WATER FOR INJECTION,STERILE 40 MG IV DAILY METOPROLOL TARTRATE 25 MG PO BID 6A 6P ALBUTEROL SULFATE 2.5 MG NEB RTQ6H PRN ACETYLCYSTEINE 20% 3 ML PO Q12HR IOPAMIDOL 61% 100 ML IV ONCE (PRN) SODIUM CHLORIDE FOR INHALATION 4 ML NEB RTQ6H GLUCAGON 1 MG IM ASDIR PRN (Held) ASPIRIN 81 MG PO DAILY ONDANSETRON HCL/PF 4 MG IV Q4H PRN SODIUM PHOSPHATE with/in SODIUM CHLORIDE 0.9% 20 MM IV ASDIR (PRN) POTASSIUM CHLORIDE 20 MEQ IV ASDIR PRN guaiFENesin 600 MG PO Q12HR CALCIUM CARBONATE 1000 MG PO Q4H PRN polyethylene glycoL 3350 1 PKT PO DAILY DEXTROSE 50%-WATER 25 ML IV ASDIR PRN PROPYLENE GLYCOL/PEG 400 1 DROP EACH EYE QID (PRN) NITROGLYCERIN 0.4 MG SL Q5M PRN POTASSIUM BICARBONATE/CIT AC 20 MEQ PO ASDIR PRN ATORVASTATIN CALCIUM 40 MG PO BEDTIME IPRATROPIUM/ALBUTEROL SULFATE 3 ML NEB RTQ6H MAGNESIUM SULFATE 2 GM IV ASDIR amLODIPine BESYLATE 10 MG PO DAILY SODIUM PHOSPHATE with/in SODIUM CHLORIDE 0.9% 15 MM IV ASDIR (PRN) (Held) ENOXAPARIN SODIUM 40 MG SUBQ DAILY ACETAMINOPHEN 650 MG PO Q4H PRN QUEtiapine FUMARATE 50 MG PO BID DEXTROSE 37.5 GM PO ASDIR PRN PROMETHAZINE HCL with/in SODIUM CHLORIDE 50 mL BAG 12.5 MG IV Q6H PRN SODIUM PHOSPHATE with/in SODIUM CHLORIDE 0.9% 30 MM IV ASDIR (PRN) LAB RESULTS CBC W/AUTO DIFF (04/19/24 11:12) EOSINOPHIL # 0.02 MEAN PLATELET VOLUME 11.5 H MONOCYTE # 0.33 PLATELET COUNT 316 RED CELL DISTRIBUTION WIDTH 13.7 MEAN CELL HGB CONCENTRATION 31.2 L MEAN CELL HGB 29.1 MEAN CELL VOLUME 93 HEMATOCRIT 37.5 HEMOGLOBIN 11.7L L RED BLOOD CELL 4.02 L WHITE BLOOD CELL 23.20H H LYMPHOCYTE # 0.66 L NEUTROPHIL # 21.91 H NUCLEATED RBC % 0.0 BASOPHIL % 0.2 EOSINOPHIL % 0.1 L MONOCYTE % 1.4 L LYMPHOCYTE % 2.8 L IMMATURE GRANULOCYTE % 1.0 BASOPHIL # 0.05 NEUTROPHIL % 94.5 H at 1241 ATTENTION *EDITS and/or ADDENDA must be made in Patient Keeper for this note. * * Edits and ammendments created in [employer] are not visible * * in Patient Keeper or the legal medical record ([facility]). * RPT #: [id number] END OF REPORT [facility] 2024-04-19 10:05:00 [facility] [place] ([facility]) Pulmonology Progress Note REPORT #: [id number] REPORT STATUS: Signed DATE: 04/19/24 TIME: 100 PATIENT: MARIE PINEDA UNIT #: [id number] ROOM #: [facility] BED: A : 60 AGE: 63 SEX: F ATTEND: Ricky Herrmann MD ADM AUTHOR: Ele Hernandez ATTENTION *EDITS and/or ADDENDA must be made in Patient Keeper for this note. * * Edits and ammendments created in [employer] are not visible * * in Patient Keeper or the legal medical record ([facility]). * Note Date: 04/19/24 10:05 -- ASSESSMENT/PLAN -- GENERAL ASSESSMENT: [facility] Pul[facility] Consult Note April Lainez MD P: Subjective : remains on vapotherm 15L and 30%, okay to transition to HFNC had bright red hemoptysis this am noted leukocytosis, steroids were decreased, has completed 7 days unasyn, no focal consolidation on CXR ground texture, thin liquids ok per CIGARETTE MACHINE OPERATOR, patient not eating much Assessment: Acute hypercapnic respiratory failure acute RSV infection AECOPD Aspiration pneumonia Lactic acidosis sinus tachycardia altered mental status, resolved hemoptysis Plan: Pulmonary : - supplemental O2 to keep SpO2 > 92%, continues on Vapotherm 25 L and 40%, discussed weaning with RT - CT chest prior to admission revealed no evidence of pulmonary embolism, but [id number] COPD and bronchial wall thickening in the lower lobes and right middle lobe secondary to bronchitis along with some mucus material in the bronchi and some nodular foci in the right middle lobe. - 04/16 CXR with GGO bilateral upper lung mary, reviewed ABG, compensated - Treated with empiric abx rocephin and azithro, s/p Unasyn, follow CIGARETTE MACHINE OPERATOR recommendations - positive RSV, continue supportive care - Continue DuoNebs and Pulmicort - Urinary antigen strep pneumo and Legionella negative - lower systemic steroid, now on solumedrol 40 mg daily - Sputum culture with no growth since 04/10/2024, repeat sent 04/19 - covid negative - NIV at bedtime and as needed - CTA chest for hemoptysis, ordered thank you for this consult, will follow --------- HPI: Patient is a 63-year-old female with past medical history significant for COPD and hypertension, who was brought to the Emergency Room for evaluation of COPD exacerbation and respiratory failure. Patient was at [facility] where she was admitted for shortness of breath. She was found to be in respiratory distress and was placed on BiPAP therapy and was transferred here to our hospital for continued management. She required intubated and was extubated on 04/12/24, transitioned to vapotherm and pulmonary consulted after downgrade from ICU. MedHx: COPD on home O2 2-3L SurgHx: ESDRAS Family Hx: ESDRAS Social Hx: inmate, quit smoking 6 months ago but previous to this smoked 1 PPD for greater than 40 years, incarcerated Physical Exam: Gen: ill appearing, disheveled, on HFNC Head: atraumatic, normocephalic ENT: EOMI, conjunctivae pink, sclera clear, neck w/o masses, trachea midline, MMM, oropharynx clear CV: RRR, s1/s2, peripheral pulses palpable Resp: diminished bilateral breath sounds, symmetric expansion, scant wheezes bilaterally Abd: soft, non-tender, not distended, +BS Ext/MSK: no edema/cyanosis, cap refill < 3 secs, normal tone Skin: warm, dry, color consistent w/ ethnicity, no rashes Neuro: AO x2-3, conversant, follows commands, Christiano Psych: calm -- EXAM -- VITALS (04/18 10:05 - 04/19 10:05): Pulse Rate: 79 (70 - 97) Blood pressure: 111/71 (111/65 - 142/78) Respiratory rate: 17 (16 - 20) Temperature C: 37.1 (36.7 - 37.4) Temperature source: Oral IOS (04/18 07:00-04/19 07:00): Ozv503 [id number] [id number] Number of incontinent voids:2 Oral ml:750 Void ml:400 -- DATA -- MEDICATIONS PANTOPRAZOLE 40 MG PO DAILY 0600 BUDESONIDE 0.5 MG NEB RTBID POTASSIUM CHLORIDE 10 MEQ IV ASDIR PRN SOD BIPHOS/POT PHOSPHATE 1 PKT PO ASDIR (PRN) hydrALAZINE HCL 10 MG IV Q4H PRN SENNA/DOCUSATE SODIUM 1 TAB PO BID LABETALOL HCL 10 MG IV Q2H PRN methylPREDNISolone SOD SUCC with/in WATER FOR INJECTION,STERILE 40 MG IV DAILY METOPROLOL TARTRATE 25 MG PO BID 6A 6P ALBUTEROL SULFATE 2.5 MG NEB RTQ6H PRN ACETYLCYSTEINE 20% 3 ML PO Q12HR SODIUM CHLORIDE FOR INHALATION 4 ML NEB RTQ6H GLUCAGON 1 MG IM ASDIR PRN ASPIRIN 81 MG PO DAILY ONDANSETRON HCL/PF 4 MG IV Q4H PRN SODIUM PHOSPHATE with/in SODIUM CHLORIDE 0.9% 20 MM IV ASDIR (PRN) POTASSIUM CHLORIDE 20 MEQ IV ASDIR PRN guaiFENesin 600 MG PO Q12HR CALCIUM CARBONATE 1000 MG PO Q4H PRN polyethylene glycoL 3350 1 PKT PO DAILY DEXTROSE 50%-WATER 25 ML IV ASDIR PRN PROPYLENE GLYCOL/PEG 400 1 DROP EACH EYE QID (PRN) NITROGLYCERIN 0.4 MG SL Q5M PRN POTASSIUM BICARBONATE/CIT AC 20 MEQ PO ASDIR PRN ATORVASTATIN CALCIUM 40 MG PO BEDTIME IPRATROPIUM/ALBUTEROL SULFATE 3 ML NEB RTQ6H MAGNESIUM SULFATE 2 GM IV ASDIR amLODIPine BESYLATE 10 MG PO DAILY SODIUM PHOSPHATE with/in SODIUM CHLORIDE 0.9% 15 MM IV ASDIR (PRN) ENOXAPARIN SODIUM 40 MG SUBQ DAILY ACETAMINOPHEN 650 MG PO Q4H PRN QUEtiapine FUMARATE 50 MG PO BID DEXTROSE 37.5 GM PO ASDIR PRN PROMETHAZINE HCL with/in SODIUM CHLORIDE 50 mL BAG 12.5 MG IV Q6H PRN SODIUM PHOSPHATE with/in SODIUM CHLORIDE 0.9% 30 MM IV ASDIR (PRN) at 1131 at 1131 ATTENTION *EDITS and/or ADDENDA must be made in Patient Keeper for this note. * * Edits and ammendments created in [employer] are not visible * * in Patient Keeper or the legal medical record ([facility]). * [facility] [place] #: [id number] END OF REPORT [facility] 2024-04-18 16:20:00 [facility] ([facility]) Internal Med. Progress Note REPORT #: [id number] REPORT STATUS: Signed DATE: 04/18/24 TIME: 1620 PATIENT: MARIE PINEDA UNIT #: [id number] ROOM #: T.207 BED: A : 60 AGE: 63 SEX: F ATTEND: Ricky Herrmann MD ADM AUTHOR: Ricky Herrmann MD ATTENTION *EDITS and/or ADDENDA must be made in Patient Keeper for this note. * * Edits and ammendments created in [employer] are not visible * * in Patient Keeper or the legal medical record ([facility]). * Note Date: 04/18/24 16:20 -- ASSESSMENT/PLAN -- ASSESSMENT / PLAN: 1: Elevated troponin 2: RSV (respiratory syncytial virus infection) 3: Aspiration pneumonia 4: Acute metabolic encephalopathy 5: COPD exacerbation ADDITIONAL COMMENTS: CPM as per consultants -- SUBJECTIVE -- CHIEF COMPLAINT: Hypoxic resp failure/RCV pneumonia/COPD PATIENT NARRATIVE: Remains on high flow oxygen -- EXAM -- VITALS (04/17 16:20 - 04/18 16:20): Blood pressure: 116/70 (103/70 - 132/81) Respiratory rate: 18 (17 - 20) Temperature source: Oral Temperature C: 36.7 (36.6 - 37.3) Pulse Rate: 93 (81 - 97) IOS (04/17 07:00-04/18 07:00): Net-300 Ikhspx500 Hnltmh007 BM liquid amount ml:0 Colostomy ml:0 Continent stool count:0 Ileostomy ml:0 Number of incontinent voids:2 Number of times incontinent stool:0 Oral ml:100 Rectal tube amount ml:0 Void ml:400 EXAM: General Well developed, well nourished, in no apparent distress. Head Normocephalic, atraumatic. Eyes PERRL, EOM intact, conjunctiva and sclera clear, without nystagmus, lids normal. Neck No masses, no thyromegaly, no abnormal cervical nodes, trachea midline. Chest Grossly normal appearance. Lungs Clear bilaterally with extra respiratory effort. Heart Regular rate and rhythm, normal S1, S2, no murmurs, no rubs, no gallops, no clicks. Abdomen Soft, non-tender, no organomegaly, no masses noted. Extremities No clubbing, no cyanosis, no edema. Neurological No focal deficits, cranial nerves II-XII grossly intact, normal sensation, normal reflexes, normal coordination, normal muscle strength, normal tone. -- DATA -- MEDICATIONS PANTOPRAZOLE 40 MG PO DAILY 0600 BUDESONIDE 0.5 MG NEB RTBID POTASSIUM CHLORIDE 10 MEQ IV ASDIR PRN SOD BIPHOS/POT PHOSPHATE 1 PKT PO ASDIR (PRN) hydrALAZINE HCL 10 MG IV Q4H PRN SENNA/DOCUSATE SODIUM 1 TAB PO BID LABETALOL HCL 10 MG IV Q2H PRN methylPREDNISolone SOD SUCC with/in WATER FOR INJECTION,STERILE 40 MG IV DAILY METOPROLOL TARTRATE 25 MG PO BID 6A 6P ALBUTEROL SULFATE 2.5 MG NEB RTQ6H PRN ACETYLCYSTEINE 20% 3 ML PO Q12HR SODIUM CHLORIDE FOR INHALATION 4 ML NEB RTQ6H GLUCAGON 1 MG IM ASDIR PRN ASPIRIN 81 MG PO DAILY ONDANSETRON HCL/PF 4 MG IV Q4H PRN SODIUM PHOSPHATE with/in SODIUM CHLORIDE 0.9% 20 MM IV ASDIR (PRN) POTASSIUM CHLORIDE 20 MEQ IV ASDIR PRN guaiFENesin 600 MG PO Q12HR CALCIUM CARBONATE 1000 MG PO Q4H PRN polyethylene glycoL 3350 1 PKT PO DAILY DEXTROSE 50%-WATER 25 ML IV ASDIR PRN PROPYLENE GLYCOL/PEG 400 1 DROP EACH EYE QID (PRN) NITROGLYCERIN 0.4 MG SL Q5M PRN POTASSIUM BICARBONATE/CIT AC 20 MEQ PO ASDIR PRN ATORVASTATIN CALCIUM 40 MG PO BEDTIME IPRATROPIUM/ALBUTEROL SULFATE 3 ML NEB RTQ6H MAGNESIUM SULFATE 2 GM IV ASDIR amLODIPine BESYLATE 10 MG PO DAILY SODIUM PHOSPHATE with/in SODIUM CHLORIDE 0.9% 15 MM IV ASDIR (PRN) ENOXAPARIN SODIUM 40 MG SUBQ DAILY ACETAMINOPHEN 650 MG PO Q4H PRN QUEtiapine FUMARATE 50 MG PO BID DEXTROSE 37.5 GM PO ASDIR PRN PROMETHAZINE HCL with/in SODIUM CHLORIDE 50 mL BAG 12.5 MG IV Q6H PRN SODIUM PHOSPHATE with/in SODIUM CHLORIDE 0.9% 30 MM IV ASDIR (PRN) LAB RESULTS URINALYSIS COMPLETE (04/18/24 07:00) UA UROBILINOGEN DIPSTICK NORMAL UA PH DIPSTICK 8.0 UA PROTEIN DIPSTICK NEG UA SPECIFIC GRAVITY 1.022 UA BLOOD DIPSTICK TRACE A UA RBC 21-50 H UA BACTERIA NONE SEEN UA LEUKOCYTE ESTERASE DIPSTICK NEG UA WBC 0-5 UA NITRITE DIPSTICK NEG UA BILIRUBIN DIPSTICK NEG UA KETONE DIPSTICK 1+ A UA APPEARANCE TURBID A UA GLUCOSE DIPSTICK NEG UA AMORPHOUS SEDIMENT 1+ UA COLOR Light-Yellow UA SQUAMOUS CELLS RARE UA MUCUS RARE BASIC METABOLIC PANEL (04/18/24 09:31) SODIUM 139 GLOMERULAR FILTRATION RATE >=60 max estimate BLOOD UREA NITROGEN 16 CALCIUM 9.7 CREATININE 0.60 CHLORIDE 97L L POTASSIUM 4.1 GLUCOSE 112H H CARBON DIOXIDE 36H H CBC W/AUTO DIFF (04/18/24 09:31) MONOCYTE % 5.5 LYMPHOCYTE % 6.8 L BASOPHIL % 0.2 EOSINOPHIL % 0.0 L NEUTROPHIL % 86.4 H IMMATURE GRANULOCYTE % 1.1 BASOPHIL # 0.06 MEAN PLATELET VOLUME 10.4 MONOCYTE # 1.35 H EOSINOPHIL # 0.01 MEAN CELL HGB CONCENTRATION 31.3 L MEAN CELL HGB 29.4 PLATELET COUNT 424H H RED CELL DISTRIBUTION WIDTH 13.7 HEMOGLOBIN 11.2L L RED BLOOD CELL 3.81 L MEAN CELL VOLUME 94 HEMATOCRIT 35.8 NEUTROPHIL # 21.35 H NUCLEATED RBC % 0.0 WHITE BLOOD CELL 24.70H H LYMPHOCYTE # 1.67 at 1621 ATTENTION *EDITS and/or ADDENDA must be made in Patient Keeper for this note. * * Edits and ammendments created in [facility] are not visible * * in Patient Keeper or the legal medical record ([facility]). * [facility] [place] #: [id number] END OF REPORT [facility] 2024-04-18 13:32:00 [facility] [place] Card[facility] Progress Notes REPORT #: [id number] REPORT STATUS: Signed DATE: 04/18/24 TIME: 1332 PATIENT: MARIE PINEDA UNIT #: [id number] ROOM #: T.207 BED: A : 60 AGE: 63 SEX: F ATTEND: Ricky Herrmann MD ADM AUTHOR: Lucas Fnoseca MD ATTENTION *EDITS and/or ADDENDA must be made in Patient Keeper for this note. * * Edits and ammendments created in [employer] are not visible * * in Patient Keeper or the legal medical record ([facility]). * Note Date: 04/18/24 13:32 -- ASSESSMENT/PLAN -- GENERAL ASSESSMENT: Assessment: Chest pain, atypical Acute hypoxic respiratory failure COPD exacerbation RSV pneumonia Aspiration pneumonia Abnormal cardiac enzymes Sinus tachycardia Metabolic encephalopathy, resolved Essential hypertension Hyperlipidemia Plan: ECG: ST 139 bpm evening of 04/14 Trop I 04/15 normal, was borderline abnormal on 04/10 and 04/11, BNP 101 Echo: LVEF>70%, no significant valvular abnormalities Chest pain, in setting of acute hypoxic and hypercapnic respiratory failure due to COPDE, pneumonia, continue atorvastatin, aspirin 81 daily and metoprolol, non-cardiac secondary to chronic cough and dyspnea, plan for NST as outpatient given her respiratory status Acute hypoxic respiratory failure, COPD exacerbation, RSV and aspiration pneumonias, improving but still on high flow nasal cannula, receiving IV antibiotics and nebulizers, as per pulmonary Will follow intermittently, please call as needed -- SUBJECTIVE -- HPI: Chest pain only with cough today Remains on high flow nasal cannula SOB slightly better Telemetry: sinus rhythm 80-100, no events REVIEW OF SYSTEMS: Comment: A 14 point review of systems is negative other than what is stated in the HPI. -- EXAM -- VITALS (04/17 13:32 - 04/18 13:32): Blood pressure: 116/70 (103/70 - 132/81) Respiratory rate: 18 (17 - 20) Temperature C: 36.7 (36.6 - 37.3) Temperature source: Oral Pulse Rate: 93 (81 - 97) IOS (04/17 07:00-04/18 07:00): Net-300 [id number] Ceseeu481 BM liquid amount ml:0 Colostomy ml:0 Continent stool count:0 Ileostomy ml:0 Number of incontinent voids:2 Number of times incontinent stool:0 Oral ml:100 Rectal tube amount ml:0 Void ml:400 EXAM: Other: General: Mild distress, on high flow nasal cannula Head: NC, AT Eyes: PERRL Neck: No masses, trachea midline Chest:Grossly normal appearance. Lungs: Wheezes, rhonchi, increased work of breathing noted Heart: RRR, normal S1,S2. No murmurs, rubs or gallops. Abdomen: Soft, non-tender,non-distended. Extremities: No clubbing, cyanosis, edema. Neuro: Awake and alert, no focal deficits. -- DATA -- MEDICATIONS PANTOPRAZOLE 40 MG PO DAILY 0600 BUDESONIDE 0.5 MG NEB RTBID POTASSIUM CHLORIDE 10 MEQ IV ASDIR PRN SOD BIPHOS/POT PHOSPHATE 1 PKT PO ASDIR (PRN) hydrALAZINE HCL 10 MG IV Q4H PRN SENNA/DOCUSATE SODIUM 1 TAB PO BID LABETALOL HCL 10 MG IV Q2H PRN methylPREDNISolone SOD SUCC with/in WATER FOR INJECTION,STERILE 40 MG IV DAILY METOPROLOL TARTRATE 25 MG PO BID 6A 6P ALBUTEROL SULFATE 2.5 MG NEB RTQ6H PRN ACETYLCYSTEINE 20% 3 ML PO Q12HR SODIUM CHLORIDE FOR INHALATION 4 ML NEB RTQ6H GLUCAGON 1 MG IM ASDIR PRN ASPIRIN 81 MG PO DAILY ONDANSETRON HCL/PF 4 MG IV Q4H PRN SODIUM PHOSPHATE with/in SODIUM CHLORIDE 0.9% 20 MM IV ASDIR (PRN) POTASSIUM CHLORIDE 20 MEQ IV ASDIR PRN guaiFENesin 600 MG PO Q12HR CALCIUM CARBONATE 1000 MG PO Q4H PRN polyethylene glycoL 3350 1 PKT PO DAILY DEXTROSE 50%-WATER 25 ML IV ASDIR PRN PROPYLENE GLYCOL/PEG 400 1 DROP EACH EYE QID (PRN) NITROGLYCERIN 0.4 MG SL Q5M PRN POTASSIUM BICARBONATE/CIT AC 20 MEQ PO ASDIR PRN ATORVASTATIN CALCIUM 40 MG PO BEDTIME IPRATROPIUM/ALBUTEROL SULFATE 3 ML NEB RTQ6H MAGNESIUM SULFATE 2 GM IV ASDIR amLODIPine BESYLATE 10 MG PO DAILY SODIUM PHOSPHATE with/in SODIUM CHLORIDE 0.9% 15 MM IV ASDIR (PRN) ENOXAPARIN SODIUM 40 MG SUBQ DAILY ACETAMINOPHEN 650 MG PO Q4H PRN QUEtiapine FUMARATE 50 MG PO BID DEXTROSE 37.5 GM PO ASDIR PRN PROMETHAZINE HCL with/in SODIUM CHLORIDE 50 mL BAG 12.5 MG IV Q6H PRN SODIUM PHOSPHATE with/in SODIUM CHLORIDE 0.9% 30 MM IV ASDIR (PRN) LAB RESULTS URINALYSIS COMPLETE (04/18/24 07:00) UA UROBILINOGEN DIPSTICK NORMAL UA PH DIPSTICK 8.0 UA PROTEIN DIPSTICK NEG UA SPECIFIC GRAVITY 1.022 UA BLOOD DIPSTICK TRACE A UA RBC 21-50 H UA BACTERIA NONE SEEN UA LEUKOCYTE ESTERASE DIPSTICK NEG UA WBC 0-5 UA NITRITE DIPSTICK NEG UA BILIRUBIN DIPSTICK NEG UA KETONE DIPSTICK 1+ A UA APPEARANCE TURBID A UA GLUCOSE DIPSTICK NEG UA AMORPHOUS SEDIMENT 1+ UA COLOR Light-Yellow UA SQUAMOUS CELLS RARE UA MUCUS RARE BASIC METABOLIC PANEL (04/18/24 09:31) SODIUM 139 GLOMERULAR FILTRATION RATE >=60 max estimate BLOOD UREA NITROGEN 16 CALCIUM 9.7 CREATININE 0.60 CHLORIDE 97L L POTASSIUM 4.1 GLUCOSE 112H H CARBON DIOXIDE 36H H CBC W/AUTO DIFF (04/18/24 09:31) MONOCYTE % 5.5 LYMPHOCYTE % 6.8 L BASOPHIL % 0.2 EOSINOPHIL % 0.0 L NEUTROPHIL % 86.4 H IMMATURE GRANULOCYTE % 1.1 BASOPHIL # 0.06 MEAN PLATELET VOLUME 10.4 MONOCYTE # 1.35 H EOSINOPHIL # 0.01 MEAN CELL HGB CONCENTRATION 31.3 L MEAN CELL HGB 29.4 PLATELET COUNT 424H H RED CELL DISTRIBUTION WIDTH 13.7 HEMOGLOBIN 11.2L L RED BLOOD CELL 3.81 L MEAN CELL VOLUME 94 HEMATOCRIT 35.8 NEUTROPHIL # 21.35 H NUCLEATED RBC % 0.0 WHITE BLOOD CELL 24.70H H LYMPHOCYTE # 1.67 at 1334 ATTENTION *EDITS and/or ADDENDA must be made in Patient Keeper for this note. * * Edits and ammendments created in [employer] are not visible * * in Patient Keeper or the legal medical record (HPF). * RPT #: [id number] END OF REPORT [facility] 2024-04-18 10:33:00 [facility] [place] [facility] Pulmonology Progress Note REPORT #: [id number] REPORT STATUS: Signed DATE: 04/18/24 TIME: 1033 PATIENT: MARIE PINEDA UNIT #: [id number] ROOM #: T.207 BED: A : 60 AGE: 63 SEX: F ATTEND: Ricky Herrmann MD ADM AUTHOR: Ele Hernandez ATTENTION *EDITS and/or ADDENDA must be made in Patient Keeper for this note. * * Edits and ammendments created in [employer] are not visible * * in Patient Keeper or the legal medical record (HPF). * Note Date: 04/18/24 10:33 -- ASSESSMENT/PLAN -- GENERAL ASSESSMENT: [facility] Consult Note April Lainez MD P: Subjective : remains on vapotherm 25L and 40%, discussed weaning with RT continues with nausea, no vomiting this am per nurse labs this am are pending Assessment: Acute hypercapnic respiratory failure acute RSV infection AECOPD Aspiration pneumonia Lactic acidosis sinus tachycardia altered mental status Plan: Pulmonary : - supplemental O2 to keep SpO2 > 92%, continues on Vapotherm 25 L and 40%, discussed weaning with RT - CT chest prior to admission revealed no evidence of pulmonary embolism, but [id number] COPD and bronchial wall thickening in the lower lobes and right middle lobe secondary to bronchitis along with some mucus material in the bronchi and some nodular foci in the right middle lobe. - repeat CXR with GGO bilateral upper lung mary, reviewed ABG, compensated - CT head non acute - Treated with empiric abx rocephin and azithro, resume Unasyn, follow CIGARETTE MACHINE OPERATOR recommendations - positive RSV, continue supportive care - Continue DuoNebs and Pulmicort, add hypersal nebs and mucomyst to help with expectoration - Urinary antigen strep pneumo and Legionella negative - continues on systemic steroid, wean pending clinical course - Sputum culture with no growth since 04/10/2024 - covid negative - NIV at bedtime and as needed thank you for this consult, will follow --------- HPI: Patient is a 63-year-old female with past medical history significant for COPD and hypertension, who was brought to the Emergency Room for evaluation of COPD exacerbation and respiratory failure. Patient was at [facility] where she was admitted for shortness of breath. She was found to be in respiratory distress and was placed on BiPAP therapy and was transferred here to our hospital for continued management. She required intubated and was extubated on 04/12/24, transitioned to vapotherm and pulmonary consulted after downgrade from ICU. MedHx: COPD on home O2 2-3L SurgHx: ESDRAS Family Hx: ESDRAS Social Hx: inmate, quit smoking 6 months ago but previous to this smoked 1 PPD for greater than 40 years, incarcerated Physical Exam: Gen: ill appearing, disheveled, on HFNC Head: atraumatic, normocephalic ENT: EOMI, conjunctivae pink, sclera clear, neck w/o masses, trachea midline, MMM, oropharynx clear CV: RRR, s1/s2, peripheral pulses palpable Resp: diminished bilateral breath sounds, symmetric expansion, scant wheezes bilaterally Abd: soft, non-tender, not distended, +BS Ext/MSK: no edema/cyanosis, cap refill < 3 secs, normal tone Skin: warm, dry, color consistent w/ ethnicity, no rashes Neuro: AO x2-3, conversant, follows commands, Christiano Psych: calm -- EXAM -- VITALS (04/17 10:33 - 04/18 10:33): Blood pressure: 117/70 (103/70 - 132/81) Respiratory rate: 20 (14 - 20) Temperature C: 36.6 (36.6 - 37.3) Temperature source: Axillary Pulse Rate: 92 (81 - 97) IOS (04/17 07:00-04/18 07:00): Net-300 [id number] BM liquid amount ml:0 Colostomy ml:0 Continent stool count:0 Ileostomy ml:0 Number of incontinent voids:2 Number of times incontinent stool:0 Oral ml:100 Rectal tube amount ml:0 Void ml:400 -- DATA -- MEDICATIONS PANTOPRAZOLE 40 MG PO DAILY 0600 BUDESONIDE 0.5 MG NEB RTBID POTASSIUM CHLORIDE 10 MEQ IV ASDIR PRN SOD BIPHOS/POT PHOSPHATE 1 PKT PO ASDIR (PRN) hydrALAZINE HCL 10 MG IV Q4H PRN SENNA/DOCUSATE SODIUM 1 TAB PO BID LABETALOL HCL 10 MG IV Q2H PRN METOPROLOL TARTRATE 25 MG PO BID 6A 6P ALBUTEROL SULFATE 2.5 MG NEB RTQ6H PRN methylPREDNISolone SOD SUCC with/in WATER FOR INJECTION,STERILE 40 MG IV Q12HR GLUCAGON 1 MG IM ASDIR PRN ASPIRIN 81 MG PO DAILY ONDANSETRON HCL/PF 4 MG IV Q4H PRN SODIUM PHOSPHATE with/in SODIUM CHLORIDE 0.9% 20 MM IV ASDIR (PRN) POTASSIUM CHLORIDE 20 MEQ IV ASDIR PRN CALCIUM CARBONATE 1000 MG PO Q4H PRN polyethylene glycoL 3350 1 PKT PO DAILY DEXTROSE 50%-WATER 25 ML IV ASDIR PRN PROPYLENE GLYCOL/PEG 400 1 DROP EACH EYE QID (PRN) NITROGLYCERIN 0.4 MG SL Q5M PRN POTASSIUM BICARBONATE/CIT AC 20 MEQ PO ASDIR PRN ATORVASTATIN CALCIUM 40 MG PO BEDTIME IPRATROPIUM/ALBUTEROL SULFATE 3 ML NEB RTQ6H MAGNESIUM SULFATE 2 GM IV ASDIR amLODIPine BESYLATE 10 MG PO DAILY SODIUM PHOSPHATE with/in SODIUM CHLORIDE 0.9% 15 MM IV ASDIR (PRN) ENOXAPARIN SODIUM 40 MG SUBQ DAILY ACETAMINOPHEN 650 MG PO Q4H PRN QUEtiapine FUMARATE 50 MG PO BID DEXTROSE 37.5 GM PO ASDIR PRN PROMETHAZINE HCL with/in SODIUM CHLORIDE 50 mL BAG 12.5 MG IV Q6H PRN SODIUM PHOSPHATE with/in SODIUM CHLORIDE 0.9% 30 MM IV ASDIR (PRN) LAB RESULTS URINALYSIS COMPLETE (04/18/24 07:00) UA UROBILINOGEN DIPSTICK NORMAL UA PH DIPSTICK 8.0 UA PROTEIN DIPSTICK NEG UA SPECIFIC GRAVITY 1.022 UA BLOOD DIPSTICK TRACE A UA RBC 21-50 H UA BACTERIA NONE SEEN UA LEUKOCYTE ESTERASE DIPSTICK NEG UA WBC 0-5 UA NITRITE DIPSTICK NEG UA BILIRUBIN DIPSTICK NEG UA KETONE DIPSTICK 1+ A UA APPEARANCE TURBID A UA GLUCOSE DIPSTICK NEG UA AMORPHOUS SEDIMENT 1+ UA COLOR Light-Yellow UA SQUAMOUS CELLS RARE UA MUCUS RARE at 1131 at 1131 ATTENTION *EDITS and/or ADDENDA must be made in Patient Keeper for this note. * * Edits and ammendments created in [employer] are not visible * * in Patient Keeper or the legal medical record (HPF). * RPT #: [id number] END OF REPORT [facility] 2024-04-17 16:27:00 [facility] ([facility]) Internal Med. Progress Note REPORT #: [id number] REPORT STATUS: Signed DATE: 04/17/24 TIME: 1626 PATIENT: MARIE PINEDA UNIT #: [id number] ROOM #: T.[facility] BED: A : 60 AGE: 63 SEX: F ATTEND: Ricky Herrmann MD ADM AUTHOR: Ricky Herrmann MD ATTENTION *EDITS and/or ADDENDA must be made in Patient Keeper for this note. * * Edits and ammendments created in [employer] are not visible * * in Patient Keeper or the legal medical record (HPF). * Note Date: 04/17/24 16:27 -- ASSESSMENT/PLAN -- ASSESSMENT / PLAN: 1: RSV (respiratory syncytial virus infection) 2: Aspiration pneumonia 3: Acute metabolic encephalopathy 4: COPD exacerbation 5: Chest pain ADDITIONAL COMMENTS: CPM -- SUBJECTIVE -- CHIEF COMPLAINT: Pneumonia/COPD PATIENT NARRATIVE: No new complains Remains anxious REVIEW OF SYSTEMS: General Negative for fever, malaise, fatigue. Eyes Negative for blurry vision. No diplopia. Ears/Nose/Throat Negative for sore throat. No otalgia. No rhinorrhea. Respiratory Positive for dyspnea or wheeze. No cough. Cardiovascular Negative for chest pain or palpitations. No extremity swelling. Gastrointestinal Negative for abdominal pain or nausea. No emesis. No diarrhea. Genitourinary Negative for dysuria, frequency, or urgency. No gross hematuria. Neurological Negative for headache. No vertigo. Denies paresthesias. -- EXAM -- VITALS (04/16 16:27 - 04/17 16:27): Blood pressure: 116/74 (111/63 - 137/83) Respiratory rate: 14 (14 - 20) Pulse Rate: 85 (70 - 103) Temperature C: 36.8 (36.6 - 37.2) Temperature source: Axillary IOS (04/16 07:00-04/17 07:00): Net-150.00 [id number] [id number] Continent stool count:0 IV fluid 1 volume ml:200.00 Oral ml:200 Void ml:550 EXAM: General Well developed, well nourished, in no apparent distress. Head Normocephalic, atraumatic. Eyes PERRL, EOM intact, conjunctiva and sclera clear, without nystagmus, lids normal. Neck No masses, no thyromegaly, no abnormal cervical nodes, trachea midline. Chest Grossly normal appearance. Lungs Coarse bilaterally with normal respiratory effort. Heart Regular rate and rhythm, normal S1, S2, no murmurs, no rubs, no gallops, no clicks. Abdomen Soft, non-tender, no organomegaly, no masses noted. Extremities No clubbing, no cyanosis, no edema. Neurological No focal deficits, cranial nerves II-XII grossly intact, normal sensation, normal reflexes, normal coordination, normal muscle strength, normal tone. -- DATA -- MEDICATIONS PANTOPRAZOLE 40 MG PO DAILY 0600 BUDESONIDE 0.5 MG NEB RTBID POTASSIUM CHLORIDE 10 MEQ IV ASDIR PRN SOD BIPHOS/POT PHOSPHATE 1 PKT PO ASDIR (PRN) hydrALAZINE HCL 10 MG IV Q4H PRN SENNA/DOCUSATE SODIUM 1 TAB PO BID LABETALOL HCL 10 MG IV Q2H PRN METOPROLOL TARTRATE 25 MG PO BID 6A 6P ALBUTEROL SULFATE 2.5 MG NEB RTQ6H PRN methylPREDNISolone SOD SUCC with/in WATER FOR INJECTION,STERILE 40 MG IV Q12HR GLUCAGON 1 MG IM ASDIR PRN ASPIRIN 81 MG PO DAILY ONDANSETRON HCL/PF 4 MG IV Q4H PRN AMPICILLIN/SULBACTAM with/in SODIUM CHLORIDE 100 mL BAG 3 GM IV Q6HR SODIUM PHOSPHATE with/in SODIUM CHLORIDE 0.9% 20 MM IV ASDIR (PRN) POTASSIUM CHLORIDE 20 MEQ IV ASDIR PRN CALCIUM CARBONATE 1000 MG PO Q4H PRN polyethylene glycoL 3350 1 PKT PO DAILY DEXTROSE 50%-WATER 25 ML IV ASDIR PRN PROPYLENE GLYCOL/PEG 400 1 DROP EACH EYE QID (PRN) NITROGLYCERIN 0.4 MG SL Q5M PRN POTASSIUM BICARBONATE/CIT AC 20 MEQ PO ASDIR PRN ATORVASTATIN CALCIUM 40 MG PO BEDTIME IPRATROPIUM/ALBUTEROL SULFATE 3 ML NEB RTQ6H MAGNESIUM SULFATE 2 GM IV ASDIR amLODIPine BESYLATE 10 MG PO DAILY SODIUM PHOSPHATE with/in SODIUM CHLORIDE 0.9% 15 MM IV ASDIR (PRN) ENOXAPARIN SODIUM 40 MG SUBQ DAILY ACETAMINOPHEN 650 MG PO Q4H PRN QUEtiapine FUMARATE 50 MG PO BID DEXTROSE 37.5 GM PO ASDIR PRN PROMETHAZINE HCL with/in SODIUM CHLORIDE 50 mL BAG 12.5 MG IV Q6H PRN SODIUM PHOSPHATE with/in SODIUM CHLORIDE 0.9% 30 MM IV ASDIR (PRN) LAB RESULTS BASIC METABOLIC PANEL (04/17/24 05:04) CARBON DIOXIDE 37H H GLUCOSE 107H H BLOOD UREA NITROGEN 17 GLOMERULAR FILTRATION RATE >=60 max estimate SODIUM 139 POTASSIUM 4.4 CHLORIDE 94L L CREATININE 0.59 CALCIUM 9.8 MAG (04/17/24 05:04) MAGNESIUM 2.0 CBC W/AUTO DIFF (04/17/24 05:04) EOSINOPHIL # 0.00 PLATELET COUNT 412H H RED CELL DISTRIBUTION WIDTH 13.7 MEAN PLATELET VOLUME 10.2 MONOCYTE # 0.78 NEUTROPHIL % 90.2 H BASOPHIL % 0.2 EOSINOPHIL % 0.0 L NEUTROPHIL # 19.38 H NUCLEATED RBC % 0.0 IMMATURE GRANULOCYTE % 1.3 BASOPHIL # 0.05 MONOCYTE % 3.6 L LYMPHOCYTE % 4.7 L MEAN CELL VOLUME 96 HEMATOCRIT 37.6 MEAN CELL HGB CONCENTRATION 30.9 L MEAN CELL HGB 29.5 WHITE BLOOD CELL 21.50H H LYMPHOCYTE # 1.00 L HEMOGLOBIN 11.6L L RED BLOOD CELL 3.93 L at 1628 ATTENTION *EDITS and/or ADDENDA must be made in Patient Keeper for this note. * * Edits and ammendments created in [facility] are not visible * * in Patient Keeper or the legal medical record (HPF). * [facility] [place] #: [id number] END OF REPORT [facility] 2024-04-17 12:42:00 [facility] [place] ([facility]) Cardiology Progress Notes REPORT #: [id number] REPORT STATUS: Signed DATE: 04/17/24 TIME: 1242 PATIENT: MARIE PINEDA UNIT #: [id number] ROOM #: T.221 BED: A : 60 AGE: 63 SEX: F ATTEND: Ricky Herrmann MD ADM AUTHOR: Lucas Fonseca MD ATTENTION *EDITS and/or ADDENDA must be made in Patient Keeper for this note. * * Edits and ammendments created in [employer] are not visible * * in Patient Keeper or the legal medical record (HPF). * Note Date: 04/17/24 12:42 -- ASSESSMENT/PLAN -- GENERAL ASSESSMENT: Assessment: Chest pain, atypical Acute hypoxic respiratory failure COPD exacerbation RSV pneumonia Aspiration pneumonia Abnormal cardiac enzymes Sinus tachycardia Metabolic encephalopathy, resolved Essential hypertension Hyperlipidemia Plan: ECG: ST 139 bpm evening of 04/14 Trop I 04/15 normal, was borderline abnormal on 04/10 and 04/11, BNP 101 Echo: LVEF>70%, no significant valvular abnormalities Chest pain, in setting of acute hypoxic and hypercapnic respiratory failure due to COPDE, pneumonia, continue atorvastatin, aspirin 81 daily and metoprolol, NST will likely need to be done as outpatient given her respiratory status Acute hypoxic respiratory failure, COPD exacerbation, RSV and aspiration pneumonias, improving but still on high flow nasal cannula, receiving IV antibiotics and nebulizers, as per pulmonary Telemetry monitoring Continue care -- SUBJECTIVE -- HPI: Remains SOB on high flow nasal cannula MIldly improved Still feels some chest discomfort in the center of her chest and her small back. Worse with cough. Telemetry: sinus rhythm 70s-80s, no events REVIEW OF SYSTEMS: Comment: A 14 point review of systems is negative other than what is stated in the HPI. -- EXAM -- VITALS (04/16 12:42 - 04/17 12:42): Temperature C: 36.8 (36.2 - 37.2) Temperature source: Axillary Blood pressure: 116/74 (111/63 - 143/88) Respiratory rate: 14 (13 - 20) Pulse Rate: 85 (70 - 103) IOS (04/16 07:00-04/17 07:00): Net-150.00 [id number] [id number] Continent stool count:0 IV fluid 1 volume ml:200.00 Oral ml:200 Void ml:550 EXAM: Other: General: Mild distress, on high flow nasal cannula Head: NC, AT Eyes: PERRL Neck: No masses, trachea midline Chest:Grossly normal appearance. Lungs: Wheezes, rhonchi, increased work of breathing noted Heart: RRR, normal S1,S2. No murmurs, rubs or gallops. Abdomen: Soft, non-tender,non-distended. Extremities: No clubbing, cyanosis, edema. Neuro: Awake and alert, no focal deficits. -- DATA -- MEDICATIONS PANTOPRAZOLE 40 MG PO DAILY 0600 BUDESONIDE 0.5 MG NEB RTBID POTASSIUM CHLORIDE 10 MEQ IV ASDIR PRN SOD BIPHOS/POT PHOSPHATE 1 PKT PO ASDIR (PRN) hydrALAZINE HCL 10 MG IV Q4H PRN SENNA/DOCUSATE SODIUM 1 TAB PO BID LABETALOL HCL 10 MG IV Q2H PRN METOPROLOL TARTRATE 25 MG PO BID 6A 6P ALBUTEROL SULFATE 2.5 MG NEB RTQ6H PRN methylPREDNISolone SOD SUCC with/in WATER FOR INJECTION,STERILE 40 MG IV Q12HR GLUCAGON 1 MG IM ASDIR PRN ASPIRIN 81 MG PO DAILY ONDANSETRON HCL/PF 4 MG IV Q4H PRN AMPICILLIN/SULBACTAM with/in SODIUM CHLORIDE 100 mL BAG 3 GM IV Q6HR SODIUM PHOSPHATE with/in SODIUM CHLORIDE 0.9% 20 MM IV ASDIR (PRN) POTASSIUM CHLORIDE 20 MEQ IV ASDIR PRN CALCIUM CARBONATE 1000 MG PO Q4H PRN polyethylene glycoL 3350 1 PKT PO DAILY DEXTROSE 50%-WATER 25 ML IV ASDIR PRN PROPYLENE GLYCOL/PEG 400 1 DROP EACH EYE QID (PRN) NITROGLYCERIN 0.4 MG SL Q5M PRN POTASSIUM BICARBONATE/CIT AC 20 MEQ PO ASDIR PRN ATORVASTATIN CALCIUM 40 MG PO BEDTIME IPRATROPIUM/ALBUTEROL SULFATE 3 ML NEB RTQ6H MAGNESIUM SULFATE 2 GM IV ASDIR amLODIPine BESYLATE 10 MG PO DAILY SODIUM PHOSPHATE with/in SODIUM CHLORIDE 0.9% 15 MM IV ASDIR (PRN) ENOXAPARIN SODIUM 40 MG SUBQ DAILY ACETAMINOPHEN 650 MG PO Q4H PRN QUEtiapine FUMARATE 50 MG PO BID DEXTROSE 37.5 GM PO ASDIR PRN PROMETHAZINE HCL with/in SODIUM CHLORIDE 50 mL BAG 12.5 MG IV Q6H PRN SODIUM PHOSPHATE with/in SODIUM CHLORIDE 0.9% 30 MM IV ASDIR (PRN) LAB RESULTS BASIC METABOLIC PANEL (04/17/24 05:04) CARBON DIOXIDE 37H H GLUCOSE 107H H BLOOD UREA NITROGEN 17 GLOMERULAR FILTRATION RATE >=60 max estimate SODIUM 139 POTASSIUM 4.4 CHLORIDE 94L L CREATININE 0.59 CALCIUM 9.8 MAG (04/17/24 05:04) MAGNESIUM 2.0 CBC W/AUTO DIFF (04/17/24 05:04) EOSINOPHIL # 0.00 PLATELET COUNT 412H H RED CELL DISTRIBUTION WIDTH 13.7 MEAN PLATELET VOLUME 10.2 MONOCYTE # 0.78 NEUTROPHIL % 90.2 H BASOPHIL % 0.2 EOSINOPHIL % 0.0 L NEUTROPHIL # 19.38 H NUCLEATED RBC % 0.0 IMMATURE GRANULOCYTE % 1.3 BASOPHIL # 0.05 MONOCYTE % 3.6 L LYMPHOCYTE % 4.7 L MEAN CELL VOLUME 96 HEMATOCRIT 37.6 MEAN CELL HGB CONCENTRATION 30.9 L MEAN CELL HGB 29.5 WHITE BLOOD CELL 21.50H H LYMPHOCYTE # 1.00 L HEMOGLOBIN 11.6L L RED BLOOD CELL 3.93 L at 1244 ATTENTION *EDITS and/or ADDENDA must be made in Patient Keeper for this note. * * Edits and ammendments created in [employer] are not visible * * in Patient Keeper or the legal medical record ([facility]). * RPT #: [id number] END OF REPORT [facility] 2024-04-17 10:53:00 [facility] [place] ([facility]) Pulmonology Progress Note REPORT #: [id number] REPORT STATUS: Signed DATE: 04/17/24 TIME: 1053 PATIENT: MARIE PINEDA [facility]IT #: [id number] [facility] AGE: 63 SEX: F ATTEND: Ricky Herrmann MD ADM AUTHOR: Ele Hernandez ATTENTION *EDITS and/or ADDENDA must be made in Patient Keeper for this note. * * Edits and ammendments created in [facility] are not visible * * in Patient Keeper or the legal medical record ([facility]). * Note Date: 04/17/24 10:53 -- ASSESSMENT/PLAN -- GENERAL ASSESSMENT: [facility] Consult Note April Lainez MD P: Subjective : remains on vapotherm 25L and 40% occ cough sitting up in bed, denies N/V today, wore NIV overnight appears improved Assessment: Acute hypercapnic respiratory failure acute RSV infection AECOPD Aspiration pneumonia Lactic acidosis sinus tachycardia altered mental status Plan: Pulmonary : - supplemental O2 to keep SpO2 > 92%, continues on Vapotherm 25 L and 40% - CT chest prior to admission revealed no evidence of pulmonary embolism, but [id number] COPD and bronchial wall thickening in the lower lobes and right middle lobe secondary to bronchitis along with some mucus material in the bronchi and some nodular foci in the right middle lobe. 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 Patient was at [facility] where she was admitted for shortness of breath. She was found to be in respiratory distress and was placed on BiPAP therapy and was transferred here to our hospital for continued management. She required intubated and was extubated on 04/12/24, transitioned to vapotherm and pulmonary consulted after downgrade from ICU. MedHx: COPD on home O2 2-3L SurgHx: ESDRAS Family Hx: ESDRAS Social Hx: inmate, quit smoking 6 months ago but previous to this smoked 1 PPD for greater than 40 years, incarcerated Physical Exam: Gen: ill appearing, disheveled, on HFNC Head: atraumatic, normocephalic ENT: EOMI, conjunctivae pink, sclera clear, neck w/o masses, trachea midline, MMM, oropharynx clear CV: RRR, s1/s2, peripheral pulses palpable Resp: diminished bilateral breath sounds, symmetric expansion, scant wheezes bilaterally Abd: soft, non-tender, not distended, +BS Ext/MSK: no edema/cyanosis, cap refill < 3 secs, normal tone Skin: warm, dry, color consistent w/ ethnicity, no rashes Neuro: AO x2-3, conversant, follows commands, Christiano Psych: calm -- EXAM -- VITALS (04/16 10:53 - 04/17 10:53): Blood pressure: 129/79 (111/63 - 143/88) Respiratory rate: 20 (13 - 20) Pulse Rate: 94 (70 - 103) Temperature source: Axillary Temperature C: 36.7 (35.8 - 37.2) IOS (04/16 07:00-04/17 07:00): Net-150.00 [id number] [id number] Continent stool count:0 IV fluid 1 volume ml:200.00 Oral ml:200 Void ml:550 -- DATA -- MEDICATIONS PANTOPRAZOLE 40 MG PO DAILY 0600 BUDESONIDE 0.5 MG NEB RTBID POTASSIUM CHLORIDE 10 MEQ IV ASDIR PRN SOD BIPHOS/POT PHOSPHATE 1 PKT PO ASDIR (PRN) hydrALAZINE HCL 10 MG IV Q4H PRN SENNA/DOCUSATE SODIUM 1 TAB PO BID LABETALOL HCL 10 MG IV Q2H PRN METOPROLOL TARTRATE 25 MG PO BID 6A 6P ALBUTEROL SULFATE 2.5 MG NEB RTQ6H PRN methylPREDNISolone SOD SUCC with/in WATER FOR INJECTION,STERILE 40 MG IV Q12HR GLUCAGON 1 MG IM ASDIR PRN ASPIRIN 81 MG PO DAILY ONDANSETRON HCL/PF 4 MG IV Q4H PRN AMPICILLIN/SULBACTAM with/in SODIUM CHLORIDE 100 mL BAG 3 GM IV Q6HR SODIUM PHOSPHATE with/in SODIUM CHLORIDE 0.9% 20 MM IV ASDIR (PRN) POTASSIUM CHLORIDE 20 MEQ IV ASDIR PRN CALCIUM CARBONATE 1000 MG PO Q4H PRN polyethylene glycoL 3350 1 PKT PO DAILY DEXTROSE 50%-WATER 25 ML IV ASDIR PRN PROPYLENE GLYCOL/PEG 400 1 DROP EACH EYE QID (PRN) NITROGLYCERIN 0.4 MG SL Q5M PRN POTASSIUM BICARBONATE/CIT AC 20 MEQ PO ASDIR PRN ATORVASTATIN CALCIUM 40 MG PO BEDTIME IPRATROPIUM/ALBUTEROL SULFATE 3 ML NEB RTQ6H MAGNESIUM SULFATE 2 GM IV ASDIR amLODIPine BESYLATE 10 MG PO DAILY SODIUM PHOSPHATE with/in SODIUM CHLORIDE 0.9% 15 MM IV ASDIR (PRN) ENOXAPARIN SODIUM 40 MG SUBQ DAILY ACETAMINOPHEN 650 MG PO Q4H PRN QUEtiapine FUMARATE 50 MG PO BID DEXTROSE 37.5 GM PO ASDIR PRN PROMETHAZINE HCL with/in SODIUM CHLORIDE 50 mL BAG 12.5 MG IV Q6H PRN SODIUM PHOSPHATE with/in SODIUM CHLORIDE 0.9% 30 MM IV ASDIR (PRN) LAB RESULTS BASIC METABOLIC PANEL (04/17/24 05:04) CARBON DIOXIDE 37H H GLUCOSE 107H H BLOOD UREA NITROGEN 17 GLOMERULAR FILTRATION RATE >=60 max estimate SODIUM 139 POTASSIUM 4.4 CHLORIDE 94L L CREATININE 0.59 CALCIUM 9.8 MAG (04/17/24 05:04) MAGNESIUM 2.0 CBC W/AUTO DIFF (04/17/24 05:04) EOSINOPHIL # 0.00 PLATELET COUNT 412H H RED CELL DISTRIBUTION WIDTH 13.7 MEAN PLATELET VOLUME 10.2 MONOCYTE # 0.78 NEUTROPHIL % 90.2 H BASOPHIL % 0.2 EOSINOPHIL % 0.0 L NEUTROPHIL # 19.38 H NUCLEATED RBC % 0.0 IMMATURE GRANULOCYTE % 1.3 BASOPHIL # 0.05 MONOCYTE % 3.6 L LYMPHOCYTE % 4.7 L MEAN CELL VOLUME 96 HEMATOCRIT 37.6 MEAN CELL HGB CONCENTRATION 30.9 L MEAN CELL HGB 29.5 WHITE BLOOD CELL 21.50H H LYMPHOCYTE # 1.00 L HEMOGLOBIN 11.6L L RED BLOOD CELL 3.93 L at 1131 at 1131 ATTENTION *EDITS and/or ADDENDA must be made in Patient Keeper for this note. * * Edits and ammendments created in [employer] are not visible * * in Patient Keeper or the legal medical record (HPF). * RPT #: [id number] END OF REPORT [facility] 2024-04-16 16:08:00 [facility] [place] ([place] [facility]) Cardiology Progress Notes REPORT #: [id number] REPORT STATUS: Signed DATE: 04/16/24 TIME: 1608 PATIENT: MARIE PINEDA UNIT #: [id number] ROOM #: T.221 BED: A : 60 AGE: 63 SEX: F ATTEND: Ricky Herrmann MD ADM AUTHOR: Lucas Fonseca MD ATTENTION *EDITS and/or ADDENDA must be made in Patient Keeper for this note. * * Edits and ammendments created in [employer] are not visible * * in Patient Keeper or the legal medical record (HPF). * Note Date: 04/16/24 16:08 -- ASSESSMENT/PLAN -- GENERAL ASSESSMENT: Assessment: Chest pain, atypical Acute hypoxic respiratory failure COPD exacerbation RSV pneumonia Aspiration pneumonia Abnormal cardiac enzymes Sinus tachycardia Metabolic encephalopathy, resolved Essential hypertension Hyperlipidemia Plan: ECG: ST 139 bpm evening of 04/14 Trop I 04/15 normal, was borderline abnormal on 04/10 and 04/11, BNP 101 Echo: LVEF>70%, no significant valvular abnormalities Chest pain, in setting of acute hypoxic and hypercapnic respiratory failure due to COPDE, pneumonia, continue atorvastatin, aspirin 81 daily and metoprolol, NST can be done as outpatient as she is not well enough from respiratory standpoint this admission Acute hypoxic respiratory failure, COPD exacerbation, RSV and aspiration pneumonias, receiving IV antibiotics and nebulizers, as per pulmonary Telemetry monitoring Continue care -- SUBJECTIVE -- HPI: Patient was somnolent earlier in the day and she had a CT head done More awake now Chest discomfort and SOB are improved She remains on high flow nasal cannula Heart rate improved on metoprolol REVIEW OF SYSTEMS: Comment: A 14 point review of systems is negative other than what is stated in the HPI. -- EXAM -- VITALS (04/15 16:08 - 04/16 16:08): Blood pressure: 143/88 (109/60 - 163/100) Respiratory rate: 13 (13 - 20) Temperature C: 36.2 (35.6 - 37.2) Temperature source: Temporal Pulse Rate: 97 (71 - 107) IOS (04/15 07:00-04/16 07:00): [id number] Pzwroh978.00 [id number] Continent stool count:1 IV fluid 13 volume ml:100.00 Number of incontinent voids:3 Number of times incontinent stool:1 Oral ml:850 Void ml:700 EXAM: Other: General: Mild distress, on high flow nasal cannula Head: NC, AT Eyes: PERRL Neck: No masses, trachea midline Chest:Grossly normal appearance. Lungs: Wheezes, rhonchi, increased work of breathing noted Heart: RRR, normal S1,S2. No murmurs, rubs or gallops. Abdomen: Soft, non-tender,non-distended. Extremities: No clubbing, cyanosis, edema. Neuro: Awake and alert, no focal deficits. -- DATA -- MEDICATIONS PANTOPRAZOLE 40 MG PO DAILY 0600 BUDESONIDE 0.5 MG NEB RTBID POTASSIUM CHLORIDE 10 MEQ IV ASDIR PRN SOD BIPHOS/POT PHOSPHATE 1 PKT PO ASDIR (PRN) hydrALAZINE HCL 10 MG IV Q4H PRN SENNA/DOCUSATE SODIUM 1 TAB PO BID LABETALOL HCL 10 MG IV Q2H PRN METOPROLOL TARTRATE 25 MG PO BID 6A 6P ALBUTEROL SULFATE 2.5 MG NEB RTQ6H PRN methylPREDNISolone SOD SUCC with/in WATER FOR INJECTION,STERILE 40 MG IV Q12HR GLUCAGON 1 MG IM ASDIR PRN ASPIRIN 81 MG PO DAILY ONDANSETRON HCL/PF 4 MG IV Q4H PRN AMPICILLIN/SULBACTAM with/in SODIUM CHLORIDE 100 mL BAG 3 GM IV Q6HR SODIUM PHOSPHATE with/in SODIUM CHLORIDE 0.9% 20 MM IV ASDIR (PRN) POTASSIUM CHLORIDE 20 MEQ IV ASDIR PRN CALCIUM CARBONATE 1000 MG PO Q4H PRN polyethylene glycoL 3350 1 PKT PO DAILY DEXTROSE 50%-WATER 25 ML IV ASDIR PRN PROPYLENE GLYCOL/PEG 400 1 DROP EACH EYE QID (PRN) NITROGLYCERIN 0.4 MG SL Q5M PRN POTASSIUM BICARBONATE/CIT AC 20 MEQ PO ASDIR PRN ATORVASTATIN CALCIUM 40 MG PO BEDTIME IPRATROPIUM/ALBUTEROL SULFATE 3 ML NEB RTQ6H MAGNESIUM SULFATE 2 GM IV ASDIR amLODIPine BESYLATE 10 MG PO DAILY SODIUM PHOSPHATE with/in SODIUM CHLORIDE 0.9% 15 MM IV ASDIR (PRN) ENOXAPARIN SODIUM 40 MG SUBQ DAILY ACETAMINOPHEN 650 MG PO Q4H PRN QUEtiapine FUMARATE 50 MG PO BID DEXTROSE 37.5 GM PO ASDIR PRN PROMETHAZINE HCL with/in SODIUM CHLORIDE 50 mL BAG 12.5 MG IV Q6H PRN SODIUM PHOSPHATE with/in SODIUM CHLORIDE 0.9% 30 MM IV ASDIR (PRN) LAB RESULTS CBC W/AUTO DIFF (04/16/24 04:02) MEAN PLATELET VOLUME 9.8 EOSINOPHIL # 0.00 PLATELET COUNT 412H H MONOCYTE # 1.04 H MEAN CELL HGB CONCENTRATION 31.5 L RED CELL DISTRIBUTION WIDTH 13.4 MEAN CELL VOLUME 93 MEAN CELL HGB 29.4 HEMOGLOBIN 11.9L L HEMATOCRIT 37.8 WHITE BLOOD CELL 20.80H H RED BLOOD CELL 4.05 L NEUTROPHIL # 17.91 H LYMPHOCYTE # 1.37 BASOPHIL % 0.2 NUCLEATED RBC % 0.0 MONOCYTE % 5.0 L EOSINOPHIL % 0.0 L IMMATURE GRANULOCYTE % 2.1 H LYMPHOCYTE % 6.6 L NEUTROPHIL % 86.1 H BASOPHIL # 0.05 BASIC METABOLIC PANEL (04/16/24 04:02) GLOMERULAR FILTRATION RATE >=60 max estimate GLUCOSE 111H H BLOOD UREA NITROGEN 14 CHLORIDE 95L L CARBON DIOXIDE > 40*H *H SODIUM 142 POTASSIUM 4.2 CREATININE 0.64 CALCIUM 10.0 MAG (04/16/24 04:02) MAGNESIUM 2.1 ARTERIAL BLOOD GAS (04/16/24 11:40) ALLENS TEST Yes ABG VENT MODE High Flow ABG L/M 25.00 ARTERIAL FIO2 40.0 ABG O2 SATURATION 97.0 BASE EXCESS 10.0 H BICARBONATE TOTAL HCO3 36.5 H ARTERIAL BLOOD GAS PO2 91.2 ARTERIAL BLOOD GAS PCO2 56.2 H ARTERIAL BLOOD GAS PH 7.431 PaO2/FiO2 (04/16/24 11:40) PaO2/FiO2 228.00 GLU BED (04/16/24 11:43) GLUBED 99 LACTIC ACID (04/16/24 11:50) LACTIC ACID 0.9 at 1611 ATTENTION *EDITS and/or ADDENDA must be made in Patient Keeper for this note. * * Edits and ammendments created in [employer] are not visible * * in Patient Keeper or the legal medical record ([facility]). * RPT #: [id number] END OF REPORT [facility] 2024-04-16 13:10:00 [facility] [place] [facility] Internal Med. Progress Note REPORT #: [id number] REPORT STATUS: Signed DATE: 04/16/24 TIME: 1310 PATIENT: MARIE PINEDA UNIT #: [id number] ROOM #: T.221 BED: A : 60 AGE: 63 SEX: F ATTEND: Ricky Herrmann MD ADM AUTHOR: Ricky Herrmann MD ATTENTION *EDITS and/or ADDENDA must be made in Patient Keeper for this note. * * Edits and ammendments created in [facility] are not visible * * in Patient Keeper or the legal medical record ([facility]). * Note Date: 04/16/24 13:10 -- ASSESSMENT/PLAN -- ASSESSMENT / PLAN: 1: Elevated troponin 2: RSV (respiratory syncytial virus infection) 3: Aspiration pneumonia 4: Acute metabolic encephalopathy 5: COPD exacerbation 6: Chest pain 7: Nausea vomiting ADDITIONAL COMMENTS: Continue phenergan Cardio and pulm to follow -- SUBJECTIVE -- CHIEF COMPLAINT: Resp failure/COPD exac/Chest pain/Nausea-Vomiting PATIENT NARRATIVE: Doing OK REVIEW OF SYSTEMS: General Negative for fever, malaise, fatigue. Eyes Negative for blurry vision. No diplopia. Ears/Nose/Throat Negative for sore throat. No otalgia. No rhinorrhea. Respiratory Negative for dyspnea or wheeze. No cough. Cardiovascular Negative for chest pain or palpitations. No extremity swelling. Gastrointestinal Negative for abdominal pain or nausea. No emesis. No diarrhea. Genitourinary Negative for dysuria, frequency, or urgency. No gross hematuria. Neurological Negative for headache. No vertigo. Denies paresthesias. -- EXAM -- VITALS (04/15 13:10 - 04/16 13:10): Blood pressure: 143/81 (109/60 - 163/100) Temperature source: Temporal Temperature C: 35.8 (35.6 - 37.2) Respiratory rate: 14 (14 - 20) Pulse Rate: 79 (71 - 107) IOS (04/15 07:00-04/16 07:00): [id number] Qtksul832.00 [id number] Continent stool count:1 IV fluid 13 volume ml:100.00 Number of incontinent voids:3 Number of times incontinent stool:1 Oral ml:850 Void ml:700 EXAM: General Well developed, well nourished, in no apparent distress. Head Normocephalic, atraumatic. Eyes PERRL, EOM intact, conjunctiva and sclera clear, without nystagmus, lids normal. Neck No masses, no thyromegaly, no abnormal cervical nodes, trachea midline. Chest Grossly normal appearance. Lungs Clear bilaterally with normal respiratory effort. Heart Regular rate and rhythm, normal S1, S2, no murmurs, no rubs, no gallops, no clicks. Abdomen Soft, non-tender, no organomegaly, no masses noted. Extremities No clubbing, no cyanosis, no edema. Neurological No focal deficits, cranial nerves II-XII grossly intact, normal sensation, normal reflexes, normal coordination, normal muscle strength, normal tone. -- DATA -- MEDICATIONS PANTOPRAZOLE 40 MG PO DAILY 0600 BUDESONIDE 0.5 MG NEB RTBID POTASSIUM CHLORIDE 10 MEQ IV ASDIR PRN SOD BIPHOS/POT PHOSPHATE 1 PKT PO ASDIR (PRN) hydrALAZINE HCL 10 MG IV Q4H PRN SENNA/DOCUSATE SODIUM 1 TAB PO BID LABETALOL HCL 10 MG IV Q2H PRN METOPROLOL TARTRATE 25 MG PO BID 6A 6P ALBUTEROL SULFATE 2.5 MG NEB RTQ6H PRN methylPREDNISolone SOD SUCC with/in WATER FOR INJECTION,STERILE 40 MG IV Q12HR GLUCAGON 1 MG IM ASDIR PRN ASPIRIN 81 MG PO DAILY ONDANSETRON HCL/PF 4 MG IV Q4H PRN AMPICILLIN/SULBACTAM with/in SODIUM CHLORIDE 100 mL BAG 3 GM IV Q6HR SODIUM PHOSPHATE with/in SODIUM CHLORIDE 0.9% 20 MM IV ASDIR (PRN) POTASSIUM CHLORIDE 20 MEQ IV ASDIR PRN CALCIUM CARBONATE 1000 MG PO Q4H PRN polyethylene glycoL 3350 1 PKT PO DAILY DEXTROSE 50%-WATER 25 ML IV ASDIR PRN PROPYLENE GLYCOL/PEG 400 1 DROP EACH EYE QID (PRN) NITROGLYCERIN 0.4 MG SL Q5M PRN POTASSIUM BICARBONATE/CIT AC 20 MEQ PO ASDIR PRN ATORVASTATIN CALCIUM 40 MG PO BEDTIME IPRATROPIUM/ALBUTEROL SULFATE 3 ML NEB RTQ6H MAGNESIUM SULFATE 2 GM IV ASDIR amLODIPine BESYLATE 10 MG PO DAILY SODIUM PHOSPHATE with/in SODIUM CHLORIDE 0.9% 15 MM IV ASDIR (PRN) ENOXAPARIN SODIUM 40 MG SUBQ DAILY ACETAMINOPHEN 650 MG PO Q4H PRN QUEtiapine FUMARATE 50 MG PO BID DEXTROSE 37.5 GM PO ASDIR PRN PROMETHAZINE HCL with/in SODIUM CHLORIDE 50 mL BAG 12.5 MG IV Q6H PRN SODIUM PHOSPHATE with/in SODIUM CHLORIDE 0.9% 30 MM IV ASDIR (PRN) LAB RESULTS CBC W/AUTO DIFF (04/16/24 04:02) MEAN PLATELET VOLUME 9.8 EOSINOPHIL # 0.00 PLATELET COUNT 412H H MONOCYTE # 1.04 H MEAN CELL HGB CONCENTRATION 31.5 L RED CELL DISTRIBUTION WIDTH 13.4 MEAN CELL VOLUME 93 MEAN CELL HGB 29.4 HEMOGLOBIN 11.9L L HEMATOCRIT 37.8 WHITE BLOOD CELL 20.80H H RED BLOOD CELL 4.05 L NEUTROPHIL # 17.91 H LYMPHOCYTE # 1.37 BASOPHIL % 0.2 NUCLEATED RBC % 0.0 MONOCYTE % 5.0 L EOSINOPHIL % 0.0 L IMMATURE GRANULOCYTE % 2.1 H LYMPHOCYTE % 6.6 L NEUTROPHIL % 86.1 H BASOPHIL # 0.05 BASIC METABOLIC PANEL (04/16/24 04:02) GLOMERULAR FILTRATION RATE >=60 max estimate GLUCOSE 111H H BLOOD UREA NITROGEN 14 CHLORIDE 95L L CARBON DIOXIDE > 40*H *H SODIUM 142 POTASSIUM 4.2 CREATININE 0.64 CALCIUM 10.0 MAG (04/16/24 04:02) MAGNESIUM 2.1 ARTERIAL BLOOD GAS (04/16/24 11:40) ALLENS TEST Yes ABG VENT MODE High Flow ABG L/M 25.00 ARTERIAL FIO2 40.0 ABG O2 SATURATION 97.0 BASE EXCESS 10.0 H BICARBONATE TOTAL HCO3 36.5 H ARTERIAL BLOOD GAS PO2 91.2 ARTERIAL BLOOD GAS PCO2 56.2 H ARTERIAL BLOOD GAS PH 7.431 PaO2/FiO2 (04/16/24 11:40) PaO2/FiO2 228.00 GLU BED (04/16/24 11:43) GLUBED 99 LACTIC ACID (04/16/24 11:50) LACTIC ACID 0.9 at 1312 ATTENTION *EDITS and/or ADDENDA must be made in Patient Keeper for this note. * * Edits and ammendments created in [facility] are not visible * * in Patient Keeper or the legal medical record (HPF). * [facility] #: [id number] END OF REPORT [facility] 2024-04-16 12:41:00 [id number] [facility] [employer] [address] [place] [address] PATIENT NAME: MARIE PINEDA ADMIT DATE: 04/10/24 ACCOUNT NO: [id number] ROOM NO: [facility] AGE: 63 REPORT TYPE: eECHOCARDIOGRAM REPORT SEX: F ADMITTING PHYSICIAN: Brenna Ruelas MD ATTENDING PHYSICIAN: Ricky Herrmann MD *[facility] [employer]* [address] [facility] [place] [address] Transthoracic Echocardiogram Patient: Marie Pineda Study Date: 04/16/2024 BP: URN: [id number] Location: : 1960 Age: 63 Gender: F Height: 64 in / 162.6 cm Weight: 230 lb / 104.3 kg BMI/BSA: 39.5 kg/m 2 / 2.22 m 2 *Ordering Physician: * Lucas Fonseca MD *Interpreting Physician: * Lucas Fonseca MD *Reinforced Concrete Inspector: * Ferraro Jr, Octavio, RDCS Indications: CP. Study data: Transthoracic echocardiogram. Procedure: A transthoracic echocardiogram was performed. Image quality was fair. The study was technically limited due to poor acoustic window availability and restricted patient mobility. Complete 2D, complete spectral Doppler, and color Doppler. Findings Left ventricle: The cavity size is normal. Wall thickness is normal. Systolic function is hyperdynamic. The estimated ejection fraction is >70%. Wall motion is normal; there are no regional wall motion abnormalities. Left PATIENT NAME: MARIE PINEDA ventricular diastolic function parameters are normal for the patient's age. Right ventricle: The cavity size is normal. Systolic function is normal by TAPSE. Left atrium: The atrium is normal in size. Right atrium: The atrium is normal in size. Aorta: Aortic root: The root is normal-sized. Aortic valve: The valve is structurally normal. The valve is trileaflet. There is no evidence of stenosis. There is no regurgitation. Mitral valve: The valve is structurally normal. There is no evidence of stenosis. There is mild regurgitation. Tricuspid valve: The valve is structurally normal. There is trace regurgitation. Pulmonic valve: The valve is structurally normal. There is no regurgitation. Pericardium: There is no pericardial effusion. Systemic veins: Inferior vena cava: The IVC is normal-sized. Respirophasic diameter changes are in the normal range (>= 50%). Measurements Left ventricle Value Ref DISHA, LAX 3.5 cm 3.8 - 5.2 ESD, LAX 2.4 cm 2.2 - 3.5 FS, LAX 30 % 27 - 45 DISHA major ax, A2C 7.0 cm --------- IVS, ED 1.0 cm 0.6 - 0.9 ESD 2.4 cm 2.2 - 3.5 FS 30 % 27 - 45 PW, ED 0.9 cm 0.6 - 0.9 IVS/PW, ED 1.09 --------- EF 58 % 54 - 74 EF, MM on 2D Teich. 58 % >=55 LVOT Value Ref Diam, S 2.07 cm --------- Area 3.4 cm 2 --------- Peak jannet, S 1.28 m/sec --------- Mean jannet, S 0.94 m/sec --------- VTI, S 29.9 cm --------- Peak grad, S 7 mm Hg --------- Mean grad, S 2 mm Hg --------- SV 100 ml --------- SV/bsa 45 ml/m 2 --------- Right ventricle Value Ref DISHA, LAX 2.3 cm --------- DISHA 2.3 cm --------- RVOT Value Ref Peak v, S 0.77 m/sec --------- Peak grad, S 2 mm Hg --------- PATIENT NAME: MARIE PINEDA Left atrium Value Ref LA ID 2.1 cm --------- AP dim, ES 2.1 cm 2.7 - 3.8 AP dim ES, LAX 2.1 cm 2.7 - 3.8 SI dim ES, LAX 2.1 cm --------- LA/Ao root ratio 0.66 --------- AP dim, ES MM 2.1 cm 2.7 - 3.8 LA/Ao root ratio, MM 1 --------- Aortic valve Value Ref Peak v, S 1.3 m/sec --------- Mean v, S 0.95 m/sec --------- VTI, S 28.6 cm --------- Mean grad, S 4 mm Hg --------- Peak grad, S 7.1 mm Hg --------- LVOT/AV, VTI ratio 1.04 --------- LUCIO, VTI 3.51 cm 2 --------- LVOT/AV, Vpeak ratio 0.96 --------- LUCIO, Vmax 3.21 cm 2 --------- Mitral valve Value Ref Peak E 0.79 m/sec --------- Peak A 1.09 m/sec --------- Decel time 184 ms --------- Peak grad, D 2.5 mm Hg --------- Peak E/A ratio 0.73 --------- Aortic root Value Ref Root diam 3.2 cm 2.8 - 4.3 Root diam, ED MM 2.1 cm --------- Conclusions Summary: 1. Left ventricle: The cavity size is normal. Wall thickness is normal. Systolic function is hyperdynamic. The estimated ejection fraction is >70%. Wall motion is normal; there are no regional wall motion abnormalities. Left ventricular diastolic function parameters are normal for the patient's age. 2. Mitral valve: There is mild regurgitation. 3. Pericardium, extracardiac: There is no pericardial effusion. Electronically signed by Lucas Fonseca MD 04/16/2024 12:40 at 1241 PATIENT NAME: MARIE PINEDA [facility] 2024-04-16 10:30:00 [facility] [place] ([facility]) Pulmonology Progress Note REPORT #: [id number] REPORT STATUS: Signed DATE: 04/16/24 TIME: 1030 PATIENT: MARIE PINEDA UNIT #: [id number] ROOM #: T.207 BED: A : 60 AGE: 63 SEX: F ATTEND: Ricky Herrmann MD ADM AUTHOR: Ele Hernandez ATTENTION *EDITS and/or ADDENDA must be made in Patient Keeper for this note. * * Edits and ammendments created in [employer] are not visible * * in Patient Keeper or the legal medical record (HPF). * Note Date: 04/16/24 10:30 -- ASSESSMENT/PLAN -- GENERAL ASSESSMENT: [facility] Pul[facility] Consult Note April Lainez MD P: Subjective : remains on vapotherm 25L and 40% has had N/V overnight, did not wear NIV overnight on exam today, patient alert and looks when name is called, but does not respond discussed with RN who states this is a change from earlier this am she did receive Phenergan this am for nausea Assessment: Acute hypercapnic respiratory failure acute RSV infection AECOPD Aspiration pneumonia Lactic acidosis sinus tachycardia altered mental status Plan: Pulmonary : - supplemental O2 to keep SpO2 > 92%, continues on Vapotherm 25 L and 40% - CT chest prior to admission revealed no evidence of pulmonary embolism, but [id number] COPD and bronchial wall thickening in the lower lobes and right middle lobe secondary to bronchitis along with some mucus material in the bronchi and some nodular foci in the right middle lobe. 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 Patient was at [facility] where she was admitted for shortness of breath. She was found to be in respiratory distress and was placed on BiPAP therapy and was transferred here to our hospital for continued management. She required intubated and was extubated on 04/12/24, transitioned to vapotherm and pulmonary consulted after downgrade from ICU. MedHx: COPD on home O2 2-3L SurgHx: ESDRAS Family Hx: ESDRAS Social Hx: inmate, quit smoking 6 months ago but previous to this smoked 1 PPD for greater than 40 years, incarcerated Physical Exam: Gen: ill appearing, disheveled, on HFNC Head: atraumatic, normocephalic ENT: EOMI, conjunctivae pink, sclera clear, neck w/o masses, trachea midline, MMM, oropharynx clear CV: RRR, s1/s2, peripheral pulses palpable Resp: diminished bilateral breath sounds, symmetric expansion, scant wheezes bilaterally Abd: soft, non-tender, not distended, +BS Ext/MSK: no edema/cyanosis, cap refill < 3 secs, normal tone Skin: warm, dry, color consistent w/ ethnicity, no rashes Neuro: AO x2-3, conversant, follows commands, Christiano Psych: calm -- EXAM -- VITALS (04/15 10:30 - 04/16 10:30): Pulse Rate: 81 (77 - 109) Respiratory rate: 18 (14 - 20) Blood pressure: 163/100 (109/60 - 163/100) Temperature source: Temporal Temperature C: 35.6 (35.6 - 37.2) IOS (04/15 07:00-04/16 07:00): [id number] Continent stool count:1 IV fluid 13 volume ml:100 Number of incontinent voids:3 Number of times incontinent stool:1 Oral ml:850 Void ml:700 -- DATA -- MEDICATIONS PANTOPRAZOLE 40 MG PO DAILY 0600 BUDESONIDE 0.5 MG NEB RTBID POTASSIUM CHLORIDE 10 MEQ IV ASDIR PRN SOD BIPHOS/POT PHOSPHATE 1 PKT PO ASDIR (PRN) hydrALAZINE HCL 10 MG IV Q4H PRN SENNA/DOCUSATE SODIUM 1 TAB PO BID LABETALOL HCL 10 MG IV Q2H PRN METOPROLOL TARTRATE 25 MG PO BID 6A 6P ALBUTEROL SULFATE 2.5 MG NEB RTQ6H PRN methylPREDNISolone SOD SUCC with/in WATER FOR INJECTION,STERILE 40 MG IV Q12HR GLUCAGON 1 MG IM ASDIR PRN ASPIRIN 81 MG PO DAILY ONDANSETRON HCL/PF 4 MG IV Q4H PRN SODIUM PHOSPHATE with/in SODIUM CHLORIDE 0.9% 20 MM IV ASDIR (PRN) POTASSIUM CHLORIDE 20 MEQ IV ASDIR PRN CALCIUM CARBONATE 1000 MG PO Q4H PRN polyethylene glycoL 3350 1 PKT PO DAILY DEXTROSE 50%-WATER 25 ML IV ASDIR PRN PROPYLENE GLYCOL/PEG 400 1 DROP EACH EYE QID (PRN) NITROGLYCERIN 0.4 MG SL Q5M PRN POTASSIUM BICARBONATE/CIT AC 20 MEQ PO ASDIR PRN ATORVASTATIN CALCIUM 40 MG PO BEDTIME IPRATROPIUM/ALBUTEROL SULFATE 3 ML NEB RTQ6H MAGNESIUM SULFATE 2 GM IV ASDIR amLODIPine BESYLATE 10 MG PO DAILY SODIUM PHOSPHATE with/in SODIUM CHLORIDE 0.9% 15 MM IV ASDIR (PRN) ENOXAPARIN SODIUM 40 MG SUBQ DAILY ACETAMINOPHEN 650 MG PO Q4H PRN QUEtiapine FUMARATE 50 MG PO BID DEXTROSE 37.5 GM PO ASDIR PRN PROMETHAZINE HCL with/in SODIUM CHLORIDE 50 mL BAG 12.5 MG IV Q6H PRN SODIUM PHOSPHATE with/in SODIUM CHLORIDE 0.9% 30 MM IV ASDIR (PRN) LAB RESULTS CBC W/AUTO DIFF (04/16/24 04:02) MEAN PLATELET VOLUME 9.8 EOSINOPHIL # 0 PLATELET COUNT 412H H MONOCYTE # 1.04 H MEAN CELL HGB CONCENTRATION 31.5 L RED CELL DISTRIBUTION WIDTH 13.4 MEAN CELL VOLUME 93 MEAN CELL HGB 29.4 HEMOGLOBIN 11.9L L HEMATOCRIT 37.8 WHITE BLOOD CELL 20.80H H RED BLOOD CELL 4.05 L NEUTROPHIL # 17.91 H LYMPHOCYTE # 1.37 BASOPHIL % 0.2 NUCLEATED RBC % 0 MONOCYTE % 5 L EOSINOPHIL % 0 L IMMATURE GRANULOCYTE % 2.1 H LYMPHOCYTE % 6.6 L NEUTROPHIL % 86.1 H BASOPHIL # 0.05 BASIC METABOLIC PANEL (04/16/24 04:02) GLOMERULAR FILTRATION RATE >=60 max estimate GLUCOSE 111H H BLOOD UREA NITROGEN 14 CHLORIDE 95L L CARBON DIOXIDE > 40*H *H SODIUM 142 POTASSIUM 4.2 CREATININE 0.64 CALCIUM 10 MAG (04/16/24 04:02) MAGNESIUM 2.1 at 2135 at 2135 ATTENTION *EDITS and/or ADDENDA must be made in Patient Keeper for this note. * * Edits and ammendments created in [facility] are not visible * * in Patient Keeper or the legal medical record (HPF). * [facility] [place] #: [id number] END OF REPORT [facility] 2024-04-15 15:18:00 [facility] Cardiology Consultation REPORT #: [id number] REPORT STATUS: Signed DATE: 04/15/24 TIME: 1518 PATIENT: MARIE PINEDA UNIT #: [id number] ROOM #: T.221 BED: A : 60 AGE: 63 SEX: F ATTEND: Ricky Herrmann MD ADM AUTHOR: Lucas Fonseca MD ATTENTION *EDITS and/or ADDENDA must be made in Patient Keeper for this note. * * Edits and ammendments created in [employer] are not visible * * in Patient Keeper or the legal medical record (HPF). * Note Date: 04/15/24 15:18 -- ASSESSMENT/PLAN -- GENERAL ASSESSMENT: Assessment: Chest pain, atypical Acute hypoxic respiratory failure COPD exacerbation RSV pneumonia Aspiration pneumonia Abnormal cardiac enzymes Sinus tachycardia Metabolic encephalopathy, resolved Essential hypertension Hyperlipidemia Plan: ECG: ST 139 bpm evening of 04/14 Trop I borderline abnormal on 04/10 and 04/11, BNP 101 Chest pain, in setting of acute hypoxic and hypercapnic respiratory failure due to COPDE, pneumonia, check repeat troponin I, BNP and echo, start aspirin 81 daily and metoprolol, and continue atorvastatin, stress test inpatient vs outpatient depending on clinical progress Acute hypoxic respiratory failure, COPD exacerbation, RSV and aspiration pneumonias, receiving IV antibiotics and nebulizers, as per pulmonary Telemetry monitoring Continue care -- HISTORY -- Consult requested by:Ricky Herrmann MD REASON FOR CONSULT: CP CHIEF COMPLAINT: SOB HPI: This is a 63 year old woman with medical history of COPD who was transferred from [facility] with a COPD exacerbation on 04/10 and she arrived on BiPAP, tachypneic, confused, and febrile. She worsened and was intubated. SHe was diagnosed with COPD exacerbation, aspiration and RSV pneumonia. Her troponin was borderline abnormal as well. She was treated with IV antibiotics, steroids and nebs. She was extubated on 04/12. She continued to improve and required BipAP only at night and doing much better so transferred out of the ICU yesterday. Today she complained of chest pain. She describes the pain as an ache in the center of her chest and states it has been present since admission. SHe believes it is a little improved. She is still on high flow nasal cannula. PAST MEDICAL HISTORY: COPD Essential hypertension HLD PAST SURGICAL HISTORY: Benign tumor left lung FAMILY HISTORY: Father of COPD and mother had cardiac arrest at 86 yo Social History Tobacco use: DETAILS/COMMENTS: Quit smoking 6 months ago LIVING SITUATION: Lives in halfway currently -- SUBJECTIVE -- REVIEW OF SYSTEMS: Comment: A 14 point review of systems is negative other than what is stated in the HPI. -- EXAM -- EXAM: Other: General: Mild distress, on high flow nasal cannula Head: NC, AT Eyes: PERRL Neck: No masses, trachea midline Chest:Grossly normal appearance. Lungs: Wheezes, rhonchi, increased work of breathing noted Heart: RRR, normal S1,S2. No murmurs, rubs or gallops. Abdomen: Soft, non-tender,non-distended. Extremities: No clubbing, cyanosis, edema. Neuro: Awake and alert, no focal deficits. at 1613 ATTENTION *EDITS and/or ADDENDA must be made in Patient Keeper for this note. * * Edits and ammendments created in [facility] are not visible * * in Patient Keeper or the legal medical record ([facility]). * RPT #: [id number] END OF REPORT [facility] 2024-04-15 13:56:00 [facility] Internal Med. Progress Note REPORT #: [id number] REPORT STATUS: Signed DATE: 04/15/24 TIME: 1356 PATIENT: MARIE PINEDA UNIT #: [id number] ROOM #: T.221 BED: A : 60 AGE: 63 SEX: F ATTEND: Ricky Herrmann MD ADM AUTHOR: Ricky Herrmann MD ATTENTION *EDITS and/or ADDENDA must be made in Patient Keeper for this note. * * Edits and ammendments created in [facility] are not visible * * in Patient Keeper or the legal medical record ([facility]). * Note Date: 04/15/24 13:56 -- ASSESSMENT/PLAN -- ASSESSMENT / PLAN: 1: RSV (respiratory syncytial virus infection) 2: Aspiration pneumonia 3: Acute metabolic encephalopathy 4: COPD exacerbation 5: Acute hypercapnic respiratory failure ADDITIONAL COMMENTS: Continue same Cardio eval -- SUBJECTIVE -- CHIEF COMPLAINT: Resp failure/COPD exac/Pneumonia PATIENT NARRATIVE: Anxious REVIEW OF SYSTEMS: General Negative for fever, malaise, fatigue. Eyes Negative for blurry vision. No diplopia. Ears/Nose/Throat Negative for sore throat. No otalgia. No rhinorrhea. Respiratory Negative for dyspnea or wheeze. No cough. Cardiovascular Negative for chest pain or palpitations. No extremity swelling. Gastrointestinal Negative for abdominal pain or nausea. No emesis. No diarrhea. Genitourinary Negative for dysuria, frequency, or urgency. No gross hematuria. Neurological Negative for headache. No vertigo. Denies paresthesias. -- EXAM -- VITALS (04/14 13:56 - 04/15 13:56): Blood pressure: 137/93 (117/11 - 158/101) Blood pressure source: Monitor Respiratory rate: 18 (17 - 40) Temperature C: 36.9 (36.6 - 37.2) Temperature F: 98.1 Pulse Rate: 109 (82 - 144) Temperature source: Oral IOS (04/14 07:00-04/15 07:00): Kol554.20 Intake1,907.20 Output1,402 Continent stool count:1 IV fluid 1 volume ml:400.00 IV fluid 10 volume ml:60.00 IV fluid 2 volume ml:250.00 IV fluid 3 volume ml:97.20 Number of emesis:2 Number of incontinent voids:2 Number of times incontinent stool:2 Oral ml:1,100 Void ml:1,400 EXAM: General Well developed, well nourished, in no apparent distress. Head Normocephalic, atraumatic. Eyes PERRL, EOM intact, conjunctiva and sclera clear, without nystagmus, lids normal. Neck No masses, no thyromegaly, no abnormal cervical nodes, trachea midline. Chest Grossly normal appearance. Lungs Coarse bilaterally with normal respiratory effort. Heart Regular rate and rhythm, normal S1, S2, no murmurs, no rubs, no gallops, no clicks. Abdomen Soft, non-tender, no organomegaly, no masses noted. Extremities No clubbing, no cyanosis, no edema. Neurological No focal deficits, cranial nerves II-XII grossly intact, normal sensation, normal reflexes, normal coordination, normal muscle strength, normal tone. -- DATA -- MEDICATIONS PANTOPRAZOLE 40 MG PO DAILY 0600 BUDESONIDE 0.5 MG NEB RTBID POTASSIUM CHLORIDE 10 MEQ IV ASDIR PRN SOD BIPHOS/POT PHOSPHATE 1 PKT PO ASDIR (PRN) hydrALAZINE HCL 10 MG IV Q4H PRN SENNA/DOCUSATE SODIUM 1 TAB PO BID LABETALOL HCL 10 MG IV Q2H PRN ALBUTEROL SULFATE 2.5 MG NEB RTQ6H PRN methylPREDNISolone SOD SUCC with/in WATER FOR INJECTION,STERILE 40 MG IV Q12HR GLUCAGON 1 MG IM ASDIR PRN ONDANSETRON HCL/PF 4 MG IV Q4H PRN SODIUM PHOSPHATE with/in SODIUM CHLORIDE 0.9% 20 MM IV ASDIR (PRN) POTASSIUM CHLORIDE 20 MEQ IV ASDIR PRN polyethylene glycoL 3350 1 PKT PO DAILY DEXTROSE 50%-WATER 25 ML IV ASDIR PRN NITROGLYCERIN 0.4 MG SL Q5M PRN POTASSIUM BICARBONATE/CIT AC 20 MEQ PO ASDIR PRN METOPROLOL TARTRATE 12.5 MG PO BID 6A 6P ATORVASTATIN CALCIUM 40 MG PO BEDTIME IPRATROPIUM/ALBUTEROL SULFATE 3 ML NEB RTQ6H MAGNESIUM SULFATE 2 GM IV ASDIR amLODIPine BESYLATE 10 MG PO DAILY SODIUM PHOSPHATE with/in SODIUM CHLORIDE 0.9% 15 MM IV ASDIR (PRN) ENOXAPARIN SODIUM 40 MG SUBQ DAILY ACETAMINOPHEN 650 MG PO Q4H PRN QUEtiapine FUMARATE 50 MG PO BID DEXTROSE 37.5 GM PO ASDIR PRN SODIUM PHOSPHATE with/in SODIUM CHLORIDE 0.9% 30 MM IV ASDIR (PRN) LAB RESULTS CBC W/AUTO DIFF (04/15/24 04:32) PLATELET COUNT 392 MONOCYTE # 1.57 H MEAN CELL HGB CONCENTRATION 31.1 L RED CELL DISTRIBUTION WIDTH 13.8 MEAN PLATELET VOLUME 9.8 EOSINOPHIL # 0.01 WHITE BLOOD CELL 13.31H H RED BLOOD CELL 3.93 L NEUTROPHIL # 8.84 H LYMPHOCYTE # 2.12 MEAN CELL VOLUME 95 MEAN CELL HGB 29.5 HEMOGLOBIN 11.6L L HEMATOCRIT 37.3 IMMATURE GRANULOCYTE % 5.2 H LYMPHOCYTE % 15.9 L NEUTROPHIL % 66.4 H BASOPHIL # 0.08 BASOPHIL % 0.6 NUCLEATED RBC % 0.2 MONOCYTE % 11.8 H EOSINOPHIL % 0.1 L PHOS (04/15/24 04:32) PHOSPHOROUS 3.0 BASIC METABOLIC PANEL (04/15/24 04:32) CREATININE 0.56 CALCIUM 9.2 BLOOD UREA NITROGEN 14 GLOMERULAR FILTRATION RATE >=60 max estimate SODIUM 144 CARBON DIOXIDE 38H H GLUCOSE 91 POTASSIUM 4.1 CHLORIDE 101 MAG (04/15/24 04:32) MAGNESIUM 2.2 at 1358 ATTENTION *EDITS and/or ADDENDA must be made in Patient Keeper for this note. * * Edits and ammendments created in [employer] are not visible * * in Patient Keeper or the legal medical record ([facility]). * [facility] #: [id number] END OF REPORT [facility] 2024-04-15 11:55:00 [id number] [facility] [address] [place] [address], [place] [address] PATIENT NAME: MARIE PINEDA ADMIT DATE: 04/10/24 ACCOUNT NO: [id number] ROOM NO: [facility] AGE: 63 REPORT TYPE: CONSULTATION SEX: F ADMITTING PHYSICIAN: Brenna Ruelas MD ATTENDING PHYSICIAN: Ricky Herrmann MD CONSULTATION DATE: 04/15/2024 ATTENDING PHYSICIAN: Ricky Herrmann M.D. CONSULTING PHYSICIAN: Marivel Lopez M.D. on behalf of Dr. Lainez. REASON FOR CONSULTATION: COPD management. HISTORY OF PRESENT ILLNESS: Patient is a 63-year-old female with past medical history significant for COPD and hypertension, who was brought to the Emergency Room for evaluation of COPD extubation and respiratory failure. Patient was at [facility] where she was admitted for shortness of breath. She was found to be in respiratory distress and was placed on BiPAP therapy and was transferred here to our hospital for continued management. Her lab work prior to transfer had revealed BNP of 126, negative COVID-19 test, white count of 15.8, D-dimer of [address] chest prior to admission revealed no evidence of pulmonary embolism, but [id number] COPD and bronchial wall thickening in the lower lobes and right middle lobe secondary to bronchitis along with some mucus material in the bronchi and some nodular foci in the right middle lobe. Patient's admission labs here were significant for white count of 19.2, normal hemoglobin and platelets. ABG here had pH 7.20, pCO2 of 82, pO2 122, bicarbonate 27 and O2 saturation of 98%. Patient's chest x-ray in the ER revealed no evidence of acute cardiopulmonary disease. EKG revealed sinus tachycardia rate of 150 with no acute ischemic changes. Patient was given IV Rocephin and Zithromax in the ER and albuterol and atorvastatin via nebulizer and IV steroids. She was admitted to the ICU for respiratory failure and metabolic encephalopathy along with COPD exacerbation. Patient was given empiric antibiotics. COVID and flu tests were negative. PATIENT NAME: MARIE PINEDA Patient was initially intubated as well and was extubated on 04/12/2024. She was transitioned to high flow oxygen by [facility]. Patient was transferred out of the ICU yesterday and a pulmonary consultation has been requested. At present, the patient is awake and lying comfortably in the bed. She is on high flow oxygen at 50% FiO2 and 30 liters flow. She states that her dyspnea has improved, but she still feels short of breath. She also has some chest pain. She has cough with greenish colored sputum. REVIEW OF SYSTEMS: Patient reports nausea, vomiting, and GERD symptoms. She denies any fevers, chills, sweats, headaches, eye or ear or sinus problems, sore throat, abdominal pain, bowel or urinary abnormalities, joint pains, rash or dizziness. PAST MEDICAL HISTORY: COPD and hypertension. 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 MEDICATIONS: Home medications are albuterol, Norvasc, Lipitor and metoprolol. ALLERGIES: NO KNOWN DRUG ALLERGIES. PERSONAL HISTORY: Patient quit smoking 6 months ago, but before that, she smoked a pack per day for over 40 years. No history of alcohol or drug use. SOCIAL HISTORY: Patient is . She is currently incarcerated. She is independent in activities of daily living. 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 PHYSICAL EXAMINATION: GENERAL: Patient is a 63-year-old average built female, at present lying in bed on high-flow oxygen via Vapotherm and in handcuffs and shackles. VITAL SIGNS: Blood pressure is 128/74, pulse 87, temperature 36.8, respiratory rate 18 and O2 saturation is 97% on 50% FiO2 with 30 liters oxygen by Vapotherm. HEENT: Normocephalic and atraumatic. Conjunctivae pink. There is no icterus. Pupils are equal, round and reactive to light. Throat is clear. NECK: Supple. No raised JVD. No thyromegaly. No lymphadenopathy. No carotid bruit. No stridors. CHEST: Lung sounds are distant and diminished. No wheezing, rhonchi or rales are audible. CARDIOVASCULAR: S1, S2. Regular rate and rhythm. No murmurs or gallops audible. ABDOMEN: Soft, nontender, nondistended. No masses. Bowel sounds are normal and active. CENTRAL NERVOUS SYSTEM: Patient is alert and coherent and follows simple commands by moving all 4 extremities. EXTREMITIES: No cyanosis, clubbing or edema is noted. LABORATORY DATA: Patient's chemistries today are normal except for bicarbonate PATIENT NAME: MARIE PINEDA 38. CBC is white count 13.3, hemoglobin 11.6 and normal platelets. Neutrophils are 66%. Patient's blood cultures obtained on admission were negative. Chest x-rays have revealed no infiltrates or effusions. Sputum culture was negative. Nasal MRSA screen is negative. Urine for pneumococcal and legionella antigen are also negative. Her latest chest x-ray done yesterday also revealed no infiltrates or effusion with some increase in interstitial markings. IMPRESSION: 1. Status post hypercapnic respiratory failure. 2. Chronic obstructive pulmonary disease with acute exacerbation. 3. Acute RSV infection. 4. History of hypertension. 5. Hyperlipidemia. RECOMMENDATIONS: Patient is on high-flow oxygen, which we will gradually wean down. We will continue with IV steroids, but we will change the dosing to 40 mg every 12 hours. We will also continue with bronchodilators, i.e. DuoNeb. She is on Lovenox for DVT prophylaxis. Her metoprolol and amlodipine have been resumed along with Lipitor. We will start on pantoprazole for GI prophylaxis. Further recommendations per clinical course. Dr. Herrmann on behalf of Dr. Lainez, thank you for allowing us to participate in care of this patient. Dr. Lainez will resume care tomorrow morning. Dictated By: Marivel Lopez MD Date Dictated: 04/15/2024 11:55:49 Date Transcribed: 04/15/2024 12:20:14 MV/DHR Receipt ID: [id number] Authenticated by Marivel Lopez MD On 04/22/2024 11:27:33 PM at 1127 PATIENT NAME: MARIE PINEDA [facility] 2024-04-15 11:55:00 [facility] ([facility] Pulmonology Clinical Note REPORT #: [id number] REPORT STATUS: Signed DATE: 04/15/24 TIME: 1155 PATIENT: MARIE PINEDA UNIT #: [id number] ROOM #: T.221 BED: A : 60 AGE: 63 SEX: F ATTEND: Ricky Herrmann MD ADM AUTHOR: Marivel Lopez MD ATTENTION *EDITS and/or ADDENDA must be made in Patient Keeper for this note. * * Edits and ammendments created in [facility] are not visible * * in Patient Keeper or the legal medical record ([facility]). * Note Date: 04/15/24 11:55 -- NOTATION -- NOTATION: [id number] Full note dictated Appreciate the consult, on behalf of Dr. Lainez. at 1156 ATTENTION *EDITS and/or ADDENDA must be made in Patient Keeper for this note. * * Edits and ammendments created in [facility] are not visible * * in Patient Keeper or the legal medical record ([facility]). * [facility] [place] #: [id number] END OF REPORT [facility] 2024-04-14 22:40:00 [id number] [facility] [address] [facility] [place] [address] PATIENT NAME: MARIE PINEDA ADMIT DATE: 04/10/24 ACCOUNT NO: [id number] ROOM NO: T.221 AGE: 63 REPORT TYPE: eELECTROCARDIOGRAM SEX: F ADMITTING PHYSICIAN: Brenna Ruelas MD ATTENDING PHYSICIAN: Ricky Herrmann MD Order: [id number] Test Reason : CHEST PAIN Test Date/Time Stamp: Sat Apr 14 2024 22:40:08 Blood Pressure : / mmHG Vent. Rate : 139 BPM Atrial Rate : 139 BPM P-R Int : 122 ms QRS Dur : 064 ms QT Int : 298 ms P-R-T Axes : 080 076 065 degrees QTc Int : 453 ms Sinus tachycardia Otherwise normal ECG No previous ECGs available Confirmed by MD Karlee, Vanessa ([id number]) on 04/17/2024 12:59:43 PM Referred By: Ricky Herrmann Confirmed by:Vanessa Desir MD at 1259 PATIENT NAME: MARIE PINEDA [facility] 2024-04-14 14:32:00 [facility] [place] ([employer]) Med Order Sheet REPORT #: [id number] REPORT STATUS: Signed DATE: 04/14/24 TIME: 1432 PATIENT: MARIE PINEDA UNIT #: [id number] ROOM #: T.IC19 BED: A : 60 AGE: 63 SEX: F ATTEND: Brenna Ruelas MD ADM AUTHOR: Glo Skaggs APRN ATTENTION *EDITS and/or ADDENDA must be made in Patient Keeper for this note. * * Edits and ammendments created in [facility] are not visible * * in Patient Keeper or the legal medical record ([facility]). * Admission Medication Reconciliation -- CONTINUED / CHANGED HOME MEDICATIONS -- Home: Albuterol Neb 2.5mg (Ventolin Neb 2.5mg) 1.25 MG Neb RTQ4H Hosp: Existing: Albuterol Neb 2.5mg (Ventolin Neb 2.5mg) 2.5MG Neb RTQ6H PRN wheezing shortness of breath stopping on 05/13 at 15:01 Home: amLODIPine Tab (Norvasc Tab) 10 MG PO DAILY Hosp: amLODIPine Tab (Norvasc Tab) 10 MG PO DAILY Home: Atorvastatin Tab (Lipitor Tab) 40 MG PO BEDTIME Hosp: Atorvastatin Tab (Lipitor Tab) 40 MG PO BEDTIME Home: Metoprolol Tartrate Tab (Lopressor Tab) 12.5 MG PO BID Hosp: Metoprolol Tartrate Tab (Lopressor Tab) 12.5 MG PO Now and then BID at 1432 ATTENTION *EDITS and/or ADDENDA must be made in Patient Keeper for this note. * * Edits and ammendments created in [facility] are not visible * * in Patient Keeper or the legal medical record ([facility]). * RPT #: [id number] END OF REPORT [facility] 2024-04-14 12:47:00 [facility] Internal Med. Progress Note REPORT #: [id number] REPORT STATUS: Signed DATE: 04/14/24 TIME: 1247 PATIENT: MARIE PINEDA UNIT #: [id number] ROOM #: TIC19 BED: Petty : 60 AGE: 63 SEX: F ATTEND: Brenna Ruelas MD ADM AUTHOR: Ricky Herrmann MD ATTENTION *EDITS and/or ADDENDA must be made in Patient Keeper for this note. * * Edits and ammendments created in [employer] are not visible * * in Patient Keeper or the legal medical record ([facility]). * Note Date: 04/14/24 12:47 -- ASSESSMENT/PLAN -- ASSESSMENT / PLAN: 1: RSV (respiratory syncytial virus infection) 2: Aspiration pneumonia 3: COPD exacerbation 4: Acute respiratory failure with hypoxia ADDITIONAL COMMENTS: Continue current critical care management -- SUBJECTIVE -- CHIEF COMPLAINT: Acute on chronic rep failure with hypoxia/COPD PATIENT NARRATIVE: Remains on vapotherm REVIEW OF SYSTEMS: General Negative for fever, +ve malaise, fatigue. Eyes Negative for blurry vision. No diplopia. Ears/Nose/Throat Negative for sore throat. No otalgia. No rhinorrhea. Respiratory Positive for dyspnea or wheeze. No cough. Cardiovascular Negative for chest pain or palpitations. No extremity swelling. Gastrointestinal Negative for abdominal pain or nausea. No emesis. No diarrhea. Genitourinary Negative for dysuria, frequency, or urgency. No gross hematuria. Neurological Negative for headache. No vertigo. Denies paresthesias. -- EXAM -- VITALS (04/13 12:47 - 04/14 12:47): Blood pressure: 127/60 (114/56 - 146/71) Temperature F: 98.0 (97.1 - 98.2) Respiratory rate: 20 (15 - 40) Blood pressure source: Monitor Temperature source: Oral Pulse Rate: 74 (60 - 109) IOS (04/13 07:00-04/14 07:00): Net-709.00 Tvyfzr604.00 [id number] IV fluid 1 volume ml:55.40 IV fluid 2 volume ml:5.60 IV fluid 3 volume ml:130.00 Other urine ml:900 EXAM: General Well developed, well nourished, in no apparent distress. Head Normocephalic, atraumatic. Eyes PERRL, EOM intact, conjunctiva and sclera clear, without nystagmus, lids normal. Neck No masses, no thyromegaly, no abnormal cervical nodes, trachea midline. Chest Grossly normal appearance. Lungs Decreased bilaterally with extra respiratory effort. Heart Regular rate and rhythm, normal S1, S2, no murmurs, no rubs, no gallops, no clicks. Abdomen Soft, non-tender, no organomegaly, no masses noted. Extremities No clubbing, no cyanosis, no edema. Neurological No focal deficits, cranial nerves II-XII grossly intact, normal sensation, normal reflexes, normal coordination, normal muscle strength, normal tone. -- DATA -- MEDICATIONS BUDESONIDE 0.5 MG NEB RTBID POTASSIUM CHLORIDE 10 MEQ IV ASDIR PRN SOD BIPHOS/POT PHOSPHATE 1 PKT PO ASDIR (PRN) INSULIN LISPRO MEDIUM SS SUBQ Q4HR hydrALAZINE HCL 10 MG IV Q4H PRN SENNA/DOCUSATE SODIUM 1 TAB PO BID LABETALOL HCL 10 MG IV Q2H PRN ALBUTEROL SULFATE 2.5 MG NEB RTQ6H PRN FAMOTIDINE 20 MG PO BID AMPICILLIN/SULBACTAM with/in SODIUM CHLORIDE 100 mL BAG 3 GM IV Q6HR GLUCAGON 1 MG IM ASDIR PRN ONDANSETRON HCL/PF 4 MG IV Q4H PRN methylPREDNISolone SOD SUCC with/in WATER FOR INJECTION,STERILE 60 MG IV DAILY SODIUM PHOSPHATE with/in SODIUM CHLORIDE 0.9% 20 MM IV ASDIR (PRN) POTASSIUM CHLORIDE 20 MEQ IV ASDIR PRN polyethylene glycoL 3350 1 PKT PO DAILY DEXTROSE 50%-WATER 25 ML IV ASDIR PRN AZITHROMYCIN with/in SODIUM CHLORIDE 0.9% 500 MG IV 1800 POTASSIUM BICARBONATE/CIT AC 20 MEQ PO ASDIR PRN MUPIROCIN 1 APPLIC NASAL BID IPRATROPIUM/ALBUTEROL SULFATE 3 ML NEB RTQ6H MAGNESIUM SULFATE 2 GM IV ASDIR SODIUM PHOSPHATE with/in SODIUM CHLORIDE 0.9% 15 MM IV ASDIR (PRN) ENOXAPARIN SODIUM 40 MG SUBQ DAILY ACETAMINOPHEN 650 MG PO Q4H PRN QUEtiapine FUMARATE 50 MG PO BID DEXTROSE 37.5 GM PO ASDIR PRN SODIUM PHOSPHATE with/in SODIUM CHLORIDE 0.9% 30 MM IV ASDIR (PRN) LAB RESULTS GLU BED (04/14/24 00:11) GLUBED 116 H GLU BED (04/14/24 03:24) GLUBED 100 MAG (04/14/24 03:36) MAGNESIUM 2.2 PHOS (04/14/24 03:36) PHOSPHOROUS 2.9 CBC W/MANUAL DIFF (04/14/24 03:36) TOTAL CELLS COUNTED 100 SEGMENTED NEUTROPHILS 63 WHITE BLOOD CELL 9.34 RED BLOOD CELL 3.46 L LYMPHOCYTE 21 MONOCYTE 16 H MEAN CELL VOLUME 95 MEAN CELL HGB 29.5 HEMOGLOBIN 10.2L L HEMATOCRIT 32.8L L PLATELET COUNT 347 MEAN PLATELET VOLUME 9.8 MEAN CELL HGB CONCENTRATION 31.1 L RED CELL DISTRIBUTION WIDTH 13.9 BASIC METABOLIC PANEL (04/14/24 03:36) SODIUM 146H H GLUCOSE 107H H CARBON DIOXIDE 36H H CHLORIDE 104 POTASSIUM 4.4 CALCIUM 9.0 CREATININE 0.59 GLOMERULAR FILTRATION RATE >=60 max estimate BLOOD UREA NITROGEN 16D D GLU BED (04/14/24 07:50) GLUBED 93 GLU BED (04/14/24 11:45) GLUBED 102 at 1249 ATTENTION *EDITS and/or ADDENDA must be made in Patient Keeper for this note. * * Edits and ammendments created in [facility] are not visible * * in Patient Keeper or the legal medical record ([facility]). * RPT #: [id number] END OF REPORT [facility] 2024-04-14 08:58:00 [facility] ([facility]) Intensive Care Progress Note REPORT #: [id number] REPORT STATUS: Signed DATE: 04/14/24 TIME: 08 PATIENT: MARIE PINEDA UNIT #: [id number] ROOM #: T.IC19 BED: A : 60 AGE: 63 SEX: F ATTEND: Ricky Herrmann MD ADM AUTHOR: Glo Skaggs APRN ATTENTION *EDITS and/or ADDENDA must be made in Patient Keeper for this note. * * Edits and ammendments created in [employer] are not visible * * in Patient Keeper or the legal medical record ([facility]). * Attending: SNATIAGO GARCIA DO 04/14/24 19:58 Patient seen and examined in the ICU. Documentation, labs, imaging, and medications reviewed. Case discussed on multidisciplinary rounds. Wore BiPAP overnight but has been off all day today. Feels better. Alert and conversant. Interval events and plans: BiPAP PRN dyspnea. Comfortable on HFNC. Updated dtrs briefly at bedside. OK out of ICU. Otherwise agree with midlevel's findings including physical exam, assessment and plan as listed below. I have personally evaluated the patient along with the involvement of the PA/PRACTICE NURSE. I have performed all aspects of the MDM including evaluation of the patient's condition, patient management, time at bedside, time reviewing labs, test results, appropriate imaging, and documentation as well as coordinating care. Note Date: 04/14/24 08:58 -- ASSESSMENT AND PLAN -- GENERAL ASSESSMENT: Interval events/Subjective: Remains on HFNC 35L/50% with BIPAP at night. Wean oxygen support today, work of breathing improved today. d/c Precedex drip, continue with scheduled Seroquel. Patient calmer and less agitated today. Evaluated by SPL yesterday and okay for full liquid diet with nectar thick liquids. PT/OT today. Assessment and Plan: Neuro # acute metabolic encephalopathy, resolved - neuro checks per protocol - Precedex drip d/c'd - Scheduled Seroquel Respiratory # acute hypercapnic respiratory failure # COPD exacerbation # aspiration pneumonia # RSV - COVID, flu negative - nebs, steroids - Unasyn for aspiration - keep SpO2 > 92% - Extubated / - Now on Vapotherm 35L/40% with BIPAP at night CV # mildly elevated troponin, suspect type II demand ischemia - keep MAP > 65, SBP <160 - trend trops Renal - monitor kidney function, strict I O - trend/correct lytes GI/Nutrition - NPO, repeat BSE today - Advance diet if passes BSE Endo - monitor glucose - goal 100-180, SSI PRN Hematology - monitor H H -- transfuse Hb < 7 ID # possible aspiration pneumonia # RSV - empiric ABX as above - monitor WBC/fever curve - f/u blood/spu/urine cx, urine Ags ICU checklist: DVT/GI ppx: SCDs, SQL / H2B Access: PIVs Coleman: No CODE status: FULL CODE Advance care plan: [Recommend MPOA Plan of care discussed with bedside RN, patient ======== CC: respiratory failure HPI on admission: Pt is a 63 yo women with h/o COPD. Pt presented to the ED as a transfer from [facility] for respiratory. Most information obtained via chart review and ED staff as pt unable to participate 2/2 intubation. Pt presented to the OSH w/ SOB x 2-3 days. Found to have COPD exacerbation, RSV, suspected aspiration pneumonia. Placed on BiPAP transferred to [facility] for H[facility]. In route, pt became agitated was given 5mg Versed. Pt arrived to [place] ED on BiPAP, tachypneic, febrile, altered. Initial blood gas pH 7.2/82; Pt worsened over the next hour subsequently intubated for pH 7.1 AMS. Received Mag 2g, empiric azithro/ceftriaxone, 1L IVF, 125mg Solumedrol, DuoNeb. Admitted to ICU for vent mgmt close monitoring. Labs/imaging/notes reviewed. CT chest w/ contrast at OSH impression: No acute PE detected. Mod-severe COPD. Bronchial wall thickening in the lower lobes and right middle lobe which can be seen with bronchitis. Several bronchi with soft tissue density material filling and partly occluding, can be seen with some impaction related to mucus, infection, and/or aspiration. Several small nodular foci in the right middle lobe favor infectious or inflammatory process given the bronchial findings more proximal to this MedHx: COPD on home O2 2-3L SurgHx: ESDRAS Family Hx: ESDRAS Social Hx: inmate Physical Exam: Gen: ill appearing, disheveled, on HFNC Head: atraumatic, normocephalic ENT: EOMI, conjunctivae pink, sclera clear, neck w/o masses, trachea midline, MMM, oropharynx clear CV: RRR, s1/s2, peripheral pulses palpable Resp: diminished bilateral breath sounds, symmetric expansion, scant wheezes bilaterally Abd: soft, non-tender, not distended, +BS Ext/MSK: no edema/cyanosis, cap refill < 3 secs, normal tone Skin: warm, dry, color consistent w/ ethnicity, no rashes Neuro: AO x2-3, conversant, follows commands, Christiano Psych: calm -- EXAM -- VITALS (04/13 08:58 - 04/14 08:58): Temperature source: Oral Pulse Rate: 74 (60 - 109) Temperature F: 98 (97 - 98.2) Respiratory rate: 20 (15 - 43) Blood pressure source: Monitor Blood pressure: 127/60 (114/56 - 146/73) IOS (04/13 07:00-04/14 07:00): Net-709 [id number] IV fluid 1 volume ml:55.4 IV fluid 2 volume ml:5.6 IV fluid 3 volume ml:130 Other urine ml:900 -- DATA -- MEDICATIONS BUDESONIDE 0.5 MG NEB RTBID POTASSIUM CHLORIDE 10 MEQ IV ASDIR PRN INSULIN LISPRO MEDIUM SS SUBQ Q4HR hydrALAZINE HCL 10 MG IV Q4H PRN ACETAMINOPHEN 650 MG FEED-TUBE Q4H PRN LABETALOL HCL 10 MG IV Q2H PRN SENNA/DOCUSATE SODIUM 1 TAB FEED-TUBE BID ALBUTEROL SULFATE 2.5 MG NEB RTQ6H PRN AMPICILLIN/SULBACTAM with/in SODIUM CHLORIDE 100 mL BAG 3 GM IV Q6HR GLUCAGON 1 MG IM ASDIR PRN ONDANSETRON HCL/PF 4 MG IV Q4H PRN methylPREDNISolone SOD SUCC with/in WATER FOR INJECTION,STERILE 60 MG IV DAILY SOD BIPHOS/POT PHOSPHATE 1 PKT FEED-TUBE ASDIR (PRN) SODIUM PHOSPHATE with/in SODIUM CHLORIDE 0.9% 20 MM IV ASDIR (PRN) POTASSIUM CHLORIDE 20 MEQ IV ASDIR PRN DEXTROSE 50%-WATER 25 ML IV ASDIR PRN FAMOTIDINE 20 MG FEED-TUBE BID POTASSIUM BICARBONATE/CIT AC 20 MEQ FEED-TUBE ASDIR PRN AZITHROMYCIN with/in SODIUM CHLORIDE 0.9% 500 MG IV 1800 MUPIROCIN 1 APPLIC NASAL BID IPRATROPIUM/ALBUTEROL SULFATE 3 ML NEB RTQ6H MAGNESIUM SULFATE 2 GM IV ASDIR DEXTROSE 37.5 GM FEED-TUBE ASDIR PRN SODIUM PHOSPHATE with/in SODIUM CHLORIDE 0.9% 15 MM IV ASDIR (PRN) ENOXAPARIN SODIUM 40 MG SUBQ DAILY QUEtiapine FUMARATE 50 MG PO BID polyethylene glycoL 3350 1 PKT FEED-TUBE DAILY dexmedeTOMIDine in dextrose 5% 400 MCG IV ASDIR SODIUM PHOSPHATE with/in SODIUM CHLORIDE 0.9% 30 MM IV ASDIR (PRN) LAB RESULTS GLU BED (04/14/24 00:11) GLUBED 116 H GLU BED (04/14/24 03:24) GLUBED 100 MAG (04/14/24 03:36) MAGNESIUM 2.2 PHOS (04/14/24 03:36) PHOSPHOROUS 2.9 CBC W/MANUAL DIFF (04/14/24 03:36) TOTAL CELLS COUNTED 100 SEGMENTED NEUTROPHILS 63 WHITE BLOOD CELL 9.34 RED BLOOD CELL 3.46 L LYMPHOCYTE 21 MONOCYTE 16 H MEAN CELL VOLUME 95 MEAN CELL HGB 29.5 HEMOGLOBIN 10.2L L HEMATOCRIT 32.8L L PLATELET COUNT 347 MEAN PLATELET VOLUME 9.8 MEAN CELL HGB CONCENTRATION 31.1 L RED CELL DISTRIBUTION WIDTH 13.9 BASIC METABOLIC PANEL (04/14/24 03:36) SODIUM 146H H GLUCOSE 107H H CARBON DIOXIDE 36H H CHLORIDE 104 POTASSIUM 4.4 CALCIUM 9 CREATININE 0.59 GLOMERULAR FILTRATION RATE >=60 max estimate BLOOD UREA NITROGEN 16D D GLU BED (04/14/24 07:50) GLUBED 93 at 1957 at 1957 ATTENTION *EDITS and/or ADDENDA must be made in Patient Keeper for this note. * * Edits and ammendments created in [facility] are not visible * * in Patient Keeper or the legal medical record ([facility]). * RPT #: [id number] END OF REPORT [facility] 2024-04-13 14:37:00 [facility] Internal Med. Progress Note REPORT #: [id number] REPORT STATUS: Signed DATE: 04/13/24 TIME: 1437 PATIENT: MARIE PINEDA UNIT #: [id number] ROOM #: T.19 BED: A : 60 AGE: 63 SEX: F ATTEND: Brenna Ruelas MD ADM AUTHOR: Ricky Herrmann MD ATTENTION *EDITS and/or ADDENDA must be made in Patient Keeper for this note. * * Edits and ammendments created in [employer] are not visible * * in Patient Keeper or the legal medical record ([facility]). * Note Date: 04/13/24 14:37 -- ASSESSMENT/PLAN -- ASSESSMENT / PLAN: 1: Metabolic encephalopathy 2: Acute respiratory failure with hypoxia 3: Chronic obstructive pulmonary disease with (acute) exacerbation 4: RSV (respiratory syncytial virus infection) ADDITIONAL COMMENTS: CPM -- SUBJECTIVE -- CHIEF COMPLAINT: Resp failure/COPD exac/Pneumonia PATIENT NARRATIVE: Sob Extubated yesterday REVIEW OF SYSTEMS: General Negative for fever, +ve malaise, fatigue. Eyes Negative for blurry vision. No diplopia. Ears/Nose/Throat Negative for sore throat. No otalgia. No rhinorrhea. Respiratory Positive for dyspnea or wheeze. No cough. Cardiovascular Negative for chest pain or palpitations. No extremity swelling. Gastrointestinal Negative for abdominal pain or nausea. No emesis. No diarrhea. Genitourinary Negative for dysuria, frequency, or urgency. No gross hematuria. Neurological Negative for headache. No vertigo. Denies paresthesias. -- EXAM -- VITALS (04/12 14:37 - 04/13 14:37): Blood pressure: 133/61 (125/61 - 185/122) Respiratory rate: 20 (17 - 45) Blood pressure source: Monitor Temperature source: Axillary Temperature F: 97.5 (97.5 - 99.1) Pulse Rate: 68 (67 - 109) IOS (04/12 07:00-04/13 07:00): Qgi594.00 Intake1,412.00 Ebqcyy162 IV fluid 1 volume ml:400.00 IV fluid 11 volume ml:282.00 IV fluid 2 volume ml:250.00 Number of incontinent voids:1 Oral ml:480 Urinary catheter ml:325 Void ml:400 EXAM: General Well developed, well nourished, in no apparent distress. Head Normocephalic, atraumatic. Eyes PERRL, EOM intact, conjunctiva and sclera clear, without nystagmus, lids normal. Neck No masses, no thyromegaly, no abnormal cervical nodes, trachea midline. Chest Grossly normal appearance. Lungs Rhonchi and wheezing bilaterally with normal respiratory effort. Heart Regular rate and rhythm, normal S1, S2, no murmurs, no rubs, no gallops, no clicks. Abdomen Soft, non-tender, no organomegaly, no masses noted. Extremities No clubbing, no cyanosis, no edema. Neurological No focal deficits, cranial nerves II-XII grossly intact, normal sensation, normal reflexes, normal coordination, normal muscle strength, normal tone. -- DATA -- MEDICATIONS BUDESONIDE 0.5 MG NEB RTBID POTASSIUM CHLORIDE 10 MEQ IV ASDIR PRN INSULIN LISPRO MEDIUM SS SUBQ Q4HR hydrALAZINE HCL 10 MG IV Q4H PRN ACETAMINOPHEN 650 MG FEED-TUBE Q4H PRN LABETALOL HCL 10 MG IV Q2H PRN SENNA/DOCUSATE SODIUM 1 TAB FEED-TUBE BID ALBUTEROL SULFATE 2.5 MG NEB RTQ6H PRN AMPICILLIN/SULBACTAM with/in SODIUM CHLORIDE 100 mL BAG 3 GM IV Q6HR GLUCAGON 1 MG IM ASDIR PRN ONDANSETRON HCL/PF 4 MG IV Q4H PRN methylPREDNISolone SOD SUCC with/in WATER FOR INJECTION,STERILE 60 MG IV DAILY SOD BIPHOS/POT PHOSPHATE 1 PKT FEED-TUBE ASDIR (PRN) SODIUM PHOSPHATE with/in SODIUM CHLORIDE 0.9% 20 MM IV ASDIR (PRN) POTASSIUM CHLORIDE 20 MEQ IV ASDIR PRN DEXTROSE 50%-WATER 25 ML IV ASDIR PRN FAMOTIDINE 20 MG FEED-TUBE BID POTASSIUM BICARBONATE/CIT AC 20 MEQ FEED-TUBE ASDIR PRN AZITHROMYCIN with/in SODIUM CHLORIDE 0.9% 500 MG IV 1800 MUPIROCIN 1 APPLIC NASAL BID IPRATROPIUM/ALBUTEROL SULFATE 3 ML NEB RTQ6H MAGNESIUM SULFATE 2 GM IV ASDIR DEXTROSE 37.5 GM FEED-TUBE ASDIR PRN SODIUM PHOSPHATE with/in SODIUM CHLORIDE 0.9% 15 MM IV ASDIR (PRN) ENOXAPARIN SODIUM 40 MG SUBQ DAILY QUEtiapine FUMARATE 50 MG PO BID polyethylene glycoL 3350 1 PKT FEED-TUBE DAILY dexmedeTOMIDine in dextrose 5% 400 MCG IV ASDIR SODIUM PHOSPHATE with/in SODIUM CHLORIDE 0.9% 30 MM IV ASDIR (PRN) LAB RESULTS GLU BED (04/13/24 03:26) GLUBED 102 PHOS (04/13/24 03:28) PHOSPHOROUS 2.8 MAG (04/13/24 03:29) MAGNESIUM 2.1 CBC W/AUTO DIFF (04/13/24 03:29) RED CELL DISTRIBUTION WIDTH 14.0 MEAN CELL HGB CONCENTRATION 31.7 L MONOCYTE # 1.17 H PLATELET COUNT 354 HEMATOCRIT 32.5L L HEMOGLOBIN 10.3L L MEAN CELL HGB 29.9 MEAN CELL VOLUME 95 EOSINOPHIL # 0.00 MEAN PLATELET VOLUME 10.0 BASOPHIL # 0.03 NEUTROPHIL % 76.0 H LYMPHOCYTE % 12.3 L IMMATURE GRANULOCYTE % 2.5 H LYMPHOCYTE # 1.60 NEUTROPHIL # 9.93 H RED BLOOD CELL 3.44 L WHITE BLOOD CELL 13.05H H EOSINOPHIL % 0.0 L MONOCYTE % 9.0 NUCLEATED RBC % 0.0 BASOPHIL % 0.2 BASIC METABOLIC PANEL (04/13/24 03:29) CREATININE 0.62 CALCIUM 8.9 CARBON DIOXIDE 31 GLUCOSE 106 BLOOD UREA NITROGEN 24H H GLOMERULAR FILTRATION RATE >=60 max estimate SODIUM 146H H POTASSIUM 4.2 CHLORIDE 108H H GLU BED (04/13/24 07:54) GLUBED 94 GLU BED (04/13/24 11:57) GLUBED 121 H at 1439 ATTENTION *EDITS and/or ADDENDA must be made in Patient Keeper for this note. * * Edits and ammendments created in [employer] are not visible * * in Patient Keeper or the legal medical record ([facility]). * RPT #: [id number] END OF REPORT [facility] 2024-04-13 10:10:00 [facility] ([facility]) Intensive Care Progress Note REPORT #: [id number] REPORT STATUS: Signed DATE: 04/13/24 TIME: 1010 PATIENT: MARIE PINEDA UNIT #: [id number] ROOM #: T.IC19 BED: A : 60 AGE: 63 SEX: F ATTEND: Brenna Ruelas MD ADM AUTHOR: Glo Skaggs APRN ATTENTION *EDITS and/or ADDENDA must be made in Patient Keeper for this note. * * Edits and ammendments created in [employer] are not visible * * in Patient Keeper or the legal medical record ([facility]). * Attending: BRENNA RUELAS MD 04/13/24 17:10 Patient personally seen and examined. Documentation, labs, imaging, and medications reviewed. Case discussed on multidisciplinary rounds. Interval assessment and plan: Patient still requiring a significant amount of BiPAP support. Continue wean as tolerated. Continue to treat COPD exacerbation in the setting of RSV pneumonia and aspiration pneumonia. Continuing Seroquel for underlying psychiatric issues. Precedex as needed for anxiety and agitation. Continue close monitoring as patient is high risk for reintubation. Otherwise agree with midlevel's findings including physical exam, assessment and plan as listed below. I personally provided critical care time as listed below in the treatment of this patient. I have personally evaluated the patient along with the involvement of the PA/PRACTICE NURSE. I have performed all aspects of the MDM including evaluation of the patient's condition, patient management, time at bedside, time reviewing labs, test results, appropriate imaging, and documentation as well as coordinating care. Total critical care time 65 minutes excluding billable procedures. Note Date: 04/13/24 10:10 -- ASSESSMENT AND PLAN -- GENERAL ASSESSMENT: Interval events/Subjective: Extubated yesterday to vapotherm/BIPAP. Patient continues to require low dose Precedex drip, started Seroquel yesterday. BIPAP overnight, wean to vapotherm today. Repeat BSE today. Continues on treatment for RSV and COPD exacerbation. Assessment and Plan: Neuro # acute metabolic encephalopathy - neuro checks per protocol - Low dose Precedex drip - Started on scheduled Seroquel Respiratory # acute hypercapnic respiratory failure # COPD exacerbation # aspiration pneumonia # RSV - COVID, flu negative - nebs, steroids - Unasyn for aspiration - keep SpO2 > 92% - Extubated 2/6 - Now on Vapotherm 40L/40% with intermittent BIPAP CV # mildly elevated troponin, suspect type II demand ischemia - keep MAP > 65, SBP <160 - trend trops Renal - monitor kidney function, strict I O - trend/correct lytes GI/Nutrition - NPO, repeat BSE today - Advance diet if passes BSE Endo - monitor glucose - goal 100-180, SSI PRN Hematology - monitor H H -- transfuse Hb < 7 ID # possible aspiration pneumonia # RSV - empiric ABX as above - monitor WBC/fever curve - f/u blood/spu/urine cx, urine Ags ICU checklist: DVT/GI ppx: SCDs, SQL / H2B Access: PIVs Coleman: No CODE status: FULL CODE Advance care plan: [Recommend MPOA Plan of care discussed with bedside RN, patient ======== CC: respiratory failure HPI on admission: Pt is a 63 yo women with h/o COPD. Pt presented to the ED as a transfer from [facility] for respiratory. Most information obtained via chart review and ED staff as pt unable to participate 2/2 intubation. Pt presented to the OSH w/ SOB x 2-3 days. Found to have COPD exacerbation, RSV, suspected aspiration pneumonia. Placed on BiPAP transferred to [facility] for HLoC. In route, pt became agitated was given 5mg Versed. Pt arrived to [place] ED on BiPAP, tachypneic, febrile, altered. Initial blood gas pH 7.2/82; Pt worsened over the next hour subsequently intubated for pH 7.1 AMS. Received Mag 2g, empiric azithro/ceftriaxone, 1L IVF, 125mg Solumedrol, DuoNeb. Admitted to ICU for vent mgmt close monitoring. Labs/imaging/notes reviewed. CT chest w/ contrast at OSH impression: No acute PE detected. Mod-severe COPD. Bronchial wall thickening in the lower lobes and right middle lobe which can be seen with bronchitis. Several bronchi with soft tissue density material filling and partly occluding, can be seen with some impaction related to mucus, infection, and/or aspiration. Several small nodular foci in the right middle lobe favor infectious or inflammatory process given the bronchial findings more proximal to this Assessment and Plan MedHx: COPD SurgHx: ESDRAS Family Hx: ESDRAS Social Hx: inmate Physical Exam: Gen: ill appearing, disheveled, on BIPAP Head: atraumatic, normocephalic ENT: EOMI, conjunctivae pink, sclera clear, neck w/o masses, trachea midline, MMM, oropharynx clear CV: RRR, s1/s2, peripheral pulses palpable Resp: diminished bilateral breath sounds, symmetric expansion, scant wheezes bilaterally Abd: soft, non-tender, not distended, +BS Ext/MSK: no edema/cyanosis, cap refill < 3 secs, normal tone Skin: warm, dry, color consistent w/ ethnicity, no rashes Neuro: Drowsy but wakes up, oriented x1, confused, follows commands, Christiano Psych: anxious/agitated when awake -- EXAM -- VITALS (04/12 10:10 - 04/13 10:10): Blood pressure: 133/61 (115/61 - 185/122) Respiratory rate: 20 (16 - 50) Blood pressure source: Monitor Temperature F: 97.5 (97.5 - 99.1) Temperature source: Axillary Pulse Rate: 68 (56 - 122) IOS (04/12 07:00-04/13 07:00): Sjs252 Intake1,412.00 Rzhdhm056 IV fluid 1 volume ml:400 IV fluid 11 volume ml:282 IV fluid 2 volume ml:250 Number of incontinent voids:1 Oral ml:480 Urinary catheter ml:325 Void ml:400 -- DATA -- MEDICATIONS BUDESONIDE 0.5 MG NEB RTBID POTASSIUM CHLORIDE 10 MEQ IV ASDIR PRN INSULIN LISPRO MEDIUM SS SUBQ Q4HR hydrALAZINE HCL 10 MG IV Q4H PRN ACETAMINOPHEN 650 MG FEED-TUBE Q4H PRN LABETALOL HCL 10 MG IV Q2H PRN SENNA/DOCUSATE SODIUM 1 TAB FEED-TUBE BID AMPICILLIN/SULBACTAM with/in SODIUM CHLORIDE 100 mL BAG 3 GM IV Q6HR GLUCAGON 1 MG IM ASDIR PRN ONDANSETRON HCL/PF 4 MG IV Q4H PRN methylPREDNISolone SOD SUCC with/in WATER FOR INJECTION,STERILE 60 MG IV DAILY SOD BIPHOS/POT PHOSPHATE 1 PKT FEED-TUBE ASDIR (PRN) SODIUM PHOSPHATE with/in SODIUM CHLORIDE 0.9% 20 MM IV ASDIR (PRN) POTASSIUM CHLORIDE 20 MEQ IV ASDIR PRN DEXTROSE 50%-WATER 25 ML IV ASDIR PRN FAMOTIDINE 20 MG FEED-TUBE BID POTASSIUM BICARBONATE/CIT AC 20 MEQ FEED-TUBE ASDIR PRN AZITHROMYCIN with/in SODIUM CHLORIDE 0.9% 500 MG IV 1800 MUPIROCIN 1 APPLIC NASAL BID IPRATROPIUM/ALBUTEROL SULFATE 3 ML NEB RTQ6H MAGNESIUM SULFATE 2 GM IV ASDIR DEXTROSE 37.5 GM FEED-TUBE ASDIR PRN SODIUM PHOSPHATE with/in SODIUM CHLORIDE 0.9% 15 MM IV ASDIR (PRN) ENOXAPARIN SODIUM 40 MG SUBQ DAILY QUEtiapine FUMARATE 50 MG PO BID polyethylene glycoL 3350 1 PKT FEED-TUBE DAILY dexmedeTOMIDine in dextrose 5% 400 MCG IV ASDIR SODIUM PHOSPHATE with/in SODIUM CHLORIDE 0.9% 30 MM IV ASDIR (PRN) LAB RESULTS GLU BED (04/13/24 03:26) GLUBED 102 PHOS (04/13/24 03:28) PHOSPHOROUS 2.8 MAG (04/13/24 03:29) MAGNESIUM 2.1 CBC W/AUTO DIFF (04/13/24 03:29) RED CELL DISTRIBUTION WIDTH 14 MEAN CELL HGB CONCENTRATION 31.7 L MONOCYTE # 1.17 H PLATELET COUNT 354 HEMATOCRIT 32.5L L HEMOGLOBIN 10.3L L MEAN CELL HGB 29.9 MEAN CELL VOLUME 95 EOSINOPHIL # 0 MEAN PLATELET VOLUME 10 BASOPHIL # 0.03 NEUTROPHIL % 76 H LYMPHOCYTE % 12.3 L IMMATURE GRANULOCYTE % 2.5 H LYMPHOCYTE # 1.6 NEUTROPHIL # 9.93 H RED BLOOD CELL 3.44 L WHITE BLOOD CELL 13.05H H EOSINOPHIL % 0 L MONOCYTE % 9 NUCLEATED RBC % 0 BASOPHIL % 0.2 BASIC METABOLIC PANEL (04/13/24 03:29) CREATININE 0.62 CALCIUM 8.9 CARBON DIOXIDE 31 GLUCOSE 106 BLOOD UREA NITROGEN 24H H GLOMERULAR FILTRATION RATE >=60 max estimate SODIUM 146H H POTASSIUM 4.2 CHLORIDE 108H H GLU BED (04/13/24 07:54) GLUBED 94 at 1710 at 1710 ATTENTION *EDITS and/or ADDENDA must be made in Patient Keeper for this note. * * Edits and ammendments created in [employer] are not visible * * in Patient Keeper or the legal medical record ([facility]). * [facility] [place] #: [id number] END OF REPORT [facility] 2024-04-12 11:26:00 [facility] ([facility]) Intensive Care Progress Note REPORT #: [id number] REPORT STATUS: Signed DATE: 04/12/24 TIME: 1126 PATIENT: MARIE PINEDA UNIT #: [id number] ROOM #: [facility] BED: A : 60 AGE: 63 SEX: F ATTEND: Brenna Ruelas MD [facility] AUTHOR: Glo Skaggs APRN ATTENTION *EDITS and/or ADDENDA must be made in Patient Keeper for this note. * * Edits and ammendments created in [employer] are not visible * * in Patient Keeper or the legal medical record ([facility]). * Attending: BRENNA RUELAS MD 04/12/24 17:04 Patient personally seen and examined. Documentation, labs, imaging, and medications reviewed. Case discussed on multidisciplinary rounds. Interval assessment and plan: Patient intubated and sedated in AM. Patient passed SAT/SBT and was extubated to BiPAP. Patient high risk for reintubation. Continue to monitor closely. Patient is awake and following commands but having issues with agitation and confusion. Starting Seroquel. CXR and ABG reviewed. Otherwise agree with midlevel's findings including physical exam, assessment and plan as listed below. I personally provided critical care time as listed below in the treatment of this patient. I have personally evaluated the patient along with the involvement of the PA/PRACTICE NURSE. I have performed all aspects of the MDM including evaluation of the patient's condition, patient management, time at bedside, time reviewing labs, test results, appropriate imaging, and documentation as well as coordinating care. Total critical care time 60 minutes excluding billable procedures. Note Date: 04/12/24 11:26 -- ASSESSMENT AND PLAN -- GENERAL ASSESSMENT: Interval events/Subjective: Patient very anxious during SAT/SBT even while on Precedex, extubated to vapotherm, now on BIPAP doing better. Wean off BIPAP as able. Continues on treatment for COPD exacerbation and RSV. Assessment and Plan: Neuro # acute metabolic encephalopathy - neuro checks per protocol - currently sedated for vent synchrony Respiratory # acute hypercapnic respiratory failure # COPD exacerbation # aspiration pneumonia # RSV - COVID, flu negative - nebs, steroids - escalate ceftriaxone to Unasyn for aspiration - keep SpO2 > 92% - CXR and ABG reviewed CV # mildly elevated troponin, suspect type II demand ischemia - keep MAP > 65, SBP <160 - trend trops Renal - monitor kidney function, strict I O - trend/correct lytes GI/Nutrition - NPO, NGT for meds - nutrition consult for TF recs Endo - monitor glucose - goal 100-180, SSI PRN Hematology - monitor H H -- transfuse Hb < 7 ID # aspiration pneumonia # RSV - empiric ABX as above - monitor WBC/fever curve - f/u blood/spu/urine cx, urine Ags ICU checklist: DVT/GI ppx: SCDs, SQL / H2B Access: PIVs Coleman: No CODE status: FULL CODE Advance care plan: [Recommend MPOA Plan of care discussed with bedside RN, patient ======== CC: respiratory failure HPI on admission: Pt is a 63 yo women with h/o COPD. Pt presented to the ED as a transfer from [facility] for respiratory. Most information obtained via chart review and ED staff as pt unable to participate 2/2 intubation. Pt presented to the OSH w/ SOB x 2-3 days. Found to have COPD exacerbation, RSV, suspected aspiration pneumonia. Placed on BiPAP transferred to [facility] for HLoC. In route, pt became agitated was given 5mg Versed. Pt arrived to [place] ED on BiPAP, tachypneic, febrile, altered. Initial blood gas pH 7.2/82; Pt worsened over the next hour subsequently intubated for pH 7.1 AMS. Received Mag 2g, empiric azithro/ceftriaxone, 1L IVF, 125mg Solumedrol, DuoNeb. Admitted to ICU for vent mgmt close monitoring. Labs/imaging/notes reviewed. CT chest w/ contrast at OSH impression: No acute PE detected. Mod-severe COPD. Bronchial wall thickening in the lower lobes and right middle lobe which can be seen with bronchitis. Several bronchi with soft tissue density material filling and partly occluding, can be seen with some impaction related to mucus, infection, and/or aspiration. Several small nodular foci in the right middle lobe favor infectious or inflammatory process given the bronchial findings more proximal to this Assessment and Plan MedHx: COPD SurgHx: ESDRAS Family Hx: ESDRAS Social Hx: inmate Physical Exam: Gen: intubated, on vent, in bed, sitting up off sedation, anxious Head: atraumatic, normocephalic ENT: EOMI, conjunctivae pink, sclera clear, neck w/o masses, trachea midline, MMM, oropharynx clear CV: RRR, s1/s2, peripheral pulses palpable Resp: Bilateral mechanical breath sounds, symmetric expansion, scant wheezes bilaterally Abd: soft, non-tender, not distended, +BS Ext/MSK: no edema/cyanosis, cap refill < 3 secs, normal tone Skin: warm, dry, color consistent w/ ethnicity, no rashes Neuro: Sitting up anxious, intermittently following commands, Christiano Psych: anxious -- EXAM -- VITALS (04/11 11:26 - 04/12 11:26): Blood pressure: 143/91 (107/62 - 158/107) Respiratory rate: 21 (20 - 39) Blood pressure source: Monitor Temperature F: 98.2 (97.1 - 98.7) Temperature source: Oral Pulse Rate: 58 (47 - 120) IOS (04/11 07:00-04/12 07:00): Net4,449.10 Intake4,549.10 [id number] IV fluid 1 volume ml:200 IV fluid 11 volume ml:83 IV fluid 12 volume ml:500 IV fluid 7 volume ml:3,017.00 IV fluid 8 volume ml:277.1 IV fluid 9 volume ml:207 Tube feeding amount ml:165 Void ml:100 Water ml:100 -- DATA -- MEDICATIONS BUDESONIDE 0.5 MG NEB RTBID POTASSIUM CHLORIDE 10 MEQ IV ASDIR PRN INSULIN LISPRO MEDIUM SS SUBQ Q4HR hydrALAZINE HCL 10 MG IV Q4H PRN ACETAMINOPHEN 650 MG FEED-TUBE Q4H PRN LABETALOL HCL 10 MG IV Q2H PRN propofoL 1000 MG IV ASDIR SENNA/DOCUSATE SODIUM 1 TAB FEED-TUBE BID AMPICILLIN/SULBACTAM with/in SODIUM CHLORIDE 100 mL BAG 3 GM IV Q6HR GLUCAGON 1 MG IM ASDIR PRN ONDANSETRON HCL/PF 4 MG IV Q4H PRN methylPREDNISolone SOD SUCC with/in WATER FOR INJECTION,STERILE 60 MG IV DAILY SOD BIPHOS/POT PHOSPHATE 1 PKT FEED-TUBE ASDIR (PRN) SODIUM PHOSPHATE with/in SODIUM CHLORIDE 0.9% 20 MM IV ASDIR (PRN) POTASSIUM CHLORIDE 20 MEQ IV ASDIR PRN DEXTROSE 50%-WATER 25 ML IV ASDIR PRN FAMOTIDINE 20 MG FEED-TUBE BID POTASSIUM BICARBONATE/CIT AC 20 MEQ FEED-TUBE ASDIR PRN FENTANYL CITRATE-0.9 % NACL/PF 2500 MCG IV ASDIR AZITHROMYCIN with/in SODIUM CHLORIDE 0.9% 500 MG IV 1800 MUPIROCIN 1 APPLIC NASAL BID IPRATROPIUM/ALBUTEROL SULFATE 3 ML NEB RTQ6H MAGNESIUM SULFATE 2 GM IV ASDIR DEXTROSE 37.5 GM FEED-TUBE ASDIR PRN SODIUM PHOSPHATE with/in SODIUM CHLORIDE 0.9% 15 MM IV ASDIR (PRN) ENOXAPARIN SODIUM 40 MG SUBQ DAILY polyethylene glycoL 3350 1 PKT FEED-TUBE DAILY dexmedeTOMIDine in dextrose 5% 400 MCG IV ASDIR SODIUM PHOSPHATE with/in SODIUM CHLORIDE 0.9% 30 MM IV ASDIR (PRN) LAB RESULTS MAG (04/12/24 03:44) MAGNESIUM 2.5 CBC W/AUTO DIFF (04/12/24 03:44) LYMPHOCYTE % 8.1 L MONOCYTE % 8.8 BASOPHIL # 0.02 IMMATURE GRANULOCYTE % 0.8 NUCLEATED RBC % 0 NEUTROPHIL # 10.67 H EOSINOPHIL % 0 L BASOPHIL % 0.2 RED BLOOD CELL 3.37 L HEMOGLOBIN 10.1L L LYMPHOCYTE # 1.05 L WHITE BLOOD CELL 12.98H H MEAN CELL HGB 30 MEAN CELL HGB CONCENTRATION 32.3 L HEMATOCRIT 31.3L L MEAN CELL VOLUME 93 MONOCYTE # 1.14 H MEAN PLATELET VOLUME 10.3 RED CELL DISTRIBUTION WIDTH 14.2 PLATELET COUNT 333 EOSINOPHIL # 0 NEUTROPHIL % 82.1 H BASIC METABOLIC PANEL (04/12/24 03:44) GLOMERULAR FILTRATION RATE >=60 max estimate CREATININE 0.84 CALCIUM 9.1 CHLORIDE 108H H CARBON DIOXIDE 28 GLUCOSE 153H H BLOOD UREA NITROGEN 29D H D H SODIUM 144 POTASSIUM 4.4 PHOS (04/12/24 03:44) PHOSPHOROUS 4.1 GLU BED (04/12/24 04:00) GLUBED 155 H PaO2/FiO2 (04/12/24 04:03) PaO2/FiO2 334 BLOOD GAS W/ELECTROLYTES (04/12/24 04:03) ABG SITE Right Radial ALLENS TEST Yes ABG PEEP 5 IONIZED CALCIUM 1.19 TOTAL HGB 11.7 L SODIUM (POC) 138 POTASSIUM (POC) 4.4 ARTERIAL BLOOD GAS PH 7.425 ARTERIAL BLOOD GAS PCO2 43.2 OXYHEMOGLOBIN 97.8 CARBOXYHEMOGLOBIN 0.3 BASE EXCESS 2.9 H ABG O2 SATURATION 98.3 ARTERIAL BLOOD GAS PO2 133.6 H BICARBONATE TOTAL HCO3 27.7 H ABG VENT RESP RATE 22 METHEMOGLOBIN <0.8 ARTERIAL FIO2 40 ABG VENT MODE pvrc ABG TIDAL VOLUME 400 GLU BED (04/12/24 08:11) GLUBED 141 H at 1704 at 1704 ATTENTION *EDITS and/or ADDENDA must be made in Patient Keeper for this note. * * Edits and ammendments created in [employer] are not visible * * in Patient Keeper or the legal medical record ([facility]). * RPT #: [id number] END OF REPORT [facility] 2024-04-12 11:14:00 [facility] Internal Med. Progress Note REPORT #: [id number] REPORT STATUS: Signed DATE: 04/12/24 TIME: 1114 PATIENT: MARIE PINEDA UNIT #: [id number] ROOM #: T.IC19 BED: A : 60 AGE: 63 SEX: F ATTEND: Brenna Ruelas MD ADM AUTHOR: Ricky Herrmann MD ATTENTION *EDITS and/or ADDENDA must be made in Patient Keeper for this note. * * Edits and ammendments created in [employer] are not visible * * in Patient Keeper or the legal medical record ([facility]). * Note Date: 04/12/24 11:14 -- ASSESSMENT/PLAN -- ASSESSMENT / PLAN: 1: Aspiration pneumonia 2: COPD exacerbation 3: Respiratory failure, unspecified, unspecified whether with hypoxia or hypercapnia 4: RSV (respiratory syncytial virus infection) ADDITIONAL COMMENTS: Continue current critical care management -- SUBJECTIVE -- CHIEF COMPLAINT: Acute resp failure/COPD exac PATIENT NARRATIVE: Intubated/Sedated -- EXAM -- VITALS (04/11 11:14 - 04/12 11:14): Temperature F: 98.2 (97.1 - 98.7) Temperature source: Oral Pulse Rate: 58 (47 - 133) Blood pressure: 143/91 (107/62 - 158/107) Respiratory rate: 21 (20 - 39) Blood pressure source: Monitor IOS (04/11 07:00-04/12 07:00): Net4,449.10 Intake4,549.10 [id number] IV fluid 1 volume ml:200.00 IV fluid 11 volume ml:83.00 IV fluid 12 volume ml:500.00 IV fluid 7 volume ml:3,017.00 IV fluid 8 volume ml:277.10 IV fluid 9 volume ml:207.00 Tube feeding amount ml:165 Void ml:100 Water ml:100 EXAM: General Well developed, well nourished on the vent. Head Normocephalic, atraumatic. Neck No masses, no thyromegaly, no abnormal cervical nodes, trachea midline. Chest Grossly normal appearance. Lungs Clear bilaterally with ventilator assistance. Heart Regular rate and rhythm, normal S1, S2, no murmurs, no rubs, no gallops, no clicks. Abdomen Soft, non-distended, no organomegaly, no masses noted. Extremities No clubbing, no cyanosis, no edema. Neurological Sedated -- DATA -- MEDICATIONS BUDESONIDE 0.5 MG NEB RTBID POTASSIUM CHLORIDE 10 MEQ IV ASDIR PRN INSULIN LISPRO MEDIUM SS SUBQ Q4HR hydrALAZINE HCL 10 MG IV Q4H PRN ACETAMINOPHEN 650 MG FEED-TUBE Q4H PRN LABETALOL HCL 10 MG IV Q2H PRN propofoL 1000 MG IV ASDIR SENNA/DOCUSATE SODIUM 1 TAB FEED-TUBE BID AMPICILLIN/SULBACTAM with/in SODIUM CHLORIDE 100 mL BAG 3 GM IV Q6HR GLUCAGON 1 MG IM ASDIR PRN ONDANSETRON HCL/PF 4 MG IV Q4H PRN methylPREDNISolone SOD SUCC with/in WATER FOR INJECTION,STERILE 60 MG IV DAILY SOD BIPHOS/POT PHOSPHATE 1 PKT FEED-TUBE ASDIR (PRN) SODIUM PHOSPHATE with/in SODIUM CHLORIDE 0.9% 20 MM IV ASDIR (PRN) POTASSIUM CHLORIDE 20 MEQ IV ASDIR PRN DEXTROSE 50%-WATER 25 ML IV ASDIR PRN FAMOTIDINE 20 MG FEED-TUBE BID POTASSIUM BICARBONATE/CIT AC 20 MEQ FEED-TUBE ASDIR PRN FENTANYL CITRATE-0.9 % NACL/PF 2500 MCG IV ASDIR AZITHROMYCIN with/in SODIUM CHLORIDE 0.9% 500 MG IV 1800 MUPIROCIN 1 APPLIC NASAL BID IPRATROPIUM/ALBUTEROL SULFATE 3 ML NEB RTQ6H MAGNESIUM SULFATE 2 GM IV ASDIR DEXTROSE 37.5 GM FEED-TUBE ASDIR PRN SODIUM PHOSPHATE with/in SODIUM CHLORIDE 0.9% 15 MM IV ASDIR (PRN) ENOXAPARIN SODIUM 40 MG SUBQ DAILY polyethylene glycoL 3350 1 PKT FEED-TUBE DAILY dexmedeTOMIDine in dextrose 5% 400 MCG IV ASDIR SODIUM PHOSPHATE with/in SODIUM CHLORIDE 0.9% 30 MM IV ASDIR (PRN) LAB RESULTS MAG (04/12/24 03:44) MAGNESIUM 2.5 CBC W/AUTO DIFF (04/12/24 03:44) LYMPHOCYTE % 8.1 L MONOCYTE % 8.8 BASOPHIL # 0.02 IMMATURE GRANULOCYTE % 0.8 NUCLEATED RBC % 0.0 NEUTROPHIL # 10.67 H EOSINOPHIL % 0.0 L BASOPHIL % 0.2 RED BLOOD CELL 3.37 L HEMOGLOBIN 10.1L L LYMPHOCYTE # 1.05 L WHITE BLOOD CELL 12.98H H MEAN CELL HGB 30.0 MEAN CELL HGB CONCENTRATION 32.3 L HEMATOCRIT 31.3L L MEAN CELL VOLUME 93 MONOCYTE # 1.14 H MEAN PLATELET VOLUME 10.3 RED CELL DISTRIBUTION WIDTH 14.2 PLATELET COUNT 333 EOSINOPHIL # 0.00 NEUTROPHIL % 82.1 H BASIC METABOLIC PANEL (04/12/24 03:44) GLOMERULAR FILTRATION RATE >=60 max estimate CREATININE 0.84 CALCIUM 9.1 CHLORIDE 108H H CARBON DIOXIDE 28 GLUCOSE 153H H BLOOD UREA NITROGEN 29D H D H SODIUM 144 POTASSIUM 4.4 PHOS (04/12/24 03:44) PHOSPHOROUS 4.1 GLU BED (04/12/24 04:00) GLUBED 155 H PaO2/FiO2 (04/12/24 04:03) PaO2/FiO2 334.00 BLOOD GAS W/ELECTROLYTES (04/12/24 04:03) ABG SITE Right Radial ALLENS TEST Yes ABG PEEP 5.0 IONIZED CALCIUM 1.19 TOTAL HGB 11.7 L SODIUM (POC) 138 POTASSIUM (POC) 4.4 ARTERIAL BLOOD GAS PH 7.425 ARTERIAL BLOOD GAS PCO2 43.2 OXYHEMOGLOBIN 97.8 CARBOXYHEMOGLOBIN 0.3 BASE EXCESS 2.9 H ABG O2 SATURATION 98.3 ARTERIAL BLOOD GAS PO2 133.6 H BICARBONATE TOTAL HCO3 27.7 H ABG VENT RESP RATE 22 METHEMOGLOBIN <0.8 ARTERIAL FIO2 40.0 ABG VENT MODE pvrc ABG TIDAL VOLUME 400.0 GLU BED (04/12/24 08:11) GLUBED 141 H at 1121 ATTENTION *EDITS and/or ADDENDA must be made in Patient Keeper for this note. * * Edits and ammendments created in [facility] are not visible * * in Patient Keeper or the legal medical record ([facility]). * [facility] #: [id number] END OF REPORT [facility] 2024-04-11 16:45:00 [id number] [facility] [place] [address] [place] [address] PATIENT NAME: MARIE PINEDA ADMIT DATE: 04/10/24 ACCOUNT NO: [id number] ROOM NO: T.207 AGE: 63 REPORT TYPE: HISTORY AND PHYSICAL SEX: F ADMITTING PHYSICIAN: Brenna Ruelas MD ATTENDING PHYSICIAN: Ricky Herrmann MD ADMISSION DATE: 04/10/2024 19:10:00 CHIEF COMPLAINT: Shortness of breath. HISTORY OF PRESENT ILLNESS: This is a 63-year-old female with history of COPD, was transferred from [facility] to [facility] for worsening respiratory failure. The patient worsened during her arrival and had to be intubated, placed on the vent, and admitted to ICU under critical care services. No other information available at this time. PAST MEDICAL HISTORY: COPD. MEDICATIONS: Medication list not available. ALLERGIES: LISTED IN THE ER RECORD. FAMILY HISTORY: Noncontributory. SOCIAL HISTORY: Could not be obtained. REVIEW OF SYSTEMS: Could not be obtained. PHYSICAL EXAMINATION: GENERAL: The patient intubated, sedated on the vent. VITAL SIGNS: Blood pressure and other vital signs are stable. HEENT: Normocephalic, atraumatic. HEART: Regular rate and rhythm. No gallops, no murmurs. LUNGS: Diminished breath sounds, but clear anteriorly. Ventilated breathing. ABDOMEN: Soft. No guarding noted. Bowel sounds are positive. EXTREMITIES: No edema or cyanosis. NEUROLOGIC: Could not be done. The patient is sedated. IMPRESSION: 1. Chronic obstructive pulmonary disease exacerbation. 2. Acute respiratory failure with hypoxia. PLAN: The patient admitted under critical care services. Further recommendations as critical course proceeds. Followup labs ordered. Dictated By: Ricky Herrmann MD PATIENT NAME: MARIE PINEDA Date Dictated: 04/11/2024 16:45:22 Date Transcribed: 04/11/2024 17:06:36 GUADALUPE/ROMINA Receipt ID: [id number] Authenticated by Ricky Herrmann MD On 04/26/2024 01:34:19 PM at 0134 PATIENT NAME: MARIE PINEDA [facility] 2024-04-11 11:37:00 [facility] ([facility]) Intensive Care Progress Note REPORT #: [id number] REPORT STATUS: Signed DATE: 04/11/24 TIME: 1137 PATIENT: MARIE PINEDA UNIT #: [id number] ROOM #: [facility] BED: A : 60 AGE: 63 SEX: F ATTEND: Brenna Ruelas MD ADM AUTHOR: Brenna Ruelas MD ATTENTION *EDITS and/or ADDENDA must be made in Patient Keeper for this note. * * Edits and ammendments created in [employer] are not visible * * in Patient Keeper or the legal medical record ([facility]). * Note Date: 04/11/24 11:37 -- ASSESSMENT AND PLAN -- GENERAL ASSESSMENT: Interval events/Subjective: Failed SAT/SBT. Patient was resedated. Continue treatment for acute respiratory failure. Assessment and Plan: Neuro # acute metabolic encephalopathy - neuro checks per protocol - currently sedated for vent synchrony Respiratory # acute hypercapnic respiratory failure # COPD exacerbation # aspiration pneumonia # RSV - COVID, flu negative - nebs, steroids - escalate ceftriaxone to Unasyn for aspiration - keep SpO2 > 92% - CXR and ABG reviewed CV # mildly elevated troponin, suspect type II demand ischemia - keep MAP > 65, SBP <160 - trend trops Renal - monitor kidney function, strict I O - trend/correct lytes GI/Nutrition - NPO, NGT for meds - nutrition consult for TF recs Endo - monitor glucose - goal 100-180, SSI PRN Hematology - monitor H H -- transfuse Hb < 7 ID # aspiration pneumonia # RSV - empiric ABX as above - monitor WBC/fever curve - f/u blood/spu/urine cx, urine Ags ICU checklist: DVT/GI ppx: SCDs, SQL / H2B Access: PIVs Coleman: No CODE status: FULL CODE Advance care plan: [Recommend MPOA Plan of care discussed with bedside RN, patient ======== CC: respiratory failure HPI on admission: Pt is a 63 yo women with h/o COPD. Pt presented to the ED as a transfer from [facility] for respiratory. Most information obtained via chart review and ED staff as pt unable to participate 2/2 intubation. Pt presented to the OSH w/ SOB x 2-3 days. Found to have COPD exacerbation, RSV, suspected aspiration pneumonia. Placed on BiPAP transferred to [facility] for HLoC. In route, pt became agitated was given 5mg Versed. Pt arrived to [place] ED on BiPAP, tachypneic, febrile, altered. Initial blood gas pH 7.2/82; Pt worsened over the next hour subsequently intubated for pH 7.1 AMS. Received Mag 2g, empiric azithro/ceftriaxone, 1L IVF, 125mg Solumedrol, DuoNeb. Admitted to ICU for vent mgmt close monitoring. Labs/imaging/notes reviewed. CT chest w/ contrast at OSH impression: No acute PE detected. Mod-severe COPD. Bronchial wall thickening in the lower lobes and right middle lobe which can be seen with bronchitis. Several bronchi with soft tissue density material filling and partly occluding, can be seen with some impaction related to mucus, infection, and/or aspiration. Several small nodular foci in the right middle lobe favor infectious or inflammatory process given the bronchial findings more proximal to this Assessment and Plan MedHx: COPD SurgHx: ESDRAS Family Hx: ESDRAS Social Hx: inmate Physical Exam: Gen: intubated, sedated, on vent, in bed, NAD Head: atraumatic, normocephalic ENT: EOMI, conjunctivae pink, sclera clear, neck w/o masses, trachea midline, MMM, oropharynx clear CV: RRR, s1/s2, peripheral pulses palpable Resp: Bilateral mechanical breath sounds, symmetric expansion, scant wheezes bilaterally Abd: soft, non-tender, not distended, +BS Ext/MSK: no edema/cyanosis, cap refill < 3 secs, normal tone Skin: warm, dry, color consistent w/ ethnicity, no rashes Neuro: limited exam d/t sedation, Christiano, face appears symmetric, not following commands Psych: defer d/t sedation -- EXAM -- VITALS (04/10 11:37 - 04/11 11:37): Blood pressure: 104/67 (80/51 - 171/120) Respiratory rate: 35 (16 - 35) Blood pressure source: Monitor Temperature F: 97.2 (97.2 - 100.6) Temperature source: Oral Pulse Rate: 81 (81 - 151) IOS (04/10 07:00-04/11 07:00): Net1,306.30 Intake1,429.30 [id number] IV fluid 1 volume ml:200 IV fluid 10 volume ml:20 IV fluid 2 volume ml:250 IV fluid 3 volume ml:5 IV fluid 4 volume ml:250 IV fluid 5 volume ml:200 IV fluid 6 volume ml:100 IV fluid 7 volume ml:200 IV fluid 8 volume ml:144 IV fluid 9 volume ml:60.3 Number of incontinent voids:2 Number of times incontinent stool:0 Oral ml:0 Other urine ml:123 -- DATA -- MEDICATIONS BUDESONIDE 0.5 MG NEB RTBID POTASSIUM CHLORIDE 10 MEQ IV ASDIR PRN INSULIN LISPRO MEDIUM SS SUBQ Q4HR hydrALAZINE HCL 10 MG IV Q4H PRN ACETAMINOPHEN 650 MG FEED-TUBE Q4H PRN LABETALOL HCL 10 MG IV Q2H PRN propofoL 1000 MG IV ASDIR SENNA/DOCUSATE SODIUM 1 TAB FEED-TUBE BID AMPICILLIN/SULBACTAM with/in SODIUM CHLORIDE 100 mL BAG 3 GM IV Q6HR GLUCAGON 1 MG IM ASDIR PRN ONDANSETRON HCL/PF 4 MG IV Q4H PRN methylPREDNISolone SOD SUCC with/in WATER FOR INJECTION,STERILE 60 MG IV DAILY SOD BIPHOS/POT PHOSPHATE 1 PKT FEED-TUBE ASDIR (PRN) POTASSIUM CHLORIDE 20 MEQ IV ASDIR PRN SODIUM PHOSPHATE with/in SODIUM CHLORIDE 0.9% 20 MM IV ASDIR (PRN) DEXTROSE 50%-WATER 25 ML IV ASDIR PRN IPRATROPIUM/ALBUTEROL SULFATE 3 ML NEB RTQ4H FAMOTIDINE 20 MG FEED-TUBE BID FENTANYL CITRATE-0.9 % NACL/PF 2500 MCG IV ASDIR POTASSIUM BICARBONATE/CIT AC 20 MEQ FEED-TUBE ASDIR PRN AZITHROMYCIN with/in SODIUM CHLORIDE 0.9% 500 MG IV 1800 MUPIROCIN 1 APPLIC NASAL BID (DC'd) cefTRIAXone with/in WATER FOR INJECTION,STERILE 1000 MG IV 1800 SODIUM CHLORIDE 0.9% 1000 ML IV .Q10H MAGNESIUM SULFATE 2 GM IV ASDIR DEXTROSE 37.5 GM FEED-TUBE ASDIR PRN SODIUM PHOSPHATE with/in SODIUM CHLORIDE 0.9% 15 MM IV ASDIR (PRN) ENOXAPARIN SODIUM 40 MG SUBQ DAILY polyethylene glycoL 3350 1 PKT FEED-TUBE DAILY dexmedeTOMIDine in dextrose 5% 400 MCG IV ASDIR SODIUM PHOSPHATE with/in SODIUM CHLORIDE 0.9% 30 MM IV ASDIR (PRN) LAB RESULTS TROPI (04/11/24 01:48) TROPONIN-I 63.7 H GLU BED (04/11/24 02:09) GLUBED 158 H DRUGS OF ABUSE SCREEN URINE (04/11/24 02:30) OXYCODONE TNP UR PHENCYCLIDINE (PCP) Negative PROPOXYPHENE SCREEN Negative UR OPIATES QUAL Negative UR BENZODIAZEPINE POSITIVE METHADONE Negative UR AMPHETAMINE Negative UR BARBITURATE Negative UR COCAINE Negative UR CANABINOIDS Negative CBC W/AUTO DIFF (04/11/24 02:30) MEAN CELL HGB CONCENTRATION 31.7 L RED CELL DISTRIBUTION WIDTH 13.8 MEAN CELL VOLUME 94 MEAN CELL HGB 29.7 HEMOGLOBIN 10.8D L D L HEMATOCRIT 34.1L L WHITE BLOOD CELL 11.96 RED BLOOD CELL 3.64 L NEUTROPHIL # 10.37 H LYMPHOCYTE # 0.55 L BASOPHIL % 0.2 NUCLEATED RBC % 0 MONOCYTE % 8.2 EOSINOPHIL % 0 L IMMATURE GRANULOCYTE % 0.3 LYMPHOCYTE % 4.6 L NEUTROPHIL % 86.7 H BASOPHIL # 0.02 MEAN PLATELET VOLUME 10.2 EOSINOPHIL # 0 PLATELET COUNT 300D D MONOCYTE # 0.98 H UA RFLX MICR amp;CULT IF INDICATED (04/11/24 02:30) UA NITRITE DIPSTICK NEG UA UROBILINOGEN DIPSTICK NORMAL UA PH DIPSTICK 6 UA PROTEIN DIPSTICK 1+ A UA SPECIFIC GRAVITY 1.043 UA BLOOD DIPSTICK TRACE A UA BILIRUBIN DIPSTICK NEG UA KETONE DIPSTICK 2+ A UA APPEARANCE CLEAR UA GLUCOSE DIPSTICK NEG UA MUCUS RARE UA COLOR Light-Yellow UA SQUAMOUS CELLS RARE UA HYALINE CAST 5-10 H UA RBC 6-10 H UA BACTERIA NONE SEEN UA LEUKOCYTE ESTERASE DIPSTICK NEG UA WBC 0-5 BASIC METABOLIC PANEL (04/11/24 02:30) CALCIUM 10.8 H GLOMERULAR FILTRATION RATE >=60 max estimate CREATININE 0.88 GLUCOSE 180H H BLOOD UREA NITROGEN 19D D CHLORIDE 101 CARBON DIOXIDE 31 SODIUM 141 POTASSIUM 3.9 MAG (04/11/24 02:30) MAGNESIUM 2.5 PHOS (04/11/24 02:30) PHOSPHOROUS 1.9 L PaO2/FiO2 (04/11/24 03:24) PaO2/FiO2 261.7 BLOOD GAS W/ELECTROLYTES (04/11/24 03:24) ABG TIDAL VOLUME 22 ABG VENT RESP RATE 400 METHEMOGLOBIN <0.8 ARTERIAL FIO2 40 ABG VENT MODE PRVC BASE EXCESS 1.2 ABG O2 SATURATION 97.5 ARTERIAL BLOOD GAS PO2 104.7 H BICARBONATE TOTAL HCO3 27.1 H ARTERIAL BLOOD GAS PH 7.367 ARTERIAL BLOOD GAS PCO2 48.2 H OXYHEMOGLOBIN 96.9 CARBOXYHEMOGLOBIN 0.3 IONIZED CALCIUM 1.3 TOTAL HGB 12.3 SODIUM (POC) 137 L POTASSIUM (POC) 3.8 ABG SITE Right Radial ALLENS TEST Yes ABG PEEP 5 TROPI (04/11/24 08:23) TROPONIN-I 57 D H -- ATTESTATION -- Time Spent on Patient Care CRITICAL CARE TIME SPENT APART FROM ANY PROCEDURE 45 minutes Care Activities / Care Coordination I have reviewed the history and repeated the conde elements I have seen and examined this patient I have reviewed the progress in the clinical course since the last examination I have discussed the patient's condition with other members of the care team ADDITIONAL DETAIL: I personally provided critical care time as documented in order to assess and manage the high probability of eminent or life-threatening deterioration this includes patient management, time at bedside, time reviewing labs, test results, appropriate imaging, and documentation as well as coordinating care. at 1907 ATTENTION *EDITS and/or ADDENDA must be made in Patient Keeper for this note. * * Edits and ammendments created in [employer] are not visible * * in Patient Keeper or the legal medical record ([facility]). * [facility] #: [id number] END OF REPORT [facility] 2024-04-10 19:33:00 [facility] ([facility]) Intensive Care Consultation REPORT #: [id number] REPORT STATUS: Signed DATE: 04/10/24 TIME: 1932 PATIENT: MARIE PINEDA UNIT #: [id number] ROOM #: T.IC19 BED: A : 60 AGE: 63 SEX: F ATTEND: Brenna Ruelas MD ADM AUTHOR: Luis Swanson APRN ATTENTION *EDITS and/or ADDENDA must be made in Patient Keeper for this note. * * Edits and ammendments created in [employer] are not visible * * in Patient Keeper or the legal medical record ([facility]). * Note Date: 04/10/24 19:33 -- ASSESSMENT AND PLAN -- GENERAL ASSESSMENT: HPI: Marie Pineda is a 63 female with h/o COPD. Pt presented to the ED as a transfer from [facility] for respiratory. Most information obtained via chart review and ED staff as pt unable to participate 2/2 intubation. Pt presented to the OSH w/ SOB x 2-3 days. Found to have COPD exacerbation, RSV, suspected aspiration pneumonia. Placed on BiPAP transferred to [facility] for H[facility]. In route, pt became agitated was given 5mg Versed. Pt arrived to [place] ED on BiPAP, tachypneic, febrile, altered. Initial blood gas pH 7.2/82; Pt worsened over the next hour subsequently intubated for pH 7.1 AMS. Received Mag 2g, empiric azithro/ceftriaxone, 1L IVF, 125mg Solumedrol, DuoNeb. Admitted to ICU for vent mgmt close monitoring. Labs/imaging/notes reviewed. CT chest w/ contrast at OSH impression: No acute PE detected. Mod-severe COPD. Bronchial wall thickening in the lower lobes and right middle lobe which can be seen with bronchitis. Several bronchi with soft tissue density material filling and partly occluding, can be seen with some impaction related to mucus, infection, and/or aspiration. Several small nodular foci in the right middle lobe favor infectious or inflammatory process given the bronchial findings more proximal to this Assessment and Plan Neuro #acute metabolic encephalopathy - neuro checks per protocol Respiratory #acute hypercapnic respiratory failure #COPD exacerbation #aspiration pneumonia #RSV - COVID, flu negative - nebs, steroids - escalate ceftriaxone to Unasyn for aspiration - keep SpO2 > 92% CV #elevated troponin, suspect type II demand ischemia - keep MAP > 65, SBP <160 - trend trops Renal - monitor kidney function, strict I O - trend/correct lytes GI/Nutrition - NPO, NGT for meds - nutrition consult for TF recs Endo - monitor glucose - goal 100-180, SSI PRN Hematology - monitor H H -- transfuse Hb < 7 ID #aspiration pneumonia #RSV - empiric ABX as above - monitor WBC/fever curve - f/u blood/spu/urine cx, urine Ags ICU checklist: DVT/GI ppx: SCDs, SQL / H2B Access: PIVs Coleman: No CODE status: FULL CODE Advance care plan: [Recommend MPOA Plan of care discussed with bedside RN, patient ======== ROS: ESDRAS d/t mental status MedHx: COPD SurgHx: ESDRAS Family Hx: ESDRAS Social Hx: inmate Physical Exam: Gen: intubated, sedated, on vent, in bed, NAD Head: atraumatic, normocephalic ENT: EOMI, conjunctivae pink, sclera clear, neck w/o masses, trachea midline, MMM, oropharynx clear CV: RRR, s1/s2, peripheral pulses palpable Resp: bilateral chest rise, unlabored respirations, CTA bilaterally, no wheezes/rhonchi Abd: soft, non-tender, not distended, +BS Ext/MSK: no edema/cyanosis, cap refill < 3 secs, normal tone Skin: warm, dry, color consistent w/ ethnicity, no rashes Neuro: limited exam d/t sedation, Christiano, face appears symmetric, not following commands Psych: defer d/t sedation Attestation Time spent on patient care: - Critical care: time spent apart from any procedure 49 minutes Care activities / care coordination: - I have reviewed the history and repeated the conde elements - I have seen and examined this patient. - I have reviewed the progress in the clinical course since the last examination - I have discussed the patient's condition with other members of the care team Additional detail: I personally provided critical care time as documented in order to assess and manage the high probability of eminent or life-threatening deterioration this includes patient management, time at bedside, time reviewing labs, test results, appropriate imaging, and documentation as well as coordinating care. All labs, imaging studies, EKG(s), notes were independently reviewed by me and considered in medical decision making. The unofficial "read" of these studies, made by me, were used for acute medical decision making prior to the official read. -- HISTORY -- PAST MEDICAL HISTORY: As per note. PAST SURGICAL HISTORY: As per note -- EXAM -- VITALS (04/09 19:33 - 04/10 19:33): Blood pressure: 110/53 (110/53 - 113/76) Respiratory rate: 30 Pulse Rate: 136 (123 - 151) -- DATA -- MEDICATIONS methylPREDNISolone SOD SUCC with/in WATER FOR INJECTION,STERILE 60 MG IV Q8HR IPRATROPIUM/ALBUTEROL SULFATE 3 ML NEB RTQ4H AZITHROMYCIN with/in SODIUM CHLORIDE 0.9% 500 MG IV 1800 cefTRIAXone with/in WATER FOR INJECTION,STERILE 1000 MG IV 1800 SODIUM CHLORIDE 0.9% 1000 ML IV .Q10H propofoL 1000 MG IV X1ED methylPREDNISolone SOD SUCC with/in WATER FOR INJECTION,STERILE 125 MG IV X1ED FENTANYL CITRATE-0.9 % NACL/PF 2500 MCG IV X1ED LAB RESULTS CBC W/AUTO DIFF (04/10/24 18:14) HEMOGLOBIN 12.9 HEMATOCRIT 38.9 WHITE BLOOD CELL 19.22H H RED BLOOD CELL 4.27 NEUTROPHIL # 17.55 H LYMPHOCYTE # 0.39 L BASOPHIL % 0.2 NUCLEATED RBC % 0 MONOCYTE % 5.8 EOSINOPHIL % 0.4 L IMMATURE GRANULOCYTE % 0.3 LYMPHOCYTE % 2 L NEUTROPHIL % 91.3 H BASOPHIL # 0.04 MEAN PLATELET VOLUME 11.5 H EOSINOPHIL # 0.07 PLATELET COUNT 398 MONOCYTE # 1.11 H MEAN CELL HGB CONCENTRATION 33.2 RED CELL DISTRIBUTION WIDTH 14.3 MEAN CELL VOLUME 91 MEAN CELL HGB 30.2 PaO2/FiO2 (04/10/24 18:33) PaO2/FiO2 271.1 ARTERIAL BLOOD GAS (04/10/24 18:33) TOTAL HGB 14.3 CARBOXYHEMOGLOBIN 0.1 OXYHEMOGLOBIN 97.2 ARTERIAL BLOOD GAS PH 7.202 *L METHEMOGLOBIN <0.8 ARTERIAL BLOOD GAS PO2 122 H ARTERIAL BLOOD GAS PCO2 82.3 *H BASE EXCESS 1 BICARBONATE TOTAL HCO3 31.6 H ARTERIAL FIO2 45 ABG O2 SATURATION 97.8 ALLENS TEST Yes ABG VENT MODE BIPAP at 1501 at 1501 ATTENTION *EDITS and/or ADDENDA must be made in Patient Keeper for this note. * * Edits and ammendments created in [employer] are not visible * * in Patient Keeper or the legal medical record ([facility]). * [facility] #: [id number] END OF REPORT [facility] 2024-04-10 18:01:00 [facility] EMERGENCY PROVIDER REPORT REPORT#:[id number] REPORT STATUS: Signed DATE:04/10/24 TIME: 180 PATIENT: MARIE PINEDA UNIT #: [id number] ROOM: [facility] BED: : 60 AGE: 63 SEX: F PCP PHYS: No Primary or Family Physician SERVICE AUTHOR: Mali Meléndez MD, MD REP SRV REP SRV TM: 1801 * ALL edits or amendments must be made on the electronic/computer document * HPI-General Illness Free Text HPI Notes Free Text HPI Notes Patient is a 63-year-old female who is a transfer from [facility] for COPD exacerbation, respiratory failure. Patient was initially seen at their facility for shortness of breath over the last 2 to 3 days. Was found to be in respiratory distress, history of COPD, and placed on BiPAP. Transferred here, EMS reports they gave her Versed 5 mg IV en route because she was becoming agitated, she arrived somewhat sedated, still on BiPAP, tachypneic. Workup done prior to transfer: Labs: CMP within normal limits with exception of a sodium of 135, chloride 95, glucose 174 Troponin within normal limits BNP 126, upper limits of normal is 125 COVID-negative CBC white count 15.8, otherwise within normal limits D-dimer 523, upper limits of normal is 499 Negative flu, positive RSV ABG done at 1135 with 7.308/16.5/[address] of the chest with contrast performed: Impression: No acute pulmonary embolism is detected. Moderate to severe COPD. Bronchial wall thickening in the lower lobes and right middle lobe which can be seen with bronchitis. Several bronchi with soft tissue density material filling and partly occluding which can be seen with some impaction related to mucus, infection, and/or aspiration. Several small nodular foci in the right middle lobe favor infectious or inflammatory process given the bronchial findings more proximal to this. Chest x-ray impression no acute abnormalities detected Meds given prior to transfer: DuoNeb x 1, Zosyn 4.5 g IV General Initial Greet Date/Time 04/10/241758 Presentation Chief Complaint __ (transfer) Past Medical History - Adult Stated Complaint RESPIRATORY DISTRESS Allergies Coded Allergies: No Known Allergies (04/10/24) Additional Medical History COPD Physical Exam Vital Signs Vital Signs First Documented: Result Date Time FiO2 45 04/10 175 Pulse 151 04/10 175 Pulse Ox 96 / 1800 B/P 113/76 / 1800 O2 Delivery BiPAP 04/10 1800 Resp 30 04/10 1800 B/P Mean 76 / 1856 Last Documented: Result Date Time Pulse Ox 100 04/10 191 FiO2 100 04/10 191 O2 Delivery Ventilator 04/10 191 Pulse 136 / 1910 B/P 171/120 / 1907 B/P Mean 130 / 1907 Resp 30 / 1800 Review of Vital Signs Reviewed Interpretation Diagnostics Lab Results Interpretation Results Laboratory Tests 04/10/241813: [Embedded Image Not Available] Laboratory Tests: 04/10 183 Blood Gas ABG pH (7.35 - 7.45) 7.202 *L ABG pCO2 (35.0 - 45.0 mmHg) 82.3 *H ABG pO2 (75 - 100 mmHg) 122.0 H ABG PO2/FiO2 Ratio (>200) 271.10 ABG HCO3 (22.0 - 26.0 mmol/L) 31.6 H ABG O2 Saturation (95.0 - 100.0 %) 97.8 ABG Base Excess ((+/ - )2.0 mmol/L) 1.0 ABG Oxyhemoglobin (92.0 - 98.0 %) 97.2 ABG Carboxyhemoglobin (0 - 5.0 %) 0.1 Edmar Test Yes Methemoglobin (0 - 1.5 %) <0.8 Total Hemoglobin (12.0 - 18.0 g/dL) 14.3 Vent Mode BIPAP FiO2 (%) 45.0 Hematology WBC (5.0 - 12.0 K/mm3) 19.22 H RBC (4.20 - 5.40 M/mm3) 4.27 Hgb (12.0 - 16.0 G/DL) 12.9 Hct (34.9 - 44.5 %) 38.9 MCV (81 - 99 fL) 91 MCH (27 - 31 PGM) 30.2 MCHC (33 - 37 G/DL) 33.2 RDW (11.6 - 16.2 %) 14.3 Plt Count (130 - 400 K/mm3) 398 MPV (7.4 - 10.4 fl) 11.5 H Neut % (Auto) (43 - 65 %) 91.3 H Lymph % (Auto) (20.5 - 45.5 %) 2.0 L Dillingham % (Auto) (5.5 - 11.7 %) 5.8 Eos % (Auto) (0.9 - 2.9 %) 0.4 L Baso % (Auto) (0.2 - 1.0 %) 0.2 Neut # (Auto) (2.2 - 4.8 K/mm3) 17.55 H Lymph # (Auto) (1.3 - 2.9 K/mm3) 0.39 L Dillingham # (Auto) (0.3 - 0.8 K/mm3) 1.11 H Eos # (Auto) (0.0 - 0.2 K/MM3) 0.07 Baso # (Auto) (0.0 - 0.1 K/mm3) 0.04 Immature Gran % (0.0 - 2.0 %) 0.3 Nucleated RBC % (0 - 1.0 %) 0.0 Microbiology: Date/Time Procedure - Status Source Growth 04/10 1813 Blood Culture - RECD Blood 04/10 1813 Blood Culture - RECD Blood 04/10 1804 Blood Culture - CAN Blood Cancelled: ONE SET DUE TO BOTTLE SHORTAGE 04/10 1804 Blood Culture - CAN Blood Cancelled: ONE SET DUE TO BOTTLE SHORTAGE Recent Impressions: RADIOLOGY - XR CHEST 1 V 04/10 1819 Report Impression - Status: SIGNED Entered: 04/10/20241828 IMPRESSION: No evidence of acute cardiopulmonary disease. Impression By: [email or web address] Garry Choi MD RADIOLOGY - XR CHEST 1 V 04/10 1902 Report Impression - Status: SIGNED Entered: 04/10/20241908 IMPRESSION: No acute cardiopulmonary process. Impression By: YolandaMAAmina Chin MD ECG #1 Interpretation Text/Dict Note EKG performed at 1840 Sinus tach at 150, no ST elevation Procedures Intubation #1 Procedure Performed by ED physician Consent/Setup/Site Prep No consent - emergent Procedural Sedation/Analgesia Sedation: Etomidate Neuromuscular Agent Succinylcholine ET Confirmation Direct visualization, BS equal, End tidal CO2 device, CXR, Rising O2 sat Number of Attempts 1 Complications None Post-Procedure Tolerated procedure well Re-Evaluation MDM Free Text MDM Notes Free Text MDM Notes 0 repeat ABG shows worsening of her respiratory status, proceeding to intubate at this time. Patient is a 63-year-old female with a history of COPD arrived on BiPAP as a transfer. Intubated shortly after arrival. Positive fever, positive RSV/ pneumonia. Admitting to the ICU in critical condition. Additional Text 1929 ICU PRACTICE NURSE accepted admission Re-Evaluation/Progress #1 Text/Dict Note Tissue reperfusion exam performed at this time Time of Re-Eval 190 ED Course Medication(s) Ordered Medication(s) Ordered: Anti-Infective Agents Sig/Humphrey Start time Last Medication Dose Route Stop Time Status Admin Ceftriaxone Sodium 1,000 MG 1800 04/11 1800 AC Sterile Water 10 ML IV 04/14 235 Azithromycin 500 MG 1800 04/10 191 AC Sodium Chloride 250 ML IV 04/14 235 Ceftriaxone Sodium 1,000 MG X1ED STA 04/10 1800 DC 04/10 Sterile Water 10 ML IV 04/10 180 1834 Autonomic Drugs Sig/Humphrey Start time Last Medication Dose Route Stop Time Status Admin Albuterol/Ipratropium 3 ML RTQ4H 04/10 1909 AC NEB 04/11 1908 Succinylcholine 100 MG X1ED STA 04/10 1843 DC Chloride IV 04/10 1844 Albuterol/Ipratropium 3 ML X1ED STA 04/10 1800 DC NEB 04/10 1801 Central Nervous System Agents Sig/Humphrey Start time Last Medication Dose Route Stop Time Status Admin Fentanyl Citrate 250 ML X1ED STA 04/10 1912 CKD IV 04/21 0511 Acetaminophen 1,000 MG X1ED STA 04/10 1901 DC 02/04 IV 04/10 190 1913 Propofol 100 ML .STK-MED ONE 04/10 1844 DC IV Etomidate 20 MG X1ED STA 04/10 1843 DC / IV 04/10 184 1859 Propofol 100 ML X1ED STA 04/10 1843 CKD IV 04/14 2242 Acetaminophen 1,000 MG X1ED STA 04/10 1836 CAN PO 04/10 1837 Electrolytic, Caloric, And Ronny Sig/Humphrey Start time Last Medication Dose Route Stop Time Status Admin Sodium Chloride 1,000 ML .Q10H 04/10 1915 AC IV 04/11 1908 Sodium Chloride 1,000 ML X1ED STA 04/10 1805 DC / IV 04/10 180 1835 Hormones And Synthetic Substit Sig/Humphrey Start time Last Medication Dose Route Stop Time Status Admin Methylprednisolone 60 MG Q8HR 04/11 0600 AC Sodium Succinate IV 05/11 0601 Sterile Water 0.96 ML Methylprednisolone 125 MG X1ED STA 04/10 1800 AC /04 Sodium Succinate IV 04/10 195 1834 Sterile Water 2 ML Miscellaneous Therapeutic Agen Sig/Humphrey Start time Last Medication Dose Route Stop Time Status Admin Magnesium Sulfate 50 ML X1ED STA 04/10 1800 DC /04 IV 04/10 1859 1835 Patient Discharge Departure Vital Signs/Condition Vital Signs First Documented: Result Date Time FiO2 45 02 1755 Pulse 151 / 1755 Pulse Ox 96 02/ 1800 B/P 113/76 02/04 1800 O2 Delivery BiPAP 04/10 1800 Resp 30 04/10 1800 B/P Mean 76 04/10 1856 Last Documented: Result Date Time Pulse Ox 100 04/10 1910 FiO2 100 04/10 1910 O2 Delivery Ventilator 04/10 1910 Pulse 136 04/10 1910 B/P 171/120 04/10 1907 B/P Mean 130 04/10 1907 Resp 30 04/10 1800 All vital signs available at the time of this entry have been reviewed. Clinical Impression Clinical Impression Primary Impression: Respiratory failure Secondary Impressions: Pneumonia, RSV infection Disposition Decision Hospitalize Hosp Physician Name Brenna Ruelas MD Request Time 1855 Request Date 04/10/24 )( Accepts Hospitalization Yes )( Accepted Time 1855 )( Accepted Date 04/10/24 Critical Care Time Spent (minutes): 45 Services Performed Patient management by me, Time spent at bedside, Reviewing test results, Reviewing imaging, Discussing patient care, Documentation in record Separately billable procedures excluded from time. CC Note 1 Total critical care time [45] minutes. Total critical care time documented does not include time spent on separately billed procedures or the services of residents, students, nurses or physician assistants. I personally saw and examined the patient. I have reviewed all diagnostic interpretations and treatment plans as written. I was present for the conde portions of any procedures performed and the inclusive time noted in any critical care statement. Critical care time includes patient management by me, time spent at the patients bedside, time to review lab and imaging results, discussing patient care, documentation in the medical record, and time spent with the family or caregiver. at [address] [facility] [place] #:[phone] END OF REPORT [facility]AT[facility]
[2024-12-13] MEDS ORDERED: METHYLPREDNISOLONE 125 MG INJ ONE (17:34)
[2024-12-13] MEDS ORDERED: IPRATROPIUM BROM 0.5MG/2.5ML ONE (17:34)
[2024-12-13] MEDS ORDERED: LEVALBUTEROL 1.25 MG/3 ML NEB ONE (17:35)
[2024-12-13 17:39] LABS: Absolute Lymphocytes (CBC) 1.6 K/uL (0.7-4.9); Hematocrit 43.3 % (36.0-45.0); Hemoglobin 14.5 g/dL (12.0-15.0); MCH 29.5 pg (27.0-35.0); MCHC 33.4 g/dL (32.0-36.0); MCV 88.3 fL (80-100); MPV 7.9 fL (7.6-11.3); Nucleated RBC Absolute Count 0.0 (0-0); Nucleated Red Blood Cells % 0.1 % (0-0); RBC Red Blood Cell Count 4.91 M/uL (3.86-4.86); White Blood Count 8.20 thou/uL (4.3-10.9)
[2024-12-13 17:46] LABS: PT Prothrombin Time 11.2 SECONDS (10-13.0); Protime INR 0.99
[2024-12-13 18:00] LABS: Influenza A Ag Negative; Influenza B Ag Negative; SARS-CoV-2 Antigen Rapid Res Negative (Negative)
[2024-12-13 18:01] LABS: ALT/SGPT 21 U/L (13-56); AST/SGOT 15 U/L (15-37); Albumin 3.5 g/dL (3.4-5.0); Albumin/Globulin Ratio 0.9 (1.1-1.8); Alkaline Phosphatase 68 U/L (45-117); Anion Gap 7.0 mEq/L (5.0-15.0); BUN Blood Urea Nitrogen 10 mg/dL (7-18); Globulin 3.9 g/dL (2.3-3.5); Glucose Level 99 mg/dL (74-106); Magnesium 2.0 mg/dL (1.6-2.4); NT PRO-BNP 29 pg/mL (<125); Potassium 4.0 mEq/L (3.5-5.1); Troponin High Sensitivity 50.4 pg/mL (<58.9)
[2024-12-13 18:07] LABS: Bilirubin Indirect, Calculated 0.2 mg/dL (0.2-0.8)
--- NOTE | 2024-12-13 18:11 | RAD REPORT ---
EXAMINATION: ONE VIEW CHEST XR CLINICAL INDICATION: Female, 64 years old.,SOB TECHNIQUE: Frontal chest projection is submitted. Examination is limited by patient positioning and t echnique. COMPARISON: 09/19/2021 FINDINGS: The lungs are diffusely emphysematous but grossly clear. No pneumothorax or sizable effusion. The he art is normal in size. Mediastinal contours are unremarkable. Left posterior eighth rib deformity, suggesting healing or healed fracture. IMPRESSION: No acute intrathoracic abnormalities.
--- NOTE | 2024-12-13 20:24 | ER ---
Nurse's Notes [facility] Name: Omaira Pineda Age: 64 yrs Sex: Female : 1960 Arrival Date: 12/13/2024 Time: 17:02 Bed 8 Private MD: Diagnosis: COPD/ Chronic obstructive pulmonary disease with (acute) exacerbation;Dyspnea Presentation: 12/13 17:17 Chief complaint: Patient states: SHORTNESS OF BREATH WITH ANY WALKING AFTER RUNNING OUT dd2 OF INHALER 5 DAYS AGO. PT REPORTS HX COPD. Coronavirus screen: At this time, the client does not indicate any symptoms associated with coronavirus-19. Ebola Screen: No symptoms or risks identified at this time. Initial Sepsis Screen: Does the patient meet any 2 criteria? RR > 20 per min. HR > 90 bpm. Yes Does the patient have a suspected source of infection? No. Patient's initial sepsis screen is negative. Risk Assessment: Do you want to hurt yourself or someone else? Patient reports no desire to harm self or others. Onset of symptoms was December 08, 2024. 17:17 Method Of Arrival: Ambulatory dd2 17:17 Acuity: ARI 3 dd2 Triage Assessment: 17:19 General: Appears ill, Behavior is cooperative, appropriate for age, anxious. Pain: dd2 Denies pain. Respiratory: Reports shortness of breath on exertion labored breathing Airway is patent Respiratory effort is labored, pursed lip, Respiratory pattern is symmetrical, tachypnea Onset: The symptoms/episode began/occurred at an unknown time. the patient has moderate shortness of breath. Historical: - Allergies: 17:19 No Known Allergies; dd2 - PMHx: 17:19 Anxiety; Back pain; Chronic pain; COPD; Hypothyroidism; dd2 - PSHx: 17:19 None; dd2 - Immunization history:: Adult Immunizations up to date. - Infectious Disease History:: Denies. - Social history:: Smoking status: unknown. Screenin:30 [facility] ED Fall Risk Assessment (Adult) History of falling in the last 3 months, jp5 including since admission No falls in past 3 months (0 pts) Confusion or Disorientation No (0 pts) Intoxicated or Sedated No (0 pts) Impaired Gait No (0 pts) Mobility Assist Device Used No (0 pt) Altered Elimination No (0 pt) Score/Fall Risk Level 0 - 2 = Low Risk Oriented to surroundings, Maintained a safe environment, Educated pt \T\ family on fall prevention, incl call for assistance when getting out of bed, Assessed \T\ reinforced patient's understanding of fall precautions, Provided non-skid footwear, Hourly rounding (assess needs \T\ fall precautionary measures) done, Used ambulatory aids as needed (educated on \T\ assisted with), Used gait belt as appropriate. Abuse screen: Denies threats or abuse. Denies injuries from another. Nutritional screening: No deficits noted. Tuberculosis screening: No symptoms or risk factors identified. Assessment: 17:30 Cardiovascular: Rhythm is sinus tachycardia. Respiratory: Airway is patent Trachea jp5 midline Respiratory effort is even, labored, Respiratory pattern is regular, Breath sounds are diminished bilaterally. 19:00 Reassessment: Report received from FLAQUITO Reynoso. General: Appears in no apparent cc6 distress. comfortable, Behavior is calm, cooperative. Pain: Denies pain. Neuro: Level of Consciousness is awake, alert, Oriented to person, place, time, situation. Cardiovascular: Patient's skin is warm and dry. Rhythm is sinus rhythm. Respiratory: Airway is patent Respiratory effort is even, unlabored, Respiratory pattern is regular, symmetrical. GI: No signs and/or symptoms were reported involving the gastrointestinal system. : No signs and/or symptoms were reported regarding the genitourinary system. EENT: No signs and/or symptoms were reported regarding the EENT system. Derm: No signs and/or symptoms reported regarding the dermatologic system. Musculoskeletal: Range of motion: intact in all extremities. 20:52 Reassessment: Patient is alert, oriented x 3, equal unlabored respirations, skin mf3 warm/dry/pink. pt a/o x 4. o2 sat 96 on room air. pt understand prescriptions. lorenzo PA explained to pt discharge instructions Patient states feeling better. Patient states symptoms have improved. Neuro: Level of Consciousness is awake, alert, obeys commands, Oriented to person, place, time, situation. Respiratory: Airway is patent Trachea midline Respiratory effort is even, unlabored. Vital Signs: 17:17 BP 151 / 78; Pulse 108; Resp 26; Temp 98.4; Pulse Ox 94% on R/A; Weight 70 kg; Pain dd2 0/10; 18:00 BP 103 / 75; Pulse 100; Resp 20; Pulse Ox 97% ; jp5 19:00 BP 139 / 90; Pulse 98; Resp 18; Pulse Ox 98% ; cc6 20:45 BP 132 / 82; Pulse 86; Resp 18; Temp 98.2; Pulse Ox 96% on R/A; mf3 17:17 Pain Scale: Adult dd2 ED Course: 17:07 Patient arrived in ED. cj3 17:10 [facility] cp 17:10 Liam Gillette DO is Attending Physician. cp 17:19 Triage completed. dd2 17:19 Arm band placed on right wrist. dd2 17:30 Patient has correct armband on for positive identification. Placed in gown. Bed in low jp5 position. Call light in reach. Provided Education on: CALL LIGHT USE. 17:30 planned giving officer on. Pulse ox on. NIBP on. jp5 17:30 No provider procedures requiring assistance completed. Initial lab(s) drawn, by ca, jp5 sent to lab. Inserted saline lock: 20 gauge in right antecubital area, using aseptic technique. Blood collected. Flushed with 10 mL NS. 17:31 Augustus Lobato Jr, RN is Primary Nurse. nh2 17:31 Basic Metabolic Panel Sent. nh2 17:31 CBC with Diff Sent. nh2 17:31 LFT's Sent. nh2 17:31 NT PRO-BNP Sent. nh2 17:31 Magnesium Sent. nh2 17:31 PT-INR Sent. nh2 17:31 Troponin HS Sent. nh2 17:31 COVID-19 Ag + Flu A+B Ag Sent. nh2 17:39 XRAY Chest (1 view) In Process Unspecified. EDMS 18:05 EKG done, by ED staff, reviewed by David Rodriguez PA-C. rk3 18:44 D-Dimer Sent. jp5 20:56 IV discontinued, intact, bleeding controlled, No redness/swelling at site. Pressure mf3 dressing applied. Administered Medications: 17:37 Drug: MethylPrednisoLONE IVP 125 mg IVP once Route: IVP; Site: right antecubital; nh2 18:00 Follow up: Response: No adverse reaction jp5 17:37 Drug: Levalbuterol Inhalation 1.25 mg Inhalation once Route: Inhalation; nh2 18:00 Follow up: Response: No adverse reaction jp5 17:37 Drug: Ipratropium Inhalation Aerosol 0.5 mg Inhalation once Route: Inhalation; nh2 18:00 Follow up: Response: No adverse reaction jp5 Medication: 17:30 VIS not applicable for this client. jp5 Outcome: 20:23 Discharge ordered by . cp 20:56 Discharged to home via wheelchair, mf3 20:56 Condition: improved 20:56 Discharge instructions given to patient, family, Instructed on discharge instructions, follow up and referral plans. Demonstrated understanding of instructions, follow-up care, medications, Prescriptions given X 3, 20:57 Patient left the ED. mf3 Signatures: Dispatcher [employer] EDMS David Rodriguez PA-C PA-C cp Pena, Jailene RN RN jp5 Desire Julian RN RN artur6 MYRTLE HANSON RN RN dd2 Augustus Lobato Jr RN RN nh2 Son Carr rk3 Ana M Walker 3 Angela Cochran RN RN mf3 Corrections: (The following items were deleted from the chart) 18:11 18:00 BP 155 / 143; Pulse 100bpm; Resp 20bpm; Pulse Ox 97%; jp5 jp5 19:56 19:55 BP 139 / 90; Pulse 98bpm; Resp 18bpm; Pulse Ox 98%; cc6 cc6
--- NOTE | 2024-12-13 20:24 | EDPHYS ---
Physician Documentation [facility] Name: Omaira Pineda Age: 64 yrs Sex: Female : 1960 Arrival Date: 12/13/2024 Time: 17:02 Bed 8 Private MD: ED Physician Liam Gillette HPI: 12/13 17:25 This 64 yrs old Female presents to ER via Ambulatory with complaints of Shortness Of cp Breath. 17:25 The patient has shortness of breath at rest. cp 17:25 Onset: The symptoms/episode began/occurred gradually, 5 day(s) ago, ran out of cp prescribed inhaler. pmhx significant for COPD. Duration: The symptoms are continuous, and are steadily getting worse. 17:25 Associated signs and symptoms: Pertinent negatives: chest pain, productive cough, cp diaphoresis, dizziness, fever, vomiting. Severity of symptoms: in the emergency department the symptoms are unchanged despite EMS interventions. Historical: - Allergies: 17:19 No Known Allergies; dd2 - PMHx: 17:19 Anxiety; Back pain; Chronic pain; COPD; Hypothyroidism; dd2 - PSHx: 17:19 None; dd2 - Immunization history:: Adult Immunizations up to date. - Infectious Disease History:: Denies. - Social history:: Smoking status: unknown. ROS: 17:30 Constitutional: Negative for body aches, chills, fever, poor PO intake, cp 17:30 Eyes: Negative for injury, pain, redness, and discharge, cp 17:30 ENT: Negative for drainage from ear(s), ear pain, sore throat, difficulty swallowing, difficulty handling secretions, 17:30 Cardiovascular: Negative for chest pain, edema, palpitations, 17:30 Respiratory: Positive for cough, with no reported sputum, shortness of breath, at rest. wheezing, 17:30 Abdomen/GI: Negative for abdominal pain, vomiting, diarrhea, constipation, 17:30 Neuro: Negative for altered mental status, dizziness, headache, numbness, weakness, 17:30 All other systems are negative, Exam: 17:33 Constitutional: The patient appears in no acute distress, alert, awake, cp non-diaphoretic, non-toxic, well developed, well nourished, uncomfortable, 17:33 Head/Face: Normocephalic, atraumatic. cp 17:33 Eyes: Periorbital structures: appear normal, Conjunctiva: normal, no exudate, no injection, Sclera: no appreciated abnormality, Lids and lashes: appear normal, bilaterally, 17:33 ENT: External ear(s): are unremarkable, Ear canal(s): are normal, clear, TM's: dullness, bilaterally, Nose: is normal, Mouth: Lips: moist, Oral mucosa: moist, Posterior pharynx: Airway: no evidence of obstruction, patent, swelling, is not appreciated, erythema, is not appreciated, exudate, is not appreciated, 17:33 Neck: ROM/movement: is normal, is supple, without pain, no range of motions limitations, no meningismus, 17:33 Chest/axilla: Inspection: normal, 17:33 Cardiovascular: Rate: tachycardic, Rhythm: regular, Edema: is not appreciated, JVD: is not appreciated, 17:33 Respiratory: the patient does not display signs of respiratory distress, Respirations: labored breathing, that is mild, Breath sounds: decreased breath sounds, that are moderate, throughout, stridor, is not appreciated, wheezing: that is mild, is heard diffusely, 17:33 Abdomen/GI: Inspection: abdomen appears normal, Palpation: abdomen is soft and non-tender, in all quadrants, 17:33 Back: pain, is absent, ROM is normal, 17:33 Skin: no rash present. 17:33 Neuro: Orientation: to person, place \T\ time. Mentation: is normal, Motor: moves all fours, strength is normal, Sensation: no obvious gross deficits, 18:08 ECG was reviewed by the Attending Physician. cp Vital Signs: 17:17 BP 151 / 78; Pulse 108; Resp 26; Temp 98.4; Pulse Ox 94% on R/A; Weight 70 kg; Pain dd2 0/10; 18:00 BP 103 / 75; Pulse 100; Resp 20; Pulse Ox 97% ; jp5 19:00 BP 139 / 90; Pulse 98; Resp 18; Pulse Ox 98% ; cc6 20:45 BP 132 / 82; Pulse 86; Resp 18; Temp 98.2; Pulse Ox 96% on R/A; mf3 17:17 Pain Scale: Adult dd2 MDM: 17:10 Medical Screening Exam initiated cp 20:23 Data reviewed: vital signs, nurses notes, lab test result(s), EKG, radiologic studies, cp plain films, and as a result, I will discharge patient. 20:23 Antibiotic administration: Not indicated, the patient does not have an appreciated cp infiltrate. Consideration of Admission/Observation Escalation of care including admission/observation considered. I considered the following discharge prescriptions or medication management in the emergency department Medications were administered in the Emergency Department. See MAR. Independent interpretation of the following test(s) in the Emergency Department EKG: See my EKG interpretation above X-Ray: My interpretation is chest xray negative for infiltrates. Care significantly affected by the following chronic conditions: Chronic Obstructive Pulmonary Disease. Counseling: I had a detailed discussion with the patient and/or guardian regarding the historical points, exam findings, and any diagnostic results supporting the discharge/admit diagnosis, lab results, radiology results, to return to the emergency department if symptoms worsen or persist or if there are any questions or concerns that arise at home. Response to treatment: the patient's symptoms have mildly improved after treatment. ED course: VSS. Patient would like to try outpatient treatment with oral steroids and understands she can return at any time for reevaluation. 12/13 17:18 Order name: Basic Metabolic Panel; Complete Time: 18:29 cp 12/13 19:15 Interpretation: Normal except. cp 12/13 17:18 Order name: CBC with Diff; Complete Time: 18:29 cp 12/13 19:14 Interpretation: Normal except: RBC 4.91. cp 12/13 17:18 Order name: LFT's; Complete Time: 18:29 cp 12/13 19:14 Interpretation: Normal except: GLOB 3.9; A/G 0.9. cp 12/13 17:18 Order name: Magnesium; Complete Time: 18:29 cp 12/13 17:18 Order name: NT PRO-BNP; Complete Time: 18:29 cp 12/13 17:18 Order name: PT-INR; Complete Time: 18:29 cp 12/13 17:18 Order name: Troponin HS; Complete Time: 18:29 cp 12/13 17:18 Order name: COVID-19 Ag + Flu A+B Ag; Complete Time: 18:29 cp 12/13 18:30 Order name: D-Dimer; Complete Time: 19:14 cp 12/13 19:14 Interpretation: Reviewed. cp 12/13 19:35 Order name: Troponin High Sensitivity; Complete Time: 20:17 cp 12/13 20:22 Interpretation: Reviewed. cp 12/13 17:18 Order name: XRAY Chest (1 view); Complete Time: 18:29 cp 12/13 19:15 Interpretation: Report review. cp 12/13 17:18 Order name: Cardiac monitoring; Complete Time: 17:22 cp 12/13 17:18 Order name: EKG - Nurse/Tech; Complete Time: 17:59 cp 12/13 17:18 Order name: IV Saline Lock; Complete Time: 17:31 cp 12/13 17:18 Order name: Labs collected and sent; Complete Time: 17:31 cp 12/13 17:18 Order name: O2 Per Protocol; Complete Time: 17:21 cp 12/13 17:18 Order name: O2 Sat Monitoring; Complete Time: 17:21 cp EC:08 Rate is 95 beats/min. Rhythm is regular. TN interval is normal. QRS interval is normal. cp QT interval is normal. T waves are Inverted in leads aVL, aVR. Interpreted by me. Reviewed by me. Administered Medications: 17:37 Drug: MethylPrednisoLONE IVP 125 mg IVP once Route: IVP; Site: right antecubital; nh2 18:00 Follow up: Response: No adverse reaction jp5 17:37 Drug: Levalbuterol Inhalation 1.25 mg Inhalation once Route: Inhalation; nh2 18:00 Follow up: Response: No adverse reaction jp5 17:37 Drug: Ipratropium Inhalation Aerosol 0.5 mg Inhalation once Route: Inhalation; nh2 18:00 Follow up: Response: No adverse reaction jp5 Disposition: 20:08 I was immediately available on-site in the Emergency Department for consultation in the ms3 care of the patient. Disposition Summary: 12/13/24 20:23 Discharge Ordered Notes: Location: Home cp Problem: an acute exacerbation cp Symptoms: have improved cp Condition: Stable cp Diagnosis - COPD/ Chronic obstructive pulmonary disease with (acute) exacerbation cp - Dyspnea cp Followup: cp - With: Private Physician - When: 2 - 3 days - Reason: Recheck today's complaints Discharge Instructions: - Discharge Summary Sheet cp - Chronic Obstructive Pulmonary Disease cp - Shortness of Breath, Adult cp Forms: - Medication Reconciliation Form cp - Antibiotic Education cp - Prescription Opioid Use cp - Patient Portal Instructions cp - Leadership Thank You Letter cp Prescriptions: - albuterol sulfate 90 mcg/actuation Inhalation HFA Aerosol Inhaler - inhale 1 puff INHALATION route every 4 to 6 hours as needed for shortness of cp breath or wheezing; 1 unit; Refills: 0, Product Selection Permitted - ipratropium-albuterol 0.5 mg-3 mg(2.5 mg base)/3 mL Inhalation Solution for Nebulization - nebulize 3 milliliter INHALATION route every 6 to 8 hours as needed for cp wheezing; 1 unit; Refills: 0, Product Selection Permitted - Prednisone 20 mg Oral tablet - take 3 tablet ORAL route once daily for 5 days; 15 tablet; Refills: 0, Product cp Selection Permitted Signatures: Dispatcher [employer] EDMS David Rodriguez PA-C PA-C cp Leta, Liam, DO ms3 MYRTLE HANSON RN RN dd2 Augustus Lobato Jr, RN RN nh2 Angela Cochran RN RN mf3 Angeles Duenas RN jp5 Corrections: (The following items were deleted from the chart) 17:18 17:18 BASIC METABOLIC PANEL+C.LAB.BRZ ordered. EDMS EDMS 17:18 17:18 CBC+H.LAB.BRZ ordered. EDMS EDMS 17:18 17:18 HEPATIC FUNCTION+C.LAB.BRZ ordered. EDMS EDMS 17:18 17:18 MAGNESIUM+C.LAB.BRZ ordered. EDMS EDMS 17:18 17:18 PROBNP+C.LAB.BRZ ordered. EDMS EDMS 17:18 17:18 PROTIME (+INR)+COAG.LAB.BRZ ordered. EDMS EDMS 17:18 17:18 Troponin High Sensitivity+C.LAB.BRZ ordered. EDMS EDMS 17:18 17:18 Chest Single View+RAD.RAD.BRZ ordered. EDMS EDMS 17:19 17:19 COVID-19 Ag + Flu A+B Ag+I.LAB.BRZ ordered. EDMS EDMS
[2024-12-13 21:08] VITALS: BP 132/82; TEMP 98.2; O2SAT 96
== END 2024-12-13 20:57 | disposition home or self-care (01) ==
LOC: ER 17:02
DX: J44.1 Chronic obstructive pulmonary disease with (acute) exacerbation (principal); Z11.52 Encounter for screening for COVID-19
CPT/HCPCS: 93005; 85025; 80048; 36415; 83735; 85610; 85379; 80076; 84484 ×2; 83880; 71045; 96374; 99285; 87428; J7614; J7644; J2919